=== PATIENT | female | born 1945 | race Caucasian/White ===

== ENCOUNTER → 2018-06-12 09:43 | Outpatient (BNVA) | payer MEDICARE, SELFPAY | PROVIDERS: PCP Internal Medicine; Referring Provider Internal Medicine; Visit Provider Orthopaedic Surgery | DX: M70.62 Trochanteric bursitis, left hip (principal); Z96.643 Presence of artificial hip joint, bilateral | CPT/HCPCS: 99214 ==

== ENCOUNTER 2018-06-12 16:46 | Outpatient (CLI) | payer MEDICARE, SELFPAY ==
--- NOTE | 2018-06-12 09:59 | DI.RAD_ITS ---
SYMPTOMS/DIAGNOSIS: PAIN LEFT HIP AND PELVIS: Two views. Comparison is 04/26/14. Note is made of bilateral total hip replacements. The distal aspects of both femoral prosthetic components are not included on the examination. No lucencies are seen about the orthopedic hardware to suggest loosening or infection. The bones appear intact.
== END 2018-06-12 17:06 ==
PROVIDERS: PCP Internal Medicine; Visit Provider Orthopaedic Surgery
DX: M25.552 Pain in left hip (principal); Z96.643 Presence of artificial hip joint, bilateral; M70.62 Trochanteric bursitis, left hip
CPT/HCPCS: 99214; 73502

== ENCOUNTER 2018-07-23 15:04 | Inpatient (IN) | payer MEDICARE, SELFPAY ==
[2018-07-23 15:18] VITALS: BP 122/64; PULSE 88; RESP 16; TEMP 36.3; O2SAT 97
--- NOTE | 2018-07-23 15:28 | DI.RAD_ITS ---
SYMPTOM/DIAGNOSIS: INFECTION LEFT HIP AND PELVIS: Two views were obtained. There are bilateral hip replacements in position. The components appear well seated. No evidence of acute fracture and no other significant bony abnormality is seen.
--- NOTE | 2018-07-23 15:33 | ED.GENADUL_ITS ---
Discharge Plan Discharge Details Chief Complaint: Orthopedic Reason For Visit: L HIP INFECTION Admit Date/Time: 07/23/18 20:16 Admit Provider: Bandar Corona Attending Provider: Bandar Corona Primary Care Provider: Chano Leon ED Provider: Adri Gandara Discharge Data Discharge Date/Time-TO BE ENTERED AT DEPARTURE: 07/23/18 20:16 Medical Decision Making Patient 73-year-old female presenting today with chief complaint of left hip pain. Was seen by her primary care who was concerned for possible infected left hip. Patient is a 3 years status post BOLA. 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 Her , who is her primary caregiver, reports that she was undergoing a scan at [facility] for evaluation of possible metastasis to lungs. Report at that time they noted incidental finding of excessive fluid buildup in the left hip joint. Patient was then later evaluated by Dr. Bowman who obtain plain films. At that point, he did not feel that the hip was acutely infected, was unable to see a difference in the current x-ray compared to original. reports that over the past few weeks he is noted increased swelling. Is noted erythema recently. Was evaluated by the primary care who found a fluctuant pocket and was able to collect a sample of pus extracted from the left hip. She denies any fevers or chills. She and her report that she has had weight loss, approximately 8 pounds over the past 6 months unintentionally. Reports diminished appetite. Is having pain over the left hip, particularly with mobility. Does not report she was recently begun on tamoxifen. On exam, the left hip is noted to be indurated, erythematous and there is a central fluctuant area with a Band-Aid over it presumably to be where the fluid was collected from. Patient appears fatigued. She is afebrile. Vital signs within normal limits. Will obtain laboratory evaluation including blood cultures. We will repeat x-ray of the left hip. Plan to consult with orthopedics Spoke with Dr. Corona and Dr. Bowman. Dr. Bowman will come to evaluate the patient Labs significant for WBC of >17, neutorphil 15.7. Platelet count 918, this is up from 273. Lactate is 1.9. CRP 19.14. ESR still pending. Consulted with Dr. Saavedra, patient's oncologist regarding the patient's thermal cytosis. He advised that this may be associated with infection may come down with treatment. Also advised the patient has had low iron historically which also may be driving the elevated platelets. Patient has required iron transfusions historically. He did advise running iron panel. Also advised that this is not begin to down trend hematology consult would be appropriate. Also discussed with him that given the patient's history, she is at high risk for clot and advised anticoagulation while in the hospital X-ray patient's left hip was reviewed by radiologist. They note the patient is status post bilateral total hip arthroplasty without evidence of loosening or fracture. Patient was evaluated by Dr. Corona and Dr. Bowman. At this point, as the patient is not having severe pain in the hip, is able to have the leg manipulated with only minimal discomfort, they feel that this is likely superficial. Patient does have a large area of fluctuance and erythema over the left lateral incision. They feel that hospitalization for IV antibiotics, incision and drainage is appropriate. Advised placing the patient on vancomycin and Zosyn. Plan to take patient to operating room tomorrow for washout. There was debate about removal of hardware. However, the patient's primary care advised that they would prefer debridement/drainage and chronic supportive antibiotics rather than removal of hardware secondary to patient's decline and metastatic endometrial cancer. I did relay this information to the orthopedic surgeons. Given the patient's multiple medical comorbidities, they have asked that I consult with hospitalist for admission with them as consulting group Consulted with Dr. Anderson who feels that hospitalist service should be consulting with orthpedic group admiting, will contact orthopedics again. Consulted again with Dr. Corona who agrees to admission, he will place admission orders and ask for hospitalist consult HPI General Mode of arrival: ambulatory . Date/Time Provider Initiated Documentation: 07/23/18 15:16 . Limitations to Documentation: no limitations . Information obtained by: patient and family . History of Present Illness 73 year old F presents to the emergency department with the chief complaint of left hip pain, described as moderate (reports no pain at rest, moderate pain with movement and palpation over the left lateral hip), Quality is described as aching, and is localized to the left and lower extremity. Patient reports no radiation. Patient started experiencing this week(s) (1) and it has been other (increasing). Immobilization improves symptom(s), Movement worsens symptoms . Patient notes rash (erythema over the left lateral hip) and shortness of breath (reports chronic SOB associated with metastesis); denies chest pain, cough, fever/chills, headaches and nausea/vomiting. Patient did receive the following treatments prior to arrival, none Related Data Home Medications Medication Instructions Recorded Confirmed aspirin [Aspir 81] 81 mg PO DAILY 07/22/13 07/23/18 furosemide 20 mg PO DAILY 07/22/13 07/23/18 melatonin-pyridoxine (vit B6) 3 mg PO HS 07/22/13 07/23/18 multivitamin 1 cap PO DAILY 07/22/13 07/23/18 nifedipine 90 mg PO HS 07/22/13 07/23/18 sitagliptin [Januvia] 100 mg PO DAILY 07/22/13 07/23/18 duloxetine [Cymbalta] 60 mg PO DAILY 04/19/14 07/23/18 levothyroxine 150 mcg PO DAILY 04/19/14 07/23/18 donepezil [Aricept] 5 mg PO DAILY tab-cap 05/12/15 07/23/18 acetaminophen [Tylenol Extra 1,000 mg PO BID 06/12/17 07/23/18 Strength] diphenhydramine HCl [Allergy] 25 mg PO DAILY 06/12/17 07/23/18 insulin detemir U-100 [Levemir 42 DAILY 06/12/17 Flextouch] magnesium oxide 400 mg PO DAILY 06/12/17 07/23/18 memantine [Namenda] 10 mg PO BID 06/12/17 07/23/18 sennosides-docusate sodium 1 ea PO BID 06/12/17 07/23/18 [Senna-Docusate Sodium Tablet] atorvastatin 40 mg tablet 40 mg PO DAILY 06/12/18 07/23/18 nifedipine 90 mg PO DAILY 07/23/18 07/23/18 sitagliptin [Januvia] 100 mg PO DAILY 07/23/18 07/23/18 tamoxifen 40 mg PO DAILY 07/23/18 07/23/18 Allergies Allergy/AdvReac Type Severity Reaction Status Date / Time metformin Allergy Unknown Verified 07/23/18 15:21 sulfamethoxazole Allergy Unknown Verified 07/23/18 15:21 [From Bactrim] trimethoprim [From Bactrim] Allergy Unknown Verified 07/23/18 15:21 General Stated Complaint: Orthopedic ALEKS: 3 Review of Systems Constitutional Reports as per HPI, Denies chills, Reports fatigue ( reports this has been chronic), Denies fever(s), Denies headache(s), Reports poor appetite, Reports weakness and Reports weight loss Eyes Denies change in vision ENT Denies headache(s) Cardiovascular Denies chest pain, Denies pedal edema, Denies leg edema and Reports dyspnea ( Chronic, associated with metastasis to the lung) Respiratory Reports as per HPI, Denies chest congestion, Denies cough and Reports dyspnea ( Chronic, associated with metastasis to the lung) Gastrointestinal Reports as per HPI, Denies abdominal pain, Denies change in stool character, Denies nausea and Denies vomiting Musculoskeletal Reports as per HPI, Denies abnormal gait, Reports joint swelling (Left hip), Denies limited range of motion, Denies muscle cramps, Denies numbness and Denies radiating pain into limb Integumentary/Breasts Reports as per HPI and Reports erythema (Erythema and fluctuance over the left hip) Neurologic Denies abnormal gait, Denies headache(s), Denies numbness and Reports weakness Endocrine Reports fatigue ( reports this has been chronic) PFSH Medical History Iron deficiency anemia (Chronic) Osteoarthritis of both hips (Chronic) 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, insulin dependent (Chronic) Hypertension (Chronic) Depression (Chronic) Hypercholesterolemia (Chronic) Asthma (Chronic) Osteopenia (Chronic) Mitral regurgitation (Chronic) Right groin pain (Acute) History of osteosarcoma (Chronic) History of myocardial infarction (Chronic) Elevated lipids (Chronic) GI bleed (Resolved) Social History Smoking/Tobacco Use Status: Never Surgical History History of Surgical Procedure (Chronic) Exam Const General: cooperative, comfortable, no acute distress, well developed, well groomed and ill appearing chronically Nutritional Appearance: average body habitus and well nourished Orientation: alert and awake Eyes Conjunctivae: conjunctival abnormality bilaterally pallor Resp Effort & Inspection: normal respiratory effort, able to speak in complete sentences and no respiratory distress Auscultation: clear to auscultation bilaterally Cardio Rate: regular rate Rhythm: regular rhythm Heart Sounds: murmur systolic GI Inspection: normal to inspection Palpation: soft, no hepatosplenomegaly, not firm, no guarding and nontender Auscultation: normal bowel sounds Skin General skin exam: erythema and induration (surrounding the central area of fluctuance, the skin is indurated) Neuro General: alert and awake Cognition: normal cognition Speech: speech normal Gait: normal gait Extrem General: abnormal to inspection (erythema and fluctuance as above), full ROM, no pedal edema and no calf tenderness Psych Appearance: grossly normal and well kempt Mental Status: mental status grossly normal Speech and Movement: speech and movement normal Course Vital Signs Temperature 36.3 C L 07/23/18 15:18 Pulse 88 07/23/18 15:18 Respiratory Rate 16 07/23/18 15:18 Blood Pressure 122/64 07/23/18 15:18 Pulse Oximetry 97 07/23/18 15:18 Temperature 36.3 C L 07/23/18 15:18 Temperature Source Skin 07/23/18 15:18 Pulse 88 07/23/18 15:18 Respiratory Rate 16 07/23/18 15:18 Blood Pressure 122/64 07/23/18 15:18 Pulse Oximetry 97 07/23/18 15:18 Oxygen Delivery Method Room Air 07/23/18 15:18 Oxygen Flow Rate 0 07/23/18 15:18 Lab/Test Results Lab/Test Results: 07/23/18 15:26 Blood Blood Culture - Pending 07/23/18 15:26 Blood Blood Culture - Pending
[2018-07-23 15:45] LABS: Abs Immature Grans 0.06 k/cumm (0.0-0.09); Absolute Basophil Count 0.02 k/cumm (0.0-0.2); Absolute Eosinophil Count 0.12 k/cumm (0.0-0.7); Basophils % 0.1; Eosinophils % 0.7; HCT 29.9 % (36.0-46.0); HGB 8.4 g/dL (12.0-15.5); Mean Corp. HGB Concentration 28.1 g/dL (32.0-36.0); Mean Corpuscular Hemoglobin 20.3 pg (27.0-33.0); Mean Corpuscular Volume 72.2 fL (80-95); Mean Platelet Volume 8.5 fL (8.0-11.0); RBC 4.14 m/cumm (4.00-5.20); RBC Distribution Width 22.2 % (11.7-14.6); White Blood Cell Count 17.16 k/cumm (4.4-10.8)
[2018-07-23 15:47] LABS: Lactate-non-spesis 1.9 mmol/L (0.6-1.4)
[2018-07-23 16:00] LABS: Platelet Count 918 x1000/uL (130-400)
[2018-07-23] MEDS: Normal Saline 1,000 ML 1000 ML IV (16:00)
[2018-07-23 16:04] LABS: ALT 16 U/L (12-78); AST 17 U/L (15-37); Albumin 1.7 g/dL (3.4-5.0); Alkaline Phosphatase 193 U/L (46-116); Anion Gap 8.6 mmol/L (3-11); BUN 26 mg/dL (7-18); Bilirubin, Total 0.3 mg/dL (0.2-1.0); CO2 26.4 mmol/L (21.0-32.0); CREATININE 1.05 mg/dL (0.55-1.02); Calcium 9.8 mg/dL (8.5-10.1); Chloride 100 mmol/L (98-107); Estimated GFR 51.09 (mL/min/1.73m2); Glucose 243 mg/dL (70-100); Magnesium 2.1 mg/dL (1.8-2.4); Potassium 5.1 mmol/L (3.5-5.1); Sodium 135 mmol/L (136-145); Total Protein 6.2 g/dL (6.4-8.2); Troponin I < 0.02 ng/mL (0.00-0.06)
[2018-07-23 16:15] LABS: Absolute Lymphocyte Count 0.69 k/cumm (1.2-3.4); Absolute Monocyte Count 0.51 k/cumm (0.11-0.7); Absolute Neutrophil Count 15.79 k/cumm (1.2-6.7)
[2018-07-23 16:16] LABS: Anisocytosis 1+; Diff Comment Manual Differential; Hypochromasia 2+; Microcytosis 1+
[2018-07-23 16:17] LABS: C-Reactive Protein 19.14 mg/dL (0.0-0.3); Ovalocytes 2+; Polychromasia Present; Spherocytes 1+
[2018-07-23 16:18] LABS: Poikilocytes 2+
[2018-07-23 16:28] LABS: Bilirubin Negative (Negative); Blood Negative (Negative); Clarity Clear; Glucose Negative (Negative); Ketones Trace mg/dL (Negative); Leukocyte Esterase Trace (Negative); Nitrite Negative (Negative); Urobilinogen 0.2 EU/dL (Up TO 0.2); pH 5.5 (5-8)
[2018-07-23 16:43] LABS: Bacteria Negative HPF (Negative); Crystals Moderate Amorphous HPF (Negative); Epithelial Cells Few HPF (Negative); WBC 20-50 HPF (0-5)
[2018-07-23 16:44] LABS: C & S Indicated? Yes; Casts 20-50 Hyaline LPF (Negative); Mucus Negative (Negative)
--- NOTE | 2018-07-23 17:24 | DI.VRAD_ITS ---
EXAM: XR Left Hip with Pelvis when Performed, 2 or 3 Views EXAM DATE/TIME: 07/23/2018 3:30 PM CLINICAL HISTORY: 73 years old, female; Pain; Hip pain; Left hip; Prior surgery TECHNIQUE: XR Left hip with pelvis when performed, 2 or 3 views COMPARISON: CR XR hip LT complete AP pelvis 06/12/2018 10:17 AM FINDINGS: Bones/joints: Diffuse osteopenia. Status post bilateral total arthroplasty. Degenerative changes of the spine and bilateral sacroiliac joints. No hardware loosening or fracture. Soft tissues: Normal. IMPRESSION: Status post bilateral total hip arthroplasty without evidence for loosening or fracture. Dictated and Authenticated by: Vincent Deras MD. Ordering:NIKITA LEON MD
[2018-07-23 17:29] LABS: ESR 55 MM/HR (0-30)
[2018-07-23 17:47] LABS: Iron 9 ug/dL (50-175); Total Iron Binding Capacity 102 ug/dL (250-450); Transferrin Sat 9 % (15-50)
[2018-07-23] MEDS: PIPERACILLIN/TAZO 3.375 GM in Normal Saline 50 ML IVPB (17:52)
[2018-07-23 18:08] LABS: Ferritin 541 ng/mL (8-388)
[2018-07-23] MEDS: VANCOMYCIN 1,000 MG in Normal Saline 250 ML 166.6666 MG IVPB (18:30)
--- NOTE | 2018-07-23 18:44 | W.ORTHOCONSU ---
Date of service: 07/23/18 Time of Service: 16:45 History of Present Illness Chief Complaint: Left Hip Pain Narrative: Dina is a 73-year-old who has multiple medical problems. She is currently dealing with metastatic endometrial cancer. She underwent a hip replacement about 3 or so years ago on the left side. This is been doing well until about a month and a half or so ago. She started developing some increasing discomfort. The pain was quite vague. She is still able to ambulate. She is ambulating without an assistive device. The initial surgery was done by Dr. Bowman. He saw her in May and at that time was going to follow it. Unfortunately, this pain has increased. She has also been having general decline to her health. She denies any specific fever or chills but she has been feeling unwell. She does note increasing fullness to the proximal left thigh. She saw Dr. Leon today who evaluated her with concern for an abscess/infection. He aspirated thickened pus from the proximal thigh which has been sent to the lab. She is able to ambulate but does so with some lateral thigh/hip pain. She denies any trauma. She denies any groin pain. She has no numbness or tingling. Assessment and Plan (1) Abscess of left hip: Current visit: Yes Status: Acute Dina is a 73-year-old with multiple medical issues including metastatic endometrial carcinoma, insulin dependent diabetes, hypertension. She also has some worsening dementia. Unfortunately, she appears to have a superficial infection of the left thigh/hip. This is large fluctuance in this area and Dr. Christianson already is able to withdraw purulent fluid in this area which is currently in the lab for processing. Her examination is quite benign and does not seem to indicate an infected hip. However, her labs are remarkable for significant inflammation. Due to the metal multiple medical issues, active cancer diagnosis, history of heart disease, and lab abnormalities, I have asked for hospitalist consult. I appreciate their input. As for the abscess, we will proceed to the operating room tomorrow. She will be n.p.o. after midnight. We will start antibiotics given we are to have initial cultures. 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 There is warm, erythema, and fluctuance to the left proximal hip. There is pain to palpation. The leg is not held in any particular flex or externally rotated position. I am able to passively flex the hip, internally and externally rotate the hip. This causes only minor discomfort laterally. No groin pain. She allows me to move it without significant injection. She endorses full sensation distally with some decrease sensation at the level of the feet. The foot is warm well perfused. No masses are palpated in the groin. Results Last Vital Signs Temp 36.3 C L 07/23/18 15:18 Pulse 88 07/23/18 15:18 Resp 16 07/23/18 15:18 BP 122/64 07/23/18 15:18 Pulse Ox 97 07/23/18 15:18 Labs : 07/23/18 15:35 07/23/18 15:35 Laboratory Results - last 24 hr 07/23/18 07/23/18 07/23/18 15:30 15:30 15:35 WBC RBC Hgb Hct MCV MCH MCHC RDW Plt Count MPV Immature Gran % Neutrophils % Lymphocytes % Monocytes % Eosinophils % Basophils % Absolute Neutrophils Band Neutrophils Absolute Lymphocytes Absolute Monocytes Absolute Eosinophils Absolute Basophils Myelocytes Differential Comment RBC Morphology Polychromasia Hypochromasia Poikilocytosis Anisocytosis Microcytosis Spherocytes Ovalocytes ESR Sodium Potassium Chloride Carbon Dioxide Anion Gap BUN Creatinine Estimated GFR/1.73 m2 Glucose Lactate 1.9 H Calcium Magnesium Iron 9 L TIBC 102 L Transferrin % Sat 9 L Ferritin 541 H Total Bilirubin AST ALT Alkaline Phosphatase Troponin I C-Reactive Protein Total Protein Albumin Urine Color Urine Clarity Urine pH Ur Specific [place] Urine Protein Urine Ketones Urine Blood Urine Nitrite Urine Bilirubin Urine Urobilinogen Ur Leukocyte Esterase Urine RBC Urine WBC Ur Epithelial Cells Urine Crystals Urine Bacteria Urine Casts Urine Mucus Ur Culture Indicated? Urine Glucose 07/23/18 07/23/18 07/23/18 15:35 15:35 15:35 WBC 17.16 H RBC 4.14 Hgb 8.4 L Hct 29.9 L MCV 72.2 L MCH 20.3 L MCHC 28.1 L RDW 22.2 H Plt Count 918 H* MPV 8.5 Immature Gran % See Differential Neutrophils % 90.0 Lymphocytes % 4.0 Monocytes % 3.0 Eosinophils % 0.7 Basophils % 0.1 Absolute Neutrophils 15.79 H Band Neutrophils 2.0 Absolute Lymphocytes 0.69 L Absolute Monocytes 0.51 Absolute Eosinophils 0.12 Absolute Basophils 0.02 Myelocytes 1.0 Differential Comment Manual differential RBC Morphology See below Polychromasia Present Hypochromasia 2+ Poikilocytosis 2+ Anisocytosis 1+ Microcytosis 1+ Spherocytes 1+ Ovalocytes 2+ ESR Sodium 135 L Potassium 5.1 Chloride 100 Carbon Dioxide 26.4 Anion Gap 8.6 BUN 26 H Creatinine 1.05 H Estimated GFR/1.73 m2 51.09 Glucose 243 H Lactate Calcium 9.8 Magnesium 2.1 Iron TIBC Transferrin % Sat Ferritin Total Bilirubin 0.3 AST 17 ALT 16 Alkaline Phosphatase 193 H Troponin I < 0.02 C-Reactive Protein 19.14 H Total Protein 6.2 L Albumin 1.7 L Urine Color Urine Clarity Urine pH Ur Specific [place] Urine Protein Urine Ketones Urine Blood Urine Nitrite Urine Bilirubin Urine Urobilinogen Ur Leukocyte Esterase Urine RBC Urine WBC Ur Epithelial Cells Urine Crystals Urine Bacteria Urine Casts Urine Mucus Ur Culture Indicated? Urine Glucose 07/23/18 07/23/18 15:35 16:20 WBC RBC Hgb Hct MCV MCH MCHC RDW Plt Count MPV Immature Gran % Neutrophils % Lymphocytes % Monocytes % Eosinophils % Basophils % Absolute Neutrophils Band Neutrophils Absolute Lymphocytes Absolute Monocytes Absolute Eosinophils Absolute Basophils Myelocytes Differential Comment RBC Morphology Polychromasia Hypochromasia Poikilocytosis Anisocytosis Microcytosis Spherocytes Ovalocytes ESR 55 H Sodium Potassium Chloride Carbon Dioxide Anion Gap BUN Creatinine Estimated GFR/1.73 m2 Glucose Lactate Calcium Magnesium Iron TIBC Transferrin % Sat Ferritin Total Bilirubin AST ALT Alkaline Phosphatase Troponin I C-Reactive Protein Total Protein Albumin Urine Color Yellow Urine Clarity Clear Urine pH 5.5 Ur Specific [place] 1.020 Urine Protein Negative Urine Ketones Trace H Urine Blood Negative Urine Nitrite Negative Urine Bilirubin Negative Urine Urobilinogen 0.2 Ur Leukocyte Esterase Trace H Urine RBC 5-10 H Urine WBC 20-50 Ur Epithelial Cells Few Urine Crystals Moderate amorphous Urine Bacteria Negative Urine Casts 20-50 hyaline Urine Mucus Negative Ur Culture Indicated? Yes Urine Glucose Negative
[2018-07-23 19:02] VITALS: BP 119/45; PULSE 87; RESP 16; TEMP 36.3; O2SAT 99
[2018-07-23] MEDS: Acetaminophen 325 MG TAB 650 MG PO (19:25)
[2018-07-23 20:29] VITALS: BP 115/69; PULSE 80; RESP 17; TEMP 37.3; O2SAT 96
[2018-07-23 20:37] VITALS: BP 119/45; PULSE 87; RESP 16; O2SAT 99
--- NOTE | 2018-07-23 21:14 | W.MEDCONSULT ---
Date of service: 07/23/18 Time of Service: 21:14 Assessment and Plan (1) Abscess of left hip: Current visit: Yes Status: Acute Continue broad-spectrum parenteral antibiotics including vancomycin and Zosyn pending the results of incision and drainage and culture results.If the patient has evidence of prosthetic joint infection she will need not only washout but will need 6 weeks of parenteral antibiotics and a lifetime of prophylactic antibiotics (2) Diabetes mellitus type 2, insulin dependent: Current visit: No Status: Chronic Monitor blood sugars before meals and at bedtime and cover with moderate dose NovoLog sliding scale. (3) Hypertension: Current visit: No Status: Chronic Continue current home medications including nifedipine (4) Iron deficiency anemia: Current visit: No Status: Chronic Monitor hemogram closely and transfuse if any significant drop in her hemoglobin. Continue PPI for GI protection. Because of her metastatic cancer and her immobility from her left hip/bursitis abscess she will require DVT prophylaxis, however, in light of her need to go to surgery in the a.m. I have not put her on enoxaparin but will give her SCD and RIC hose until she is post-op. (5) History of ischemic bowel disease: Current visit: No Status: Inactive Although the patient has an iron deficiency anemia she showed no evidence of acute GI bleeding nor does she have any acute abdominal complaints. Nevertheless I would cover with proton pump inhibitor for GI protection (6) Anemia of chronic disease: Current visit: Yes Status: Acute History of Present Illness Chief Complaint: left hip pain Narrative: 73-year-old female presenting to the emergency room with complaints of left hip pain and swelling. She has a history of endometrial carcinoma with lung metastasis as well being status post total hip arthroplasty. Patient has complaint of induration and pain over the left hip for the last few weeks. She has been followed by her oncologist Dr. Saavedra who had some surveillance CT scans performed regarding her metastatic endometrial carcinoma which showed incidental finding of a collection of fluid around the left hip joint. She subsequently was evaluated by Dr. Bowman who obtained plain films and did not find any acute changes within the left hip compared to her previous x-rays of her left total hip arthroplasty. Patient was seen earlier today by her primary care provider Dr. Christianson who aspirated some purulent material from the soft tissues overlying her left hip. Patient was then referred to the emergency room for evaluation of possible left hip infection versus infected bursitis. Workup in the emergency room included x-rays of the left hip and pelvis which showed diffuse osteopenia and status post bilateral total hip arthroplasty with no hardware loosening or fracture. Reportedly soft tissues were read as normal. Laboratory workup was remarkable for a leukocytosis of 17,000 and an anemia with hemoglobin 8.4 g and hematocrit 29% as well as a thrombocytosis of 918,000. Patient is now being admitted for parenteral antibiotics as well as plans for further incision and drainage of the soft tissues of the left hip. Patient was seen in the emergency room by Dr. Corona who plans to take the patient to surgery tomorrow morning. He indicated that he may need to do a washout of the left hip arthroplasty. Because of the patient's comorbidities and poor prognosis from her metastatic endometrial cancer she is not an appropriate candidate for removal and replacement of the left hip. Treatment in the emergency room has included IV Zosyn and IV vancomycin. Consults Consult date: 07/23/18 Requesting physician: Bandar Corona Review of Systems Constitutional Reports poor appetite, Reports weakness and Reports weight loss Cardiovascular Reports system reviewed and no additional complaints, except as docu and Reports dyspnea on exertion (Chronic due to lung metastasis from her endometrial cancer) Respiratory Reports dyspnea on exertion (Chronic due to lung metastasis from her endometrial cancer) Gastrointestinal Reports early satiety Musculoskeletal Reports as per HPI Neurologic Reports system reviewed and no additional complaints, except as docu and Reports weakness Hematologic/Lymphatic Reports system reviewed and no additional complaints, except as docu Allergic/Immunologic Reports system reviewed and no additional complaints, except as docu PFSH Medical History Iron deficiency anemia (Chronic) Osteoarthritis of both hips (Chronic) 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, insulin dependent (Chronic) Hypertension (Chronic) Depression (Chronic) Hypercholesterolemia (Chronic) Asthma (Chronic) Osteopenia (Chronic) Mitral regurgitation (Chronic) Right groin pain (Acute) History of osteosarcoma (Chronic) History of myocardial infarction (Chronic) Elevated lipids (Chronic) GI bleed (Resolved) Social History Smoking/Tobacco Use Status: Never Surgical History History of Surgical Procedure (Chronic) Exam Const General: cooperative and anxious Nutritional Appearance: average body habitus Orientation: alert, awake, oriented to person and not oriented to place Limitations: altered mental status Other: She had to be reminded a couple of times that she is in [facility] [place] [facility] Head: normal to inspection Neck Neck: normal visual inspection, full ROM, no lymphadenopathy, trachea midline, supple and no JVD Thyroid: thyroid normal Carotids: normal carotid upstroke Lymphatic: no lymphadenopathy noted Resp Effort & Inspection: normal respiratory effort and able to speak in complete sentences Auscultation: clear to auscultation bilaterally Cardio Jugular venous pressure: no JVD Palpation: normal PMI Rate: regular rate Rhythm: regular rhythm Heart Sounds: S1 normal, S2 normal and murmur systolic early, II/ and at the base Bruits: no abdominal aortic bruits and no carotid bruits Pulses: normal peripheral pulses GI Inspection: normal to inspection Palpation: soft Percussion: normal to percussion Auscultation: normal bowel sounds Neuro General: alert, awake, oriented Patient Orientation: Person, moves all extremities, no focal motor deficits and other (Normal sensation to light touch over both upper and lower extremities) Cognition: abnormal cognition Speech: speech normal Motor: muscle tone normal throughout and strength 5/5 throughout Sensory Exam: no sensory deficits noted Extrem General: normal capillary refill Left lower extremity: edema Details: non-pitting and hip/thigh Details: abnormal to inspection (Visual induration and erythema over left femoral bursa), tenderness, swelling Location: of the hip (Over left femoral bursa), abnormal ROM Details: pain with active ROM Details: with internal rotation and with external rotation and warmth Upper/lower leg/hip images: 1. Area of induration and increased warmth Psych Appearance: grossly normal Speech and Movement: speech and movement normal Mood: congruent mood Attitude: cooperative Thought Process: circumstantial Thought Content: ideas of reference Insight: poor Judgment: poor Results Last Vital Signs Temp 37.3 C 07/23/18 20:29 Pulse 87 07/23/18 20:37 Resp 16 07/23/18 20:37 BP 119/45 L 07/23/18 20:37 Pulse Ox 99 07/23/18 20:37 Labs : 07/24/18 15:54 07/23/18 15:35 Laboratory Results - last 24 hr 07/23/18 07/23/18 07/23/18 15:30 15:30 15:35 WBC RBC Hgb Hct MCV MCH MCHC RDW Plt Count MPV Immature Gran % Neutrophils % Lymphocytes % Monocytes % Eosinophils % Basophils % Absolute Neutrophils Band Neutrophils Absolute Lymphocytes Absolute Monocytes Absolute Eosinophils Absolute Basophils Myelocytes Differential Comment RBC Morphology Polychromasia Hypochromasia Poikilocytosis Anisocytosis Microcytosis Spherocytes Ovalocytes ESR Sodium Potassium Chloride Carbon Dioxide Anion Gap BUN Creatinine Estimated GFR/1.73 m2 Glucose Lactate 1.9 H Calcium Magnesium Iron 9 L TIBC 102 L Transferrin % Sat 9 L Ferritin 541 H Total Bilirubin AST ALT Alkaline Phosphatase Troponin I C-Reactive Protein Total Protein Albumin Urine Color Urine Clarity Urine pH Ur Specific [place] Urine Protein Urine Ketones Urine Blood Urine Nitrite Urine Bilirubin Urine Urobilinogen Ur Leukocyte Esterase Urine RBC Urine WBC Ur Epithelial Cells Urine Crystals Urine Bacteria Urine Casts Urine Mucus Ur Culture Indicated? Urine Glucose 07/23/18 07/23/18 07/23/18 15:35 15:35 15:35 WBC 17.16 H RBC 4.14 Hgb 8.4 L Hct 29.9 L MCV 72.2 L MCH 20.3 L MCHC 28.1 L RDW 22.2 H Plt Count 918 H* MPV 8.5 Immature Gran % See Differential Neutrophils % 90.0 Lymphocytes % 4.0 Monocytes % 3.0 Eosinophils % 0.7 Basophils % 0.1 Absolute Neutrophils 15.79 H Band Neutrophils 2.0 Absolute Lymphocytes 0.69 L Absolute Monocytes 0.51 Absolute Eosinophils 0.12 Absolute Basophils 0.02 Myelocytes 1.0 Differential Comment Manual differential RBC Morphology See below Polychromasia Present Hypochromasia 2+ Poikilocytosis 2+ Anisocytosis 1+ Microcytosis 1+ Spherocytes 1+ Ovalocytes 2+ ESR Sodium 135 L Potassium 5.1 Chloride 100 Carbon Dioxide 26.4 Anion Gap 8.6 BUN 26 H Creatinine 1.05 H Estimated GFR/1.73 m2 51.09 Glucose 243 H Lactate Calcium 9.8 Magnesium 2.1 Iron TIBC Transferrin % Sat Ferritin Total Bilirubin 0.3 AST 17 ALT 16 Alkaline Phosphatase 193 H Troponin I < 0.02 C-Reactive Protein 19.14 H Total Protein 6.2 L Albumin 1.7 L Urine Color Urine Clarity Urine pH Ur Specific [place] Urine Protein Urine Ketones Urine Blood Urine Nitrite Urine Bilirubin Urine Urobilinogen Ur Leukocyte Esterase Urine RBC Urine WBC Ur Epithelial Cells Urine Crystals Urine Bacteria Urine Casts Urine Mucus Ur Culture Indicated? Urine Glucose 07/23/18 07/23/18 15:35 16:20 WBC RBC Hgb Hct MCV MCH MCHC RDW Plt Count MPV Immature Gran % Neutrophils % Lymphocytes % Monocytes % Eosinophils % Basophils % Absolute Neutrophils Band Neutrophils Absolute Lymphocytes Absolute Monocytes Absolute Eosinophils Absolute Basophils Myelocytes Differential Comment RBC Morphology Polychromasia Hypochromasia Poikilocytosis Anisocytosis Microcytosis Spherocytes Ovalocytes ESR 55 H Sodium Potassium Chloride Carbon Dioxide Anion Gap BUN Creatinine Estimated GFR/1.73 m2 Glucose Lactate Calcium Magnesium Iron TIBC Transferrin % Sat Ferritin Total Bilirubin AST ALT Alkaline Phosphatase Troponin I C-Reactive Protein Total Protein Albumin Urine Color Yellow Urine Clarity Clear Urine pH 5.5 Ur Specific [place] 1.020 Urine Protein Negative Urine Ketones Trace H Urine Blood Negative Urine Nitrite Negative Urine Bilirubin Negative Urine Urobilinogen 0.2 Ur Leukocyte Esterase Trace H Urine RBC 5-10 H Urine WBC 20-50 Ur Epithelial Cells Few Urine Crystals Moderate amorphous Urine Bacteria Negative Urine Casts 20-50 hyaline Urine Mucus Negative Ur Culture Indicated? Yes Urine Glucose Negative Imaging Additional studies: FINDINGS: Bones/joints: Diffuse osteopenia. Status post bilateral total arthroplasty. Degenerative changes of the spine and bilateral sacroiliac joints. No hardware loosening or fracture. Soft tissues: Normal. IMPRESSION: Status post bilateral total hip arthroplasty without evidence for loosening or fracture. Dictated and Authenticated by: Vincent Deras MD.
[2018-07-23] MEDS: NIFEdipine-CR 30 MG TABCR 90 MG PO (21:34)
[2018-07-23] MEDS: Memantine 5 MG TAB 10 MG PO (21:34)
[2018-07-23] MEDS: Ferrous Sulfate 325 MG TAB PO (21:35)
[2018-07-23] MEDS: Normal Saline 1,000 ML 75 ML IV (21:35)
[2018-07-23] MEDS: Sennosides/Docusate Sodium TAB 1 TAB PO (21:35)
[2018-07-24] VITALS (25 sets, daily range): BP systolic 74–132; BP diastolic 44–67; PULSE 73–101; RESP 14–24; TEMP 36.2–37.2; O2SAT 6–100
[2018-07-24] MEDS: Pantoprazole 40 MG VIAL IVP ×2 (00:25→21:07)
[2018-07-24] MEDS: PIPERACILLIN/TAZO 3.375 GM in Normal Saline 50 ML IVPB ×5 (00:25→23:45)
[2018-07-24] MEDS: Levothyroxine 75 MCG TAB 150 MCG PO (06:23)
--- NOTE | 2018-07-24 07:39 | PGE_ITS ---
Assessment and Plan (1) Abscess of left hip: Current visit: Yes Status: Acute Dina is a 73-year-old who has what appear to be an abscess of the left hip. It appears to be superficial based on her clinical exam. However, I am concerned it does go deep. Nevertheless, she is not a very healthy lady and has had a steady health decline with her multiple medical issues. Given the wishes of her, her , and her primary care doctor, we will perform an irrigation debridement but also minimize it to just that. There will be no anticipation of removal of hardware at this time. I will plan to place a drain which will stay for 2 days. We will continue the broad-spectrum antibiotics and await culture results. I appreciate hospitalist consult she is a difficult medical patient with thrombocytosis, chronic anemia, hypertension, insulin- dependent diabetes, metastatic endometrial cancer, advancing dementia. DVT prophylaxis will start this evening with Lovenox. She is to stay n.p.o. for surgery this morning. Subjective Interval history since last seen: Dina had a difficult night last night. She had some owning with some confusion. She did not rest very well. She does report some generalized discomfort of the left lower extremity but no specific increase in pain. No groin pain. She points to the area of the lateral left hip as the point of primary discomfort. She denies any current chest pain or fever or chills. Exam Narrative Exam Narrative: The majority of the exam was deferred. The left thigh still shows significant fluctuance, erythema, warmth, and pain to palpation. This is central around the incision of the left hip. Gentle internal and external rotation of the hip does not seem to increase pain. Objective Objective Clinical Data: Abnormal lab results 07/23/18 07/23/18 07/23/18 Range/Units 15:30 15:30 15:35 WBC (4.4-10.8) k/cumm Hgb (12.0-15.5) g/dL Hct (36.0-46.0) % MCV (80-95) fL MCH (27.0-33.0) pg MCHC (32.0-36.0) g/dL RDW (11.7-14.6) % Plt Count (130-400) x1000/uL Absolute Neutrophils (1.2-6.7) k/cumm Absolute Lymphocytes (1.2-3.4) k/cumm ESR (0-30) MM/HR Sodium (136-145) mmol/L BUN (7-18) mg/dL Creatinine (0.55-1.02) mg/dL Glucose (70-100) mg/dL Lactate 1.9 H (0.6-1.4) mmol/L Iron 9 L (50-175) ug/dL TIBC 102 L (250-450) ug/dL Transferrin % Sat 9 L (15-50) % Ferritin 541 H (8-388) ng/mL Alkaline Phosphatase (46-116) U/L C-Reactive Protein (0.0-0.3) mg/dL Total Protein (6.4-8.2) g/dL Albumin (3.4-5.0) g/dL Urine Ketones (Negative) mg/dL Ur Leukocyte Esterase (Negative) Urine RBC (0-2) 07/23/18 07/23/18 07/23/18 Range/Units 15:35 15:35 15:35 WBC 17.16 H (4.4-10.8) k/cumm Hgb 8.4 L (12.0-15.5) g/dL Hct 29.9 L (36.0-46.0) % MCV 72.2 L (80-95) fL MCH 20.3 L (27.0-33.0) pg MCHC 28.1 L (32.0-36.0) g/dL RDW 22.2 H (11.7-14.6) % Plt Count 918 H* (130-400) x1000/uL Absolute Neutrophils 15.79 H (1.2-6.7) k/cumm Absolute Lymphocytes 0.69 L (1.2-3.4) k/cumm ESR (0-30) MM/HR Sodium 135 L (136-145) mmol/L BUN 26 H (7-18) mg/dL Creatinine 1.05 H (0.55-1.02) mg/dL Glucose 243 H (70-100) mg/dL Lactate (0.6-1.4) mmol/L Iron (50-175) ug/dL TIBC (250-450) ug/dL Transferrin % Sat (15-50) % Ferritin (8-388) ng/mL Alkaline Phosphatase 193 H (46-116) U/L C-Reactive Protein 19.14 H (0.0-0.3) mg/dL Total Protein 6.2 L (6.4-8.2) g/dL Albumin 1.7 L (3.4-5.0) g/dL Urine Ketones (Negative) mg/dL Ur Leukocyte Esterase (Negative) Urine RBC (0-2) 07/23/18 07/23/18 Range/Units 15:35 16:20 WBC (4.4-10.8) k/cumm Hgb (12.0-15.5) g/dL Hct (36.0-46.0) % MCV (80-95) fL MCH (27.0-33.0) pg MCHC (32.0-36.0) g/dL RDW (11.7-14.6) % Plt Count (130-400) x1000/uL Absolute Neutrophils (1.2-6.7) k/cumm Absolute Lymphocytes (1.2-3.4) k/cumm ESR 55 H (0-30) MM/HR Sodium (136-145) mmol/L BUN (7-18) mg/dL Creatinine (0.55-1.02) mg/dL Glucose (70-100) mg/dL Lactate (0.6-1.4) mmol/L Iron (50-175) ug/dL TIBC (250-450) ug/dL Transferrin % Sat (15-50) % Ferritin (8-388) ng/mL Alkaline Phosphatase (46-116) U/L C-Reactive Protein (0.0-0.3) mg/dL Total Protein (6.4-8.2) g/dL Albumin (3.4-5.0) g/dL Urine Ketones Trace H (Negative) mg/dL Ur Leukocyte Esterase Trace H (Negative) Urine RBC 5-10 H (0-2) Vital Signs Temperature 37.2 C 07/24/18 07:03 Temperature Source Tympanic 07/24/18 07:03 Pulse 85 07/24/18 07:03 Pulse Rhythm Regular 07/23/18 20:29 Respiratory Rate 17 07/24/18 07:03 Respiratory Effort Non-Labored 07/23/18 20:29 Respiratory Depth Normal 07/23/18 20:29 Respiratory Pattern Normal 07/23/18 20:29 Blood Pressure 109/60 07/24/18 07:03 Pulse Oximetry 96 07/24/18 07:03 Oxygen Delivery Method Room Air 07/24/18 07:03 Oxygen Flow Rate 0 07/24/18 07:03 Pain Level 0 07/24/18 07:03 Comment 07/23/18 20:29 Intake & Output 07/23/18 07/23/18 07/24/18 11:59 23:59 11:59 Intake Total 1050 / 1050 100 / 100 Balance 1050 / 1050 100 / 100 Weight 63.503 kg Intake: IV 1050 / 1050 100 / 100 Other: Stool Size Moderate Stool Characteristics Soft Formed Black Voiding Methods Diaper Incontinent Laboratory Results WBC 17.16 k/cumm (4.4-10.8) H 07/23/18 15:35 RBC 4.14 m/cumm (4.00-5.20) 07/23/18 15:35 Hgb 8.4 g/dL (12.0-15.5) L 07/23/18 15:35 Hct 29.9 % (36.0-46.0) L 07/23/18 15:35 MCV 72.2 fL (80-95) L 07/23/18 15:35 MCH 20.3 pg (27.0-33.0) L 07/23/18 15:35 MCHC 28.1 g/dL (32.0-36.0) L 07/23/18 15:35 RDW 22.2 % (11.7-14.6) H 07/23/18 15:35 Plt Count 918 x1000/uL (130-400) H* 07/23/18 15:35 MPV 8.5 fL (8.0-11.0) 07/23/18 15:35 Immature Gran % See Differential 07/23/18 15:35 Neutrophils % 90.0 07/23/18 15:35 Lymphocytes % 4.0 07/23/18 15:35 Monocytes % 3.0 07/23/18 15:35 Eosinophils % 0.7 07/23/18 15:35 Basophils % 0.1 07/23/18 15:35 Absolute Neutrophils 15.79 k/cumm (1.2-6.7) H 07/23/18 15:35 Band Neutrophils 2.0 % 07/23/18 15:35 Absolute Lymphocytes 0.69 k/cumm (1.2-3.4) L 07/23/18 15:35 Absolute Monocytes 0.51 k/cumm (0.11-0.7) 07/23/18 15:35 Absolute Eosinophils 0.12 k/cumm (0.0-0.7) 07/23/18 15:35 Absolute Basophils 0.02 k/cumm (0.0-0.2) 07/23/18 15:35 Myelocytes 1.0 % 07/23/18 15:35 Differential Comment Manual differential 07/23/18 15:35 RBC Morphology See below 07/23/18 15:35 Polychromasia Present 07/23/18 15:35 Hypochromasia 2+ 07/23/18 15:35 Poikilocytosis 2+ 07/23/18 15:35 Anisocytosis 1+ 07/23/18 15:35 Microcytosis 1+ 07/23/18 15:35 Spherocytes 1+ 07/23/18 15:35 Ovalocytes 2+ 07/23/18 15:35 ESR 55 MM/HR (0-30) H 07/23/18 15:35 Sodium 135 mmol/L (136-145) L 07/23/18 15:35 Potassium 5.1 mmol/L (3.5-5.1) 07/23/18 15:35 Chloride 100 mmol/L (98-107) 07/23/18 15:35 Carbon Dioxide 26.4 mmol/L (21.0-32.0) 07/23/18 15:35 Anion Gap 8.6 mmol/L (3-11) 07/23/18 15:35 BUN 26 mg/dL (7-18) H 07/23/18 15:35 Creatinine 1.05 mg/dL (0.55-1.02) H 07/23/18 15:35 Estimated GFR/1.73 m2 51.09 (mL/min/1.73m2) 07/23/18 15:35 Glucose 243 mg/dL (70-100) H 07/23/18 15:35 Lactate 1.9 mmol/L (0.6-1.4) H 07/23/18 15:35 Calcium 9.8 mg/dL (8.5-10.1) 07/23/18 15:35 Magnesium 2.1 mg/dL (1.8-2.4) 07/23/18 15:35 Iron 9 ug/dL (50-175) L 07/23/18 15:30 TIBC 102 ug/dL (250-450) L 07/23/18 15:30 Transferrin % Sat 9 % (15-50) L 07/23/18 15:30 Ferritin 541 ng/mL (8-388) H 07/23/18 15:30 Total Bilirubin 0.3 mg/dL (0.2-1.0) 07/23/18 15:35 AST 17 U/L (15-37) 07/23/18 15:35 ALT 16 U/L (12-78) 07/23/18 15:35 Alkaline Phosphatase 193 U/L (46-116) H 07/23/18 15:35 Troponin I < 0.02 ng/mL (0.00-0.06) 07/23/18 15:35 C-Reactive Protein 19.14 mg/dL (0.0-0.3) H 07/23/18 15:35 Total Protein 6.2 g/dL (6.4-8.2) L 07/23/18 15:35 Albumin 1.7 g/dL (3.4-5.0) L 07/23/18 15:35 Urine Color Yellow (Yellow) 07/23/18 16:20 Urine Clarity Clear 07/23/18 16:20 Urine pH 5.5 (5-8) 07/23/18 16:20 Ur Specific [place] 1.020 (1.005-1.025) 07/23/18 16:20 Urine Protein Negative mg/dL (Negative) 07/23/18 16:20 Urine Ketones Trace mg/dL (Negative) H 07/23/18 16:20 Urine Blood Negative (Negative) 07/23/18 16:20 Urine Nitrite Negative (Negative) 07/23/18 16:20 Urine Bilirubin Negative (Negative) 07/23/18 16:20 Urine Urobilinogen 0.2 EU/dL (Up TO 0.2) 07/23/18 16:20 Ur Leukocyte Esterase Trace (Negative) H 07/23/18 16:20 Urine RBC 5-10 (0-2) H 07/23/18 16:20 Urine WBC 20-50 HPF (0-5) 07/23/18 16:20 Ur Epithelial Cells Few HPF (Negative) 07/23/18 16:20 Urine Crystals Moderate amorphous HPF (Negative) 07/23/18 16:20 Urine Bacteria Negative HPF (Negative) 07/23/18 16:20 Urine Casts 20-50 hyaline LPF (Negative) 07/23/18 16:20 Urine Mucus Negative (Negative) 07/23/18 16:20 Ur Culture Indicated? Yes 07/23/18 16:20 Urine Glucose Negative mg/dL (Negative) 07/23/18 16:20
--- NOTE | 2018-07-24 08:57 | PDOC.CMIN ---
- If Service Date Differs Date of service: 07/24/18 Time of Service: 08:57 Care Management Initial Assess REASON FOR HOSPITALIZATION:: Left hip infection. PAST MEDICAL HISTORY/PAST SURGICAL HISTORY:: Asthma, below elbow amputation, depression, DM type II, hyperlipidemia, GI bleed, [place], osteocarcoma, hypercholesterolemia, HTN, iron deficiency anemia, endometrial CA with mets to lungs, mitral regurgitation with angina, osteoarthritis of both hips, osteopenia. Surgical hx: left total hip arthroplasty. PREVIOUS FUNCTIONAL STATUS/SOCIAL/FAMILY SUPPORTS:: Dina resides in [place] with her of 56 years, Cosme. 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 She and Cosme have one adult son who does not reside locally but is supportive, according to Cosme. Dina requires assistance with her ADLs and transportation. At present time, she is utilizing a w/c to get around the home and to appointments. CURRENT FUNCTIONAL STATUS:: Dina is lying in bed with Cosme at bedside when visits this morning. She is engaged in conversation, makes good eye contact, and is talkative. Cosme does a lot of the talking for her however, and there are questions as to Dina's mentation at baseline. At 's assessment, patient is alert and oriented to self and place. Dina is NPO prior to going to the OR for a 'wash out' with Dr. Corona at some point today. According to Cosme, Dina's health has been declining over the last few years and her endometrial cancer, per Cosme, has metastasized to her lungs. Cosme reports that Dina has recently had a VNA and PT 2/week through [facility]. He has let them know to put their services on hold while Dina is in the hospital. Anticipate services will be resumed and likely increased following Dina's discharge. Cosme reports that he assists Dina with all of her ADLs and transportation. He states that up until a week ago she was using a walker on occassion for ambulating but is now requiring a w/c to get around the house and out to appointments. Dina has had two short term stays in local SNFs and both Dina and Cosme are adamant that she will not be returning to one following discharge. Dina is receiving IV fluids at present time. Cosme requested information regarding Palliative Care when visiting with Chaplain Shameka, and has been provided with such. He is not sure if Dina will be open to a consult with Dr. Jorgensen however. ADVANCE DIRECTIVES:: On file at [facility]. Has patient been provided with information about the portal?: Yes Did the patient sign up for the portal?: No CODE STATUS:: Full Code INSURANCE COVERAGE / FINANCIAL ISSUES:: [employer], Medicare. CURRENT HOME/COMMUNITY SERVICES/EQUIPMENT:: VNA nursing and PT services 2x/week. According to Cosme, this service has just begun a week ago. He has informed the VNA that Dina is in the hospital; services will likely resume and increase following discharge. Dina has a career and guidance counselor who comes to the home 1x/week for bathing and every other week to clean. Until recently, Dina has used a walker on occassion for ambulating. As of present, she is using a w/c. PRIMARY CARE PHYSICIAN:: Chano Leon. POTENTIAL DISCHARGE NEEDS:: Follow up appointment with PCP. Resumption and increase of nursing/PT/OT services through [facility]. PATIENT/FAMILY EDUCATION NEEDS:: Discharge education, any limitations, and follow up plan of care. Ask Me Three discussion. ANTICIPATED BARRIERS TO DISCHARGE:: No anticipated barriers to discharge. TRANSPORTATION:: Dina will transport via private vehicle with her , Cosme. PLAN:: Dina will discharge home when medically ready per MD. Anticipate patient will discharge with resumption of and increased services through the [facility] and follow up with PCP. CM will continue to offer support to patient and care team regarding discharge planning and disposition.
--- NOTE | 2018-07-24 09:06 | INITIAL_ITS ---
- If Service Date Differs Date of service: 07/24/18 Time of Service: 08:57 Care Management Initial Assess REASON FOR HOSPITALIZATION:: Left hip infection. 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 Surgical hx: left total hip arthroplasty. PREVIOUS FUNCTIONAL STATUS/SOCIAL/FAMILY SUPPORTS:: Dina resides in [place] with her of 56 years, Cosme. 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 She and Cosme have one adult son who does not reside locally but is supportive, according to Cosme. Dina requires assistance with her ADLs and transportation. At present time, she is utilizing a w/c to get around the home and to appointments. CURRENT FUNCTIONAL STATUS:: Dina is lying in bed with Cosme at bedside when visits this morning. She is engaged in conversation, makes good eye contact, and is talkative. Cosme does a lot of the talking for her however , and there are questions as to Dina's mentation at baseline. At 's assessment, patient is alert and oriented to self and place. Dina is NPO prior to going to the OR for a 'wash out' with Dr. Corona at some point today. According to Cosme, Dina's health has been declining over the last few years and her endometrial cancer, per Cosme, has metastasized to her lungs. Cosme reports that Dina has recently had a VNA and PT 2/week through [facility]. He has let them know to put their services on hold while Dina is in the hospital. Anticipate services will be resumed and likely increased following Dina's discharge. Cosme reports that he assists Dina with all of her ADLs and transportation. He states that up until a week ago she was using a walker on occassion for ambulating but is now requiring a w/c to get around the house and out to appointments. Dina has had two short term stays in local SNFs and both Dina and Cosme are adamant that she will not be returning to one following discharge. iDna is receiving IV fluids at present time. Cosme requested information regarding Palliative Care when visiting with Chaplain Shameka, and has been provided with such. He is not sure if Dina will be open to a consult with Dr. Jorgensen however. ADVANCE DIRECTIVES:: On file at [facility]. Has patient been provided with information about the portal?: Yes Did the patient sign up for the portal?: No CODE STATUS:: Full Code INSURANCE COVERAGE / FINANCIAL ISSUES:: [facility] [employer], Medicare. CURRENT HOME/COMMUNITY SERVICES/EQUIPMENT:: VNA nursing and PT services 2x/ week. According to Cosme, this service has just begun a week ago. He has informed the VNA that Dina is in the hospital; services will likely resume and increase following discharge. Dina has a patient care specialist who comes to the home 1x/week for bathing and every other week to clean. Until recently, Dina has used a walker on occassion for ambulating. As of present, she is using a w/c. PRIMARY CARE PHYSICIAN:: Chano Leon. POTENTIAL DISCHARGE NEEDS:: Follow up appointment with PCP. Resumption and increase of nursing/PT/OT services through [facility]. PATIENT/FAMILY EDUCATION NEEDS:: Discharge education, any limitations, and follow up plan of care. Ask Me Three discussion. ANTICIPATED BARRIERS TO DISCHARGE:: No anticipated barriers to discharge. TRANSPORTATION:: Dina will transport via private vehicle with her , Cosme. PLAN:: Dina will discharge home when medically ready per MD. Anticipate patient will discharge with resumption of and increased services through the [facility] and follow up with PCP. CM will continue to offer support to patient and care team regarding discharge planning and disposition.
[2018-07-24] MEDS: Lactated Ringers 1,000 ML 30 ML IV ×2 (10:39→13:10)
[2018-07-24] MEDS: VANCOMYCIN 750 MG in Normal Saline 250 ML 166.667 MG IVPB ×2 (11:05→21:09)
--- NOTE | 2018-07-24 11:21 | PHARADMIT ---
Addendum entered by Cosme Rocha III 07/31/18 11:16: Pharmacy Note Subjective Patient improving, No pathology back yet. Watch weights H&H, Lasix still on hold Objective VS-OK BP-112/73 HR-85 Afebrile. H&H- 7.5/25.1 Plts-670 No wgt yet BM today Assessment Cefazolin, Lovenox continues Plan Daily weights entered. No growth on cultures Original Note: Addendum entered by Marva Rodgers 07/30/18 17:38: Pharmacy Note Subjective Objective Pain 8/10, BP good, HR 96-100, Afebrile, lytes good, Plt up 712 Assessment Procardia continues, has Metoprolol oral and IVP prn Pt's own Tamoxifen...had 3 day supply remaining in med cart this morning Noticed central PICC IV line placed today Remains on Cefazolin 2gram Q8h day#3 Plan Washout of hip wound today, new hip cultures taken in OR...follow results Original Note: Addendum entered by Cosme Rocha III 07/29/18 15:42: Pharmacy Note Subjective Had palliative care consult, to take her OR for another washout of wound. MD was to use Adenosine for A-fib but she auto-converted. Objective HR-103 (was 153) lytes, sSCr-OK WBC-16.58 H&H- 8.0/26.8, Plts- 621 Had BM Assessment Rifampin DC (too many drug interactions) Interfered with Procardia and other heart meds. Plan No new note yet Original Note: Addendum entered by Cosme Rocha III 07/28/18 16:38: Pharmacy Note Subjective Patient has dementia, History or sarcoma & Endometrial cancer Objective VS-OK pain:1/10 H&H-7.8/26.3 Plts-384 wbc-12.17 Having BMs Assessment Rifampin continues with Cefazolin Plan Participating in PT, Wants to go home. Original Note: Addendum entered by Cosme Rocha III 07/25/18 16:46: Pharmacy Note Subjective Left Hip area had 700c purulent fluid extracted and there was much tissue damage. Objective VS-OK SCr-0.84 Mag-1.7 WBC-12.40 H&H-8.9/29.8 (post RBCs) Plts-622 had BM Assessment Zosyn DC'D Vancomyvcin continues. TROUGH @9AAM on 07/26. Rifampin added Plan follow Vancomycin dosing watch for Rifampin interactions Dr.Prohaska su Original Note: Admission Pharmacy Clinical Review Left Hip Infection Code Status Full Code Current Weight Wgt- 63.5 kg Renally Cleared and Narrow Therapeutic Index Meds CrCl~ 38.2 mL/min Meds-OK QTc Value / Action Taken NA BP Control, Fever BP- 109/60 Tmax- 37.3C Electrolytes reviewed Na-135 K+5.1 Mag-2.1 DVT Prophylaxis No ?? surgery-wash OUT) Opiate Usage / Scheduled Bowel Regimen Ordered Yes Yes Plt/SCr for Heparin / Enoxaparin Plts- 918 SCr-1.05 INR for Warfarin na H/H stable, WBC/Bands H&H- 8.4/29.9 WBC- 17.16 Antibiotic appropriateness Zosyn, Vancomycin Cultures and Sensitivities Blood-pending, Urine-No growth/24hrs Surgical ABX d/c within 24 hr na DM control / Insulin Dosing BG-243, Aspart, Januvia Heart Failure (Check EF%) (NAOMI's, B-Block, Diuretics) Lasix, Nifedpine-CR, IV to PO Switch No Home Meds Reviewed Yes Home Meds Not Ordered Aspirin, Benadryl, Levemir, Comments
--- NOTE | 2018-07-24 11:28 | SOFT_PTH ---
PATIENT: Dina Queen LOC: U#:[id number] AGE/SX: 73/F ROOM: 214 RE07/23/[address]: Bandar Corona MD : 1945 BED: A DIS: 08/02/2018 SPEC #: [id number] RECD: 07/24/18 13:11 STATUS: MEAGAN REQ #: [id number] AMBER: 07/24/18 11:[address]: Bandar Corona DEPT: Surgical Specimen RECD BY: Lisa Gan ENTERED: 07/24/18 13:13 SP TYPE: SOFT OTHR DR: Chano Leon Tissues: 1 - SOFT TISSUE MISC (INC. LIPOMA) CHROMOSOME ANALYSIS PROFILE Procedures: GROSS AND MICRO LEVEL 4 IMMUNOPEROXIDASE STAIN SPECIAL STAIN 1 Comments: [id number] (CYTOGENETICS - [id number])
[2018-07-24] MEDS: Normal Saline 1,000 ML 75 ML IV ×2 (14:25→17:27)
--- NOTE | 2018-07-24 14:25 | NUR.NOTE ---
Nursing Note: Pt arrived from PACU. sleepy but A&Ox3. Pt VSS except low BP, 87/54. Davol drain in placed left hip. @ bedside. Sipping on G. Hillary, george N/V and pain.
--- NOTE | 2018-07-24 14:34 | CHAPLAIN ---
I visited with Dina's Cosme today while Dina was in surgery and recovery. During our conversation he asked about Palliative Care, and said that Dina's primary care doctor had mentioned Palliative Care to them, and Cosme said he understood it to be care that would be in place just prior to hospice care, with no continuation of curative care measures, and he was not sure Dina would be receptive to hearing about it. I offered Cosme one of our Palliative Care brochures and explained that patients in our Palliative Care program can and do receive curative treatments while on Palliative care. Because they live in [place], Dina has received care at [facility] and [facility]. She is here for her hip surgery because Dr. Bowman did the original surgery.
[2018-07-24] MEDS: Lactated Ringers 1,000 ML 1000 ML IV (14:48)
[2018-07-24 14:57] LABS: HCT 21.4 % (36.0-46.0)
[2018-07-24 15:08] LABS: HGB 5.9 g/dL (12.0-15.5)
--- NOTE | 2018-07-24 15:23 | PT.INNT ---
Date of service: 07/24/18 Time of Service: 15:23 PT Notes PHYSICAL THERAPY NOTE 07/24/18 PT Consult received, chart reviewed. RN requested hold consult at this time as patient is hypotensive. Will assess in am Vanessa Garcia PT
[2018-07-24 16:05] LABS: HGB 5.5 g/dL (12.0-15.5)
[2018-07-24 16:06] LABS: HCT 19.6 % (36.0-46.0)
[2018-07-24] MEDS: RIFAMPIN 300 MG CAP PO (16:09)
--- NOTE | 2018-07-24 18:19 | W.PM.PROGNOT ---
Assessment and Plan (1) Anemia associated with acute blood loss: Current visit: Yes Status: Acute symptomatic, likely contributing to hypotension. Transfusing 2 units of pRBC's tonight. Continue maintenance IVF. Monitor H/H. (2) Abscess of left hip: Current visit: Yes Status: Acute Soft tissues and possible prosthesis involved - s/p I&D/washout today. Discussed with Dr Corona - until more information is known about cultures, recommend vancomycin, zosyn, rifampin combination therapy. 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 Pathology pending. (4) Upw-pfpdlon-ebbcrqgor diabetes mellitus without complications: Current visit: Yes Status: Acute D/c januvia. Recommend coverage with corrective scale. (5) Alzheimer disease: Current visit: Yes Status: Chronic Doubt that the patient will be able to be much help in making her goals of care decision. is interested in meeting with palliative care. Subjective Interval history since last seen: Called emergently to bedside for patient's hypotension. She was asymptomatic in Trandelenberg position. Her manual BP was 90/50. She denied any dizziness, chest pain, shortness of breath, nausea, vomiting. Exam Narrative Exam Narrative: General: pale elderly female, laying in bed in Trandelenberg position, comfortable, conversing fluently, in no acute distress Neurological: alert and oriented x1, no focal deficits Psychiatric: appropriate speech pattern and content, appropriate affect Skin: on obvious bruising or rashes; wound vac in place (L hip) HEENT: normocephalic, extraocular movements are intact, moist mucous membranes, no goiter or JVD Cardiovascular: regularly regular rhythm, no murmurs, rubs, or gallops Pulmonary: nonlabored breathing, clear to auscultation bilaterally Gastrointestinal: Abdomen is soft, nontender, nondistended. Extremities: wearing SCD's; no edema; wound dressed Objective Objective Clinical Data: Abnormal lab results 07/24/18 07/24/18 07/24/18 Range/Units 14:50 15:54 15:54 Hgb 5.9 L* D 5.5 L* (12.0-15.5) g/dL Hct 21.4 L D 19.6 L* (36.0-46.0) % Crossmatch See Detail Vital Signs Temperature 36.6 C 07/24/18 17:22 Temperature Source Tympanic 07/24/18 17:22 Pulse 86 07/24/18 17:22 Pulse Rhythm Regular 07/24/18 08:09 Respiratory Rate 20 07/24/18 17:22 Respiratory Effort Non-Labored 07/24/18 08:09 Respiratory Depth Normal 07/24/18 08:09 Respiratory Pattern Normal 07/24/18 08:09 Blood Pressure 96/59 L 07/24/18 17:22 Pulse Oximetry 98 07/24/18 17:22 Respiratory End-tidal CO2 27 07/24/18 13:35 Oxygen Delivery Method Room Air 07/24/18 17:22 Oxygen Flow Rate 0 07/24/18 17:22 Pain Level 0 07/24/18 17:22 Comment 07/24/18 14:58 Intake & Output 07/23/18 07/24/18 07/24/18 23:59 11:59 23:59 Intake Total 1050 / 1050 1100 / 1100 2092.0 / 2092.0 Output Total 100 / 100 Balance 1050 / 1050 1100 / 1100 1992.0 / 1992.0 Weight 63.503 kg Intake: IV 1050 / 1050 1100 / 1100 1792.0 / 1792.0 Oral 300 / 300 Output: Drainage 100 / 100 Left Thigh 100 / 100 Other: Comment incontinent void in brief Stool Size Moderate Stool Characteristics Soft Formed Black Emesis Description None Voiding Methods Diaper Incontinent Laboratory Results WBC 17.16 k/cumm (4.4-10.8) H 07/23/18 15:35 RBC 4.14 m/cumm (4.00-5.20) 07/23/18 15:35 Hgb 5.5 g/dL (12.0-15.5) L* 07/24/18 15:54 Hct 19.6 % (36.0-46.0) L* 07/24/18 15:54 MCV 72.2 fL (80-95) L 07/23/18 15:35 MCH 20.3 pg (27.0-33.0) L 07/23/18 15:35 MCHC 28.1 g/dL (32.0-36.0) L 07/23/18 15:35 RDW 22.2 % (11.7-14.6) H 07/23/18 15:35 Plt Count 918 x1000/uL (130-400) H* 07/23/18 15:35 MPV 8.5 fL (8.0-11.0) 07/23/18 15:35 Immature Gran % See Differential 07/23/18 15:35 Neutrophils % 90.0 07/23/18 15:35 Lymphocytes % 4.0 07/23/18 15:35 Monocytes % 3.0 07/23/18 15:35 Eosinophils % 0.7 07/23/18 15:35 Basophils % 0.1 07/23/18 15:35 Absolute Neutrophils 15.79 k/cumm (1.2-6.7) H 07/23/18 15:35 Band Neutrophils 2.0 % 07/23/18 15:35 Absolute Lymphocytes 0.69 k/cumm (1.2-3.4) L 07/23/18 15:35 Absolute Monocytes 0.51 k/cumm (0.11-0.7) 07/23/18 15:35 Absolute Eosinophils 0.12 k/cumm (0.0-0.7) 07/23/18 15:35 Absolute Basophils 0.02 k/cumm (0.0-0.2) 07/23/18 15:35 Myelocytes 1.0 % 07/23/18 15:35 Differential Comment Manual differential 07/23/18 15:35 RBC Morphology See below 07/23/18 15:35 Polychromasia Present 07/23/18 15:35 Hypochromasia 2+ 07/23/18 15:35 Poikilocytosis 2+ 07/23/18 15:35 Anisocytosis 1+ 07/23/18 15:35 Microcytosis 1+ 07/23/18 15:35 Spherocytes 1+ 07/23/18 15:35 Ovalocytes 2+ 07/23/18 15:35 ESR 55 MM/HR (0-30) H 07/23/18 15:35 Sodium 135 mmol/L (136-145) L 07/23/18 15:35 Potassium 5.1 mmol/L (3.5-5.1) 07/23/18 15:35 Chloride 100 mmol/L (98-107) 07/23/18 15:35 Carbon Dioxide 26.4 mmol/L (21.0-32.0) 07/23/18 15:35 Anion Gap 8.6 mmol/L (3-11) 07/23/18 15:35 BUN 26 mg/dL (7-18) H 07/23/18 15:35 Creatinine 1.05 mg/dL (0.55-1.02) H 07/23/18 15:35 Estimated GFR/1.73 m2 51.09 (mL/min/1.73m2) 07/23/18 15:35 Glucose 243 mg/dL (70-100) H 07/23/18 15:35 Lactate 1.9 mmol/L (0.6-1.4) H 07/23/18 15:35 Calcium 9.8 mg/dL (8.5-10.1) 07/23/18 15:35 Magnesium 2.1 mg/dL (1.8-2.4) 07/23/18 15:35 Iron 9 ug/dL (50-175) L 07/23/18 15:30 TIBC 102 ug/dL (250-450) L 07/23/18 15:30 Transferrin % Sat 9 % (15-50) L 07/23/18 15:30 Ferritin 541 ng/mL (8-388) H 07/23/18 15:30 Total Bilirubin 0.3 mg/dL (0.2-1.0) 07/23/18 15:35 AST 17 U/L (15-37) 07/23/18 15:35 ALT 16 U/L (12-78) 07/23/18 15:35 Alkaline Phosphatase 193 U/L (46-116) H 07/23/18 15:35 Troponin I < 0.02 ng/mL (0.00-0.06) 07/23/18 15:35 C-Reactive Protein 19.14 mg/dL (0.0-0.3) H 07/23/18 15:35 Total Protein 6.2 g/dL (6.4-8.2) L 07/23/18 15:35 Albumin 1.7 g/dL (3.4-5.0) L 07/23/18 15:35 Urine Color Yellow (Yellow) 07/23/18 16:20 Urine Clarity Clear 07/23/18 16:20 Urine pH 5.5 (5-8) 07/23/18 16:20 Ur Specific [place] 1.020 (1.005-1.025) 07/23/18 16:20 Urine Protein Negative mg/dL (Negative) 07/23/18 16:20 Urine Ketones Trace mg/dL (Negative) H 07/23/18 16:20 Urine Blood Negative (Negative) 07/23/18 16:20 Urine Nitrite Negative (Negative) 07/23/18 16:20 Urine Bilirubin Negative (Negative) 07/23/18 16:20 Urine Urobilinogen 0.2 EU/dL (Up TO 0.2) 07/23/18 16:20 Ur Leukocyte Esterase Trace (Negative) H 07/23/18 16:20 Urine RBC 5-10 (0-2) H 07/23/18 16:20 Urine WBC 20-50 HPF (0-5) 07/23/18 16:20 Ur Epithelial Cells Few HPF (Negative) 07/23/18 16:20 Urine Crystals Moderate amorphous HPF (Negative) 07/23/18 16:20 Urine Bacteria Negative HPF (Negative) 07/23/18 16:20 Urine Casts 20-50 hyaline LPF (Negative) 07/23/18 16:20 Urine Mucus Negative (Negative) 07/23/18 16:20 Ur Culture Indicated? Yes 07/23/18 16:20 Urine Glucose Negative mg/dL (Negative) 07/23/18 16:20 Patient ABO/Rh A Positive 07/24/18 15:54 Antibody Screen Negative 07/24/18 15:54 Crossmatch See Detail 07/24/18 15:54
--- NOTE | 2018-07-24 18:32 | ROE_ITS ---
DATE OF SURGERY: July 24, 2018 PREOPERATIVE DIAGNOSIS: Left hip infection. POSTOPERATIVE DIAGNOSIS: Left hip soft tissue infection with a likely metastatic lesion. SURGERY: Irrigation and debridement and debulking of left thigh. SURGEON: Bandar Corona M.D. SOIL FIELD TECHNICIAN: Kylah Prieto PA-C ANESTHESIA: General. ESTIMATED BLOOD LOSS: 20 cc COMPLICATIONS: None. SPECIMENS: Pathology specimens were sent of the soft tissue mass lesion of the left thigh. Anaerobi c and aerobic cultures were also taken of the large amount of purulent material. DISPOSITION: The patient was awakened from anesthesia and taken back to the PACU in a stable conditi on. INDICATION FOR PROCEDURE: Dina is a 73-year-old who has known endometrial carcinoma with metastase s to the lungs. She has been having some increasing pain and enlargement of her left proximal thigh. She denies having any specific fevers or chills but felt unwell and has been unable to walk now for the past few days. Her primary care doctor, Dr. Leon, saw her in the office and aspirated gross purulence from her left thigh superficially. She was then sent down to the Emergency Department melissa olmos I evaluated her yesterday. Given the constellation of findings including elevated CRP and leukocyt osis, I offered irrigation and debridement. I reviewed the risks of the procedure to include bleedin g, infection, pain, stiffness, persistent infection, need for repeat procedures, damage to nerves and vessels, and blood clot. Despite these risks, she elected to proceed. PROCEDURE DESCRIPTION: Dina was greeted in the preoperative holding area. Her identity was confir med and the correct side was previously identified and marked. The consent was reviewed with the pat iebud and signed earlier in the morning. She was taken back to the Operating Room and placed in supin e position. A general anesthetic was administered. All bony prominences were well padded. She was then transitioned into the right lateral decubitus position using a beanbag. An axillary roll was pl aced. Her arms were placed over pillows. She had been receiving empiric antibiotics of Zosyn and va ncomycin. These were continued and no other prophylactic antibiotics were administered. The left le g was then prepped with ChloraPrep and the leg was draped appropriately. A time-out was performed fo r safe surgery. The previous incision from her hip replacement was marked out. This was then incised. Immediately u malia incision there was gross purulence that shot out of the wound and under high pressure. I evacuat ed 700 cc of purulent material. Samples of this material were also sent to the lab for aerobic and a naerobic cultures. The majority of the incision was then further opened up. Directly beneath the sk in was a dense, fibrous, fatty masslike lesion. It did not seem to be associated with the fat and wa s almost a separate layer between the fascia of the IT band and the superficial fat. The IT band was unrecognizable with multiple holes and changes to it. This material was then assumed to be a massli ke lesion, likely secondary metastases. A large portion of this was excised and sent off to the lab for pathology. The normal anatomy was very difficult to appreciate as this lesion seemed to be persi stent around the left hip. It was debulked using a rongeur. Three liters of normal saline were used to irrigate the wound for better evaluation. All of the purulence was evacuated and I was able to r each the depths of the wound both anteriorly and posteriorly as high as the pelvic brim. I manually debrided these areas with the irrigation. Once this appeared to be debulked, I then paid attention to these tissue planes. The abductor tendon s were still attached. The posterior capsule did not have a notable rent. The vastus lateralis was attached. The IT band again was unrecognizable and the gluteus riki and TFL muscle bodies were qu ite irritated with this masslike lesion associated with them. This was debulked with two kidney basi ns full. Deep within the wound, next to the posterior aspect of the femur, there was also a brown tr anslucent type material which was seen throughout the soft tissue in this area just posterior to the femur. This was also taken for samples to the lab. The wound was once again irrigated with another 3 liters of normal saline. There was no significant bleeding. There was no gross infection remaining. A JONATHAN drain was then placed in these deeper tissue s. Whatever remnant of IT band that was there I was able to reapproximate with a #1 antimicrobial PD S suture. The deep tissues were then closed with a #0 and a #2-0 PDS suture. The skin was closed wi th a Prolene. The wound was dressed with Xeroform, 4x4s, ABD, and Medipore tape. At the end of the case all counts were correct.
[2018-07-24] MEDS: diphenhydrAMINE 25 MG CAP PO (18:41)
[2018-07-24] MEDS: Ferrous Sulfate 325 MG TAB PO (19:30)
[2018-07-24] MEDS: Sennosides/Docusate Sodium TAB 1 TAB PO (19:31)
[2018-07-24] MEDS: Memantine 5 MG TAB 10 MG PO (19:32)
[2018-07-24] MEDS: Melatonin 3 MG TAB PO (21:09)
[2018-07-24] MEDS: Insulin Aspart 300 UNITS/3 ML PEN SC (21:18)
[2018-07-24] MEDS: Normal Saline Flush 10 ML SYR IVP (22:11)
[2018-07-25] VITALS (10 sets, daily range): BP systolic 107–135; BP diastolic 56–77; PULSE 65–84; RESP 16–20; TEMP 35.6–36.9; O2SAT 96–100
[2018-07-25] MEDS: Normal Saline Flush 10 ML SYR IVP (00:29)
[2018-07-25] MEDS: RIFAMPIN 300 MG CAP PO ×2 (03:27→16:11)
[2018-07-25] MEDS: Levothyroxine 75 MCG TAB 150 MCG PO (05:35)
[2018-07-25] MEDS: PIPERACILLIN/TAZO 3.375 GM in Normal Saline 50 ML IVPB ×2 (05:35→13:45)
[2018-07-25] MEDS: Normal Saline 1,000 ML 125 ML IV ×2 (06:36→19:49)
[2018-07-25 07:29] LABS: Abs Immature Grans 0.36 k/cumm (0.0-0.09); HCT 29.8 % (36.0-46.0); HGB 8.9 g/dL (12.0-15.5); Mean Corp. HGB Concentration 29.9 g/dL (32.0-36.0); Mean Corpuscular Hemoglobin 22.9 pg (27.0-33.0); Mean Corpuscular Volume 76.8 fL (80-95); Mean Platelet Volume 8.5 fL (8.0-11.0); Platelet Count 622 x1000/uL (130-400); RBC 3.88 m/cumm (4.00-5.20); RBC Distribution Width 20.7 % (11.7-14.6)
[2018-07-25 07:41] LABS: Anion Gap 12.3 mmol/L (3-11); BUN 19 mg/dL (7-18); C-Reactive Protein 9.91 mg/dL (0.0-0.3); CO2 21.7 mmol/L (21.0-32.0); CREATININE 0.84 mg/dL (0.55-1.02); Calcium 8.3 mg/dL (8.5-10.1); Chloride 108 mmol/L (98-107); Glucose 124 mg/dL (70-100); Magnesium 1.7 mg/dL (1.8-2.4); Sodium 142 mmol/L (136-145)
[2018-07-25 07:57] LABS: Absolute Neutrophil Count 9.92 k/cumm (1.2-6.7)
[2018-07-25 07:58] LABS: Absolute Eosinophil Count 0.62 k/cumm (0.0-0.7); Absolute Lymphocyte Count 1.12 k/cumm (1.2-3.4); Absolute Monocyte Count 0.62 k/cumm (0.11-0.7); Anisocytosis 2+; Diff Comment Manual Differential; Hypochromasia 2+
[2018-07-25 07:59] LABS: Poikilocytes 1+
[2018-07-25 08:04] LABS: ESR 25 MM/HR (0-30)
[2018-07-25] MEDS: Acetaminophen 500 MG TAB 1000 MG PO ×3 (08:43→19:50)
[2018-07-25] MEDS: Memantine 5 MG TAB 10 MG PO ×2 (08:44→19:46)
[2018-07-25] MEDS: DULoxetine 30 MG CAP 60 MG PO (08:44)
[2018-07-25] MEDS: Donepezil 5 MG TAB 10 MG PO (08:44)
[2018-07-25] MEDS: Multivitamin TAB 1 TAB PO (08:45)
[2018-07-25] MEDS: Atorvastatin 40 MG TAB PO (08:45)
[2018-07-25] MEDS: Ferrous Sulfate 325 MG TAB PO ×2 (08:45→19:45)
[2018-07-25] MEDS: Sennosides/Docusate Sodium TAB 1 TAB PO ×2 (08:45→19:45)
[2018-07-25] MEDS: Magnesium Oxide 400 MG TAB PO (08:45)
--- NOTE | 2018-07-25 09:13 | PDOC.CMPRO ---
- If Service Date Differs Date of service: 07/25/18 Time of Service: 09:14 Care Management Progress Note S/O: Dina is lying in bed with her Cosme at bedside, when CM visits this morning. She is engaged in conversation and is talkative. Dina reports that she is feeling well however seems a little more confused/wifty than prior to surgery yesterday. Cosme reports that he has no needs or anything to discuss with CM at this moment, however he may following seeing the MD today. CM reminded Cosme where Care Management office was if he wanted to chat or needed any assistance. A: 73 year old female admitted left hip infection. P: Dina will discharge home when medically ready per MD. Dina and Cosme are adamant that she will not go to a rehab facility. Patient will discharge with resumption of/increased services through the [facility] and follow up with surgical services and PCP. Dina will transport via private vehicle with her , Cosme. CM will continue to offer support to patient, family, and care team regarding discharge planning and disposition.
--- NOTE | 2018-07-25 09:25 | CMPROGNOTE_ITS ---
- If Service Date Differs Date of service: 07/25/18 Time of Service: 09:14 Care Management Progress Note S/O: Dina is lying in bed with her Cosme at bedside, when CM visits this morning. She is engaged in conversation and is talkative. Dina reports that she is feeling well however seems a little more confused/wifty than prior to surgery yesterday. Cosme reports that he has no needs or anything to discuss with CM at this moment, however he may following seeing the MD today. CM reminded Cosme where Care Management office was if he wanted to chat or needed any assistance. A: 73 year old female admitted left hip infection. P: Dina will discharge home when medically ready per MD. Dina and Cosme are adamant that she will not go to a rehab facility. Patient will discharge with resumption of/increased services through the [facility] and follow up with surgical services and PCP. Dina will transport via private vehicle with her , Cosme. CM will continue to offer support to patient, family, and care team regarding discharge planning and disposition.
--- NOTE | 2018-07-25 10:17 | PT.INIE ---
Date of service: 07/25/18 Time of Service: 09:45 PT Notes Inpatient Physical Therapy Evaluation Date: 07/25/18 Referring Doctor: Dr. Corona PT Orders: PT CONSULT: s/p I& D left hip. WBAT Precautions: WBAT L LE Patient Profile/Admitting Diagnosis: Pt is a 73yr old female s/p incision and drainage left hip by Dr. 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 Per she was using a wheelchair prior to admission due to hip pain, prior to that she mobilized with a FWW with right platform with assistance. brings her walker in today for her to use. She receives assist with ADLS Equipment Owned/DME: FWW with right platform, wheelchair, hemiwalker, shower chair, commode Subjective: Pt lying in bed, alert and agreeable to PT consult, conversant, able to follow directions, asking appropriate questions. in room observing and providing home information. Objective: General Observation: IV L UE, JONATHAN drain left hip Mental Status: A& O to name, location, required orientation to situation she wasn't sure if she had had surgery yet Pain: no c/o pain ROM: Right Upper Extremity: AROM R shoulder WNL, amputation of elbow, forearm and hand Left Upper Extremity: AAROM WNL Right Lower Extremity: AROM WNL Left Lower Extremity: AROM hip flexion to 90, knee and ankle WNL Bed Mobility/Transfers: Supine-sit: HOB 35 degrees, pt able to roll to right side and use L UE on bedrail, required assist to get trunk to sitting due to R UE amputation Sit-stand: MinAx1 with R platform FWW Bed-chair: MinAx1 with R platform FWW Stand-sit: CGA, cues to reach back with left hand to chair Gait: MinAx1 with R platform FWW 3ft bed to chair. Cues for step sequence, increasing base of support. Pt with no pain in standing, able to follow directions and assist with negotation of platform FWW. Pt left up in recliner chair with LE's elevated and fall alarm in place, pillow under R UE Therex: Initiated ankle pumps 20 reps, long arc quads 20 reps, right hip flexion 20 reps, left hip flexion 10 reps Balance: Static Sitting: normal Dynamic Sitting: normal Static Standing: fair Dynamic Standing: poor Special Tests: Mobility Limitations Standardized Measure [facility] AM-PAC 6 clicks Basic Mobility Inpatient Short Form: Raw Score: 12 Standardized Score: 35.33 CMS Score: 68.66% CMS Modifier: CL Informed Consent/Education: Patient instructed in purpose of PT consult and plan of care. Assessment: Pt is a 73yr old female s/p incision and drainage left hip by Dr. 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 Patient presents with the following impairment level findings: weakness left hip, decreased strength and ability to perform bed transfers due to weakness left hip and amputation R UE, decreased strength with standing transfers requiring one person assist, decreased gait mobility post operatively requiring one person assist and platform FWW due to R UE amputation, decreased static and dynamic standing balance putting her at risk for falls. Pt was able to initiate mobility today and perform transfers to chair, will progress gait household distances and instruct in stair training with goal to return to home setting with . Pt may benefit from home PT at discharge. Impairments are contributing to the following functional limitations: AMPAC score CMS Score: 68.66% Patient is assessed as a High [id number] complexity based on the following: History: see above Examination:see above Presentation: evloving Decision Making: AMPAC score CMS Score: 68.66% Goals: Goals X1 week 1. Supine-Sit: CGA 2. Sit-Supine :SBA 3. Sit-Stand :SBA with platform FWW 4. Stand-Sit: supervision 5. Bed-Chair : SBA with platform FWW 6. Chair-Bed : SBA with platform FWW 7. Gait: CGA with platform FWW 25ftx2 WBAT L LE 8. Stairs : up/down 4 steps with railing, WBAT L LE, CGA Plan of Care/Treatment Plan: 1-2x/day, 7 days/week x 1 week. Plan of care has been reviewed with the [employer] ST[employer]DER providing the service under Physical Therapy direction. Initiate Physical Therapy intervention for strengthening, bed mobility, transfers, gait, stairs, balance training, use of assistive device. DISCHARGE RECOMMENDATIONS: Home with , home PT TREATMENT CODE/TIME: 32min IE high 9:45 G Codes in the area mobility of walking and moving around: current status [id number] CL; projected status GP [id number]. Discharge status (if discharging) GP [id number] CL based on AMPA score CMS Score: 68.66% Vanessa Garcia PT
[2018-07-25] MEDS: VANCOMYCIN 750 MG in Normal Saline 250 ML 166.667 MG IVPB ×2 (10:31→21:18)
--- NOTE | 2018-07-25 10:40 | IN_ITS ---
Date of service: 07/25/18 Time of Service: 09:45 PT Notes Inpatient Physical Therapy Evaluation Date: 07/25/18 Referring Doctor: Dr. Corona PT Orders: PT CONSULT: s/p I& D left hip. WBAT Precautions: WBAT L LE Patient Profile/Admitting Diagnosis: Pt is a 73yr old female s/p incision and drainage left hip by Dr. 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 Per she was using a wheelchair prior to admission due to hip pain, prior to that she mobilized with a FWW with right platform with assistance. brings her walker in today for her to use. She receives assist with ADLS Equipment Owned/DME: FWW with right platform, wheelchair, hemiwalker, shower chair, commode Subjective: Pt lying in bed, alert and agreeable to PT consult, conversant, able to follow directions, asking appropriate questions. in room observing and providing home information. Objective: General Observation: IV L UE, JONATHAN drain left hip Mental Status: A& O to name, location, required orientation to situation she wasn't sure if she had had surgery yet Pain: no c/o pain ROM: Right Upper Extremity: AROM R shoulder WNL, amputation of elbow, forearm and hand Left Upper Extremity: AAROM WNL Right Lower Extremity: AROM WNL Left Lower Extremity: AROM hip flexion to 90, knee and ankle WNL Bed Mobility/Transfers: Supine-sit: HOB 35 degrees, pt able to roll to right side and use L UE on bedrail, required assist to get trunk to sitting due to R UE amputation Sit-stand: MinAx1 with R platform FWW Bed-chair: MinAx1 with R platform FWW Stand-sit: CGA, cues to reach back with left hand to chair Gait: MinAx1 with R platform FWW 3ft bed to chair. Cues for step sequence, increasing base of support. Pt with no pain in standing, able to follow directions and assist with negotation of platform FWW. Pt left up in recliner chair with LE's elevated and fall alarm in place, pillow under R UE Therex: Initiated ankle pumps 20 reps, long arc quads 20 reps, right hip flexion 20 reps, left hip flexion 10 reps Balance: Static Sitting: normal Dynamic Sitting: normal Static Standing: fair Dynamic Standing: poor Special Tests: Mobility Limitations Standardized Measure [facility] AM-PAC 6 clicks Basic Mobility Inpatient Short Form: Raw Score: 12 Standardized Score: 35.33 CMS Score: 68.66% CMS Modifier: CL Informed Consent/Education: Patient instructed in purpose of PT consult and plan of care. Assessment: Pt is a 73yr old female s/p incision and drainage left hip by Dr. 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 Patient presents with the following impairment level findings: weakness left hip, decreased strength and ability to perform bed transfers due to weakness left hip and amputation R UE, decreased strength with standing transfers requiring one person assist, decreased gait mobility post operatively requiring one person assist and platform FWW due to R UE amputation, decreased static and dynamic standing balance putting her at risk for falls. Pt was able to initiate mobility today and perform transfers to chair, will progress gait household distances and instruct in stair training with goal to return to home setting with . Pt may benefit from home PT at discharge. Impairments are contributing to the following functional limitations: AMPAC score CMS Score: 68.66% Patient is assessed as a High [id number] complexity based on the following: History: see above Examination:see above Presentation: evloving Decision Making: AMPAC score CMS Score: 68.66% Goals: Goals X1 week 1. Supine-Sit: CGA 2. Sit-Supine :SBA 3. Sit-Stand :SBA with platform FWW 4. Stand-Sit: supervision 5. Bed-Chair : SBA with platform FWW 6. Chair-Bed : SBA with platform FWW 7. Gait: CGA with platform FWW 25ftx2 WBAT L LE 8. Stairs : up/down 4 steps with railing, WBAT L LE, CGA Plan of Care/Treatment Plan: 1-2x/day, 7 days/week x 1 week. Plan of care has been reviewed with the CAMPAIGN FUNDRAISER providing the service under Physical Therapy direction. Initiate Physical Therapy intervention for strengthening, bed mobility, transfers, gait, stairs, balance training, use of assistive device. DISCHARGE RECOMMENDATIONS: Home with , home PT TREATMENT CODE/TIME: 32min IE high 9:45 G Codes in the area mobility of walking and moving around: current status [id number] CL; projected status GP [id number]. Discharge status (if discharging) GP [id number] CL based on AMPA score CMS Score: 68.66% Vanessa Garcia PT
[2018-07-25] MEDS: Insulin Aspart 300 UNITS/3 ML PEN SC ×3 (12:18→20:54)
--- NOTE | 2018-07-25 14:04 | PT.INTREAT ---
Date of service: 07/25/18 Time of Service: 14:04 PT Notes Inpatient Physical Therapy Treatment Note Date: 07/25/18 PRECAUTIONS: Fall precautions, WBAT L LE SUBJECTIVE: Pt sitting in recliner chair, states she feels ready to get back to bed. present in room. OBJECTIVE: General observation: IV L UE, JONATHAN drain left hip PAIN: no c/o pain Bed Mobility/Transfers: Sit-stand: MinAx1 with R platform FWW Chair-bed: MinAx1 with R platform FWW Stand-sit: CGA Sit-supine: HOB flat, Daniella for LE's Gait: MinAx1 with R platform FWW 3ft chair-bed. Instruction in step sequence. Therex: ankle pumps 20 reps, AA left hip abduction x 10reps, left SLR x 10 reps Balance: Static Sitting: normal Dynamic Sitting: normal Static Standing: fair Dynamic Standing: poor ASSESSMENT: Pt up in chair x 3 hours this morning, able to perform transfers chair<> bed with platform FWW. Will continue to progress mobility over weekend. PLAN: Progress transfers Progress gait Progress strengthening TREATMENT CODE/TIME: 23min TAx1 TPx1 1337 Vanessa Garcia PT
--- NOTE | 2018-07-25 19:41 | W.PM.PROGNOT ---
Assessment and Plan (1) Abscess of left hip: Current visit: Yes Status: Acute S/p I&D/washout on 07/24. Cx w/ staph aureus. Blood cx negative. Continue vancomycin/rifampin (Day 2); zosyn d/c'ed today. (2) Anemia associated with acute blood loss: Current visit: Yes Status: Acute s/p transfusion of 2 units of pRBC's - significantly improved. 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 Pathology pending. Palliative care consulted. (4) Kfc-[id number] diabetes mellitus without complications: Current visit: Yes Status: Acute Continue corrective insulin. Diet changed to carbohydrate consistent. (5) Alzheimer disease: Current visit: Yes Status: Chronic Doubt that the patient will be able to be much help in making her goals of care decision. is interested in meeting with palliative care. (6) DVT prophylaxis: Current visit: Yes Status: Acute On SCD's/TEDs at this point. Consider starting chemical ppx if ok with primary service. Subjective Interval history since last seen: The patient states she is not in pain. Denies dizziness, chest pain, shortness of breath, nausea, vomiting. She has significant output in her wound vac. Exam Narrative Exam Narrative: General: pale elderly female, comfortable in bed, not in acute distress Neurological: alert and oriented x1, no focal deficits Psychiatric: appropriate speech pattern and content, appropriate affect Skin: on obvious bruising or rashes; wound vac in place (L hip); wound dressed - c/d/i. HEENT: normocephalic, extraocular movements are intact, moist mucous membranes, no goiter or JVD Cardiovascular: regularly regular rhythm Pulmonary: nonlabored breathing, clear to auscultation bilaterally Gastrointestinal: Abdomen is soft, nontender, nondistended. Extremities: wearing SCD's; +1 edema in BLE's, no clubbing or cyanosis; wound dressed Objective Objective Clinical Data: Abnormal lab results 07/24/18 07/25/18 07/25/18 Range/Units 15:54 06:45 06:45 WBC 12.40 H (4.4-10.8) k/cumm RBC 3.88 L (4.00-5.20) m/cumm Hgb 8.9 L D (12.0-15.5) g/dL Hct 29.8 L D (36.0-46.0) % MCV 76.8 L (80-95) fL MCH 22.9 L (27.0-33.0) pg MCHC 29.9 L (32.0-36.0) g/dL RDW 20.7 H (11.7-14.6) % Plt Count 622 H D (130-400) x1000/uL Absolute Neutrophils 9.92 H (1.2-6.7) k/cumm Absolute Lymphocytes 1.12 L (1.2-3.4) k/cumm Chloride 108 H (98-107) mmol/L Anion Gap 12.3 H (3-11) mmol/L BUN 19 H D (7-18) mg/dL Glucose 124 H D (70-100) mg/dL Calcium 8.3 L (8.5-10.1) mg/dL Magnesium 1.7 L (1.8-2.4) mg/dL C-Reactive Protein 9.91 H (0.0-0.3) mg/dL Crossmatch See Detail Vital Signs Temperature 36.4 C L 07/25/18 16:16 Temperature Source Tympanic 07/25/18 16:16 Pulse 65 07/25/18 16:16 Pulse Rhythm Regular 07/25/18 08:35 Respiratory Rate 18 07/25/18 16:16 Respiratory Effort Non-Labored 07/25/18 08:35 Respiratory Depth Normal 07/25/18 08:35 Respiratory Pattern Normal 07/25/18 08:35 Blood Pressure 121/70 07/25/18 16:16 Pulse Oximetry 97 07/25/18 16:16 Respiratory End-tidal CO2 27 07/24/18 13:35 Oxygen Delivery Method Room Air 07/25/18 16:16 Oxygen Flow Rate 0 07/25/18 16:16 Pain Level 0 07/25/18 08:43 Comment 07/24/18 14:58 Intake & Output 07/24/18 07/25/18 07/25/18 23:59 11:59 23:59 Intake Total 2812.0 / 2812.0 2330.00 / 2330.00 1050 / 1050 Output Total 230 / 230 100 / 100 280 / 280 Balance 2582.0 / 2582.0 2230.00 / 2230.00 770 / 770 Intake: IV 2092.0 / 2092.0 1100.00 / 1100.00 Oral 420 / 420 810 / 810 1050 / 1050 Blood Product 300 / 300 300 / 300 Rbc Leuko Reduced Unit 300 / 300 [id number] Rbc Leuko Reduced Unit 300 / 300 [id number] Injectate 120 / 120 Left Thigh 120 / 120 Output: Drainage 230 / 230 100 / 100 280 / 280 Left Thigh 230 / 230 100 / 100 280 / 280 Other: Urine Color Yellow Urine Appearance Clear Urine Odor Normal Comment Inc x 1 incontinent urine x1 Stool Size Small Small Stool Characteristics Soft Soft Brown Green Emesis Description None Voiding Methods Diaper Incontinent Laboratory Results WBC 12.40 k/cumm (4.4-10.8) H 07/25/18 06:45 RBC 3.88 m/cumm (4.00-5.20) L 07/25/18 06:45 Hgb 8.9 g/dL (12.0-15.5) L D 07/25/18 06:45 Hct 29.8 % (36.0-46.0) L D 07/25/18 06:45 MCV 76.8 fL (80-95) L 07/25/18 06:45 MCH 22.9 pg (27.0-33.0) L 07/25/18 06:45 MCHC 29.9 g/dL (32.0-36.0) L 07/25/18 06:45 RDW 20.7 % (11.7-14.6) H 07/25/18 06:45 Plt Count 622 x1000/uL (130-400) H D 07/25/18 06:45 MPV 8.5 fL (8.0-11.0) 07/25/18 06:45 Immature Gran % See Differential 07/25/18 06:45 Neutrophils % 79.0 07/25/18 06:45 Lymphocytes % 9.0 07/25/18 06:45 Monocytes % 5.0 07/25/18 06:45 Eosinophils % 5.0 07/25/18 06:45 Basophils % 0.0 07/25/18 06:45 Absolute Neutrophils 9.92 k/cumm (1.2-6.7) H 07/25/18 06:45 Band Neutrophils 1.0 % 07/25/18 06:45 Absolute Lymphocytes 1.12 k/cumm (1.2-3.4) L 07/25/18 06:45 Absolute Monocytes 0.62 k/cumm (0.11-0.7) 07/25/18 06:45 Absolute Eosinophils 0.62 k/cumm (0.0-0.7) 07/25/18 06:45 Absolute Basophils 0.00 k/cumm (0.0-0.2) 07/25/18 06:45 Myelocytes 1.0 % 07/25/18 06:45 Differential Comment Manual differential 07/25/18 06:45 RBC Morphology See below 07/25/18 06:45 Polychromasia Present 07/23/18 15:35 Hypochromasia 2+ 07/25/18 06:45 Poikilocytosis 1+ 07/25/18 06:45 Anisocytosis 2+ 07/25/18 06:45 Microcytosis 1+ 07/23/18 15:35 Spherocytes 1+ 07/23/18 15:35 Ovalocytes 2+ 07/23/18 15:35 ESR 25 MM/HR (0-30) 07/25/18 06:45 Sodium 142 mmol/L (136-145) 07/25/18 06:45 Potassium 4.0 mmol/L (3.5-5.1) D 07/25/18 06:45 Chloride 108 mmol/L (98-107) H 07/25/18 06:45 Carbon Dioxide 21.7 mmol/L (21.0-32.0) 07/25/18 06:45 Anion Gap 12.3 mmol/L (3-11) H 07/25/18 06:45 BUN 19 mg/dL (7-18) H D 07/25/18 06:45 Creatinine 0.84 mg/dL (0.55-1.02) 07/25/18 06:45 Estimated GFR/1.73 m2 >= 60.00 (mL/min/1.73m2) 07/25/18 06:45 Glucose 124 mg/dL (70-100) H D 07/25/18 06:45 Lactate 1.9 mmol/L (0.6-1.4) H 07/23/18 15:35 Calcium 8.3 mg/dL (8.5-10.1) L 07/25/18 06:45 Magnesium 1.7 mg/dL (1.8-2.4) L 07/25/18 06:45 Iron 9 ug/dL (50-175) L 07/23/18 15:30 TIBC 102 ug/dL (250-450) L 07/23/18 15:30 Transferrin % Sat 9 % (15-50) L 07/23/18 15:30 Ferritin 541 ng/mL (8-388) H 07/23/18 15:30 Total Bilirubin 0.3 mg/dL (0.2-1.0) 07/23/18 15:35 AST 17 U/L (15-37) 07/23/18 15:35 ALT 16 U/L (12-78) 07/23/18 15:35 Alkaline Phosphatase 193 U/L (46-116) H 07/23/18 15:35 Troponin I < 0.02 ng/mL (0.00-0.06) 07/23/18 15:35 C-Reactive Protein 9.91 mg/dL (0.0-0.3) H 07/25/18 06:45 Total Protein 6.2 g/dL (6.4-8.2) L 07/23/18 15:35 Albumin 1.7 g/dL (3.4-5.0) L 07/23/18 15:35 Urine Color Yellow (Yellow) 07/23/18 16:20 Urine Clarity Clear 07/23/18 16:20 Urine pH 5.5 (5-8) 07/23/18 16:20 Ur Specific [place] 1.020 (1.005-1.025) 07/23/18 16:20 Urine Protein Negative mg/dL (Negative) 07/23/18 16:20 Urine Ketones Trace mg/dL (Negative) H 07/23/18 16:20 Urine Blood Negative (Negative) 07/23/18 16:20 Urine Nitrite Negative (Negative) 07/23/18 16:20 Urine Bilirubin Negative (Negative) 07/23/18 16:20 Urine Urobilinogen 0.2 EU/dL (Up TO 0.2) 07/23/18 16:20 Ur Leukocyte Esterase Trace (Negative) H 07/23/18 16:20 Urine RBC 5-10 (0-2) H 07/23/18 16:20 Urine WBC 20-50 HPF (0-5) 07/23/18 16:20 Ur Epithelial Cells Few HPF (Negative) 07/23/18 16:20 Urine Crystals Moderate amorphous HPF (Negative) 07/23/18 16:20 Urine Bacteria Negative HPF (Negative) 07/23/18 16:20 Urine Casts 20-50 hyaline LPF (Negative) 07/23/18 16:20 Urine Mucus Negative (Negative) 07/23/18 16:20 Ur Culture Indicated? Yes 07/23/18 16:20 Urine Glucose Negative mg/dL (Negative) 07/23/18 16:20 Patient ABO/Rh A Positive 07/24/18 15:54 Antibody Screen Negative 07/24/18 15:54 Crossmatch See Detail 07/24/18 15:54 Wound cx: Staph Aureus
[2018-07-25] MEDS: Melatonin 3 MG TAB PO (20:54)
[2018-07-25] MEDS: Pantoprazole 40 MG VIAL IVP (20:54)
[2018-07-26] VITALS (7 sets, daily range): BP systolic 114–147; BP diastolic 59–78; PULSE 68–103; RESP 16–20; TEMP 35.9–37.7; O2SAT 97–99
[2018-07-26] MEDS: RIFAMPIN 300 MG CAP PO ×2 (03:30→16:26)
[2018-07-26] MEDS: Normal Saline 1,000 ML 125 ML IV ×3 (05:08→23:30)
[2018-07-26] MEDS: Levothyroxine 75 MCG TAB 150 MCG PO (05:09)
--- NOTE | 2018-07-26 07:11 | PGE_ITS ---
Assessment and Plan (1) Anemia associated with acute blood loss: Current visit: Yes Status: Acute Hgb is stable today at 8.9. We will continue to follow. 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 Palliative care consult. (3) Abscess of left hip: Current visit: Yes Status: Acute Drain with some thickened output. At this point she feels much better. Labs are reassuring. Awaiting cultures - will d/c Zosyn and continue Rifampin and Vanco. Will start Lovenox. Subjective Interval history since last seen: Dina has done well. She was able to ambulate with PT and sit in the chair most of the day today. She denies any fever or chills. No significant pain, better than before surgery. Initial culture is showing Staph growth. Labs today have marked decrease in CRP and WBC. Exam Narrative Exam Narrative: Dina is sitting up. NAD. AAOx3. LLE dressing c/d/i. The drain has some thickened sanguinous output. Some tenderness to palpatin around the left thigh wound. SILT DP/SP/Tib. Foot WWP. Objective Objective Clinical Data: Abnormal lab results 07/25/18 07/25/18 Range/Units 06:45 06:45 WBC 12.40 H (4.4-10.8) k/cumm RBC 3.88 L (4.00-5.20) m/cumm Hgb 8.9 L D (12.0-15.5) g/dL Hct 29.8 L D (36.0-46.0) % MCV 76.8 L (80-95) fL MCH 22.9 L (27.0-33.0) pg MCHC 29.9 L (32.0-36.0) g/dL RDW 20.7 H (11.7-14.6) % Plt Count 622 H D (130-400) x1000/uL Absolute Neutrophils 9.92 H (1.2-6.7) k/cumm Absolute Lymphocytes 1.12 L (1.2-3.4) k/cumm Chloride 108 H (98-107) mmol/L Anion Gap 12.3 H (3-11) mmol/L BUN 19 H D (7-18) mg/dL Glucose 124 H D (70-100) mg/dL Calcium 8.3 L (8.5-10.1) mg/dL Magnesium 1.7 L (1.8-2.4) mg/dL C-Reactive Protein 9.91 H (0.0-0.3) mg/dL Vital Signs Temperature 36 C L 07/26/18 03:31 Temperature Source Tympanic 07/26/18 03:31 Pulse 68 07/26/18 03:31 Pulse Rhythm Regular 07/25/18 21:49 Respiratory Rate 07/26/18 03:31 Respiratory Effort Non-Labored 07/25/18 21:49 Respiratory Depth Normal 07/25/18 21:49 Respiratory Pattern Normal 07/25/18 21:49 Blood Pressure 140/62 07/26/18 03:31 Pulse Oximetry 98 07/26/18 03:31 Respiratory End-tidal CO2 07/24/18 13:35 Oxygen Delivery Method Room Air 07/26/18 03:31 Oxygen Flow Rate 0 07/26/18 03:31 Pain Level 0 07/25/18 08:43 Comment 07/24/18 14:58 Intake & Output 07/25/18 07/25/18 07/26/18 11:59 23:59 11:59 Intake Total 2330.00 / 2330.00 1840 / 1840 1080 / 1080 Output Total 100 / 100 330 / 330 150 / 150 Balance 2230.00 / 2230.00 1510 / 1510 930 / 930 Intake: IV 1100.00 / 1100.00 500 / 500 1000 / 1000 Oral 810 / 810 1340 / 1340 Blood Product 300 / 300 Rbc Leuko Reduced Unit 300 / 300 [id number] Injectate 120 / 120 80 / 80 Left Thigh 120 / 120 80 / 80 Output: Drainage 100 / 100 330 / 330 150 / 150 Left Thigh 100 / 100 330 / 330 150 / 150 Other: Urine Color Yellow Urine Appearance Clear Urine Odor Normal Comment incontinent urine x1 inconinent large amount of urine x1 incontinent large amount of urine Stool Size Small Stool Characteristics Soft Green Voiding Methods Diaper Diaper Incontinent Incontinent Incontinent Laboratory Results WBC 12.40 k/cumm (4.4-10.8) H 07/25/18 06:45 RBC 3.88 m/cumm (4.00-5.20) L 07/25/18 06:45 Hgb 8.9 g/dL (12.0-15.5) L D 07/25/18 06:45 Hct 29.8 % (36.0-46.0) L D 07/25/18 06:45 MCV 76.8 fL (80-95) L 07/25/18 06:45 MCH 22.9 pg (27.0-33.0) L 07/25/18 06:45 MCHC 29.9 g/dL (32.0-36.0) L 07/25/18 06:45 RDW 20.7 % (11.7-14.6) H 07/25/18 06:45 Plt Count 622 x1000/uL (130-400) H D 07/25/18 06:45 MPV 8.5 fL (8.0-11.0) 07/25/18 06:45 Immature Gran % See Differential 07/25/18 06:45 Neutrophils % 79.0 07/25/18 06:45 Lymphocytes % 9.0 07/25/18 06:45 Monocytes % 5.0 07/25/18 06:45 Eosinophils % 5.0 07/25/18 06:45 Basophils % 0.0 07/25/18 06:45 Absolute Neutrophils 9.92 k/cumm (1.2-6.7) H 07/25/18 06:45 Band Neutrophils 1.0 % 07/25/18 06:45 Absolute Lymphocytes 1.12 k/cumm (1.2-3.4) L 07/25/18 06:45 Absolute Monocytes 0.62 k/cumm (0.11-0.7) 07/25/18 06:45 Absolute Eosinophils 0.62 k/cumm (0.0-0.7) 07/25/18 06:45 Absolute Basophils 0.00 k/cumm (0.0-0.2) 07/25/18 06:45 Myelocytes 1.0 % 07/25/18 06:45 Differential Comment Manual differential 07/25/18 06:45 RBC Morphology See below 07/25/18 06:45 Polychromasia Present 07/23/18 15:35 Hypochromasia 2+ 07/25/18 06:45 Poikilocytosis 1+ 07/25/18 06:45 Anisocytosis 2+ 07/25/18 06:45 Microcytosis 1+ 07/23/18 15:35 Spherocytes 1+ 07/23/18 15:35 Ovalocytes 2+ 07/23/18 15:35 ESR 25 MM/HR (0-30) 07/25/18 06:45 Sodium 142 mmol/L (136-145) 07/25/18 06:45 Potassium 4.0 mmol/L (3.5-5.1) D 07/25/18 06:45 Chloride 108 mmol/L (98-107) H 07/25/18 06:45 Carbon Dioxide 21.7 mmol/L (21.0-32.0) 07/25/18 06:45 Anion Gap 12.3 mmol/L (3-11) H 07/25/18 06:45 BUN 19 mg/dL (7-18) H D 07/25/18 06:45 Creatinine 0.84 mg/dL (0.55-1.02) 07/25/18 06:45 Estimated GFR/1.73 m2 >= 60.00 (mL/min/1.73m2) 07/25/18 06:45 Glucose 124 mg/dL (70-100) H D 07/25/18 06:45 Lactate 1.9 mmol/L (0.6-1.4) H 07/23/18 15:35 Calcium 8.3 mg/dL (8.5-10.1) L 07/25/18 06:45 Magnesium 1.7 mg/dL (1.8-2.4) L 07/25/18 06:45 Iron 9 ug/dL (50-175) L 07/23/18 15:30 TIBC 102 ug/dL (250-450) L 07/23/18 15:30 Transferrin % Sat 9 % (15-50) L 07/23/18 15:30 Ferritin 541 ng/mL (8-388) H 07/23/18 15:30 Total Bilirubin 0.3 mg/dL (0.2-1.0) 07/23/18 15:35 AST 17 U/L (15-37) 07/23/18 15:35 ALT 16 U/L (12-78) 07/23/18 15:35 Alkaline Phosphatase 193 U/L (46-116) H 10/24/18 15:35 Troponin I < 0.02 ng/mL (0.00-0.06) 07/23/18 15:35 C-Reactive Protein 9.91 mg/dL (0.0-0.3) H 07/25/18 06:45 Total Protein 6.2 g/dL (6.4-8.2) L 07/23/18 15:35 Albumin 1.7 g/dL (3.4-5.0) L 07/23/18 15:35 Urine Color Yellow (Yellow) 07/23/18 16:20 Urine Clarity Clear 07/23/18 16:20 Urine pH 5.5 (5-8) 07/23/18 16:20 Ur Specific [place] 1.020 (1.005-1.025) 07/23/18 16:20 Urine Protein Negative mg/dL (Negative) 07/23/18 16:20 Urine Ketones Trace mg/dL (Negative) H 07/23/18 16:20 Urine Blood Negative (Negative) 07/23/18 16:20 Urine Nitrite Negative (Negative) 07/23/18 16:20 Urine Bilirubin Negative (Negative) 07/23/18 16:20 Urine Urobilinogen 0.2 EU/dL (Up TO 0.2) 07/23/18 16:20 Ur Leukocyte Esterase Trace (Negative) H 07/23/18 16:20 Urine RBC 5-10 (0-2) H 07/23/18 16:20 Urine WBC 20-50 HPF (0-5) 07/23/18 16:20 Ur Epithelial Cells Few HPF (Negative) 07/23/18 16:20 Urine Crystals Moderate amorphous HPF (Negative) 07/23/18 16:20 Urine Bacteria Negative HPF (Negative) 07/23/18 16:20 Urine Casts 20-50 hyaline LPF (Negative) 07/23/18 16:20 Urine Mucus Negative (Negative) 07/23/18 16:20 Ur Culture Indicated? Yes 07/23/18 16:20 Urine Glucose Negative mg/dL (Negative) 07/23/18 16:20 Patient ABO/Rh A Positive 07/24/18 15:54 Antibody Screen Negative 07/24/18 15:54 Crossmatch See Detail 07/24/18 15:54
--- NOTE | 2018-07-26 07:13 | PGE_ITS ---
Assessment and Plan (1) Anemia associated with acute blood loss: Current visit: Yes Status: Acute Awaiting Hgb. Vitals are stable. Restart Lovenox. 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 Palliative care consult. (3) Abscess of left hip: Current visit: Yes Status: Acute Drain removed. At this point she feels much better. Labs are reassuring. Awaiting cultures - continue Rifampin and Vanco. Continue PT. Subjective Patient reports: no new complaints, feels better, tolerating a regular diet and afebrile; denies nausea and fever Exam Narrative Exam Narrative: Dina is sitting up. NAD. AAOx3. LLE dressing c/d/i. The drain has some thickened sanguinous output. The drain is removed and a new dressing applied. Thigh is soft, no significant erythema or warmth. Some tenderness to palpation around the left thigh wound but no fluctuance or drainage. SILT DP/SP/Tib. Foot WWP. Objective Objective Clinical Data: Abnormal lab results 07/25/18 07/25/18 Range/Units 06:45 06:45 WBC 12.40 H (4.4-10.8) k/cumm RBC 3.88 L (4.00-5.20) m/cumm Hgb 8.9 L D (12.0-15.5) g/dL Hct 29.8 L D (36.0-46.0) % MCV 76.8 L (80-95) fL MCH 22.9 L (27.0-33.0) pg MCHC 29.9 L (32.0-36.0) g/dL RDW 20.7 H (11.7-14.6) % Plt Count 622 H D (130-400) x1000/uL Absolute Neutrophils 9.92 H (1.2-6.7) k/cumm Absolute Lymphocytes 1.12 L (1.2-3.4) k/cumm Chloride 108 H (98-107) mmol/L Anion Gap 12.3 H (3-11) mmol/L BUN 19 H D (7-18) mg/dL Glucose 124 H D (70-100) mg/dL Calcium 8.3 L (8.5-10.1) mg/dL Magnesium 1.7 L (1.8-2.4) mg/dL C-Reactive Protein 9.91 H (0.0-0.3) mg/dL Vital Signs Temperature 36 C L 07/26/18 03:31 Temperature Source Tympanic 07/26/18 03:31 Pulse 68 07/26/18 03:31 Pulse Rhythm Regular 07/25/18 21:49 Respiratory Rate 18 07/26/18 03:31 Respiratory Effort Non-Labored 07/25/18 21:49 Respiratory Depth Normal 07/25/18 21:49 Respiratory Pattern Normal 07/25/18 21:49 Blood Pressure 140/62 07/26/18 03:31 Pulse Oximetry 98 07/26/18 03:31 Respiratory End-tidal CO2 27 07/24/18 13:35 Oxygen Delivery Method Room Air 07/26/18 03:31 Oxygen Flow Rate 0 07/26/18 03:31 Pain Level 0 07/25/18 08:43 Comment 07/24/18 14:58 Intake & Output 07/25/18 07/25/18 07/26/18 11:59 23:59 11:59 Intake Total 2330.00 / 2330.00 1840 / 1840 1080 / 1080 Output Total 100 / 100 330 / 330 150 / 150 Balance 2230.00 / 2230.00 1510 / 1510 930 / 930 Intake: IV 1100.00 / 1100.00 500 / 500 1000 / 1000 Oral 810 / 810 1340 / 1340 Blood Product 300 / 300 Rbc Leuko Reduced Unit 300 / 300 [id number] Injectate 120 / 120 80 / 80 Left Thigh 120 / 120 80 / 80 Output: Drainage 100 / 100 330 / 330 150 / 150 Left Thigh 100 / 100 330 / 330 150 / 150 Other: Urine Color Yellow Urine Appearance Clear Urine Odor Normal Comment incontinent urine x1 inconinent large amount of urine x1 incontinent large amount of urine Stool Size Small Stool Characteristics Soft Green Voiding Methods Diaper Diaper Incontinent Incontinent Incontinent Laboratory Results WBC 12.40 k/cumm (4.4-10.8) H 07/25/18 06:45 RBC 3.88 m/cumm (4.00-5.20) L 07/25/18 06:45 Hgb 8.9 g/dL (12.0-15.5) L D 07/25/18 06:45 Hct 29.8 % (36.0-46.0) L D 07/25/18 06:45 MCV 76.8 fL (80-95) L 07/25/18 06:45 MCH 22.9 pg (27.0-33.0) L 07/25/18 06:45 MCHC 29.9 g/dL (32.0-36.0) L 07/25/18 06:45 RDW 20.7 % (11.7-14.6) H 07/25/18 06:45 Plt Count 622 x1000/uL (130-400) H D 07/25/18 06:45 MPV 8.5 fL (8.0-11.0) 07/25/18 06:45 Immature Gran % See Differential 07/25/18 06:45 Neutrophils % 79.0 07/25/18 06:45 Lymphocytes % 9.0 07/25/18 06:45 Monocytes % 5.0 07/25/18 06:45 Eosinophils % 5.0 07/25/18 06:45 Basophils % 0.0 07/25/18 06:45 Absolute Neutrophils 9.92 k/cumm (1.2-6.7) H 07/25/18 06:45 Band Neutrophils 1.0 % 07/25/18 06:45 Absolute Lymphocytes 1.12 k/cumm (1.2-3.4) L 07/25/18 06:45 Absolute Monocytes 0.62 k/cumm (0.11-0.7) 07/25/18 06:45 Absolute Eosinophils 0.62 k/cumm (0.0-0.7) 07/25/18 06:45 Absolute Basophils 0.00 k/cumm (0.0-0.2) 07/25/18 06:45 Myelocytes 1.0 % 07/25/18 06:45 Differential Comment Manual differential 07/25/18 06:45 RBC Morphology See below 07/25/18 06:45 Polychromasia Present 07/23/18 15:35 Hypochromasia 2+ 07/25/18 06:45 Poikilocytosis 1+ 07/25/18 06:45 Anisocytosis 2+ 07/25/18 06:45 Microcytosis 1+ 07/23/18 15:35 Spherocytes 1+ 07/23/18 15:35 Ovalocytes 2+ 07/23/18 15:35 ESR 25 MM/HR (0-30) 07/25/18 06:45 Sodium 142 mmol/L (136-145) 07/25/18 06:45 Potassium 4.0 mmol/L (3.5-5.1) D 07/25/18 06:45 Chloride 108 mmol/L (98-107) H 07/25/18 06:45 Carbon Dioxide 21.7 mmol/L (21.0-32.0) 07/25/18 06:45 Anion Gap 12.3 mmol/L (3-11) H 07/25/18 06:45 BUN 19 mg/dL (7-18) H D 07/25/18 06:45 Creatinine 0.84 mg/dL (0.55-1.02) 07/25/18 06:45 Estimated GFR/1.73 m2 >= 60.00 (mL/min/1.73m2) 07/25/18 06:45 Glucose 124 mg/dL (70-100) H D 07/25/18 06:45 Lactate 1.9 mmol/L (0.6-1.4) H 07/23/18 15:35 Calcium 8.3 mg/dL (8.5-10.1) L 07/25/18 06:45 Magnesium 1.7 mg/dL (1.8-2.4) L 07/25/18 06:45 Iron 9 ug/dL (50-175) L 07/23/18 15:30 TIBC 102 ug/dL (250-450) L 07/23/18 15:30 Transferrin % Sat 9 % (15-50) L 07/23/18 15:30 Ferritin 541 ng/mL (8-388) H 07/23/18 15:30 Total Bilirubin 0.3 mg/dL (0.2-1.0) 07/23/18 15:35 AST 17 U/L (15-37) 07/23/18 15:35 ALT 16 U/L (12-78) 07/23/18 15:35 Alkaline Phosphatase 193 U/L (46-116) H 07/23/18 15:35 Troponin I < 0.02 ng/mL (0.00-0.06) 07/23/18 15:35 C-Reactive Protein 9.91 mg/dL (0.0-0.3) H 07/25/18 06:45 Total Protein 6.2 g/dL (6.4-8.2) L 07/23/18 15:35 Albumin 1.7 g/dL (3.4-5.0) L 07/23/18 15:35 Urine Color Yellow (Yellow) 07/23/18 16:20 Urine Clarity Clear 07/23/18 16:20 Urine pH 5.5 (5-8) 07/23/18 16:20 Ur Specific [place] 1.020 (1.005-1.025) 07/23/18 16:20 Urine Protein Negative mg/dL (Negative) 07/23/18 16:20 Urine Ketones Trace mg/dL (Negative) H 07/23/18 16:20 Urine Blood Negative (Negative) 07/23/18 16:20 Urine Nitrite Negative (Negative) 07/23/18 16:20 Urine Bilirubin Negative (Negative) 07/23/18 16:20 Urine Urobilinogen 0.2 EU/dL (Up TO 0.2) 07/23/18 16:20 Ur Leukocyte Esterase Trace (Negative) H 07/23/18 16:20 Urine RBC 5-10 (0-2) H 07/23/18 16:20 Urine WBC 20-50 HPF (0-5) 07/23/18 16:20 Ur Epithelial Cells Few HPF (Negative) 07/23/18 16:20 Urine Crystals Moderate amorphous HPF (Negative) 07/23/18 16:20 Urine Bacteria Negative HPF (Negative) 07/23/18 16:20 Urine Casts 20-50 hyaline LPF (Negative) 07/23/18 16:20 Urine Mucus Negative (Negative) 07/23/18 16:20 Ur Culture Indicated? Yes 07/23/18 16:20 Urine Glucose Negative mg/dL (Negative) 07/23/18 16:20 Patient ABO/Rh A Positive 07/24/18 15:54 Antibody Screen Negative 07/24/18 15:54 Crossmatch See Detail 07/24/18 15:54
[2018-07-26 07:43] LABS: Abs Immature Grans 0.21 k/cumm (0.0-0.09); Absolute Basophil Count 0.02 k/cumm (0.0-0.2); Absolute Eosinophil Count 0.37 k/cumm (0.0-0.7); Absolute Lymphocyte Count 0.47 k/cumm (1.2-3.4); Absolute Monocyte Count 0.81 k/cumm (0.11-0.7); Basophils % 0.2; Eosinophils % 3.3; HCT 28.8 % (36.0-46.0); HGB 8.6 g/dL (12.0-15.5); Immature Grans % 1.8; Lymphocytes % 4.1; Mean Corp. HGB Concentration 29.9 g/dL (32.0-36.0); Mean Corpuscular Hemoglobin 23.1 pg (27.0-33.0); Mean Corpuscular Volume 77.2 fL (80-95); Mean Platelet Volume 8.3 fL (8.0-11.0); Monocytes % 7.1; Neutrophils % 83.5; Platelet Count 618 x1000/uL (130-400); RBC 3.73 m/cumm (4.00-5.20); RBC Distribution Width 21.7 % (11.7-14.6); White Blood Cell Count 11.36 k/cumm (4.4-10.8)
[2018-07-26 07:49] LABS: Absolute Neutrophil Count 9.49 k/cumm (1.2-6.7)
[2018-07-26 07:52] LABS: Anion Gap 12.4 mmol/L (3-11); BUN 14 mg/dL (7-18); C-Reactive Protein 8.46 mg/dL (0.0-0.3); CO2 19.6 mmol/L (21.0-32.0); CREATININE 0.73 mg/dL (0.55-1.02); Calcium 8.1 mg/dL (8.5-10.1); Chloride 108 mmol/L (98-107); Glucose 119 mg/dL (70-100); Magnesium 1.9 mg/dL (1.8-2.4); Potassium 3.5 mmol/L (3.5-5.1); Sodium 140 mmol/L (136-145)
[2018-07-26 08:15] LABS: Anisocytosis 3+; Hypochromasia 2+; Macrocytosis 1+; Microcytosis 2+
[2018-07-26 08:16] LABS: Poikilocytes 2+; Polychromasia Present
[2018-07-26] MEDS: Enoxaparin 40 MG/0.4 ML SYR SC (08:21)
[2018-07-26] MEDS: Magnesium Oxide 400 MG TAB PO ×2 (08:22→11:25)
[2018-07-26] MEDS: Atorvastatin 40 MG TAB PO (08:22)
[2018-07-26] MEDS: Ferrous Sulfate 325 MG TAB PO ×2 (08:22→20:37)
[2018-07-26] MEDS: Donepezil 5 MG TAB 10 MG PO (08:22)
[2018-07-26] MEDS: Memantine 5 MG TAB 10 MG PO ×2 (08:22→20:37)
[2018-07-26] MEDS: Sennosides/Docusate Sodium TAB 1 TAB PO (08:22)
[2018-07-26] MEDS: Multivitamin TAB 1 TAB PO (08:22)
[2018-07-26] MEDS: DULoxetine 30 MG CAP 60 MG PO (08:22)
[2018-07-26 10:11] LABS: Vancomycin, Trough 19.6 ug/mL (10.0-20.0)
[2018-07-26] MEDS: VANCOMYCIN 750 MG in Normal Saline 250 ML 166.67 MG IVPB (10:38)
[2018-07-26] MEDS: Potassium Chloride 20 MEQ TABCR 40 MEQ PO (11:25)
--- NOTE | 2018-07-26 12:46 | PT.INTREAT ---
Date of service: 07/26/18 Time of Service: 11:05 PT Notes Inpatient Physical Therapy Treatment Note Date: 07/26/18 PRECAUTIONS:s/p I&D left hip, WBAT SUBJECTIVE: Indicated she was having a bad day, frustrated due to yesterday being so good. Patient's reported he agreed today was a bad day. Indicated she did not want to get up right now. Had been up for about an hour earlier. Agreed to do bed exercises only. Will get up later with nursing if feeling better. OBJECTIVE: PAIN: Left hip is very painful. Needs to move very gently. BED MOBILITY/TRANSFERS Held on bed transfers and ambulation to chair per patient and 's request. THEREX: Performed ankle pumps x 20 reps, assisted SAQs and assisted hip abd/add for 10 reps each. Care taken to move left LE gently. ASSESSMENT: Not interested in doing much PT today, just not feeling up to it. Patient's appeared very saddened by Dina's weakened state today. PLAN: Continue to encourage mobility and function as patient is able to tolerate. TREATMENT CODE/TIME: TAx1 (15 minutes), 11:05
--- NOTE | 2018-07-26 12:57 | PTTR_ITS ---
Date of service: 07/26/18 Time of Service: 11:05 PT Notes Inpatient Physical Therapy Treatment Note Date: 07/26/18 PRECAUTIONS:s/p I&D left hip, WBAT SUBJECTIVE: Indicated she was having a bad day, frustrated due to yesterday being so good. Patient's reported he agreed today was a bad day. Indicated she did not want to get up right now. Had been up for about an hour earlier. Agreed to do bed exercises only. Will get up later with nursing if feeling better. OBJECTIVE: PAIN: Left hip is very painful. Needs to move very gently. BED MOBILITY/TRANSFERS Held on bed transfers and ambulation to chair per patient and 's request. THEREX: Performed ankle pumps x 20 reps, assisted SAQs and assisted hip abd/ add for 10 reps each. Care taken to move left LE gently. ASSESSMENT: Not interested in doing much PT today, just not feeling up to it. Patient's appeared very saddened by Dina's weakened state today. PLAN: Continue to encourage mobility and function as patient is able to tolerate. TREATMENT CODE/TIME: TAx1 (15 minutes), 11:05
--- NOTE | 2018-07-26 13:43 | PDOC.CMPRO ---
- If Service Date Differs Date of service: 07/26/18 Time of Service: 13:43 Care Management Progress Note S/O: Dina is lying in bed with her Cosme at bedside, when CM visits this morning. She is pleasant and open to discussion. Dina states that she slept so So last evening. Her Cosme states that she does not look as good today as she did yesterday. Throughout discussion Cosme stated that Dr. Corona had not been in as of yet this morning, and that he would be staying with Dina throughout the day until the physician arrived. Dina's drain was removed yesterday by Dr. Corona per Cosme's report. Dina continues on IVF and IV antibiotics at this time. A: 73 year old female admitted left hip infection. P: Dina will discharge home when medically ready per MD. Dina and Cosme are adamant that she will not go to a rehab facility. Patient will discharge with resumption of/increased services through the [facility] and follow up with surgical services and PCP. Dina will transport via private vehicle with her , Cosme. CM will continue to offer support to patient, family, and care team regarding discharge planning and disposition.
[2018-07-26] MEDS: Metoclopramide 10 MG/2 ML VIAL IVP (16:46)
[2018-07-26] MEDS: Insulin Aspart 300 UNITS/3 ML PEN SC ×2 (16:46→23:05)
[2018-07-26] MEDS: Normal Saline Flush 10 ML SYR IVP (16:50)
--- NOTE | 2018-07-26 18:31 | PGE_ITS ---
Assessment and Plan (1) Abscess of left hip: Current visit: Yes Status: Acute S/p I&D/washout on 07/24. Cx w/ staph aureus, sensitivities not yet available. Continue Current regimen of vancomycin/rifampin (Day #32), and continue to monitor. Of note, biopsy results currently pending - may be either on the basis of recurrence of Osteosarcoma, or potentially metastatic from current Endometrial Ca with known mets. (2) Anemia associated with acute blood loss: Current visit: Yes Status: Acute s/p transfusion of 2 units of pRBC's - significantly improved. 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 Metastatic Endometrial Ca. Pathology pending. Palliative care consulted. (4) Iwh-[id number] diabetes mellitus without complications: Current visit: Yes Status: Acute Continue ISS, ADA diet. (5) Alzheimer disease: Current visit: Yes Status: Chronic Currently on Aricept and Namenda. is caregiver and makes decisions for patient's care. (6) DVT prophylaxis: Current visit: Yes Status: Acute SC Lovenox. 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 Mrs. 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 Patient had complained of induration and pain over the left hip for some time prior to her admission. She had recently seen her oncologist Dr. Saavedra who had some surveillance CT scans performed regarding her metastatic endometrial carcinoma. These images showed incidental finding of a collection of fluid around the left hip joint. She subsequently was evaluated by Dr. Bowman who obtained plain films and did not find any acute changes within the left hip compared to her previous x-rays of her left total hip arthroplasty. Patient was seen earlier on the day of admission by her primary care provider Dr. Chano Leon who aspirated some purulent material from the soft tissues overlying her left hip. Patient was then referred to the emergency room for evaluation of possible left hip infection versus infected bursitis. Workup in the emergency room included x-rays of the left hip and pelvis which showed diffuse osteopenia and status post bilateral total hip arthroplasty with no hardware loosening or fracture. Laboratory workup was remarkable for a leukocytosis, anemia, as well as significant thrombocytosis. She was subsequently admitted for further evaluation and treatment. Subsequently the patient underwent surgical evaluation of her Left hip, with irrigation and debridement of the area, and with noted evidence of soft tissue infection with a likely metastatic lesion. She has been maintained on Rifampin and Vancomycin, with culture results thus far showing Staph Aureus, sensitivities not yet available. This morning the patient reports worsening nausea since yesterday, intolerant of oral intake. Pain is well controlled. No overnight events reported. Patient remains afebrile. Exam Narrative Exam Narrative: General: Appears comfortable sitting up in bed, no acute distress noted Neck: Supple Skin: Left hip wound with dressing and bandage in place. Drain removed. Dressing is clean, dry, and intact. CV: Regular, No rubs, murmurs, gallops Pulmonary: CTAB Without crackles, rhonchi, or wheezing. Abdomen: +BS, soft, NT, ND. Vascular, b/l +1 LE Edema. Objective Objective Clinical Data: Abnormal lab results 07/26/18 07/26/18 Range/Units 07:13 07:13 WBC 11.36 H (4.4-10.8) k/cumm RBC 3.73 L (4.00-5.20) m/cumm Hgb 8.6 L (12.0-15.5) g/dL Hct 28.8 L (36.0-46.0) % MCV 77.2 L (80-95) fL MCH 23.1 L (27.0-33.0) pg MCHC 29.9 L (32.0-36.0) g/dL RDW 21.7 H (11.7-14.6) % Plt Count 618 H (130-400) x1000/uL Absolute Neutrophils 9.49 H (1.2-6.7) k/cumm Absolute Lymphocytes 0.47 L (1.2-3.4) k/cumm Absolute Monocytes 0.81 H (0.11-0.7) k/cumm Chloride 108 H (98-107) mmol/L Carbon Dioxide 19.6 L (21.0-32.0) mmol/L Anion Gap 12.4 H (3-11) mmol/L Glucose 119 H (70-100) mg/dL Calcium 8.1 L (8.5-10.1) mg/dL C-Reactive Protein 8.46 H (0.0-0.3) mg/dL Vital Signs Temperature 37.6 C H 07/26/18 15:32 Temperature Source Tympanic 07/26/18 15:32 Pulse 102 H 07/26/18 15:32 Pulse Rhythm Regular 07/26/18 16:58 Respiratory Rate 20 07/26/18 15:32 Respiratory Effort Non-Labored 07/26/18 16:58 Respiratory Depth Normal 07/26/18 16:58 Respiratory Pattern Normal 07/26/18 16:58 Blood Pressure 139/76 07/26/18 15:32 Pulse Oximetry 97 07/26/18 15:32 Respiratory End-tidal CO2 27 07/24/18 13:35 Oxygen Delivery Method Room Air 07/26/18 15:32 Oxygen Flow Rate 0 07/26/18 15:32 Pain Level 0 07/25/18 08:43 Comment 07/24/18 14:58 Intake & Output 07/25/18 07/26/18 07/26/18 23:59 11:59 23:59 Intake Total 1840 / 1840 1080 / 1080 1300 / 1300 Output Total 330 / 330 150 / 150 100 / 100 Balance 1510 / 1510 930 / 930 1200 / 1200 Intake: IV 500 / 500 1000 / 1000 1000 / 1000 Oral 1340 / 1340 300 / 300 Injectate 80 / 80 Left Thigh 80 / 80 Output: Drainage 330 / 330 150 / 150 Left Thigh 330 / 330 150 / 150 Urine 100 / 100 Other: Urine Color [place] Urine Appearance Hematuria Urine Odor None Comment inconinent large amount of urine x1 pt incontinent of large amounts of urine. pt incontinent of large amounts of urine. Voiding Methods Diaper Incontinent Bedside Commode Incontinent Incontinent Laboratory Results WBC 11.36 k/cumm (4.4-10.8) H 07/26/18 07:13 RBC 3.73 m/cumm (4.00-5.20) L 07/26/18 07:13 Hgb 8.6 g/dL (12.0-15.5) L 07/26/18 07:13 Hct 28.8 % (36.0-46.0) L 07/26/18 07:13 MCV 77.2 fL (80-95) L 07/26/18 07:13 MCH 23.1 pg (27.0-33.0) L 07/26/18 07:13 MCHC 29.9 g/dL (32.0-36.0) L 07/26/18 07:13 RDW 21.7 % (11.7-14.6) H 07/26/18 07:13 Plt Count 618 x1000/uL (130-400) H 07/26/18 07:13 MPV 8.3 fL (8.0-11.0) 07/26/18 07:13 Immature Gran % 1.8 07/26/18 07:13 Neutrophils % 83.5 07/26/18 07:13 Lymphocytes % 4.1 07/26/18 07:13 Monocytes % 7.1 07/26/18 07:13 Eosinophils % 3.3 07/26/18 07:13 Basophils % 0.2 07/26/18 07:13 Absolute Neutrophils 9.49 k/cumm (1.2-6.7) H 07/26/18 07:13 Band Neutrophils 1.0 % 07/25/18 06:45 Absolute Lymphocytes 0.47 k/cumm (1.2-3.4) L 07/26/18 07:13 Absolute Monocytes 0.81 k/cumm (0.11-0.7) H 07/26/18 07:13 Absolute Eosinophils 0.37 k/cumm (0.0-0.7) 07/26/18 07:13 Absolute Basophils 0.02 k/cumm (0.0-0.2) 07/26/18 07:13 Myelocytes 1.0 % 07/25/18 06:45 Differential Comment Manual differential 07/25/18 06:45 RBC Morphology See below 07/26/18 07:13 Polychromasia Present 07/26/18 07:13 Hypochromasia 2+ 07/26/18 07:13 Poikilocytosis 2+ 07/26/18 07:13 Anisocytosis 3+ 07/26/18 07:13 Microcytosis 2+ 07/26/18 07:13 Macrocytosis 1+ 07/26/18 07:13 Spherocytes 1+ 07/23/18 15:35 Ovalocytes 2+ 07/23/18 15:35 ESR 25 MM/HR (0-30) 07/25/18 06:45 Sodium 140 mmol/L (136-145) 07/26/18 07:13 Potassium 3.5 mmol/L (3.5-5.1) 07/26/18 07:13 Chloride 108 mmol/L (98-107) H 07/26/18 07:13 Carbon Dioxide 19.6 mmol/L (21.0-32.0) L 07/26/18 07:13 Anion Gap 12.4 mmol/L (3-11) H 07/26/18 07:13 BUN 14 mg/dL (7-18) 07/26/18 07:13 Creatinine 0.73 mg/dL (0.55-1.02) 07/26/18 07:13 Estimated GFR/1.73 m2 >= 60.00 (mL/min/1.73m2) 07/26/18 07:13 Glucose 119 mg/dL (70-100) H 07/26/18 07:13 Lactate 1.9 mmol/L (0.6-1.4) H 07/23/18 15:35 Calcium 8.1 mg/dL (8.5-10.1) L 07/26/18 07:13 Magnesium 1.9 mg/dL (1.8-2.4) 07/26/18 07:13 Iron 9 ug/dL (50-175) L 07/23/18 15:30 TIBC 102 ug/dL (250-450) L 07/23/18 15:30 Transferrin % Sat 9 % (15-50) L 07/23/18 15:30 Ferritin 541 ng/mL (8-388) H 07/23/18 15:30 Total Bilirubin 0.3 mg/dL (0.2-1.0) 07/23/18 15:35 AST 17 U/L (15-37) 07/23/18 15:35 ALT 16 U/L (12-78) 07/23/18 15:35 Alkaline Phosphatase 193 U/L (46-116) H 07/23/18 15:35 Troponin I < 0.02 ng/mL (0.00-0.06) 07/23/18 15:35 C-Reactive Protein 8.46 mg/dL (0.0-0.3) H 07/26/18 07:13 Total Protein 6.2 g/dL (6.4-8.2) L 07/23/18 15:35 Albumin 1.7 g/dL (3.4-5.0) L 07/23/18 15:35 Urine Color Yellow (Yellow) 07/23/18 16:20 Urine Clarity Clear 07/23/18 16:20 Urine pH 5.5 (5-8) 07/23/18 16:20 Ur Specific [place] 1.020 (1.005-1.025) 07/23/18 16:20 Urine Protein Negative mg/dL (Negative) 07/23/18 16:20 Urine Ketones Trace mg/dL (Negative) H 07/23/18 16:20 Urine Blood Negative (Negative) 07/23/18 16:20 Urine Nitrite Negative (Negative) 07/23/18 16:20 Urine Bilirubin Negative (Negative) 07/23/18 16:20 Urine Urobilinogen 0.2 EU/dL (Up TO 0.2) 07/23/18 16:20 Ur Leukocyte Esterase Trace (Negative) H 07/23/18 16:20 Urine RBC 5-10 (0-2) H 07/23/18 16:20 Urine WBC 20-50 HPF (0-5) 07/23/18 16:20 Ur Epithelial Cells Few HPF (Negative) 07/23/18 16:20 Urine Crystals Moderate amorphous HPF (Negative) 07/23/18 16:20 Urine Bacteria Negative HPF (Negative) 07/23/18 16:20 Urine Casts 20-50 hyaline LPF (Negative) 07/23/18 16:20 Urine Mucus Negative (Negative) 07/23/18 16:20 Ur Culture Indicated? Yes 07/23/18 16:20 Urine Glucose Negative mg/dL (Negative) 07/23/18 16:20 Vancomycin Trough 19.6 ug/mL (10.0-20.0) 07/26/18 09:46 Patient ABO/Rh A Positive 07/24/18 15:54 Antibody Screen Negative 07/24/18 15:54 Crossmatch See Detail 07/24/18 15:54
[2018-07-26] MEDS: Pantoprazole 40 MG VIAL IVP (20:36)
[2018-07-26] MEDS: Melatonin 3 MG TAB PO (20:37)
[2018-07-26] MEDS: VANCOMYCIN 750 MG in Normal Saline 250 ML 166.667 MG IVPB (23:30)
[2018-07-27] MEDS: Acetaminophen 500 MG TAB 1000 MG PO ×3 (02:33→20:21)
[2018-07-27] MEDS: RIFAMPIN 300 MG CAP PO ×2 (04:05→16:47)
[2018-07-27 04:08] VITALS: BP 120/70; PULSE 86; RESP 17; TEMP 36.5; O2SAT 97
[2018-07-27] MEDS: Levothyroxine 75 MCG TAB 150 MCG PO (06:04)
[2018-07-27 07:50] VITALS: BP 128/75; PULSE 65; RESP 16; TEMP 36.3; O2SAT 96
[2018-07-27] MEDS: Enoxaparin 40 MG/0.4 ML SYR SC (08:06)
[2018-07-27] MEDS: Metoclopramide 10 MG/2 ML VIAL IVP ×3 (08:06→17:33)
[2018-07-27 08:07] LABS: Anion Gap 10.5 mmol/L (3-11); BUN 12 mg/dL (7-18); CO2 18.5 mmol/L (21.0-32.0); CREATININE 0.74 mg/dL (0.55-1.02); Calcium 7.9 mg/dL (8.5-10.1); Chloride 110 mmol/L (98-107); Glucose 101 mg/dL (70-100); Potassium 4.4 mmol/L (3.5-5.1); Sodium 139 mmol/L (136-145)
[2018-07-27 08:08] LABS: Abs Immature Grans 0.27 k/cumm (0.0-0.09); Absolute Eosinophil Count 0.17 k/cumm (0.0-0.7); Absolute Lymphocyte Count 0.83 k/cumm (1.2-3.4); Basophils % 0.1; Eosinophils % 1.2; HCT 26.8 % (36.0-46.0); HGB 8.2 g/dL (12.0-15.5); Immature Grans % 1.9; Lymphocytes % 5.9; Mean Corp. HGB Concentration 30.6 g/dL (32.0-36.0); Mean Corpuscular Hemoglobin 23.8 pg (27.0-33.0); Mean Corpuscular Volume 77.9 fL (80-95); Mean Platelet Volume 8.6 fL (8.0-11.0); Monocytes % 8.4; Neutrophils % 82.5; Platelet Count 589 x1000/uL (130-400); RBC 3.44 m/cumm (4.00-5.20)
[2018-07-27] MEDS: Multivitamin TAB 1 TAB PO (08:08)
[2018-07-27] MEDS: Donepezil 5 MG TAB 10 MG PO (08:08)
[2018-07-27] MEDS: Magnesium Oxide 400 MG TAB PO (08:08)
[2018-07-27] MEDS: Memantine 5 MG TAB 10 MG PO ×2 (08:08→20:21)
[2018-07-27] MEDS: Ferrous Sulfate 325 MG TAB PO ×2 (08:08→20:21)
[2018-07-27] MEDS: Sennosides/Docusate Sodium TAB 1 TAB PO ×2 (08:08→20:22)
[2018-07-27] MEDS: Atorvastatin 40 MG TAB PO (08:08)
[2018-07-27 08:10] LABS: Absolute Basophil Count 0.01 k/cumm (0.0-0.2); Absolute Monocyte Count 1.18 k/cumm (0.11-0.7); Absolute Neutrophil Count 11.63 k/cumm (1.2-6.7)
[2018-07-27 08:42] LABS: Anisocytosis 2+; Diff Comment RBC Morph Reviewed; Hypochromasia 2+; Macrocytosis 1+; Microcytosis 1+; Polychromasia Present
[2018-07-27 08:43] LABS: Poikilocytes 2+
--- NOTE | 2018-07-27 11:21 | W.PM.PROGNOT ---
Assessment and Plan (1) Anemia associated with acute blood loss: Current visit: Yes Status: Acute Hemoglobin is stable today at 8.2. We will continue to follow. Vitals are stable. Restart Lovenox. 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 Palliative care consult. (3) Abscess of left hip: Current visit: Yes Status: Acute At this point she feels much better. Labs are reassuring. Cultures are now growing MSSA. I will switch her to ceftriaxone at this time. I do think oxacillin or nafcillin could be used but I feel the once a day dosing may be better tolerated. Continue PT. Subjective Interval history since last seen: Dina reports to be feeling better today. She did have some nausea and vomiting yesterday morning which made her feel quite poor for the majority of the day. However, she feels much better today. She denies having any significant pain. She denies any fever or chills. Exam Narrative Exam Narrative: Dina is sitting up. NAD. AAOx3. LLE dressing c/d/i. Thigh is soft, no significant erythema or warmth. The tenderness is much improved on the left thigh. There is some fluctuance in the area but no expressible fluid. SILT DP/SP/Tib. Foot WWP. Objective Objective Clinical Data: Abnormal lab results 07/27/18 07/27/18 Range/Units 06:54 06:54 WBC 14.10 H (4.4-10.8) k/cumm RBC 3.44 L (4.00-5.20) m/cumm Hgb 8.2 L (12.0-15.5) g/dL Hct 26.8 L (36.0-46.0) % MCV 77.9 L (80-95) fL MCH 23.8 L (27.0-33.0) pg MCHC 30.6 L (32.0-36.0) g/dL RDW 23.0 H (11.7-14.6) % Plt Count 589 H (130-400) x1000/uL Absolute Neutrophils 11.63 H (1.2-6.7) k/cumm Absolute Lymphocytes 0.83 L (1.2-3.4) k/cumm Absolute Monocytes 1.18 H (0.11-0.7) k/cumm Chloride 110 H (98-107) mmol/L Carbon Dioxide 18.5 L (21.0-32.0) mmol/L Glucose 101 H (70-100) mg/dL Calcium 7.9 L (8.5-10.1) mg/dL Vital Signs Temperature 36.3 C L 07/27/18 07:50 Temperature Source Tympanic 07/27/18 07:50 Pulse 65 07/27/18 07:50 Pulse Rhythm Regular 07/27/18 10:26 Respiratory Rate 16 07/27/18 07:50 Respiratory Effort Non-Labored 07/27/18 10:26 Respiratory Depth Normal 07/27/18 10:26 Respiratory Pattern Normal 07/27/18 10:26 Blood Pressure 128/75 07/27/18 07:50 Pulse Oximetry 96 07/27/18 07:50 Respiratory End-tidal CO2 27 07/24/18 13:35 Oxygen Delivery Method Room Air 07/27/18 07:50 Oxygen Flow Rate 0 07/27/18 07:50 Pain Level 3 07/27/18 02:33 Comment 07/24/18 14:58 Intake & Output 07/26/18 07/26/18 07/27/18 11:59 23:59 11:59 Intake Total 1080 / 1080 3066.667 / 3066.667 250 / 250 Output Total 150 / 150 100 / 100 Balance 930 / 930 2966.667 / 2966.667 250 / 250 Intake: IV 1000 / 1000 2166.667 / 2166.667 250 / 250 Oral 900 / 900 Injectate 80 / 80 Left Thigh 80 / 80 Output: Drainage 150 / 150 Left Thigh 150 / 150 Urine 100 / 100 Other: Urine Color [place] Urine Appearance Hematuria Urine Odor None Comment pt incontinent of large amounts of urine. pt incontinent of large amounts of urine. incontinent moderate amount of urine x1 Stool Size Small Moderate Stool Characteristics Soft Soft Brown Voiding Methods Incontinent Diaper Diaper Incontinent Incontinent Laboratory Results WBC 14.10 k/cumm (4.4-10.8) H 07/27/18 06:54 RBC 3.44 m/cumm (4.00-5.20) L 07/27/18 06:54 Hgb 8.2 g/dL (12.0-15.5) L 07/27/18 06:54 Hct 26.8 % (36.0-46.0) L 07/27/18 06:54 MCV 77.9 fL (80-95) L 07/27/18 06:54 MCH 23.8 pg (27.0-33.0) L 07/27/18 06:54 MCHC 30.6 g/dL (32.0-36.0) L 07/27/18 06:54 RDW 23.0 % (11.7-14.6) H 07/27/18 06:54 Plt Count 589 x1000/uL (130-400) H 07/27/18 06:54 MPV 8.6 fL (8.0-11.0) 07/27/18 06:54 Immature Gran % 1.9 07/27/18 06:54 Neutrophils % 82.5 07/27/18 06:54 Lymphocytes % 5.9 07/27/18 06:54 Monocytes % 8.4 07/27/18 06:54 Eosinophils % 1.2 07/27/18 06:54 Basophils % 0.1 07/27/18 06:54 Absolute Neutrophils 11.63 k/cumm (1.2-6.7) H 07/27/18 06:54 Band Neutrophils 1.0 % 07/25/18 06:45 Absolute Lymphocytes 0.83 k/cumm (1.2-3.4) L 07/27/18 06:54 Absolute Monocytes 1.18 k/cumm (0.11-0.7) H 07/27/18 06:54 Absolute Eosinophils 0.17 k/cumm (0.0-0.7) 07/27/18 06:54 Absolute Basophils 0.01 k/cumm (0.0-0.2) 07/27/18 06:54 Myelocytes 1.0 % 07/25/18 06:45 Differential Comment Rbc morph reviewed 07/27/18 06:54 RBC Morphology See below 07/27/18 06:54 Polychromasia Present 07/27/18 06:54 Hypochromasia 2+ 07/27/18 06:54 Poikilocytosis 2+ 07/27/18 06:54 Anisocytosis 2+ 07/27/18 06:54 Microcytosis 1+ 07/27/18 06:54 Macrocytosis 1+ 07/27/18 06:54 Spherocytes 1+ 07/23/18 15:35 Ovalocytes 2+ 07/23/18 15:35 ESR 25 MM/HR (0-30) 07/25/18 06:45 Sodium 139 mmol/L (136-145) 07/27/18 06:54 Potassium 4.4 mmol/L (3.5-5.1) D 07/27/18 06:54 Chloride 110 mmol/L (98-107) H 07/27/18 06:54 Carbon Dioxide 18.5 mmol/L (21.0-32.0) L 07/27/18 06:54 Anion Gap 10.5 mmol/L (3-11) 07/27/18 06:54 BUN 12 mg/dL (7-18) 07/27/18 06:54 Creatinine 0.74 mg/dL (0.55-1.02) 07/27/18 06:54 Estimated GFR/1.73 m2 >= 60.00 (mL/min/1.73m2) 07/27/18 06:54 Glucose 101 mg/dL (70-100) H 07/27/18 06:54 Lactate 1.9 mmol/L (0.6-1.4) H 07/23/18 15:35 Calcium 7.9 mg/dL (8.5-10.1) L 07/27/18 06:54 Magnesium 1.9 mg/dL (1.8-2.4) 07/26/18 07:13 Iron 9 ug/dL (50-175) L 07/23/18 15:30 TIBC 102 ug/dL (250-450) L 07/23/18 15:30 Transferrin % Sat 9 % (15-50) L 07/23/18 15:30 Ferritin 541 ng/mL (8-388) H 07/23/18 15:30 Total Bilirubin 0.3 mg/dL (0.2-1.0) 07/23/18 15:35 AST 17 U/L (15-37) 07/23/18 15:35 ALT 16 U/L (12-78) 07/23/18 15:35 Alkaline Phosphatase 193 U/L (46-116) H 07/23/18 15:35 Troponin I < 0.02 ng/mL (0.00-0.06) 07/23/18 15:35 C-Reactive Protein 8.46 mg/dL (0.0-0.3) H 07/26/18 07:13 Total Protein 6.2 g/dL (6.4-8.2) L 07/23/18 15:35 Albumin 1.7 g/dL (3.4-5.0) L 07/23/18 15:35 Urine Color Yellow (Yellow) 07/23/18 16:20 Urine Clarity Clear 07/23/18 16:20 Urine pH 5.5 (5-8) 07/23/18 16:20 Ur Specific [place] 1.020 (1.005-1.025) 07/23/18 16:20 Urine Protein Negative mg/dL (Negative) 07/23/18 16:20 Urine Ketones Trace mg/dL (Negative) H 07/23/18 16:20 Urine Blood Negative (Negative) 07/23/18 16:20 Urine Nitrite Negative (Negative) 07/23/18 16:20 Urine Bilirubin Negative (Negative) 07/23/18 16:20 Urine Urobilinogen 0.2 EU/dL (Up TO 0.2) 07/23/18 16:20 Ur Leukocyte Esterase Trace (Negative) H 07/23/18 16:20 Urine RBC 5-10 (0-2) H 07/23/18 16:20 Urine WBC 20-50 HPF (0-5) 07/23/18 16:20 Ur Epithelial Cells Few HPF (Negative) 07/23/18 16:20 Urine Crystals Moderate amorphous HPF (Negative) 07/23/18 16:20 Urine Bacteria Negative HPF (Negative) 07/23/18 16:20 Urine Casts 20-50 hyaline LPF (Negative) 07/23/18 16:20 Urine Mucus Negative (Negative) 07/23/18 16:20 Ur Culture Indicated? Yes 07/23/18 16:20 Urine Glucose Negative mg/dL (Negative) 07/23/18 16:20 Vancomycin Trough 19.6 ug/mL (10.0-20.0) 07/26/18 09:46 Patient ABO/Rh A Positive 07/24/18 15:54 Antibody Screen Negative 07/24/18 15:54 Crossmatch See Detail 07/24/18 15:54
[2018-07-27 11:45] VITALS: BP 137/78; PULSE 84; RESP 16; TEMP 36.4; O2SAT 97
[2018-07-27] MEDS: Normal Saline Flush 10 ML SYR IVP ×3 (11:56→20:21)
[2018-07-27] MEDS: Insulin Aspart 300 UNITS/3 ML PEN SC ×3 (11:56→21:12)
--- NOTE | 2018-07-27 13:33 | PT.INTREAT ---
Date of service: 07/27/18 Time of Service: 11:00 PT Notes Inpatient Physical Therapy Treatment Note Date: 07/27/18 PRECAUTIONS: WBAT on left and fall SUBJECTIVE: Feeling much better today. Glad to sit up in chair for a while. OBJECTIVE: PAIN: Left hip discomfort with movement, but not too bad. BED MOBILITY/TRANSFERS Supine-sit: HOB at 50 degrees with minimum assist Sit-stand: Min assist Stand-sit: SBA GAIT Assistive Device: Platform FWW Weight bearing: WBAT on left Assist: CGA Distance: 5ft bed to chair THEREX: Performed ankle pumps x 20 reps, LAQs for 10 reps / 8 reps and seated hip abd / adduction for 10 reps x 2 sets ASSESSMENT: Tolerated today's activities much better today. PLAN: Continue to focus on transfers and strengthening as patient is able to tolerate. TREATMENT CODE/TIME: CAR TOTH (25 minutes), 11:00 to 11:25
--- NOTE | 2018-07-27 13:57 | CMPROGNOTE_ITS ---
- If Service Date Differs Date of service: 07/27/18 Time of Service: 13:55 Care Management Progress Note S/O: Dina is lying in bed with her Cosme at bedside, when CM visits this morning. She is in good spirits this morning stating that she is feeling better. CM spoke with Dr. Corona whom states that he is hopeful that Palliative can meet with Dina late morning tomorrow. CM to contact Palliative office on Saturday07/28/18 to arrange a time for consult. CM also spoke with Dr. Corona in regards to Dina and her refusing SNF referrals and wanting Dina to return home. Dr. Corona states that he believes this will be appropriate, CM discussed and increase in home health services which will be ordered at time of DC. A: 73 year old female admitted left hip infection. P: Dina will discharge home when medically ready per MD. Dina and Cosme are adamant that she will not go to a rehab facility. Patient will discharge with resumption of/increased services through the [facility] and follow up with surgical services and PCP. Dina will transport via private vehicle with her , Cosme. CM will continue to offer support to patient, family, and care team regarding discharge planning and disposition.
[2018-07-27 16:14] VITALS: BP 117/67; PULSE 62; RESP 19; TEMP 36.6; O2SAT 95
--- NOTE | 2018-07-27 16:18 | PGE_ITS ---
Assessment and Plan (1) Abscess of left hip: Current visit: Yes Status: Acute S/p I&D/washout on 07/24. Cx w/ MSSA. Change from Vancomycin to Cefazolin. Also on Rifampin per ortho given proximity of infection to hardware. Currently on Day #4 of antibiotics. Of note, biopsy results currently pending - may be either on the basis of recurrence of Osteosarcoma, or potentially metastatic from current Endometrial Ca with known mets. (2) Anemia associated with acute blood loss: Current visit: Yes Status: Acute s/p transfusion of 2 units of pRBC's - significantly improved but with slow drop. Monitor Hgb closely. 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 Metastatic Endometrial Ca. Pathology pending. Palliative care consulted. (4) [id number]-[id number] diabetes mellitus without complications: Current visit: Yes Status: Acute Continue ISS, ADA diet. (5) Alzheimer disease: Current visit: Yes Status: Chronic Currently on Aricept and Namenda. is caregiver and makes decisions for patient's care. (6) DVT prophylaxis: Current visit: Yes Status: Acute SC Lovenox. Subjective Interval history since last seen: 73-year-old woman admitted from [facility] Emergency Department on 07/22 with complaints of left hip pain and swelling, found to have infection and likely malignancy in the left hip. Mrs. 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 Patient had complained of induration and pain over the left hip for some time prior to her admission. She had recently seen her oncologist Dr. Saavedra who had some surveillance CT scans performed regarding her metastatic endometrial carcinoma. These images showed incidental finding of a collection of fluid around the left hip joint. She subsequently was evaluated by Dr. Bowman who obtained plain films and did not find any acute changes within the left hip compared to her previous x-rays of her left total hip arthroplasty. Patient was seen earlier on the day of admission by her primary care provider Dr. Chano Leon who aspirated some purulent material from the soft tissues overlying her left hip. Patient was then referred to the emergency room for evaluation of possible left hip infection versus infected bursitis. Workup in the emergency room included x-rays of the left hip and pelvis which showed diffuse osteopenia and status post bilateral total hip arthroplasty with no hardware loosening or fracture. Laboratory workup was remarkable for a leukocytosis, anemia, as well as significant thrombocytosis. She was subsequently admitted for further evaluation and treatment. Subsequently the patient underwent surgical evaluation of her Left hip, with irrigation and debridement of the area, and with noted evidence of soft tissue infection with a likely metastatic lesion. In discussion with Ortho there does not appear to be extension of the infection into the hardware. She has been maintained on Rifampin and Vancomycin, with culture results thus far showing Staph Aureus, sensitivities now showing MSSA. This morning the patient reports improved symptoms overall, tolerating her diet well. No overnight events reported. Patient remains afebrile. Exam Narrative Exam Narrative: General: Appears comfortable sitting up in bed, no acute distress noted Neck: Supple Skin: Left hip wound with dressing and bandage in place.Dressing is clean, dry, and intact. CV: Regular, No rubs, murmurs, gallops Pulmonary: CTAB Without crackles, rhonchi, or wheezing. Abdomen: +BS, soft, NT, ND. Vascular, b/l +1 LE Edema. Objective Objective Clinical Data: Abnormal lab results 07/27/18 07/27/18 Range/Units 06:54 06:54 WBC 14.10 H (4.4-10.8) k/cumm RBC 3.44 L (4.00-5.20) m/cumm Hgb 8.2 L (12.0-15.5) g/dL Hct 26.8 L (36.0-46.0) % MCV 77.9 L (80-95) fL MCH 23.8 L (27.0-33.0) pg MCHC 30.6 L (32.0-36.0) g/dL RDW 23.0 H (11.7-14.6) % Plt Count 589 H (130-400) x1000/uL Absolute Neutrophils 11.63 H (1.2-6.7) k/cumm Absolute Lymphocytes 0.83 L (1.2-3.4) k/cumm Absolute Monocytes 1.18 H (0.11-0.7) k/cumm Chloride 110 H (98-107) mmol/L Carbon Dioxide 18.5 L (21.0-32.0) mmol/L Glucose 101 H (70-100) mg/dL Calcium 7.9 L (8.5-10.1) mg/dL Vital Signs Temperature 36.4 C L 07/27/18 11:45 Temperature Source Tympanic 07/27/18 11:45 Pulse 84 07/27/18 11:45 Pulse Rhythm Regular 07/27/18 10:26 Respiratory Rate 16 07/27/18 11:45 Respiratory Effort Non-Labored 07/27/18 10:26 Respiratory Depth Normal 07/27/18 10:26 Respiratory Pattern Normal 07/27/18 10:26 Blood Pressure 137/78 07/27/18 11:45 Pulse Oximetry 97 07/27/18 11:45 Respiratory End-tidal CO2 27 07/24/18 13:35 Oxygen Delivery Method Room Air 07/27/18 11:45 Oxygen Flow Rate 0 07/27/18 11:45 Pain Level 3 07/27/18 02:33 Comment 07/24/18 14:58 Intake & Output 07/26/18 07/27/18 07/27/18 23:59 11:59 23:59 Intake Total 3066.667 / 3066.667 250 / 250 250 / 250 Output Total 100 / 100 Balance 2966.667 / 2966.667 250 / 250 250 / 250 Intake: IV 2166.667 / 2166.667 250 / 250 Oral 900 / 900 250 / 250 Output: Urine 100 / 100 Other: Urine Color [place] Urine Appearance Hematuria Urine Odor None Comment pt incontinent of large amounts of urine. incontinent moderate amount of urine x1 pt incontinent of small amounts. Stool Size Small Moderate Moderate Stool Characteristics Soft Soft Soft Brown Liquid Brown Voiding Methods Diaper Diaper Diaper Incontinent Incontinent Incontinent Laboratory Results WBC 14.10 k/cumm (4.4-10.8) H 07/27/18 06:54 RBC 3.44 m/cumm (4.00-5.20) L 07/27/18 06:54 Hgb 8.2 g/dL (12.0-15.5) L 07/27/18 06:54 Hct 26.8 % (36.0-46.0) L 07/27/18 06:54 MCV 77.9 fL (80-95) L 07/27/18 06:54 MCH 23.8 pg (27.0-33.0) L 07/27/18 06:54 MCHC 30.6 g/dL (32.0-36.0) L 07/27/18 06:54 RDW 23.0 % (11.7-14.6) H 07/27/18 06:54 Plt Count 589 x1000/uL (130-400) H 07/27/18 06:54 MPV 8.6 fL (8.0-11.0) 07/27/18 06:54 Immature Gran % 1.9 07/27/18 06:54 Neutrophils % 82.5 07/27/18 06:54 Lymphocytes % 5.9 07/27/18 06:54 Monocytes % 8.4 07/27/18 06:54 Eosinophils % 1.2 07/27/18 06:54 Basophils % 0.1 07/27/18 06:54 Absolute Neutrophils 11.63 k/cumm (1.2-6.7) H 07/27/18 06:54 Band Neutrophils 1.0 % 07/25/18 06:45 Absolute Lymphocytes 0.83 k/cumm (1.2-3.4) L 07/27/18 06:54 Absolute Monocytes 1.18 k/cumm (0.11-0.7) H 07/27/18 06:54 Absolute Eosinophils 0.17 k/cumm (0.0-0.7) 07/27/18 06:54 Absolute Basophils 0.01 k/cumm (0.0-0.2) 07/27/18 06:54 Myelocytes 1.0 % 07/25/18 06:45 Differential Comment Rbc morph reviewed 07/27/18 06:54 RBC Morphology See below 07/27/18 06:54 Polychromasia Present 07/27/18 06:54 Hypochromasia 2+ 07/27/18 06:54 Poikilocytosis 2+ 07/27/18 06:54 Anisocytosis 2+ 07/27/18 06:54 Microcytosis 1+ 07/27/18 06:54 Macrocytosis 1+ 07/27/18 06:54 Spherocytes 1+ 07/23/18 15:35 Ovalocytes 2+ 07/23/18 15:35 ESR 25 MM/HR (0-30) 07/25/18 06:45 Sodium 139 mmol/L (136-145) 07/27/18 06:54 Potassium 4.4 mmol/L (3.5-5.1) D 07/27/18 06:54 Chloride 110 mmol/L (98-107) H 07/27/18 06:54 Carbon Dioxide 18.5 mmol/L (21.0-32.0) L 07/27/18 06:54 Anion Gap 10.5 mmol/L (3-11) 07/27/18 06:54 BUN 12 mg/dL (7-18) 07/27/18 06:54 Creatinine 0.74 mg/dL (0.55-1.02) 07/27/18 06:54 Estimated GFR/1.73 m2 >= 60.00 (mL/min/1.73m2) 07/27/18 06:54 Glucose 101 mg/dL (70-100) H 07/27/18 06:54 Lactate 1.9 mmol/L (0.6-1.4) H 07/23/18 15:35 Calcium 7.9 mg/dL (8.5-10.1) L 07/27/18 06:54 Magnesium 1.9 mg/dL (1.8-2.4) 07/26/18 07:13 Iron 9 ug/dL (50-175) L 07/23/18 15:30 TIBC 102 ug/dL (250-450) L 07/23/18 15:30 Transferrin % Sat 9 % (15-50) L 07/23/18 15:30 Ferritin 541 ng/mL (8-388) H 07/23/18 15:30 Total Bilirubin 0.3 mg/dL (0.2-1.0) 07/23/18 15:35 AST 17 U/L (15-37) 07/23/18 15:35 ALT 16 U/L (12-78) 07/23/18 15:35 Alkaline Phosphatase 193 U/L (46-116) H 07/23/18 15:35 Troponin I < 0.02 ng/mL (0.00-0.06) 07/23/18 15:35 C-Reactive Protein 8.46 mg/dL (0.0-0.3) H 07/26/18 07:13 Total Protein 6.2 g/dL (6.4-8.2) L 07/23/18 15:35 Albumin 1.7 g/dL (3.4-5.0) L 07/23/18 15:35 Urine Color Yellow (Yellow) 07/23/18 16:20 Urine Clarity Clear 07/23/18 16:20 Urine pH 5.5 (5-8) 07/23/18 16:20 Ur Specific [place] 1.020 (1.005-1.025) 07/23/18 16:20 Urine Protein Negative mg/dL (Negative) 07/23/18 16:20 Urine Ketones Trace mg/dL (Negative) H 07/23/18 16:20 Urine Blood Negative (Negative) 07/23/18 16:20 Urine Nitrite Negative (Negative) 07/23/18 16:20 Urine Bilirubin Negative (Negative) 07/23/18 16:20 Urine Urobilinogen 0.2 EU/dL (Up TO 0.2) 07/23/18 16:20 Ur Leukocyte Esterase Trace (Negative) H 07/23/18 16:20 Urine RBC 5-10 (0-2) H 07/23/18 16:20 Urine WBC 20-50 HPF (0-5) 07/23/18 16:20 Ur Epithelial Cells Few HPF (Negative) 07/23/18 16:20 Urine Crystals Moderate amorphous HPF (Negative) 07/23/18 16:20 Urine Bacteria Negative HPF (Negative) 07/23/18 16:20 Urine Casts 20-50 hyaline LPF (Negative) 07/23/18 16:20 Urine Mucus Negative (Negative) 07/23/18 16:20 Ur Culture Indicated? Yes 07/23/18 16:20 Urine Glucose Negative mg/dL (Negative) 07/23/18 16:20 Vancomycin Trough 19.6 ug/mL (10.0-20.0) 07/26/18 09:46 Patient ABO/Rh A Positive 07/24/18 15:54 Antibody Screen Negative 07/24/18 15:54 Crossmatch See Detail 07/24/18 15:54
[2018-07-27 20:19] VITALS: BP 141/72; PULSE 80; RESP 18; TEMP 37.1; O2SAT 99
[2018-07-27] MEDS: Pantoprazole 40 MG VIAL IVP (20:20)
[2018-07-27] MEDS: Melatonin 3 MG TAB PO (20:21)
[2018-07-27 23:32] VITALS: BP 141/64; PULSE 91; RESP 18; TEMP 37; O2SAT 96
[2018-07-28] MEDS: Normal Saline Flush 10 ML SYR IVP ×5 (01:07→20:27)
[2018-07-28 03:55] VITALS: BP 134/72; PULSE 91; RESP 17; TEMP 37.4; O2SAT 99
[2018-07-28] MEDS: RIFAMPIN 300 MG CAP PO ×2 (04:23→17:10)
[2018-07-28] MEDS: Acetaminophen 500 MG TAB 1000 MG PO (04:34)
[2018-07-28] MEDS: Levothyroxine 75 MCG TAB 150 MCG PO (05:02)
[2018-07-28 07:29] LABS: Abs Immature Grans 0.13 k/cumm (0.0-0.09); Absolute Basophil Count 0.01 k/cumm (0.0-0.2); Absolute Eosinophil Count 0.23 k/cumm (0.0-0.7); Absolute Lymphocyte Count 0.61 k/cumm (1.2-3.4); Absolute Monocyte Count 0.94 k/cumm (0.11-0.7); Absolute Neutrophil Count 10.25 k/cumm (1.2-6.7); Basophils % 0.1; Eosinophils % 1.9; HCT 26.3 % (36.0-46.0); HGB 7.8 g/dL (12.0-15.5); Immature Grans % 1.1; Mean Corp. HGB Concentration 29.7 g/dL (32.0-36.0); Mean Corpuscular Hemoglobin 23.6 pg (27.0-33.0); Mean Corpuscular Volume 79.7 fL (80-95); Mean Platelet Volume 8.6 fL (8.0-11.0); Monocytes % 7.7; Neutrophils % 84.2; Platelet Count 384 x1000/uL (130-400); RBC Distribution Width 23.7 % (11.7-14.6); White Blood Cell Count 12.17 k/cumm (4.4-10.8)
[2018-07-28 07:36] VITALS: BP 122/62; PULSE 89; RESP 18; TEMP 36.8; O2SAT 96
[2018-07-28 07:39] LABS: Anion Gap 7.2 mmol/L (3-11); BUN 12 mg/dL (7-18); C-Reactive Protein 9.32 mg/dL (0.0-0.3); CO2 20.8 mmol/L (21.0-32.0); Calcium 8.1 mg/dL (8.5-10.1); Chloride 110 mmol/L (98-107); Glucose 150 mg/dL (70-100); Potassium 4.9 mmol/L (3.5-5.1); Sodium 138 mmol/L (136-145)
--- NOTE | 2018-07-28 08:19 | PGE_ITS ---
Assessment and Plan (1) Anemia associated with acute blood loss: Current visit: Yes Status: Acute Hemoglobin continues to trend downward today at 7.8. She is without symptoms and therefore I do not think we need any new transfusion. However, it is still concerning with the trend. 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 (3) Anemia of chronic disease: Current visit: Yes Status: Acute Currently monitoring hemoglobin. (4) Abscess of left hip: Current visit: Yes Status: Acute This is likely an infected tumor of the left thigh. Unfortunately, it has reticulated fluid which is not surprising given the amount of space. The drain output had decreased and so therefore I discontinued it. I was able to express a large amount of fluid today at the bedside, 4 ABD pads and 3 packs of 4 x 4's. The fluid is definitely cloudy and concerning for recurrent infection but is not grossly purulent as it was before. Her pain is still significantly better. Unfortunately, the CRP has plateaued at 9. It is unclear if this is her baseline given her chronic inflammatory state from cancer or from the infection. At this point, is also does not want to go back to the operating room she really wants to go home. I discussed that repeat debridement would not be unreasonable with further drain placement and a course of IV antibiotics. She is not certain this is what she wants to pursue. She is quite adamant she was to go home and does not want to go to any nursing facility. We are still awaiting the pathology of the soft tissue mass in the left thigh. I do think we could transition to oral antibiotics to see if that works. However, I would like her to speak with Dr. Jorgensen with palliative care to discuss all these plans and what her goals are. Subjective Interval history since last seen: Dina reports that yesterday was a good day. She does have some pain of the left thigh but it is manageable. It is better than it was before. She denies any fevers or chills. She states that she is quite anxious to go home. She denies any new symptoms. She is incontinent of stool and urine and has had both reported. She denies any lightheadedness, dizziness, fatigue. Exam Narrative Exam Narrative: Evaluation of the left leg shows a well approximated and healed incision. There are no signs of erythema. There is fluctuance to the left hip but it is not consolidated. It is quite soft. There is some minor tenderness to palpation around the left thigh in the surgical zone. Due to the recurrence the fluctuance I did place a needle through the middle of the wound after sterilized the wound with ChloraPrep. This created a exit point and I was able to express copious amounts of thick and serous fluid. It was not grossly purulent like preoperatively. It was a white tinged serous fluid. I was able to express a significant amount of fluid from the left thigh. A pressure dressing was then applied. No pain with gentle external and internal rotation of the hip. Objective Objective Clinical Data: Abnormal lab results 07/27/18 07/28/18 07/28/18 Range/Units 06:54 06:40 06:40 WBC 14.10 H 12.17 H (4.4-10.8) k/cumm RBC 3.44 L 3.30 L (4.00-5.20) m/cumm Hgb 8.2 L 7.8 L (12.0-15.5) g/dL Hct 26.8 L 26.3 L (36.0-46.0) % MCV 77.9 L 79.7 L (80-95) fL MCH 23.8 L 23.6 L (27.0-33.0) pg MCHC 30.6 L 29.7 L (32.0-36.0) g/dL RDW 23.0 H 23.7 H (11.7-14.6) % Plt Count 589 H (130-400) x1000/uL Absolute Neutrophils 11.63 H 10.25 H (1.2-6.7) k/cumm Absolute Lymphocytes 0.83 L 0.61 L (1.2-3.4) k/cumm Absolute Monocytes 1.18 H 0.94 H (0.11-0.7) k/cumm Chloride 110 H (98-107) mmol/L Carbon Dioxide 20.8 L (21.0-32.0) mmol/L Glucose 150 H (70-100) mg/dL Calcium 8.1 L (8.5-10.1) mg/dL C-Reactive Protein 9.32 H (0.0-0.3) mg/dL Vital Signs Temperature 36.8 C 07/28/18 07:36 Temperature Source Tympanic 07/28/18 07:36 Pulse 89 07/28/18 07:36 Pulse Rhythm Regular 07/27/18 10:26 Respiratory Rate 18 07/28/18 07:36 Respiratory Effort Non-Labored 07/27/18 20:55 Respiratory Depth Normal 07/27/18 10:26 Respiratory Pattern Normal 07/27/18 10:26 Blood Pressure 122/62 07/28/18 07:36 Pulse Oximetry 96 07/28/18 07:36 Respiratory End-tidal CO2 27 07/24/18 13:35 Oxygen Delivery Method Room Air 07/28/18 07:36 Oxygen Flow Rate 0 07/28/18 07:36 Pain Level 1 07/28/18 07:36 Comment 07/24/18 14:58 Intake & Output 07/27/18 07/27/18 07/28/18 11:59 23:59 11:59 Intake Total 250 / 250 590 / 590 Balance 250 / 250 590 / 590 Intake: IV 250 / 250 100 / 100 Oral 490 / 490 Other: Urine Color [place] Urine Appearance Clear Urine Odor Strong Comment incontinent moderate amount of urine x1 patient on rifampin; incontinent of moderate amount of urine Stool Size Moderate Moderate Stool Characteristics Soft Soft Liquid Brown Voiding Methods Diaper Diaper Diaper Incontinent Incontinent Laboratory Results WBC 12.17 k/cumm (4.4-10.8) H 07/28/18 06:40 RBC 3.30 m/cumm (4.00-5.20) L 07/28/18 06:40 Hgb 7.8 g/dL (12.0-15.5) L 07/28/18 06:40 Hct 26.3 % (36.0-46.0) L 07/28/18 06:40 MCV 79.7 fL (80-95) L 07/28/18 06:40 MCH 23.6 pg (27.0-33.0) L 07/28/18 06:40 MCHC 29.7 g/dL (32.0-36.0) L 07/28/18 06:40 RDW 23.7 % (11.7-14.6) H 07/28/18 06:40 Plt Count 384 x1000/uL (130-400) D 07/28/18 06:40 MPV 8.6 fL (8.0-11.0) 07/28/18 06:40 Immature Gran % 1.1 07/28/18 06:40 Neutrophils % 84.2 07/28/18 06:40 Lymphocytes % 5.0 07/28/18 06:40 Monocytes % 7.7 07/28/18 06:40 Eosinophils % 1.9 07/28/18 06:40 Basophils % 0.1 07/28/18 06:40 Absolute Neutrophils 10.25 k/cumm (1.2-6.7) H 07/28/18 06:40 Band Neutrophils 1.0 % 07/25/18 06:45 Absolute Lymphocytes 0.61 k/cumm (1.2-3.4) L 07/28/18 06:40 Absolute Monocytes 0.94 k/cumm (0.11-0.7) H 07/28/18 06:40 Absolute Eosinophils 0.23 k/cumm (0.0-0.7) 07/28/18 06:40 Absolute Basophils 0.01 k/cumm (0.0-0.2) 07/28/18 06:40 Myelocytes 1.0 % 07/25/18 06:45 Differential Comment Rbc morph reviewed 07/27/18 06:54 RBC Morphology See below 07/27/18 06:54 Polychromasia Present 07/27/18 06:54 Hypochromasia 2+ 07/27/18 06:54 Poikilocytosis 2+ 07/27/18 06:54 Anisocytosis 2+ 07/27/18 06:54 Microcytosis 1+ 07/27/18 06:54 Macrocytosis 1+ 07/27/18 06:54 Spherocytes 1+ 07/23/18 15:35 Ovalocytes 2+ 07/23/18 15:35 ESR 25 MM/HR (0-30) 07/25/18 06:45 Sodium 138 mmol/L (136-145) 07/28/18 06:40 Potassium 4.9 mmol/L (3.5-5.1) 07/28/18 06:40 Chloride 110 mmol/L (98-107) H 07/28/18 06:40 Carbon Dioxide 20.8 mmol/L (21.0-32.0) L 07/28/18 06:40 Anion Gap 7.2 mmol/L (3-11) 07/28/18 06:40 BUN 12 mg/dL (7-18) 07/28/18 06:40 Creatinine 0.80 mg/dL (0.55-1.02) 07/28/18 06:40 Estimated GFR/1.73 m2 >= 60.00 (mL/min/1.73m2) 07/28/18 06:40 Glucose 150 mg/dL (70-100) H 07/28/18 06:40 Lactate 1.9 mmol/L (0.6-1.4) H 07/23/18 15:35 Calcium 8.1 mg/dL (8.5-10.1) L 07/28/18 06:40 Magnesium 1.9 mg/dL (1.8-2.4) 07/26/18 07:13 Iron 9 ug/dL (50-175) L 07/23/18 15:30 TIBC 102 ug/dL (250-450) L 07/23/18 15:30 Transferrin % Sat 9 % (15-50) L 07/23/18 15:30 Ferritin 541 ng/mL (8-388) H 07/23/18 15:30 Total Bilirubin 0.3 mg/dL (0.2-1.0) 07/23/18 15:35 AST 17 U/L (15-37) 07/23/18 15:35 ALT 16 U/L (12-78) 07/23/18 15:35 Alkaline Phosphatase 193 U/L (46-116) H 07/23/18 15:35 Troponin I < 0.02 ng/mL (0.00-0.06) 07/23/18 15:35 C-Reactive Protein 9.32 mg/dL (0.0-0.3) H 07/28/18 06:40 Total Protein 6.2 g/dL (6.4-8.2) L 07/23/18 15:35 Albumin 1.7 g/dL (3.4-5.0) L 07/23/18 15:35 Urine Color Yellow (Yellow) 07/23/18 16:20 Urine Clarity Clear 07/23/18 16:20 Urine pH 5.5 (5-8) 07/23/18 16:20 Ur Specific [place] 1.020 (1.005-1.025) 07/23/18 16:20 Urine Protein Negative mg/dL (Negative) 07/23/18 16:20 Urine Ketones Trace mg/dL (Negative) H 07/23/18 16:20 Urine Blood Negative (Negative) 07/23/18 16:20 Urine Nitrite Negative (Negative) 07/23/18 16:20 Urine Bilirubin Negative (Negative) 07/23/18 16:20 Urine Urobilinogen 0.2 EU/dL (Up TO 0.2) 07/23/18 16:20 Ur Leukocyte Esterase Trace (Negative) H 07/23/18 16:20 Urine RBC 5-10 (0-2) H 07/23/18 16:20 Urine WBC 20-50 HPF (0-5) 07/23/18 16:20 Ur Epithelial Cells Few HPF (Negative) 07/23/18 16:20 Urine Crystals Moderate amorphous HPF (Negative) 07/23/18 16:20 Urine Bacteria Negative HPF (Negative) 07/23/18 16:20 Urine Casts 20-50 hyaline LPF (Negative) 07/23/18 16:20 Urine Mucus Negative (Negative) 07/23/18 16:20 Ur Culture Indicated? Yes 07/23/18 16:20 Urine Glucose Negative mg/dL (Negative) 07/23/18 16:20 Vancomycin Trough 19.6 ug/mL (10.0-20.0) 07/26/18 09:46 Patient ABO/Rh A Positive 07/24/18 15:54 Antibody Screen Negative 07/24/18 15:54 Crossmatch See Detail 07/24/18 15:54
--- NOTE | 2018-07-28 08:30 | PT.INTREAT ---
Date of service: 07/28/18 Time of Service: 08:30 PT Notes Inpatient Physical Therapy Treatment Note Date: 07/28/18 PRECAUTIONS:WBAT on L SUBJECTIVE: Dina states that she does not want to stay at the hospital any longer. She reports that her hip is feeling good today. OBJECTIVE: PAIN: No c/o pain BED MOBILITY/TRANSFERS Supine-sit: Min A with HOB at 30 degrees Sit-stand: CGA with FWW Stand-sit: SBA Bed-Chair: CGA GAIT Assistive Device: Platform FWW Weight bearing: WBAT on L Assist: CGA Distance: 5' THEREX: Patient completed a LE strengthening program, as per flow sheet. She was able to tolerate a progression in her program today. ASSESSMENT: Patient tolerated session well, without complaints of pain. She was able to tolerate a progression in her ther ex program. Patient would benefit from continued gait and transfer training as well as strengthening for improved mobility. PLAN: Continue with PT's POC TREATMENT CODE/TIME: 25 minutes; TA/TP
[2018-07-28] MEDS: Donepezil 5 MG TAB 10 MG PO (08:36)
[2018-07-28] MEDS: Atorvastatin 40 MG TAB PO (08:36)
[2018-07-28] MEDS: Enoxaparin 40 MG/0.4 ML SYR SC (08:36)
[2018-07-28] MEDS: Ferrous Sulfate 325 MG TAB PO ×2 (08:37→20:30)
[2018-07-28] MEDS: Magnesium Oxide 400 MG TAB PO (08:37)
[2018-07-28] MEDS: Multivitamin TAB 1 TAB PO (08:37)
[2018-07-28] MEDS: Metoclopramide 10 MG/2 ML VIAL IVP ×3 (08:37→17:06)
[2018-07-28] MEDS: Sennosides/Docusate Sodium TAB 1 TAB PO ×2 (08:37→20:28)
[2018-07-28] MEDS: Memantine 5 MG TAB 10 MG PO ×2 (08:46→20:28)
[2018-07-28] MEDS: Ondansetron 4 MG/2 ML VIAL IVP ×2 (09:47→20:25)
--- NOTE | 2018-07-28 10:02 | PDOC.CMPRO ---
- If Service Date Differs Date of service: 07/28/18 Time of Service: 10:02 Care Management Progress Note S/O: Dina is sitting in her chair with her Cosme at bedside, when CM visits this morning. She reports that she is sweaty and nauseous. CM informed RUDOLPH Wolff of patient's complaints. Dr. Corona performed a needle aspiration on Dina's leg this morning and is not planning on bringing Dina back to the OR. Anticipate patient will discharge home tomorrow. CM phoned Dr. Jorgensen's office regarding a Palliative consult and the family's request for a late morning meeting. JUDE, Dina and Cosme discussed palliative care at some length and Dina appears to be ok with meeting today. A: 73 year old female admitted left hip infection. P: Dina will discharge home when medically ready per MD. Patient will discharge with resumption of/increased services through the [facility] and follow up with surgical services and PCP. Dina will transport via private vehicle with her , Cosme. CM will continue to offer support to patient, family, and care team regarding discharge planning and disposition.
--- NOTE | 2018-07-28 10:08 | CMPROGNOTE_ITS ---
- If Service Date Differs Date of service: 07/28/18 Time of Service: 10:02 Care Management Progress Note S/O: Dina is sitting in her chair with her Cosme at bedside, when CM visits this morning. She reports that she is sweaty and nauseous. CM informed RUDOLPH Wolff of patient's complaints. Dr. Corona performed a needle aspiration on Dina's leg this morning and is not planning on bringing Dina back to the OR. Anticipate patient will discharge home tomorrow. CM phoned Dr. Jorgensen's office regarding a Palliative consult and the family's request for a late morning meeting. JUDE, Dina and Cosme discussed palliative care at some length and Dina appears to be ok with meeting today. A: 73 year old female admitted left hip infection. P: Dina will discharge home when medically ready per MD. Patient will discharge with resumption of/increased services through the [facility] and follow up with surgical services and PCP. Dina will transport via private vehicle with her , Cosme. CM will continue to offer support to patient, family, and care team regarding discharge planning and disposition.
[2018-07-28 11:35] VITALS: BP 109/56; PULSE 98; RESP 18; TEMP 36.8; O2SAT 97
[2018-07-28] MEDS: Insulin Aspart 300 UNITS/3 ML PEN SC ×2 (12:13→17:08)
--- NOTE | 2018-07-28 13:44 | PT.INTREAT ---
Date of service: 07/28/18 Time of Service: 13:45 PT Notes Inpatient Physical Therapy Treatment Note Date: 07/28/18 PRECAUTIONS:WBAT on L SUBJECTIVE: Dina states that she is feeling discouraged, that she just wants to go home. OBJECTIVE: PAIN: No c/o pain BED MOBILITY/TRANSFERS Rolling L/R: I with bed rail Supine-sit: Min A of L LE with HOB flat Sit-supine: Mod A with HOB flat Sit-stand: CGA Stand-sit: CGA GAIT Assistive Device: FWW Weight bearing: WBAT on L Assist: CGA Distance: 15' x2 Deviation: Nauseous THEREX: Patient completed a LE strengthening and stabilization program, as per flow sheet. ASSESSMENT: Patient tolerated a progression in gait distance, with c/o nausea and increased fatigue. She continues to require assist for bed transfers, and would benefit from continued training as well as strengthening for improved ability to perform these functional tasks at a more independent level. PLAN: Continue with PT's POC TREATMENT CODE/TIME: 25 minutes; TA/TP
--- NOTE | 2018-07-28 14:49 | CHAPLAIN ---
Dina was in bed when I stopped in. She said she was feeling nauseated and thought taking a nap would help. Cosme was sitting in a chair near to her. He said they were waiting to meet with the doctor and were scheduled to meet her this morning and they were still waiting.
--- NOTE | 2018-07-28 16:50 | W.PM.PROGNOT ---
Assessment and Plan (1) Abscess of left hip: Current visit: Yes Status: Acute S/p I&D/washout on 07/24. Cx w/ MSSA. Change from Vancomycin to Cefazolin. Also on Rifampin per ortho given proximity of infection to hardware. Currently on Day #5 of antibiotics. Of note, biopsy results currently pending - may be either on the basis of recurrence of Osteosarcoma, or potentially metastatic from current Endometrial Ca with known mets. (2) Anemia associated with acute blood loss: Current visit: Yes Status: Acute s/p transfusion of 2 units of pRBC's - significantly improved but with continued slow drop, now at 7.8. Monitor Hgb closely. 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 Metastatic Endometrial Ca. Pathology pending. Palliative care consulted. (4) [id number] diabetes mellitus without complications: Current visit: Yes Status: Acute Continue ISS, ADA diet. (5) Alzheimer disease: Current visit: Yes Status: Chronic Currently on Aricept and Namenda. is caregiver and makes decisions for patient's care. (6) DVT prophylaxis: Current visit: Yes Status: Acute SC Lovenox. (7) Discharge planning issues: Current visit: Yes Status: Acute Following discussion with Palliative care, patient's code status will be changed to DNR/DNI. Subjective Interval history since last seen: 73-year-old woman admitted from [facility] Emergency Department on 07/22 with complaints of left hip pain and swelling, found to have infection and likely malignancy in the left hip. Mrs. 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 Patient had complained of induration and pain over the left hip for some time prior to her admission. She had recently seen her oncologist Dr. Saavedra who had some surveillance CT scans performed regarding her metastatic endometrial carcinoma. These images showed incidental finding of a collection of fluid around the left hip joint. She subsequently was evaluated by Dr. Bowman who obtained plain films and did not find any acute changes within the left hip compared to her previous x-rays of her left total hip arthroplasty. Patient was seen earlier on the day of admission by her primary care provider Dr. Chano Leon who aspirated some purulent material from the soft tissues overlying her left hip. Patient was then referred to the emergency room for evaluation of possible left hip infection versus infected bursitis. Workup in the emergency room included x-rays of the left hip and pelvis which showed diffuse osteopenia and status post bilateral total hip arthroplasty with no hardware loosening or fracture. Laboratory workup was remarkable for a leukocytosis, anemia, as well as significant thrombocytosis. She was subsequently admitted for further evaluation and treatment. Subsequently the patient underwent surgical evaluation of her Left hip, with irrigation and debridement of the area, and with noted evidence of soft tissue infection with likely metastatic lesions. In discussion with Ortho there does not appear to be extension of the infection into the hardware. She has been maintained on Rifampin and Vancomycin, with culture results thus far showing Staph Aureus, sensitivities now showing MSSA. The patient was started on Cefazolin on 07/27. This morning the patient reports continued improved symptoms overall, tolerating her diet well. No overnight events reported. Patient remains afebrile. Exam Narrative Exam Narrative: General: Appears comfortable sitting up in bed, no acute distress noted Psych: Mood and Affect Normal. Objective Objective Clinical Data: Abnormal lab results 07/28/18 07/28/18 Range/Units 06:40 06:40 WBC 12.17 H (4.4-10.8) k/cumm RBC 3.30 L (4.00-5.20) m/cumm Hgb 7.8 L (12.0-15.5) g/dL Hct 26.3 L (36.0-46.0) % MCV 79.7 L (80-95) fL MCH 23.6 L (27.0-33.0) pg MCHC 29.7 L (32.0-36.0) g/dL RDW 23.7 H (11.7-14.6) % Absolute Neutrophils 10.25 H (1.2-6.7) k/cumm Absolute Lymphocytes 0.61 L (1.2-3.4) k/cumm Absolute Monocytes 0.94 H (0.11-0.7) k/cumm Chloride 110 H (98-107) mmol/L Carbon Dioxide 20.8 L (21.0-32.0) mmol/L Glucose 150 H (70-100) mg/dL Calcium 8.1 L (8.5-10.1) mg/dL C-Reactive Protein 9.32 H (0.0-0.3) mg/dL Vital Signs Temperature 36.8 C 07/28/18 11:35 Temperature Source Tympanic 07/28/18 11:35 Pulse 98 H 07/28/18 11:35 Pulse Rhythm Regular 07/28/18 09:25 Respiratory Rate 18 07/28/18 11:35 Respiratory Effort Non-Labored 07/28/18 09:25 Respiratory Depth Normal 07/28/18 09:25 Respiratory Pattern Normal 07/28/18 09:25 Blood Pressure 109/56 L 07/28/18 11:35 Pulse Oximetry 97 07/28/18 11:35 Respiratory End-tidal CO2 27 07/24/18 13:35 Oxygen Delivery Method Room Air 07/28/18 11:35 Oxygen Flow Rate 0 07/28/18 11:35 Pain Level 1 07/28/18 11:35 Comment 07/24/18 14:58 Intake & Output 07/27/18 07/28/18 07/28/18 23:59 11:59 23:59 Intake Total 590 / 590 290 / 290 120 / 120 Output Total 200 / 200 Balance 590 / 590 290 / 290 -80 / -80 Intake: IV 100 / 100 50 / 50 Oral 490 / 490 240 / 240 120 / 120 Output: Urine 200 / 200 Other: Urine Color Red Willow Red Willow Red Willow Urine Appearance Clear Urine Odor Strong Comment patient on rifampin; incontinent of moderate amount of urine Stool Size Moderate Moderate Stool Characteristics Soft Soft Liquid Brown Brown Voiding Methods Diaper Diaper Bedside Commode Incontinent Laboratory Results WBC 12.17 k/cumm (4.4-10.8) H 07/28/18 06:40 RBC 3.30 m/cumm (4.00-5.20) L 07/28/18 06:40 Hgb 7.8 g/dL (12.0-15.5) L 07/28/18 06:40 Hct 26.3 % (36.0-46.0) L 07/28/18 06:40 MCV 79.7 fL (80-95) L 07/28/18 06:40 MCH 23.6 pg (27.0-33.0) L 07/28/18 06:40 MCHC 29.7 g/dL (32.0-36.0) L 07/28/18 06:40 RDW 23.7 % (11.7-14.6) H 07/28/18 06:40 Plt Count 384 x1000/uL (130-400) D 07/28/18 06:40 MPV 8.6 fL (8.0-11.0) 07/28/18 06:40 Immature Gran % 1.1 07/28/18 06:40 Neutrophils % 84.2 07/28/18 06:40 Lymphocytes % 5.0 07/28/18 06:40 Monocytes % 7.7 07/28/18 06:40 Eosinophils % 1.9 07/28/18 06:40 Basophils % 0.1 07/28/18 06:40 Absolute Neutrophils 10.25 k/cumm (1.2-6.7) H 07/28/18 06:40 Band Neutrophils 1.0 % 07/25/18 06:45 Absolute Lymphocytes 0.61 k/cumm (1.2-3.4) L 07/28/18 06:40 Absolute Monocytes 0.94 k/cumm (0.11-0.7) H 07/28/18 06:40 Absolute Eosinophils 0.23 k/cumm (0.0-0.7) 07/28/18 06:40 Absolute Basophils 0.01 k/cumm (0.0-0.2) 07/28/18 06:40 Myelocytes 1.0 % 07/25/18 06:45 Differential Comment Rbc morph reviewed 07/27/18 06:54 RBC Morphology See below 07/27/18 06:54 Polychromasia Present 07/27/18 06:54 Hypochromasia 2+ 07/27/18 06:54 Poikilocytosis 2+ 07/27/18 06:54 Anisocytosis 2+ 07/27/18 06:54 Microcytosis 1+ 07/27/18 06:54 Macrocytosis 1+ 07/27/18 06:54 Spherocytes 1+ 07/23/18 15:35 Ovalocytes 2+ 07/23/18 15:35 ESR 25 MM/HR (0-30) 07/25/18 06:45 Sodium 138 mmol/L (136-145) 07/28/18 06:40 Potassium 4.9 mmol/L (3.5-5.1) 07/28/18 06:40 Chloride 110 mmol/L (98-107) H 07/28/18 06:40 Carbon Dioxide 20.8 mmol/L (21.0-32.0) L 07/28/18 06:40 Anion Gap 7.2 mmol/L (3-11) 07/28/18 06:40 BUN 12 mg/dL (7-18) 07/28/18 06:40 Creatinine 0.80 mg/dL (0.55-1.02) 07/28/18 06:40 Estimated GFR/1.73 m2 >= 60.00 (mL/min/1.73m2) 07/28/18 06:40 Glucose 150 mg/dL (70-100) H 07/28/18 06:40 Lactate 1.9 mmol/L (0.6-1.4) H 07/23/18 15:35 Calcium 8.1 mg/dL (8.5-10.1) L 07/28/18 06:40 Magnesium 1.9 mg/dL (1.8-2.4) 07/26/18 07:13 Iron 9 ug/dL (50-175) L 07/23/18 15:30 TIBC 102 ug/dL (250-450) L 07/23/18 15:30 Transferrin % Sat 9 % (15-50) L 07/23/18 15:30 Ferritin 541 ng/mL (8-388) H 07/23/18 15:30 Total Bilirubin 0.3 mg/dL (0.2-1.0) 07/23/18 15:35 AST 17 U/L (15-37) 07/23/18 15:35 ALT 16 U/L (12-78) 07/23/18 15:35 Alkaline Phosphatase 193 U/L (46-116) H 07/23/18 15:35 Troponin I < 0.02 ng/mL (0.00-0.06) 07/23/18 15:35 C-Reactive Protein 9.32 mg/dL (0.0-0.3) H 07/28/18 06:40 Total Protein 6.2 g/dL (6.4-8.2) L 07/23/18 15:35 Albumin 1.7 g/dL (3.4-5.0) L 07/23/18 15:35 Urine Color Yellow (Yellow) 07/23/18 16:20 Urine Clarity Clear 07/23/18 16:20 Urine pH 5.5 (5-8) 07/23/18 16:20 Ur Specific Brule 1.020 (1.005-1.025) 07/23/18 16:20 Urine Protein Negative mg/dL (Negative) 07/23/18 16:20 Urine Ketones Trace mg/dL (Negative) H 07/23/18 16:20 Urine Blood Negative (Negative) 07/23/18 16:20 Urine Nitrite Negative (Negative) 07/23/18 16:20 Urine Bilirubin Negative (Negative) 07/23/18 16:20 Urine Urobilinogen 0.2 EU/dL (Up TO 0.2) 07/23/18 16:20 Ur Leukocyte Esterase Trace (Negative) H 07/23/18 16:20 Urine RBC 5-10 (0-2) H 07/23/18 16:20 Urine WBC 20-50 HPF (0-5) 07/23/18 16:20 Ur Epithelial Cells Few HPF (Negative) 07/23/18 16:20 Urine Crystals Moderate amorphous HPF (Negative) 07/23/18 16:20 Urine Bacteria Negative HPF (Negative) 07/23/18 16:20 Urine Casts 20-50 hyaline LPF (Negative) 07/23/18 16:20 Urine Mucus Negative (Negative) 07/23/18 16:20 Ur Culture Indicated? Yes 07/23/18 16:20 Urine Glucose Negative mg/dL (Negative) 07/23/18 16:20 Vancomycin Trough 19.6 ug/mL (10.0-20.0) 07/26/18 09:46 Patient ABO/Rh A Positive 07/24/18 15:54 Antibody Screen Negative 07/24/18 15:54 Crossmatch See Detail 07/24/18 15:54
[2018-07-28] MEDS: Normal Saline 1,000 ML 80 ML IV (17:32)
[2018-07-29] VITALS (11 sets, daily range): BP systolic 100–161; BP diastolic 58–82; PULSE 68–153; RESP 17–24; TEMP 36.4–37; O2SAT 94–99
[2018-07-29] MEDS: Pantoprazole 40 MG VIAL IVP ×2 (00:08→21:06)
[2018-07-29] MEDS: Melatonin 3 MG TAB PO ×2 (00:09→21:06)
[2018-07-29] MEDS: Insulin Aspart 300 UNITS/3 ML PEN SC ×3 (00:24→17:18)
[2018-07-29] MEDS: traMADol 50 MG TAB PO (01:25)
[2018-07-29] MEDS: RIFAMPIN 300 MG CAP PO (04:05)
[2018-07-29] MEDS: Ondansetron 4 MG/2 ML VIAL IVP (04:05)
[2018-07-29] MEDS: Levothyroxine 75 MCG TAB 150 MCG PO (04:05)
[2018-07-29] MEDS: Normal Saline 1,000 ML 80 ML IV ×2 (05:40→20:20)
[2018-07-29 07:21] LABS: Abs Immature Grans 0.17 k/cumm (0.0-0.09); Absolute Basophil Count 0.02 k/cumm (0.0-0.2); Absolute Lymphocyte Count 0.46 k/cumm (1.2-3.4); Absolute Monocyte Count 1.08 k/cumm (0.11-0.7); Basophils % 0.1; Eosinophils % 0.8; HCT 26.8 % (36.0-46.0); Lymphocytes % 2.8; Mean Corp. HGB Concentration 29.9 g/dL (32.0-36.0); Mean Corpuscular Hemoglobin 23.6 pg (27.0-33.0); Mean Corpuscular Volume 79.1 fL (80-95); Mean Platelet Volume 8.5 fL (8.0-11.0); Monocytes % 6.5; Neutrophils % 88.8; Platelet Count 621 x1000/uL (130-400); RBC 3.39 m/cumm (4.00-5.20); RBC Distribution Width 24.2 % (11.7-14.6); White Blood Cell Count 16.58 k/cumm (4.4-10.8)
[2018-07-29 07:26] LABS: Anion Gap 12.1 mmol/L (3-11); BUN 10 mg/dL (7-18); C-Reactive Protein 7.44 mg/dL (0.0-0.3); CO2 17.9 mmol/L (21.0-32.0); CREATININE 0.75 mg/dL (0.55-1.02); Calcium 8.1 mg/dL (8.5-10.1); Chloride 107 mmol/L (98-107); Glucose 169 mg/dL (70-100); Potassium 4.2 mmol/L (3.5-5.1); Sodium 137 mmol/L (136-145)
[2018-07-29 07:32] LABS: Absolute Eosinophil Count 0.13 k/cumm (0.0-0.7); Absolute Neutrophil Count 14.72 k/cumm (1.2-6.7)
--- NOTE | 2018-07-29 07:42 | W.PM.PROGNOT ---
Assessment and Plan (1) Anemia associated with acute blood loss: Current visit: Yes Status: Acute Hemoglobin is still pending this morning. Vital signs have been stable. (2) Abscess of left hip: Current visit: Yes Status: Acute There has been a reaccumulation of the fluid after drain removal. In general Dina has still had significant weakness, fatigue, and malaise. Her inflammatory markers, CRP, has decreased but has slightly plateaued. I was able to drain a significant amount of cloudy sanguinous fluid yesterday. Given this constellation of symptoms I do think we should go back in for secondary washout. Initial pathology is actually showing only signs of chronic inflammation. While this is good news, I am still concerned that there is something abnormal about this tissue. Therefore, would be able to obtain secondary pathology specimens today as well. I reviewed this in detail with Dina. I also reviewed with her and her yesterday. While her goal is to return home as soon as possible I do think if this is simply infection and not infected sarcoma, it is imperative that we treated aggressively to get rid of the infection. I do not believe her hip is infected but I will try to aspirate have while on their to prove or disprove joint infection. She has been very clear, along with her primary care doctor, that she does not want any extensive hip joint debridement or removal of prosthesis. Subjective Interval history since last seen: Mrs. Queen reports that she feels weaker than she did yesterday. She denies any significant increase in pain but just generalized fatigue and malaise. No fever no chills. No chest pain or shortness of breath. She did meet with Dr. Larson yesterday and now is a formal DNR/DNI, except for the perioperative period. Exam Narrative Exam Narrative: Evaluation of the left thigh shows continued fluctuance. There is warmth to the area. No erythema. No active drainage. The wound is well approximated. Gentle internal and external rotation causes no pain. Gentle flexion causes no pain. There is mild discomfort with direct palpation of the lateral left thigh. Objective Objective Clinical Data: Abnormal lab results 07/28/18 07/29/18 Range/Units 06:40 07:00 Chloride 110 H (98-107) mmol/L Carbon Dioxide 20.8 L 17.9 L (21.0-32.0) mmol/L Anion Gap 12.1 H (3-11) mmol/L Glucose 150 H 169 H (70-100) mg/dL Calcium 8.1 L 8.1 L (8.5-10.1) mg/dL C-Reactive Protein 9.32 H 7.44 H (0.0-0.3) mg/dL Vital Signs Temperature 36.7 C 07/29/18 04:00 Temperature Source Skin 07/29/18 04:00 Pulse 106 H 07/29/18 04:00 Pulse Rhythm Regular 07/29/18 04:57 Respiratory Rate 24 07/29/18 04:00 Respiratory Effort 07/29/18 04:57 Respiratory Depth Normal 07/29/18 04:57 Respiratory Pattern Normal 07/29/18 04:57 Blood Pressure 152/66 H 07/29/18 04:00 Pulse Oximetry 99 07/29/18 04:00 Respiratory End-tidal CO2 27 07/24/18 13:35 Oxygen Delivery Method Room Air 07/29/18 04:00 Oxygen Flow Rate 0 07/29/18 04:00 Pain Level 1 07/29/18 04:00 Comment 07/29/18 04:00 Intake & Output 07/28/18 07/28/18 07/29/18 11:59 23:59 11:59 Intake Total 340 / 340 410 / 410 882 / 882 Output Total 200 / 200 Balance 340 / 340 210 / 210 882 / 882 Intake: IV 100 / 100 50 / 50 882 / 882 Oral 240 / 240 360 / 360 Output: Urine 200 / 200 Other: Urine Color Hallett Hallett Urine Appearance Clear Clear Urine Odor Strong Stool Size Moderate Small Stool Characteristics Soft Soft Brown Formed Brown Voiding Methods Diaper Bedside Commode Toilet Incontinent Laboratory Results WBC 12.17 k/cumm (4.4-10.8) H 07/28/18 06:40 RBC 3.30 m/cumm (4.00-5.20) L 07/28/18 06:40 Hgb 7.8 g/dL (12.0-15.5) L 07/28/18 06:40 Hct 26.3 % (36.0-46.0) L 07/28/18 06:40 MCV 79.7 fL (80-95) L 07/28/18 06:40 MCH 23.6 pg (27.0-33.0) L 07/28/18 06:40 MCHC 29.7 g/dL (32.0-36.0) L 07/28/18 06:40 RDW 23.7 % (11.7-14.6) H 07/28/18 06:40 Plt Count 384 x1000/uL (130-400) D 07/28/18 06:40 MPV 8.6 fL (8.0-11.0) 07/28/18 06:40 Immature Gran % 1.1 07/28/18 06:40 Neutrophils % 84.2 07/28/18 06:40 Lymphocytes % 5.0 07/28/18 06:40 Monocytes % 7.7 07/28/18 06:40 Eosinophils % 1.9 07/28/18 06:40 Basophils % 0.1 07/28/18 06:40 Absolute Neutrophils 10.25 k/cumm (1.2-6.7) H 07/28/18 06:40 Band Neutrophils 1.0 % 07/25/18 06:45 Absolute Lymphocytes 0.61 k/cumm (1.2-3.4) L 07/28/18 06:40 Absolute Monocytes 0.94 k/cumm (0.11-0.7) H 07/28/18 06:40 Absolute Eosinophils 0.23 k/cumm (0.0-0.7) 07/28/18 06:40 Absolute Basophils 0.01 k/cumm (0.0-0.2) 07/28/18 06:40 Myelocytes 1.0 % 07/25/18 06:45 Differential Comment Rbc morph reviewed 07/27/18 06:54 RBC Morphology See below 07/27/18 06:54 Polychromasia Present 07/27/18 06:54 Hypochromasia 2+ 07/27/18 06:54 Poikilocytosis 2+ 07/27/18 06:54 Anisocytosis 2+ 07/27/18 06:54 Microcytosis 1+ 07/27/18 06:54 Macrocytosis 1+ 07/27/18 06:54 Spherocytes 1+ 07/23/18 15:35 Ovalocytes 2+ 07/23/18 15:35 ESR 25 MM/HR (0-30) 07/25/18 06:45 Sodium 137 mmol/L (136-145) 07/29/18 07:00 Potassium 4.2 mmol/L (3.5-5.1) 07/29/18 07:00 Chloride 107 mmol/L (98-107) 07/29/18 07:00 Carbon Dioxide 17.9 mmol/L (21.0-32.0) L 07/29/18 07:00 Anion Gap 12.1 mmol/L (3-11) H 07/29/18 07:00 BUN 10 mg/dL (7-18) 07/29/18 07:00 Creatinine 0.75 mg/dL (0.55-1.02) 07/29/18 07:00 Estimated GFR/1.73 m2 >= 60.00 (mL/min/1.73m2) 07/29/18 07:00 Glucose 169 mg/dL (70-100) H 07/29/18 07:00 Lactate 1.9 mmol/L (0.6-1.4) H 07/23/18 15:35 Calcium 8.1 mg/dL (8.5-10.1) L 07/29/18 07:00 Magnesium 1.9 mg/dL (1.8-2.4) 07/26/18 07:13 Iron 9 ug/dL (50-175) L 07/23/18 15:30 TIBC 102 ug/dL (250-450) L 07/23/18 15:30 Transferrin % Sat 9 % (15-50) L 07/23/18 15:30 Ferritin 541 ng/mL (8-388) H 07/23/18 15:30 Total Bilirubin 0.3 mg/dL (0.2-1.0) 07/23/18 15:35 AST 17 U/L (15-37) 07/23/18 15:35 ALT 16 U/L (12-78) 07/23/18 15:35 Alkaline Phosphatase 193 U/L (46-116) H 07/23/18 15:35 Troponin I < 0.02 ng/mL (0.00-0.06) 07/23/18 15:35 C-Reactive Protein 7.44 mg/dL (0.0-0.3) H 07/29/18 07:00 Total Protein 6.2 g/dL (6.4-8.2) L 07/23/18 15:35 Albumin 1.7 g/dL (3.4-5.0) L 07/23/18 15:35 Urine Color Yellow (Yellow) 07/23/18 16:20 Urine Clarity Clear 07/23/18 16:20 Urine pH 5.5 (5-8) 07/23/18 16:20 Ur Specific [place] 1.020 (1.005-1.025) 07/23/18 16:20 Urine Protein Negative mg/dL (Negative) 07/23/18 16:20 Urine Ketones Trace mg/dL (Negative) H 07/23/18 16:20 Urine Blood Negative (Negative) 07/23/18 16:20 Urine Nitrite Negative (Negative) 07/23/18 16:20 Urine Bilirubin Negative (Negative) 07/23/18 16:20 Urine Urobilinogen 0.2 EU/dL (Up TO 0.2) 07/23/18 16:20 Ur Leukocyte Esterase Trace (Negative) H 07/23/18 16:20 Urine RBC 5-10 (0-2) H 07/23/18 16:20 Urine WBC 20-50 HPF (0-5) 07/23/18 16:20 Ur Epithelial Cells Few HPF (Negative) 07/23/18 16:20 Urine Crystals Moderate amorphous HPF (Negative) 07/23/18 16:20 Urine Bacteria Negative HPF (Negative) 07/23/18 16:20 Urine Casts 20-50 hyaline LPF (Negative) 07/23/18 16:20 Urine Mucus Negative (Negative) 07/23/18 16:20 Ur Culture Indicated? Yes 07/23/18 16:20 Urine Glucose Negative mg/dL (Negative) 07/23/18 16:20 Vancomycin Trough 19.6 ug/mL (10.0-20.0) 07/26/18 09:46 Patient ABO/Rh A Positive 07/24/18 15:54 Antibody Screen Negative 07/24/18 15:54 Crossmatch See Detail 07/24/18 15:54
[2018-07-29] MEDS: Memantine 5 MG TAB 10 MG PO ×2 (07:59→19:24)
[2018-07-29] MEDS: Atorvastatin 40 MG TAB PO (07:59)
[2018-07-29] MEDS: Donepezil 5 MG TAB 10 MG PO (07:59)
[2018-07-29] MEDS: Metoclopramide 10 MG/2 ML VIAL IVP ×3 (07:59→17:18)
[2018-07-29] MEDS: Ferrous Sulfate 325 MG TAB PO ×2 (08:00→19:24)
[2018-07-29] MEDS: Magnesium Oxide 400 MG TAB PO (08:00)
[2018-07-29 08:23] LABS: Diff Comment RBC Morph Reviewed
[2018-07-29 08:26] LABS: Anisocytosis 3+; Hypochromasia 2+; Macrocytosis 1+; Microcytosis 1+; Polychromasia Present
[2018-07-29 08:28] LABS: Poikilocytes 1+
--- NOTE | 2018-07-29 09:12 | PT.INTREAT ---
Date of service: 07/29/18 Time of Service: 09:12 PT Notes Inpatient Physical Therapy Treatment Note Date: 07/29/18 PRECAUTIONS: WBAT on L SUBJECTIVE: Dina states that she is not feeling well this morning, she reports that her stomach is still bothering her. OBJECTIVE: Nsg aware of pt feeling nauseous, suggested to hold OOB this morning. PAIN: Patient c/o minor discomfort in L hip with ther ex. BED MOBILITY/TRANSFERS/GAIT: Held OOB due to nausea. THEREX: Patient completed a LE strengthening and stabilization program, as per flow sheet. Patient tolerated a slight progression in her program this morning, although, did require some assist with SLR and hip abduction exercises. ASSESSMENT: Dina was unable to participate in bed mobility, transfers, and gait training this morning due to feeling nauseous. She would benefit from continued strengthening and transfer and gait training to improve mobility and ability to perform functional daily tasks. PLAN: Continue with PT's POC TREATMENT CODE/TIME: 15 minutes; CAR
--- NOTE | 2018-07-29 09:17 | PTTR_ITS ---
Date of service: 07/29/18 Time of Service: 09:12 PT Notes Inpatient Physical Therapy Treatment Note Date: 07/29/18 PRECAUTIONS: WBAT on L SUBJECTIVE: Dina states that she is not feeling well this morning, she reports that her stomach is still bothering her. OBJECTIVE: Nsg aware of pt feeling nauseous, suggested to hold OOB this morning. PAIN: Patient c/o minor discomfort in L hip with ther ex. BED MOBILITY/TRANSFERS/GAIT: Held OOB due to nausea. THEREX: Patient completed a LE strengthening and stabilization program, as per flow sheet. Patient tolerated a slight progression in her program this morning , although, did require some assist with SLR and hip abduction exercises. ASSESSMENT: Dina was unable to participate in bed mobility, transfers, and gait training this morning due to feeling nauseous. She would benefit from continued strengthening and transfer and gait training to improve mobility and ability to perform functional daily tasks. PLAN: Continue with PT's POC TREATMENT CODE/TIME: 15 minutes; CAR
--- NOTE | 2018-07-29 09:49 | W.PALLCONSUL ---
Date of service: 07/28/18 Time of Service: 09:49 History of Present Illness Chief Complaint: goals of care discussion; metastatic endometrial cancer; infection Narrative: Dr Corona asked me to talk to Dina and her Cosme about her code status and her goals of care. She has both an Advanced Directive and a COLST which are somewhat contradictory. She very clearly doesn't want to go to a SNF. She has been in one in past and failed there. took her home earlier than recommended with services including PT, RN, PEDIATRIC PHYSICAL THERAPIST and she did much better. She doesn't want anything heroic done. She doesn't want to be [place] [facility] [place] [facility]. She doesn't want to be in the ICU, even at [facility]. She doesn't want to be on a breathing machine. She doesn't want another amputation, in case her leg doesn't heal on its own. Her said he thinks he could handle wound care, including drains, at home if he needs to. He has more trouble helping Dina with her personal care. Before she came in to the hospital, she hurt too much too stand. She was in a WC all the time. She wore depends and was completely reliant on him for toileting. He would like her to go home independent with a walker and doing her own toileting. Consults Consult date: 07/28/18 Requesting physician: Bandar Corona Assessment and Plan (1) Alzheimer disease: Current visit: Yes Status: Chronic (2) Goals of care, counseling/discussion: Current visit: Yes Status: Acute At the time of my visit, pathology was just back showing no sarcoma in her hip. Dr. Corona unsure if this is completely accurate. He reports the tissue appeared very abnormal. Being treated for infection. She was able to participate in the conversation for the most part. She is on the verge of losing her capacity for decision making. She does indicate that she wants her to make decisions for her if she cannot. She verifies that he is her DPOA. In discussion about her goals of care, she wants to go home. She does not want to be treated for another cancer, IF this is or if any other occur. She does NOT want an amputation (she already has one). She is DNR/DNI to fit with her goals. She states she has lived a good life and doesn't need to live longer for no good reason. If Dr. Corona needs me later in this admission, especially IF disposition becomes an issue (I don't think is certain he can care for her at home; he may need her to go to SNF for rehab), I would be glad to return. Otherwise, no f/u at this time. COLST done and signed by both Dina and Cosme. Review of Systems Constitutional Reports body ache(s), Reports fatigue, Reports weakness and Reports weight loss Eyes Reports requires corrective lenses ENT Reports dizziness and Reports dry mouth Cardiovascular Reports dyspnea on exertion Respiratory Reports dyspnea on exertion Gastrointestinal Reports early satiety, Reports nausea and Reports vomiting Genitourinary Reports urinary incontinence Musculoskeletal Reports abnormal gait, Reports myalgias, Reports joint swelling and Reports muscle weakness Neurologic Reports abnormal gait, Reports dizziness and Reports weakness Endocrine Reports fatigue [facility] Medical History Alzheimer disease (Chronic) [id number]-auxkqucvf diabetes mellitus without complications (Acute) Anemia of chronic disease (Chronic) Iron deficiency anemia (Chronic) Osteoarthritis of both hips (Chronic) 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, insulin dependent (Chronic) Hypertension (Chronic) Depression (Chronic) Hypercholesterolemia (Chronic) Asthma (Chronic) Osteopenia (Chronic) Mitral regurgitation (Chronic) Right groin pain (Acute) History of osteosarcoma (Chronic) History of myocardial infarction (Chronic) Elevated lipids (Chronic) GI bleed (Resolved) Social History Smoking/Tobacco Use Status: Never Surgical History History of Surgical Procedure (Chronic) Exam Const General: disheveled and ill appearing Nutritional Appearance: overweight Orientation: alert, awake, oriented to person and oriented to place [facility] Head: normocephalic and atraumatic Ears: hearing grossly normal bilaterally General nose exam: no nasal discharge Eyes Conjunctivae: conjunctivae normal Sclera: sclerae normal Neck Neck: no lymphadenopathy and no JVD Chest Chest: normal inspection of the chest Resp Effort & Inspection: normal respiratory effort and able to speak in complete sentences Auscultation: clear to auscultation bilaterally Cardio Jugular venous pressure: no JVD Rate: regular rate Rhythm: regular rhythm Heart Sounds: S1 normal and S2 normal GI Inspection: normal to inspection and obesity Auscultation: normal bowel sounds Neuro General: alert and awake Cognition: abnormal cognition (clearly has some memory issues, moderate dementia) Speech: expressive aphasia Psych Appearance: disheveled Speech and Movement: delayed speech Mood: anxious mood and irritable mood Affect: anxious affect Attitude: other (cooperative with me, argumentative with her spouse) Thought Process: illogical and impoverished Insight: limited Judgment: limited Results Last Vital Signs Temp 97.5 F L 07/29/18 07:45 Pulse 68 07/29/18 07:45 Resp 17 07/29/18 07:45 BP 111/70 07/29/18 07:45 Pulse Ox 99 07/29/18 07:45 Labs : 08/01/18 06:30 08/01/18 09:50 Laboratory Results - last 24 hr 07/29/18 07/29/18 07:00 07:00 WBC 16.58 H D RBC 3.39 L Hgb 8.0 L Hct 26.8 L MCV 79.1 L MCH 23.6 L MCHC 29.9 L RDW 24.2 H Plt Count 621 H D MPV 8.5 Immature Gran % 1.0 Neutrophils % 88.8 Lymphocytes % 2.8 Monocytes % 6.5 Eosinophils % 0.8 Basophils % 0.1 Absolute Neutrophils 14.72 H Absolute Lymphocytes 0.46 L Absolute Monocytes 1.08 H Absolute Eosinophils 0.13 Absolute Basophils 0.02 Differential Comment Rbc morph reviewed RBC Morphology See below Polychromasia Present Hypochromasia 2+ Poikilocytosis 1+ Anisocytosis 3+ Microcytosis 1+ Macrocytosis 1+ Sodium 137 Potassium 4.2 Chloride 107 Carbon Dioxide 17.9 L Anion Gap 12.1 H BUN 10 Creatinine 0.75 Estimated GFR/1.73 m2 >= 60.00 Glucose 169 H Calcium 8.1 L C-Reactive Protein 7.44 H
--- NOTE | 2018-07-29 10:03 | PCNE_ITS ---
Date of service: 07/28/18 Time of Service: 09:49 History of Present Illness Chief Complaint: goals of care discussion; metastatic endometrial cancer; infection Narrative: Dr Corona asked me to talk to Dina and her Cosme about her code status and her goals of care. She has both an Advanced Directive and a COLST which are somewhat contradictory. She very clearly doesn't want to go to a SNF. She has been in one in past and failed there. took her home earlier than recommended with services including PT, RN, [employer]ER and she did much better. She doesn't want anything heroic done. She [place] [facility] [facility]. She doesn't want to be in the ICU, even at [facility]. She doesn't want to be on a breathing machine. She doesn't want another amputation, in case her leg doesn't heal on its own. Her said he thinks he could handle wound care, including drains, at home if he needs to. He has more trouble helping Dina with her personal care. Before she came in to the hospital, she hurt too much too stand. She was in a WC all the time. She wore depends and was completely reliant on him for toileting. He would like her to go home independent with a walker and doing her own toileting. Consults Consult date: 07/28/18 Requesting physician: Bandar Corona Assessment and Plan (1) Alzheimer disease: Current visit: Yes Status: Chronic (2) Goals of care, counseling/discussion: Current visit: Yes Status: Acute At the time of my visit, pathology was just back showing no sarcoma in her hip. Dr. Corona unsure if this is completely accurate. He reports the tissue appeared very abnormal. Being treated for infection. She was able to participate in the conversation for the most part. She is on the verge of losing her capacity for decision making. She does indicate that she wants her to make decisions for her if she cannot. She verifies that he is her DPOA. In discussion about her goals of care, she wants to go home. She does not want to be treated for another cancer, IF this is or if any other occur. She does NOT want an amputation (she already has one). She is DNR/DNI to fit with her goals. She states she has lived a good life and doesn't need to live longer for no good reason. If Dr. Corona needs me later in this admission, especially IF disposition becomes an issue (I don't think is certain he can care for her at home; he may need her to go to SNF for rehab), I would be glad to return. Otherwise, no f/u at this time. COLST done and signed by both Dina and Cosme. Review of Systems Constitutional Reports body ache(s), Reports fatigue, Reports weakness and Reports weight loss Eyes Reports requires corrective lenses ENT Reports dizziness and Reports dry mouth Cardiovascular Reports dyspnea on exertion Respiratory Reports dyspnea on exertion Gastrointestinal Reports early satiety, Reports nausea and Reports vomiting Genitourinary Reports urinary incontinence Musculoskeletal Reports abnormal gait, Reports myalgias, Reports joint swelling and Reports muscle weakness Neurologic Reports abnormal gait, Reports dizziness and Reports weakness Endocrine Reports fatigue [facility] Medical History Alzheimer disease (Chronic) Esf-[id number]-pdeuxcntp diabetes mellitus without complications (Acute) Anemia of chronic disease (Chronic) Iron deficiency anemia (Chronic) Osteoarthritis of both hips (Chronic) 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, insulin dependent (Chronic) Hypertension (Chronic) Depression (Chronic) Hypercholesterolemia (Chronic) Asthma (Chronic) Osteopenia (Chronic) Mitral regurgitation (Chronic) Right groin pain (Acute) History of osteosarcoma (Chronic) History of myocardial infarction (Chronic) Elevated lipids (Chronic) GI bleed (Resolved) Social History Smoking/Tobacco Use Status: Never Surgical History History of Surgical Procedure (Chronic) Exam Const General: disheveled and ill appearing Nutritional Appearance: overweight Orientation: alert, awake, oriented to person and oriented to place [facility] Head: normocephalic and atraumatic Ears: hearing grossly normal bilaterally General nose exam: no nasal discharge Eyes Conjunctivae: conjunctivae normal Sclera: sclerae normal Neck Neck: no lymphadenopathy and no JVD Chest Chest: normal inspection of the chest Resp Effort & Inspection: normal respiratory effort and able to speak in complete sentences Auscultation: clear to auscultation bilaterally Cardio Jugular venous pressure: no JVD Rate: regular rate Rhythm: regular rhythm Heart Sounds: S1 normal and S2 normal GI Inspection: normal to inspection and obesity Auscultation: normal bowel sounds Neuro General: alert and awake Cognition: abnormal cognition (clearly has some memory issues, moderate dementia) Speech: expressive aphasia Psych Appearance: disheveled Speech and Movement: delayed speech Mood: anxious mood and irritable mood Affect: anxious affect Attitude: other (cooperative with me, argumentative with her spouse) Thought Process: illogical and impoverished Insight: limited Judgment: limited Results Last Vital Signs Temp 97.5 F L 07/29/18 07:45 Pulse 68 07/29/18 07:45 Resp 17 07/29/18 07:45 BP 111/70 07/29/18 07:45 Pulse Ox 99 07/29/18 07:45 Labs : 08/01/18 06:30 08/01/18 09:50 Laboratory Results - last 24 hr 07/29/18 07/29/18 07:00 07:00 WBC 16.58 H D RBC 3.39 L Hgb 8.0 L Hct 26.8 L MCV 79.1 L MCH 23.6 L MCHC 29.9 L RDW 24.2 H Plt Count 621 H D MPV 8.5 Immature Gran % 1.0 Neutrophils % 88.8 Lymphocytes % 2.8 Monocytes % 6.5 Eosinophils % 0.8 Basophils % 0.1 Absolute Neutrophils 14.72 H Absolute Lymphocytes 0.46 L Absolute Monocytes 1.08 H Absolute Eosinophils 0.13 Absolute Basophils 0.02 Differential Comment Rbc morph reviewed RBC Morphology See below Polychromasia Present Hypochromasia 2+ Poikilocytosis 1+ Anisocytosis 3+ Microcytosis 1+ Macrocytosis 1+ Sodium 137 Potassium 4.2 Chloride 107 Carbon Dioxide 17.9 L Anion Gap 12.1 H BUN 10 Creatinine 0.75 Estimated GFR/1.73 m2 >= 60.00 Glucose 169 H Calcium 8.1 L C-Reactive Protein 7.44 H
--- NOTE | 2018-07-29 11:18 | NUR.NOTE ---
Pt has heart rate of 160 regular. Doctor notified and will order EKG. Nursing Note:
[2018-07-29] MEDS: NIFEdipine-CR 30 MG TABCR 90 MG PO ×2 (11:57→21:06)
--- NOTE | 2018-07-29 14:00 | DM INPTCON_ITS ---
DESCRIPTION/ASSESSMENT: Appreciate diabetes consult for Ms. Queen who is hospitalized with an infection complicated by cancer. She has type 2 diabetes taking 42u Levemir and Januvia at home. No A1c available. BMI 24 Blood sugars here range 133-225, mostly less than 180mg/dl taking insulin correction at the moderate level. Her food intake is not accessible. She is receiving 4-10units correction insulin daily. INTERVENTION: Blood sugars are mostly at inpatient goal range of 140-180 with minimal insulin intervention. It may be less invasive, and improve blood sugars overall for healing if she received a small dose of her usual Levemir insulin starting at 6 units and increasing based on fasting blood sugar. PLAN: Suggest adding Levemir at a low dose of 6-10 units to promote healing if desired. Will follow blood sugars
--- NOTE | 2018-07-29 16:36 | PDOC.CMPRO ---
- If Service Date Differs Date of service: 07/29/18 Time of Service: 16:37 Care Management Progress Note S/O: JUDE met with Dina at the bedside and her spouse. No change in the plan today she is experiencing increased heart rate. She had an EKG and telemetry was added. Plan was for her to go to the OR for a washout for her left hip pending cardiac status. Cosme wants to take her home on oral antibiotics. [facility] CM did contact service and faxed updated notes r/t admission and consults. CM will call with potential date of discharge to coordinate services. A: 73 year old female admitted left hip infection. P: Dina will discharge home when medically ready per MD. Patient will discharge with resumption of/increased services through the [facility] and palliative services. She follow up with surgical services and PCP. Dina will transport via private vehicle with her , Cosme. JUDE provided update to [facility] today and spoke with Stefani in intake. CM faxed palliative care notes, colst and referred patient to palliative services. JUDE will continue to offer support to patient, family, and care team regarding discharge planning and disposition.
--- NOTE | 2018-07-29 16:51 | CMPROGNOTE_ITS ---
- If Service Date Differs Date of service: 07/29/18 Time of Service: 16:37 Care Management Progress Note S/O: JUDE met with Dina at the bedside and her spouse. No change in the plan today she is experiencing increased heart rate. She had an EKG and telemetry was added. Plan was for her to go to the OR for a washout for her left hip pending cardiac status. Cosme wants to take her home on oral antibiotics. [facility] CM did contact service and faxed updated notes r/t admission and consults. CM will call with potential date of discharge to coordinate services. A: 73 year old female admitted left hip infection. P: Dina will discharge home when medically ready per MD. Patient will discharge with resumption of/increased services through the [facility] and palliative services. She follow up with surgical services and PCP. Dina will transport via private vehicle with her , Cosme. JUDE [facility] and spoke with Stefani in intake. CM faxed palliative care notes, colst and referred patient to palliative services. JUDE will continue to offer support to patient, family, and care team regarding discharge planning and disposition.
[2018-07-29] MEDS: Acetaminophen 500 MG TAB 1000 MG PO (19:23)
[2018-07-29] MEDS: Sennosides/Docusate Sodium TAB 1 TAB PO (19:26)
--- NOTE | 2018-07-29 19:45 | PGE_ITS ---
Assessment and Plan (1) SVT (supraventricular tachycardia): Current visit: Yes Status: Chronic Sustained regular narrow complex tachycardia that eventually slowed on its own prior to administration of adenosine. Further review of chart and discussion with appears that the patient has a history of Paroxysmal Afib that was not noted in prior history or by review of previous notes in the EMR. Repeat ECG shows sinus rhythm but with some aberrant beats. Her Nifedipine has also been on hold due to contraindication with Rifampin. Discussed with Ortho - will discontinue Rifampin at this time. Restart Nifedipine, maintain patient on telemetry, and initiate prn IV Lopressor for sustained rates. Suspect HR will be controlled soon on oral medications. (2) Abscess of left hip: Current visit: Yes Status: Acute S/p I&D/washout on 07/24. Cx w/ MSSA. Change from Vancomycin to Cefazolin. Also on Rifampin per ortho given proximity of infection to hardware - discontinued as above. Currently on Day #6 of antibiotics. For repeat wash out in OR. Of note, biopsy results currently pending - may be either on the basis of recurrence of Osteosarcoma, or potentially metastatic from current Endometrial Ca with known mets. (3) Anemia associated with acute blood loss: Current visit: Yes Status: Acute s/p transfusion of 2 units of pRBC's - significantly improved and appears stable. Monitor Hgb closely. 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 Metastatic Endometrial Ca. Pathology pending. Palliative care consulted. (5) Mas-qvjyeut-icxmhpnle diabetes mellitus without complications: Current visit: Yes Status: Acute Continue ISS, ADA diet. (6) Alzheimer disease: Current visit: Yes Status: Chronic Currently on Aricept and Namenda. is caregiver and makes decisions for patient's care. (7) DVT prophylaxis: Current visit: Yes Status: Acute SC Lovenox. (8) Discharge planning issues: Current visit: Yes Status: Acute Following discussion with Palliative care, patient's code status will be changed to DNR/DNI. Subjective Interval history since last seen: 73-year-old woman admitted from [facility] Emergency Department on 07/22 with complaints of left hip pain and swelling, found to have infection and likely malignancy in the left hip. Mrs. 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 Patient had complained of induration and pain over the left hip for some time prior to her admission. She had recently seen her oncologist Dr. Saavedra who had some surveillance CT scans performed regarding her metastatic endometrial carcinoma. These images showed incidental finding of a collection of fluid around the left hip joint. She subsequently was evaluated by Dr. Bowman who obtained plain films and did not find any acute changes within the left hip compared to her previous x-rays of her left total hip arthroplasty. Patient was seen earlier on the day of admission by her primary care provider Dr. Chano Leon who aspirated some purulent material from the soft tissues overlying her left hip. Patient was then referred to the emergency room for evaluation of possible left hip infection versus infected bursitis. Workup in the emergency room included x-rays of the left hip and pelvis which showed diffuse osteopenia and status post bilateral total hip arthroplasty with no hardware loosening or fracture. Laboratory workup was remarkable for a leukocytosis, anemia, as well as significant thrombocytosis. She was subsequently admitted for further evaluation and treatment. Subsequently the patient underwent surgical evaluation of her Left hip, with irrigation and debridement of the area, and with noted evidence of soft tissue infection with likely metastatic lesions. In discussion with Ortho there does not appear to be extension of the infection into the hardware. She has been maintained on Rifampin and Vancomycin, with culture results thus far showing Staph Aureus, sensitivities now showing MSSA. The patient was started on Cefazolin on 07/27. She did however show evidence of worsening drainage from her hip, and was tentatively scheduled for a return to the OR today, but was noted to be tachycardic by nursing, with ECG showing a sustained narrow complex tachycardia. No overnight events reported. Patient remains afebrile. Exam Narrative Exam Narrative: General: Appears comfortable sitting up in bed, no acute distress noted Neck: Supple Neck: Supple Skin: Left hip wound with dressing and bandage in place. CV: Regular with frequent ectopy, tachycardic at time of exam, No rubs, murmurs , gallops Pulmonary: CTAB Without crackles, rhonchi, or wheezing. Abdomen: +BS, soft, NT, ND. Vascular, b/l +1 LE Edema. Musculoskeletal: RUE Amputation noted. Psych: Mood and Affect Normal. Objective Objective Clinical Data: Abnormal lab results 07/29/18 07/29/18 Range/Units 07:00 07:00 WBC 16.58 H D (4.4-10.8) k/cumm RBC 3.39 L (4.00-5.20) m/cumm Hgb 8.0 L (12.0-15.5) g/dL Hct 26.8 L (36.0-46.0) % MCV 79.1 L (80-95) fL MCH 23.6 L (27.0-33.0) pg MCHC 29.9 L (32.0-36.0) g/dL RDW 24.2 H (11.7-14.6) % Plt Count 621 H D (130-400) x1000/uL Absolute Neutrophils 14.72 H (1.2-6.7) k/cumm Absolute Lymphocytes 0.46 L (1.2-3.4) k/cumm Absolute Monocytes 1.08 H (0.11-0.7) k/cumm Carbon Dioxide 17.9 L (21.0-32.0) mmol/L Anion Gap 12.1 H (3-11) mmol/L Glucose 169 H (70-100) mg/dL Calcium 8.1 L (8.5-10.1) mg/dL C-Reactive Protein 7.44 H (0.0-0.3) mg/dL Vital Signs Temperature 36.9 C 07/29/18 19:18 Temperature Source Tympanic 07/29/18 19:18 Pulse 110 H 07/29/18 19:18 Pulse Rhythm Regular 07/29/18 10:06 Respiratory Rate 18 07/29/18 19:18 Respiratory Effort 07/29/18 10:06 Respiratory Depth Normal 07/29/18 10:06 Respiratory Pattern Normal 07/29/18 10:06 Blood Pressure 145/80 H 07/29/18 19:18 Pulse Oximetry 97 07/29/18 19:18 Respiratory End-tidal CO2 27 07/24/18 13:35 Oxygen Delivery Method Room Air 07/29/18 19:18 Oxygen Flow Rate 0 07/29/18 19:18 Pain Level 0 07/29/18 11:23 Comment 07/29/18 04:00 Intake & Output 07/28/18 07/29/18 07/29/18 23:59 11:59 23:59 Intake Total 410 / 410 932 / 932 1430 / 1430 Output Total 200 / 200 200 / 200 Balance 210 / 210 732 / 732 1430 / 1430 Intake: IV 50 / 50 932 / 932 950 / 950 Oral 360 / 360 480 / 480 Output: Urine 200 / 200 200 / 200 Other: Urine Color [place] Yellow Urine Appearance Clear Stool Size Moderate Moderate Stool Characteristics Soft Soft Brown Brown Voiding Methods Bedside Commode Bedside Commode Diaper Incontinent Laboratory Results WBC 16.58 k/cumm (4.4-10.8) H D 07/29/18 07:00 RBC 3.39 m/cumm (4.00-5.20) L 07/29/18 07:00 Hgb 8.0 g/dL (12.0-15.5) L 07/29/18 07:00 Hct 26.8 % (36.0-46.0) L 07/29/18 07:00 MCV 79.1 fL (80-95) L 07/29/18 07:00 MCH 23.6 pg (27.0-33.0) L 07/29/18 07:00 MCHC 29.9 g/dL (32.0-36.0) L 07/29/18 07:00 RDW 24.2 % (11.7-14.6) H 07/29/18 07:00 Plt Count 621 x1000/uL (130-400) H D 07/29/18 07:00 MPV 8.5 fL (8.0-11.0) 07/29/18 07:00 Immature Gran % 1.0 07/29/18 07:00 Neutrophils % 88.8 07/29/18 07:00 Lymphocytes % 2.8 07/29/18 07:00 Monocytes % 6.5 07/29/18 07:00 Eosinophils % 0.8 07/29/18 07:00 Basophils % 0.1 07/29/18 07:00 Absolute Neutrophils 14.72 k/cumm (1.2-6.7) H 07/29/18 07:00 Band Neutrophils 1.0 % 07/25/18 06:45 Absolute Lymphocytes 0.46 k/cumm (1.2-3.4) L 07/29/18 07:00 Absolute Monocytes 1.08 k/cumm (0.11-0.7) H 07/29/18 07:00 Absolute Eosinophils 0.13 k/cumm (0.0-0.7) 07/29/18 07:00 Absolute Basophils 0.02 k/cumm (0.0-0.2) 07/29/18 07:00 Myelocytes 1.0 % 07/25/18 06:45 Differential Comment Rbc morph reviewed 07/29/18 07:00 RBC Morphology See below 07/29/18 07:00 Polychromasia Present 07/29/18 07:00 Hypochromasia 2+ 07/29/18 07:00 Poikilocytosis 1+ 07/29/18 07:00 Anisocytosis 3+ 07/29/18 07:00 Microcytosis 1+ 07/29/18 07:00 Macrocytosis 1+ 07/29/18 07:00 Spherocytes 1+ 07/23/18 15:35 Ovalocytes 2+ 07/23/18 15:35 ESR 25 MM/HR (0-30) 07/25/18 06:45 Sodium 137 mmol/L (136-145) 07/29/18 07:00 Potassium 4.2 mmol/L (3.5-5.1) 07/29/18 07:00 Chloride 107 mmol/L (98-107) 07/29/18 07:00 Carbon Dioxide 17.9 mmol/L (21.0-32.0) L 07/29/18 07:00 Anion Gap 12.1 mmol/L (3-11) H 07/29/18 07:00 BUN 10 mg/dL (7-18) 07/29/18 07:00 Creatinine 0.75 mg/dL (0.55-1.02) 07/29/18 07:00 Estimated GFR/1.73 m2 >= 60.00 (mL/min/1.73m2) 07/29/18 07:00 Glucose 169 mg/dL (70-100) H 07/29/18 07:00 Lactate 1.9 mmol/L (0.6-1.4) H 07/23/18 15:35 Calcium 8.1 mg/dL (8.5-10.1) L 07/29/18 07:00 Magnesium 1.9 mg/dL (1.8-2.4) 07/26/18 07:13 Iron 9 ug/dL (50-175) L 07/23/18 15:30 TIBC 102 ug/dL (250-450) L 07/23/18 15:30 Transferrin % Sat 9 % (15-50) L 07/23/18 15:30 Ferritin 541 ng/mL (8-388) H 07/23/18 15:30 Total Bilirubin 0.3 mg/dL (0.2-1.0) 07/23/18 15:35 AST 17 U/L (15-37) 07/23/18 15:35 ALT 16 U/L (12-78) 07/23/18 15:35 Alkaline Phosphatase 193 U/L (46-116) H 07/23/18 15:35 Troponin I < 0.02 ng/mL (0.00-0.06) 07/23/18 15:35 C-Reactive Protein 7.44 mg/dL (0.0-0.3) H 07/29/18 07:00 Total Protein 6.2 g/dL (6.4-8.2) L 07/23/18 15:35 Albumin 1.7 g/dL (3.4-5.0) L 07/23/18 15:35 Urine Color Yellow (Yellow) 07/23/18 16:20 Urine Clarity Clear 07/23/18 16:20 Urine pH 5.5 (5-8) 07/23/18 16:20 Ur Specific [place] 1.020 (1.005-1.025) 07/23/18 16:20 Urine Protein Negative mg/dL (Negative) 07/23/18 16:20 Urine Ketones Trace mg/dL (Negative) H 07/23/18 16:20 Urine Blood Negative (Negative) 07/23/18 16:20 Urine Nitrite Negative (Negative) 07/23/18 16:20 Urine Bilirubin Negative (Negative) 07/23/18 16:20 Urine Urobilinogen 0.2 EU/dL (Up TO 0.2) 07/23/18 16:20 Ur Leukocyte Esterase Trace (Negative) H 07/23/18 16:20 Urine RBC 5-10 (0-2) H 07/23/18 16:20 Urine WBC 20-50 HPF (0-5) 07/23/18 16:20 Ur Epithelial Cells Few HPF (Negative) 07/23/18 16:20 Urine Crystals Moderate amorphous HPF (Negative) 07/23/18 16:20 Urine Bacteria Negative HPF (Negative) 07/23/18 16:20 Urine Casts 20-50 hyaline LPF (Negative) 07/23/18 16:20 Urine Mucus Negative (Negative) 07/23/18 16:20 Ur Culture Indicated? Yes 07/23/18 16:20 Urine Glucose Negative mg/dL (Negative) 07/23/18 16:20 Vancomycin Trough 19.6 ug/mL (10.0-20.0) 07/26/18 09:46 Patient ABO/Rh A Positive 07/24/18 15:54 Antibody Screen Negative 07/24/18 15:54 Crossmatch See Detail 07/24/18 15:54
[2018-07-29] MEDS: Normal Saline Flush 10 ML SYR IVP (21:09)
[2018-07-30] VITALS (16 sets, daily range): BP systolic 103–150; BP diastolic 44–84; PULSE 75–100; RESP 16–26; TEMP 35.8–36.8; O2SAT 94–100
[2018-07-30] MEDS: Levothyroxine 75 MCG TAB 150 MCG PO (05:51)
[2018-07-30] MEDS: Metoclopramide 10 MG/2 ML VIAL IVP ×2 (08:05→17:00)
[2018-07-30] MEDS: Normal Saline Flush 10 ML SYR IVP ×3 (08:05→22:10)
[2018-07-30] MEDS: Memantine 5 MG TAB 10 MG PO ×2 (08:05→19:33)
[2018-07-30] MEDS: Magnesium Oxide 400 MG TAB PO (08:05)
[2018-07-30] MEDS: Ferrous Sulfate 325 MG TAB PO ×2 (08:06→19:33)
[2018-07-30] MEDS: Atorvastatin 40 MG TAB PO (08:06)
[2018-07-30] MEDS: Donepezil 5 MG TAB 10 MG PO (08:06)
[2018-07-30] MEDS: Normal Saline 1,000 ML 80 ML IV (08:47)
--- NOTE | 2018-07-30 09:17 | NT_ITS ---
Date of service: 07/30/18 Time of Service: 09:15 PT Notes PHYSICAL THERAPY NOTE 07/30/18 HOLD PT session this am due to patient having increased heart rate this morning , washout changed to this afternoon. Vanessa Garcia PT
--- NOTE | 2018-07-30 11:13 | DI.RAD_ITS ---
SYMPTOM/DIAGNOSIS: LINE PLACEMENT PORTABLE AP SEMI ERECT CHEST: A central venous line was positioned, its tip ending in the mid portion of the superior vena cava. There are at least three right pulmonary nodules, the largest of which measures approximately 2 cm. in diameter on this AP image. There is volume loss and/or infiltrate involving the left lower lobe and there is a likely small left pleural effusion. There is no evidence of a pneumothorax in this patient. The heart is top limits of normal in size.
--- NOTE | 2018-07-30 11:23 | PDOC.CMPRO ---
- If Service Date Differs Date of service: 07/30/18 Time of Service: 11:23 Care Management Progress Note S/O: Dina was being prepped for insertion of a PICC line when CM visits this morning. She is engaged in conversation and talkative. She had an EKG d/t cardiac concerns and is being monitored on telemetry. CM reviewed Dina's medication list with Dina's , Cosme. Anticipate patient will go to the OR for a washout for her left hip pending cardiac status. A: 73 year old female admitted left hip infection. P: Dina will discharge home when medically ready per MD. Patient will discharge with resumption of/increased services through the [facility] and palliative services. She will follow up with surgical services and PCP. Dina will transport via private vehicle with her , Cosme. CM will continue to offer support to patient, family, and care team regarding discharge planning and disposition.
--- NOTE | 2018-07-30 11:28 | CMPROGNOTE_ITS ---
- If Service Date Differs Date of service: 07/30/18 Time of Service: 11:23 Care Management Progress Note S/O: Dina was being prepped for insertion of a PICC line when CM visits this morning. She is engaged in conversation and talkative. She had an EKG d/t cardiac concerns and is being monitored on telemetry. CM reviewed Dina's medication list with Dina's , Cosme. Anticipate patient will go to the OR for a washout for her left hip pending cardiac status. A: 73 year old female admitted left hip infection. P: Dina will discharge home when medically ready per MD. Patient will discharge with resumption of/increased services through the [facility] and palliative services. She will follow up with surgical services and PCP. Dina will transport via private vehicle with her , Cosme. CM will continue to offer support to patient, family, and care team regarding discharge planning and disposition.
[2018-07-30 11:47] LABS: Abs Immature Grans 0.12 k/cumm (0.0-0.09); Absolute Eosinophil Count 0.17 k/cumm (0.0-0.7); Absolute Lymphocyte Count 0.61 k/cumm (1.2-3.4); Absolute Monocyte Count 0.89 k/cumm (0.11-0.7); Basophils % 0.2; Eosinophils % 1.3; HCT 27.7 % (36.0-46.0); HGB 8.2 g/dL (12.0-15.5); Immature Grans % 0.9; Lymphocytes % 4.6; Mean Corp. HGB Concentration 29.6 g/dL (32.0-36.0); Mean Corpuscular Hemoglobin 23.5 pg (27.0-33.0); Mean Corpuscular Volume 79.4 fL (80-95); Mean Platelet Volume 8.6 fL (8.0-11.0); Monocytes % 6.7; Neutrophils % 86.3; RBC 3.49 m/cumm (4.00-5.20); RBC Distribution Width 24.4 % (11.7-14.6); White Blood Cell Count 13.33 k/cumm (4.4-10.8)
[2018-07-30 11:52] LABS: Absolute Basophil Count 0.03 k/cumm (0.0-0.2)
[2018-07-30 11:58] LABS: Anisocytosis 3+; Burr Cells (echinocyte) 2+; Diff Comment RBC Morph Reviewed; Hypochromasia 2+; Microcytosis 2+; Platelet Count 712 x1000/uL (130-400)
[2018-07-30 11:59] LABS: Ovalocytes 2+; Polychromasia Present
[2018-07-30 12:02] LABS: BUN 9 mg/dL (7-18); C-Reactive Protein 6.87 mg/dL (0.0-0.3); CREATININE 0.66 mg/dL (0.55-1.02); Chloride 108 mmol/L (98-107); Glucose 141 mg/dL (70-100); Sodium 138 mmol/L (136-145)
--- NOTE | 2018-07-30 12:45 | W.PM.PROGNOT ---
Assessment and Plan (1) Abscess of left hip: Current visit: Yes Status: Acute Given her persistent symptoms and lab work, I would recommend repeat irrigation and debridement. I would also take more samples of whatever abnormal tissue was discovered at this time. The initial pathology result showed only signs of chronic inflammation although the tissue in this area seem to be quite abnormal. Due to my scheduling constraints with Dr. Bowman will be able to help with the debridement. She will stay n.p.o. This will be done today. Subjective Interval history since last seen: Dina reports to be doing okay. She feels better now than she did yesterday. She did have an episode of narrow complex tachycardia. This returned to normal on its own although she has been mildly tachycardic. She is back on the nifedipine. She continues to feel somewhat ill. She has occasional nausea. She has fatigue. She has not been on the bed since yesterday. No pain within the groin. No pain in the buttock. She has pain with direct pressure of the left thigh. No reported fever or chills. Exam Narrative Exam Narrative: No acute distress. Alert and oriented x3. Sitting upright in the bed. Evaluation of the left thigh shows a well approximated incision. There is fluctuance. There is no active drainage. There is no surrounding erythema but there is warmth. Objective Objective Clinical Data: Abnormal lab results 07/30/18 07/30/18 Range/Units 11:15 11:15 WBC 13.33 H (4.4-10.8) k/cumm RBC 3.49 L (4.00-5.20) m/cumm Hgb 8.2 L (12.0-15.5) g/dL Hct 27.7 L (36.0-46.0) % MCV 79.4 L (80-95) fL MCH 23.5 L (27.0-33.0) pg MCHC 29.6 L (32.0-36.0) g/dL RDW 24.4 H (11.7-14.6) % Plt Count 712 H (130-400) x1000/uL Absolute Neutrophils 11.50 H (1.2-6.7) k/cumm Absolute Lymphocytes 0.61 L (1.2-3.4) k/cumm Absolute Monocytes 0.89 H (0.11-0.7) k/cumm Chloride 108 H (98-107) mmol/L Carbon Dioxide 16.0 L (21.0-32.0) mmol/L Anion Gap 14.0 H (3-11) mmol/L Glucose 141 H (70-100) mg/dL Calcium 8.0 L (8.5-10.1) mg/dL C-Reactive Protein 6.87 H (0.0-0.3) mg/dL Vital Signs Temperature 36.8 C 07/30/18 11:45 Temperature Source Tympanic 07/30/18 11:45 Pulse 96 H 07/30/18 11:45 Pulse Rhythm Irregular 07/30/18 08:05 Respiratory Rate 20 07/30/18 11:45 Respiratory Effort Non-Labored 07/30/18 08:05 Respiratory Depth Normal 07/30/18 08:05 Respiratory Pattern Normal 07/30/18 08:05 Blood Pressure 142/77 H 07/30/18 11:45 Pulse Oximetry 98 07/30/18 11:45 Respiratory End-tidal CO2 27 07/24/18 13:35 Oxygen Delivery Method Room Air 07/30/18 11:45 Oxygen Flow Rate 0 07/30/18 11:45 Pain Level 0 07/29/18 11:23 Comment 07/29/18 04:00 Intake & Output 07/29/18 07/30/18 07/30/18 23:59 11:59 23:59 Intake Total 1762 / 1762 964 / 964 Output Total 100 / 100 Balance 1762 / 1762 864 / 864 Intake: IV 1042 / 1042 914 / 914 Oral 720 / 720 50 / 50 Output: Urine 100 / 100 Other: Urine Color Pale Urine Appearance Hematuria Urine Odor None Comment incontinent large amount of urine Voiding Methods Diaper Bedside Commode Incontinent Diaper Incontinent Laboratory Results WBC 13.33 k/cumm (4.4-10.8) H 07/30/18 11:15 RBC 3.49 m/cumm (4.00-5.20) L 07/30/18 11:15 Hgb 8.2 g/dL (12.0-15.5) L 07/30/18 11:15 Hct 27.7 % (36.0-46.0) L 07/30/18 11:15 MCV 79.4 fL (80-95) L 07/30/18 11:15 MCH 23.5 pg (27.0-33.0) L 07/30/18 11:15 MCHC 29.6 g/dL (32.0-36.0) L 07/30/18 11:15 RDW 24.4 % (11.7-14.6) H 07/30/18 11:15 Plt Count 712 x1000/uL (130-400) H 07/30/18 11:15 MPV 8.6 fL (8.0-11.0) 07/30/18 11:15 Immature Gran % 0.9 07/30/18 11:15 Neutrophils % 86.3 07/30/18 11:15 Lymphocytes % 4.6 07/30/18 11:15 Monocytes % 6.7 07/30/18 11:15 Eosinophils % 1.3 07/30/18 11:15 Basophils % 0.2 07/30/18 11:15 Absolute Neutrophils 11.50 k/cumm (1.2-6.7) H 07/30/18 11:15 Band Neutrophils 1.0 % 07/25/18 06:45 Absolute Lymphocytes 0.61 k/cumm (1.2-3.4) L 07/30/18 11:15 Absolute Monocytes 0.89 k/cumm (0.11-0.7) H 07/30/18 11:15 Absolute Eosinophils 0.17 k/cumm (0.0-0.7) 07/30/18 11:15 Absolute Basophils 0.03 k/cumm (0.0-0.2) 07/30/18 11:15 Myelocytes 1.0 % 07/25/18 06:45 Differential Comment Rbc morph reviewed 07/30/18 11:15 RBC Morphology See below 07/30/18 11:15 Polychromasia Present 07/30/18 11:15 Hypochromasia 2+ 07/30/18 11:15 Poikilocytosis 1+ 07/29/18 07:00 Anisocytosis 3+ 07/30/18 11:15 Microcytosis 2+ 07/30/18 11:15 Macrocytosis 1+ 07/29/18 07:00 Spherocytes 1+ 07/23/18 15:35 Ovalocytes 2+ 07/30/18 11:15 Alberto Cells 2+ 07/30/18 11:15 ESR 25 MM/HR (0-30) 07/25/18 06:45 Sodium 138 mmol/L (136-145) 07/30/18 11:15 Potassium 4.0 mmol/L (3.5-5.1) 07/30/18 11:15 Chloride 108 mmol/L (98-107) H 07/30/18 11:15 Carbon Dioxide 16.0 mmol/L (21.0-32.0) L 07/30/18 11:15 Anion Gap 14.0 mmol/L (3-11) H 07/30/18 11:15 BUN 9 mg/dL (7-18) 07/30/18 11:15 Creatinine 0.66 mg/dL (0.55-1.02) 07/30/18 11:15 Estimated GFR/1.73 m2 >= 60.00 (mL/min/1.73m2) 07/30/18 11:15 Glucose 141 mg/dL (70-100) H 07/30/18 11:15 Lactate 1.9 mmol/L (0.6-1.4) H 07/23/18 15:35 Calcium 8.0 mg/dL (8.5-10.1) L 07/30/18 11:15 Magnesium 1.9 mg/dL (1.8-2.4) 07/26/18 07:13 Iron 9 ug/dL (50-175) L 07/23/18 15:30 TIBC 102 ug/dL (250-450) L 07/23/18 15:30 Transferrin % Sat 9 % (15-50) L 07/23/18 15:30 Ferritin 541 ng/mL (8-388) H 07/23/18 15:30 Total Bilirubin 0.3 mg/dL (0.2-1.0) 07/23/18 15:35 AST 17 U/L (15-37) 07/23/18 15:35 ALT 16 U/L (12-78) 07/23/18 15:35 Alkaline Phosphatase 193 U/L (46-116) H 07/23/18 15:35 Troponin I < 0.02 ng/mL (0.00-0.06) 07/23/18 15:35 C-Reactive Protein 6.87 mg/dL (0.0-0.3) H 07/30/18 11:15 Total Protein 6.2 g/dL (6.4-8.2) L 07/23/18 15:35 Albumin 1.7 g/dL (3.4-5.0) L 07/23/18 15:35 Urine Color Yellow (Yellow) 07/23/18 16:20 Urine Clarity Clear 07/23/18 16:20 Urine pH 5.5 (5-8) 07/23/18 16:20 Ur Specific [place] 1.020 (1.005-1.025) 07/23/18 16:20 Urine Protein Negative mg/dL (Negative) 07/23/18 16:20 Urine Ketones Trace mg/dL (Negative) H 07/23/18 16:20 Urine Blood Negative (Negative) 07/23/18 16:20 Urine Nitrite Negative (Negative) 07/23/18 16:20 Urine Bilirubin Negative (Negative) 07/23/18 16:20 Urine Urobilinogen 0.2 EU/dL (Up TO 0.2) 07/23/18 16:20 Ur Leukocyte Esterase Trace (Negative) H 07/23/18 16:20 Urine RBC 5-10 (0-2) H 07/23/18 16:20 Urine WBC 20-50 HPF (0-5) 07/23/18 16:20 Ur Epithelial Cells Few HPF (Negative) 07/23/18 16:20 Urine Crystals Moderate amorphous HPF (Negative) 07/23/18 16:20 Urine Bacteria Negative HPF (Negative) 07/23/18 16:20 Urine Casts 20-50 hyaline LPF (Negative) 07/23/18 16:20 Urine Mucus Negative (Negative) 07/23/18 16:20 Ur Culture Indicated? Yes 07/23/18 16:20 Urine Glucose Negative mg/dL (Negative) 07/23/18 16:20 Vancomycin Trough 19.6 ug/mL (10.0-20.0) 07/26/18 09:46 Patient ABO/Rh A Positive 07/24/18 15:54 Antibody Screen Negative 07/24/18 15:54 Crossmatch See Detail 07/24/18 15:54
[2018-07-30] MEDS: Lactated Ringers 1,000 ML 30 ML IV (12:56)
--- NOTE | 2018-07-30 13:42 | NT_ITS ---
Date of service: 07/30/18 Time of Service: 13:41 PT Notes 07/30/18 Patient unavailable for PT this afternoon. Patient having washout procedure in OR this afternoon. Eden Tatum, NURSES SUPERINTENDENT
--- NOTE | 2018-07-30 13:47 | ABS_PTH ---
PATIENT: Dina Queen LOC: [id number] AGE/SX: 73/F ROOM: 214 RE07/23/[address]: Bandar Corona MD : [id number] BED: A DIS: 08/02/2018 SPEC #: [id number] RECD: 07/31/18 12:57 STATUS: ME[place]AN REQ #: [id number] AMBER: 07/30/18 13:[address]: Germain Bowman DEPT: Surgical Specimen RECD BY: Lisa Gan ENTERED: 07/31/18 13:00 SP TYPE: Abscess OTHR DR: Chano Leon Tissues: 1 - SOFT TISSUE-CYST(NOT LIPOMA) Procedures: GROSS AND MICRO LEVEL 4 Comments: [id number]
[2018-07-30] MEDS: fentaNYL 100 MCG/2 ML VIAL IVP ×3 (15:18→15:54)
[2018-07-30] MEDS: Ketorolac 15 MG/ML VIAL IVP ×2 (15:36→22:10)
[2018-07-30] MEDS: Insulin Aspart 300 UNITS/3 ML PEN SC ×2 (16:55→22:10)
[2018-07-30] MEDS: Metoprolol 25 MG TAB PO (17:45)
[2018-07-30] MEDS: Acetaminophen 500 MG TAB 1000 MG PO (17:45)
--- NOTE | 2018-07-30 19:29 | ROE_ITS ---
DATE OF PROCEDURE: July 30, 2018 PREOPERATIVE DIAGNOSIS: Abscess left hip. POSTOPERATIVE DIAGNOSIS: Abscess left hip. PROCEDURE: Incision and drainage of abscess left hip and debridement of abscess cavity. Insertion o f drains: One deep drain deep to the fascia and one in the subcutaneous tissue superficial to the fa scia. SURGEON: Germain Bowman M.D. PHARMACY RESIDENT: Zarina Olivares PA-C ANESTHESIA: General. INDICATIONS: This is a 73-year-old white female who had an incision, drainage, and debridement of an abscess on her left hip four days ago. Cultures grew out staph sensitive to oxacillin. She had bee n treated with IV antibiotics and although she initially improved, it looked like her progress had pl ateaued. It appeared that she had reaccumulated fluid in her wound following removal of the drain. Initial pathology failed to reveal any evidence of neoplastic tissue. Repeat incision and drainage a nd debridement of the abscess was recommended at this time. The risks and complications of the proce dure were explained to the patient and her in detail preoperatively. PROCEDURE: The patient was taken to the Operating Room on 07/30/18. She was placed supine on the op erating table and a general anesthetic was administered. She was then turned to the left lateral pos ition on the operating table. The position was maintained by a pneumatic beanbag. The left hip was then prepped and draped free in the usual sterile fashion. I removed her skin sutures. As I removed one of the subcutaneous sutures, a large amount of purulent material came out under pressure arcing almost to her foot. I suctioned out the remainder in the cavity. I removed all of the other sutures from the wound. There was a lot of fibrinous material deposited. There was some necrotic fat and n ecrosis at the margins of the fascia but there was no evidence of what appeared to be tumor. I perfo rmed a thorough debridement using a rongeur until there was healthy-appearing tissue throughout the w ound. The posterior capsule of the hip was intact and not violated and I did not make any attempt to go into the hip joint itself. I then irrigated the wound with 3000 cc of sterile saline and Betadine solution. I placed a 1/4-inch suction drain into the depths of the wound and then I was able to approximate the fascia without ten ese using interrupted [id number] sutures of #2 FiberWire and interrupted [id number] suture of #1 Vicryl suture material. The suction drain was brought out through a separate stab wound in th e anterolateral thigh. I then placed a 1/8-inch suction drain in the subcu and brought it out throug h a separate stab wound. The subcu was approximated with a few interrupted #2-0 Vicryl sutures and t he skin edges were then approximated with tension-relieving sutures of the near-far far-near type usi ng #3-0 nylon interrupted sutures. The large drain was sewn in with the skin suture. The incision w as dressed with Xeroform gauze, sterile gauze 4x4s, ABD pad, and taped with foam elastic tape. Drain s were taped in and connected to suction canisters. The patient was then turned to the supine positi on. Her anesthesia was reversed without complications. She was discharged to the Recovery Room in g ood condition. She tolerated the procedure well and experienced no intraoperative complications. Estimated blood lo ss was maybe 100 cc maximum. Intraoperative cultures, aerobic and anaerobic, were obtained and, in a ddition, tissue that was debrided was sent for pathological examination as well.
[2018-07-30] MEDS: Sennosides/Docusate Sodium TAB 1 TAB PO (19:33)
[2018-07-30] MEDS: NIFEdipine-CR 30 MG TABCR 90 MG PO (22:09)
[2018-07-30] MEDS: Pantoprazole 40 MG VIAL IVP (22:09)
[2018-07-31] VITALS (9 sets, daily range): BP systolic 97–137; BP diastolic 57–73; PULSE 62–85; RESP 16–18; TEMP 36.3–36.8; O2SAT 95–98
[2018-07-31] MEDS: Normal Saline 1,000 ML 100 ML IV (01:19)
[2018-07-31] MEDS: Ketorolac 15 MG/ML VIAL IVP ×4 (03:49→21:09)
[2018-07-31] MEDS: Ondansetron 4 MG/2 ML VIAL IVP ×2 (03:49→14:50)
[2018-07-31] MEDS: Metoprolol 25 MG TAB PO ×2 (06:08→17:53)
[2018-07-31] MEDS: Levothyroxine 75 MCG TAB 150 MCG PO (06:08)
[2018-07-31 07:09] LABS: Abs Immature Grans 0.14 k/cumm (0.0-0.09); Absolute Basophil Count 0.03 k/cumm (0.0-0.2); Absolute Monocyte Count 1.01 k/cumm (0.11-0.7); Basophils % 0.2; HCT 25.1 % (36.0-46.0); HGB 7.5 g/dL (12.0-15.5); Lymphocytes % 5.2; Mean Corp. HGB Concentration 29.9 g/dL (32.0-36.0); Mean Corpuscular Hemoglobin 23.9 pg (27.0-33.0); Mean Corpuscular Volume 79.9 fL (80-95); Mean Platelet Volume 8.5 fL (8.0-11.0); Monocytes % 7.5; Neutrophils % 83.1; Platelet Count 670 x1000/uL (130-400); RBC 3.14 m/cumm (4.00-5.20); RBC Distribution Width 24.6 % (11.7-14.6); White Blood Cell Count 13.45 k/cumm (4.4-10.8)
--- NOTE | 2018-07-31 07:22 | W.PM.PROGNOT ---
Assessment and Plan (1) SVT (supraventricular tachycardia): Current visit: Yes Status: Chronic Sustained regular narrow complex tachycardia that eventually slowed on its own prior to administration of adenosine. Further review of chart and discussion with appears that the patient has a history of Paroxysmal Afib that was not noted in prior history or by review of previous notes in the EMR. Repeat ECG shows sinus rhythm but with some aberrant beats. Patient will be started on low dose BB therapy, with close monitoring of her blood pressure as well as her heart rate. Continue to maintain patient on telemetry, and maintain prn IV Lopressor for sustained rates. Suspect HR will be controlled soon on oral medications. (2) Abscess of left hip: Current visit: Yes Status: Acute S/p I&D/washout on 07/24. Cx w/ MSSA. Change from Vancomycin to Cefazolin. Vancomycin and Rifampin discontinued. Currently on Day #7 of antibiotics. Due to reaccumulation of fluid the patient returned to the OR today of For repeat wash out - underwent another Incision and Drainage, with debridement of the abscess cavity, with insertion of 2 drains, 1 deep and one subcutaneous. Of note, biopsy results of suspected malignant lesions from original washout are currently pending - may be either on the basis of recurrence of Osteosarcoma, or potentially metastatic from current Endometrial Ca with known mets. (3) Anemia associated with acute blood loss: Current visit: Yes Status: Acute s/p transfusion of 2 units of pRBC's - significantly improved and appears stable. Monitor Hgb closely. 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 Metastatic Endometrial Ca. Pathology pending. Palliative care consulted. (5) Sgc-[id number]-[id number] diabetes mellitus without complications: Current visit: Yes Status: Acute Continue ISS, ADA diet. (6) Alzheimer disease: Current visit: Yes Status: Chronic Currently on Aricept and Namenda. is caregiver and makes decisions for patient's care. (7) DVT prophylaxis: Current visit: Yes Status: Acute SC Lovenox. (8) Discharge planning issues: Current visit: Yes Status: Acute Following discussion with Palliative care, patient's code status will be changed to DNR/DNI. Subjective Interval history since last seen: 73-year-old woman admitted from [facility] Emergency Department on 07/22 with complaints of left hip pain and swelling, found to have infection and likely malignancy in the left hip. Mrs. 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 Patient had complained of induration and pain over the left hip for some time prior to her admission. She had recently seen her oncologist Dr. Saavedra who had some surveillance CT scans performed regarding her metastatic endometrial carcinoma. These images showed incidental finding of a collection of fluid around the left hip joint. She was subsequently evaluated by Dr. Bowman who obtained plain films and did not find any acute changes within the left hip compared to her previous x-rays of her left total hip arthroplasty. Patient was seen earlier on the day of admission by her primary care provider Dr. Chano Leon who aspirated some purulent material from the soft tissues overlying her left hip. Patient was then referred to the emergency room for evaluation of possible left hip infection versus infected bursitis. Workup in the emergency room included x-rays of the left hip and pelvis which showed diffuse osteopenia and bilateral total hip arthroplasty with no hardware loosening or fracture. Laboratory workup was remarkable for a leukocytosis, anemia, as well as significant thrombocytosis. She was subsequently admitted for further evaluation and treatment. Subsequently the patient underwent surgical evaluation of her Left hip, with irrigation and debridement of the area, and with noted evidence of soft tissue infection with likely metastatic lesions. In discussion with Ortho there does not appear to be extension of the infection into the hardware. She has been maintained on Rifampin and Vancomycin, with culture results showing MSSA. She was started on Cefazolin on 07/27. She did however show evidence of worsening drainage from her hip, and was tentatively scheduled for a return to the OR on 07/29, but was noted to be tachycardic by nursing, with ECG showing a sustained narrow complex tachycardia. Her history of PAFib was noted, but she has not been in Afib since going on telemetry. No overnight events reported. Patient remains afebrile. Exam Narrative Exam Narrative: General: Appears comfortable sitting up in bed, no acute distress noted Neck: Supple CV: Regular and borderline tachycardic at time of exam, No rubs, murmurs, gallops Pulmonary: CTAB Without crackles, rhonchi, or wheezing on limited anterior and lateral exam. Abdomen: +BS, soft, NT, ND. Vascular, b/l +1 LE Edema. Musculoskeletal: RUE Amputation noted. Psych: Mood and Affect Normal. Objective Objective Clinical Data: Abnormal lab results 07/30/18 07/30/18 Range/Units 11:15 11:15 WBC 13.33 H (4.4-10.8) k/cumm RBC 3.49 L (4.00-5.20) m/cumm Hgb 8.2 L (12.0-15.5) g/dL Hct 27.7 L (36.0-46.0) % MCV 79.4 L (80-95) fL MCH 23.5 L (27.0-33.0) pg MCHC 29.6 L (32.0-36.0) g/dL RDW 24.4 H (11.7-14.6) % Plt Count 712 H (130-400) x1000/uL Absolute Neutrophils 11.50 H (1.2-6.7) k/cumm Absolute Lymphocytes 0.61 L (1.2-3.4) k/cumm Absolute Monocytes 0.89 H (0.11-0.7) k/cumm Chloride 108 H (98-107) mmol/L Carbon Dioxide 16.0 L (21.0-32.0) mmol/L Anion Gap 14.0 H (3-11) mmol/L Glucose 141 H (70-100) mg/dL Calcium 8.0 L (8.5-10.1) mg/dL C-Reactive Protein 6.87 H (0.0-0.3) mg/dL Vital Signs Temperature 36.4 C L 07/31/18 04:17 Temperature Source Tympanic 07/31/18 04:17 Pulse 69 07/31/18 04:17 Pulse Rhythm Irregular 07/31/18 00:09 Respiratory Rate 18 07/31/18 04:17 Respiratory Effort 07/31/18 00:09 Respiratory Depth Normal 07/31/18 00:09 Respiratory Pattern Normal 07/31/18 00:09 Blood Pressure 123/70 07/31/18 04:17 Pulse Oximetry 98 07/31/18 04:17 Respiratory End-tidal CO2 18 07/30/18 15:59 Oxygen Delivery Method Room Air 07/31/18 04:17 Oxygen Flow Rate 0 07/31/18 04:17 Pain Level 2 07/30/18 17:45 Comment 10/31/18 17:45 Intake & Output 07/30/18 07/30/18 07/31/18 11:59 23:59 11:59 Intake Total 964 / 964 600 / 600 1046 / 1046 Output Total 100 / 100 360 / 360 195 / 195 Balance 864 / 864 240 / 240 851 / 851 Intake: IV 914 / 914 500 / 500 926 / 926 Oral 50 / 50 100 / 100 120 / 120 Output: Drainage 60 / 60 195 / 195 Left Hip 65 / 65 Left Mid Hip 50 / 50 130 / 130 Urine 100 / 100 200 / 200 Estimated Blood Loss 100 / 100 Other: Urine Color Pale Light Lashay Urine Appearance Hematuria Cloudy Urine Odor None Normal Comment incontinent large amount of urine has not voided, bladder scan for 171ml has not voided since19:30, bladder scan for 70ml Stool Size Moderate Stool Characteristics Soft Green Emesis Description None Voiding Methods Bedside Commode Bedpan Diaper Incontinent Laboratory Results WBC 13.33 k/cumm (4.4-10.8) H 07/30/18 11:15 RBC 3.49 m/cumm (4.00-5.20) L 07/30/18 11:15 Hgb 8.2 g/dL (12.0-15.5) L 07/30/18 11:15 Hct 27.7 % (36.0-46.0) L 07/30/18 11:15 MCV 79.4 fL (80-95) L 07/30/18 11:15 MCH 23.5 pg (27.0-33.0) L 07/30/18 11:15 MCHC 29.6 g/dL (32.0-36.0) L 07/30/18 11:15 RDW 24.4 % (11.7-14.6) H 07/30/18 11:15 Plt Count 712 x1000/uL (130-400) H 07/30/18 11:15 MPV 8.6 fL (8.0-11.0) 07/30/18 11:15 Immature Gran % 0.9 07/30/18 11:15 Neutrophils % 86.3 07/30/18 11:15 Lymphocytes % 4.6 07/30/18 11:15 Monocytes % 6.7 07/30/18 11:15 Eosinophils % 1.3 07/30/18 11:15 Basophils % 0.2 07/30/18 11:15 Absolute Neutrophils 11.50 k/cumm (1.2-6.7) H 07/30/18 11:15 Band Neutrophils 1.0 % 07/25/18 06:45 Absolute Lymphocytes 0.61 k/cumm (1.2-3.4) L 07/30/18 11:15 Absolute Monocytes 0.89 k/cumm (0.11-0.7) H 07/30/18 11:15 Absolute Eosinophils 0.17 k/cumm (0.0-0.7) 07/30/18 11:15 Absolute Basophils 0.03 k/cumm (0.0-0.2) 07/30/18 11:15 Myelocytes 1.0 % 07/25/18 06:45 Differential Comment Rbc morph reviewed 07/30/18 11:15 RBC Morphology See below 07/30/18 11:15 Polychromasia Present 07/30/18 11:15 Hypochromasia 2+ 07/30/18 11:15 Poikilocytosis 1+ 07/29/18 07:00 Anisocytosis 3+ 07/30/18 11:15 Microcytosis 2+ 07/30/18 11:15 Macrocytosis 1+ 07/29/18 07:00 Spherocytes 1+ 07/23/18 15:35 Ovalocytes 2+ 07/30/18 11:15 Alberto Cells 2+ 07/30/18 11:15 ESR 25 MM/HR (0-30) 07/25/18 06:45 Sodium 138 mmol/L (136-145) 07/30/18 11:15 Potassium 4.0 mmol/L (3.5-5.1) 07/30/18 11:15 Chloride 108 mmol/L (98-107) H 07/30/18 11:15 Carbon Dioxide 16.0 mmol/L (21.0-32.0) L 07/30/18 11:15 Anion Gap 14.0 mmol/L (3-11) H 07/30/18 11:15 BUN 9 mg/dL (7-18) 07/30/18 11:15 Creatinine 0.66 mg/dL (0.55-1.02) 07/30/18 11:15 Estimated GFR/1.73 m2 >= 60.00 (mL/min/1.73m2) 07/30/18 11:15 Glucose 141 mg/dL (70-100) H 07/30/18 11:15 Lactate 1.9 mmol/L (0.6-1.4) H 07/23/18 15:35 Calcium 8.0 mg/dL (8.5-10.1) L 07/30/18 11:15 Magnesium 1.9 mg/dL (1.8-2.4) 07/26/18 07:13 Iron 9 ug/dL (50-175) L 07/23/18 15:30 TIBC 102 ug/dL (250-450) L 07/23/18 15:30 Transferrin % Sat 9 % (15-50) L 07/23/18 15:30 Ferritin 541 ng/mL (8-388) H 07/23/18 15:30 Total Bilirubin 0.3 mg/dL (0.2-1.0) 07/23/18 15:35 AST 17 U/L (15-37) 07/23/18 15:35 ALT 16 U/L (12-78) 07/23/18 15:35 Alkaline Phosphatase 193 U/L (46-116) H 07/23/18 15:35 Troponin I < 0.02 ng/mL (0.00-0.06) 07/23/18 15:35 C-Reactive Protein 6.87 mg/dL (0.0-0.3) H 07/30/18 11:15 Total Protein 6.2 g/dL (6.4-8.2) L 07/23/18 15:35 Albumin 1.7 g/dL (3.4-5.0) L 07/23/18 15:35 Urine Color Yellow (Yellow) 07/23/18 16:20 Urine Clarity Clear 07/23/18 16:20 Urine pH 5.5 (5-8) 07/23/18 16:20 Ur Specific [place] 1.020 (1.005-1.025) 07/23/18 16:20 Urine Protein Negative mg/dL (Negative) 07/23/18 16:20 Urine Ketones Trace mg/dL (Negative) H 07/23/18 16:20 Urine Blood Negative (Negative) 07/23/18 16:20 Urine Nitrite Negative (Negative) 07/23/18 16:20 Urine Bilirubin Negative (Negative) 07/23/18 16:20 Urine Urobilinogen 0.2 EU/dL (Up TO 0.2) 07/23/18 16:20 Ur Leukocyte Esterase Trace (Negative) H 07/23/18 16:20 Urine RBC 5-10 (0-2) H 07/23/18 16:20 Urine WBC 20-50 HPF (0-5) 07/23/18 16:20 Ur Epithelial Cells Few HPF (Negative) 07/23/18 16:20 Urine Crystals Moderate amorphous HPF (Negative) 07/23/18 16:20 Urine Bacteria Negative HPF (Negative) 07/23/18 16:20 Urine Casts 20-50 hyaline LPF (Negative) 07/23/18 16:20 Urine Mucus Negative (Negative) 07/23/18 16:20 Ur Culture Indicated? Yes 07/23/18 16:20 Urine Glucose Negative mg/dL (Negative) 07/23/18 16:20 Vancomycin Trough 19.6 ug/mL (10.0-20.0) 07/26/18 09:46 Patient ABO/Rh A Positive 07/24/18 15:54 Antibody Screen Negative 07/24/18 15:54 Crossmatch See Detail 07/24/18 15:54
[2018-07-31 07:28] LABS: BUN 10 mg/dL (7-18); CREATININE 0.84 mg/dL (0.55-1.02); Calcium 7.7 mg/dL (8.5-10.1); Chloride 110 mmol/L (98-107); Glucose 128 mg/dL (70-100); Potassium 3.9 mmol/L (3.5-5.1); Sodium 139 mmol/L (136-145)
[2018-07-31 07:34] LABS: Absolute Neutrophil Count 11.18 k/cumm (1.2-6.7)
[2018-07-31 07:36] LABS: Anisocytosis 3+; Burr Cells (echinocyte) 2+; Diff Comment Agrees w/ Instrument; Hypochromasia 2+; Ovalocytes 2+
[2018-07-31] MEDS: Atorvastatin 40 MG TAB PO (09:50)
[2018-07-31] MEDS: Enoxaparin 40 MG/0.4 ML SYR SC (09:52)
[2018-07-31] MEDS: Ferrous Sulfate 325 MG TAB PO ×2 (09:53→19:52)
[2018-07-31] MEDS: DULoxetine 30 MG CAP 60 MG PO (09:53)
[2018-07-31] MEDS: Donepezil 5 MG TAB 10 MG PO (09:53)
[2018-07-31] MEDS: Potassium Chloride 20 MEQ TABCR PO (09:53)
[2018-07-31] MEDS: Multivitamin TAB 1 TAB PO (09:54)
[2018-07-31] MEDS: Memantine 5 MG TAB 10 MG PO ×2 (09:54→19:51)
[2018-07-31] MEDS: Magnesium Oxide 400 MG TAB PO ×2 (09:54)
[2018-07-31] MEDS: Sennosides/Docusate Sodium TAB 1 TAB PO ×2 (09:54→19:52)
--- NOTE | 2018-07-31 10:06 | PT.INTREAT ---
Date of service: 07/31/18 Time of Service: 10:06 PT Notes Inpatient Physical Therapy Treatment Note Date: 07/31/18 PRECAUTIONS:WBAT on L SUBJECTIVE: Dina reports that she is feeling OK this morning, although does report some increased discomfort in her L hip. OBJECTIVE: PAIN: Patient c/o discomfort in her L hip with transfers BED MOBILITY/TRANSFERS Supine-sit: Min A with HOB at 50 degrees Sit-stand: CGA Stand-sit: [facility] Bed-Chair: [facility] GAIT Assistive Device: Platform FWW Weight bearing: WBAT on L Assist: [facility] Distance: 10' THEREX: Patient completed several LE strengthening and stabilization exercises, as per flow sheet, in both seated and supine positions. ASSESSMENT: Patient tolerated session with some c/o discomfort in L hip with transfers. She demonstrates anxiety with standing and gait training. She would benefit from continued gait and transfer training as well as strengthening for improved mobility. PLAN: Continue with PT's POC TREATMENT CODE/TIME: 30 minutes; TA/TP
--- NOTE | 2018-07-31 10:11 | PTTR_ITS ---
Date of service: 07/31/18 Time of Service: 10:06 PT Notes Inpatient Physical Therapy Treatment Note Date: 07/31/18 PRECAUTIONS:WBAT on L SUBJECTIVE: Dina reports that she is feeling OK this morning, although does report some increased discomfort in her L hip. OBJECTIVE: PAIN: Patient c/o discomfort in her L hip with transfers BED MOBILITY/TRANSFERS Supine-sit: Min A with HOB at 50 degrees Sit-stand: CGA Stand-sit: [facility] Bed-Chair: [facility] GAIT Assistive Device: Platform FWW Weight bearing: WBAT on L Assist: [facility] Distance: 10' THEREX: Patient completed several LE strengthening and stabilization exercises, as per flow sheet, in both seated and supine positions. ASSESSMENT: Patient tolerated session with some c/o discomfort in L hip with transfers. She demonstrates anxiety with standing and gait training. She would benefit from continued gait and transfer training as well as strengthening for improved mobility. PLAN: Continue with PT's POC TREATMENT CODE/TIME: 30 minutes; TA/TP
--- NOTE | 2018-07-31 10:28 | PDOC.CMPRO ---
- If Service Date Differs Date of service: 07/31/18 Time of Service: 10:28 Care Management Progress Note S/O: Dina is working with PT when CM visits this morning. She gets up with a two person assist and a walker from the bed to her recliner. Dina reports that she is having pain in her hip and is short of breath following ambulation. Dina is engaged in conversation, makes good eye contact, and is talkative. She went to the OR yesterday for repeat incision, drainage, and debridement and now has two drains in place. She continues to receive IV fluids and antibiotics and has had her diet advanced to regular. A: 73 year old female admitted left hip infection. P: Dina will discharge home when medically ready per MD. Patient will discharge with resumption of/increased services through the [facility] and palliative services. She will follow up with surgical services and PCP. Dina will transport via private vehicle with her , Cosme. CM will continue to offer support to patient, family, and care team regarding discharge planning and disposition.
--- NOTE | 2018-07-31 10:34 | CMPROGNOTE_ITS ---
- If Service Date Differs Date of service: 07/31/18 Time of Service: 10:28 Care Management Progress Note S/O: Dina is working with PT when CM visits this morning. She gets up with a two person assist and a walker from the bed to her recliner. Dina reports that she is having pain in her hip and is short of breath following ambulation. Dina is engaged in conversation, makes good eye contact, and is talkative. She went to the OR yesterday for repeat incision, drainage, and debridement and now has two drains in place. She continues to receive IV fluids and antibiotics and has had her diet advanced to regular. A: 73 year old female admitted left hip infection. P: Dina will discharge home when medically ready per MD. Patient will discharge with resumption of/increased services through the [facility] [facility] and palliative services. She will follow up with surgical services and PCP. Dina will transport via private vehicle with her , Cosme. CM will continue to offer support to patient, family, and care team regarding discharge planning and disposition.
[2018-07-31] MEDS: Insulin Aspart 300 UNITS/3 ML PEN SC ×3 (12:17→21:11)
--- NOTE | 2018-07-31 14:59 | W.PM.PROGNOT ---
Assessment and Plan (1) Abscess of left hip: Current visit: Yes Status: Acute José Manuel is a 73-year-old posterior #1 for repeat irrigation debridement the left hip. Fortunately, all pathology specimens are not showing any signs of tumor or malignant lesion. She does have severe infection around the left hip and in the left thigh which looks improved on repeat washout. Everything is growing methicillin susceptible staph aureus and therefore treatment options are wide open. It is not involving hip joint so no IV antibiotics nor rifampin is necessary. She is making gains with physical therapy. We will keep drains in until the output is less than 50 cc per 24 hours. She is anxious to return home. I do think we can switch her to oral antibiotics in the next day and likely home with home health services in the next 1-2 days. Subjective Interval history since last seen: Though reports be doing okay today. She feels better than she did yesterday although she has a little bit more pain in the left hip. She underwent repeat irrigation and debridement with Dr. Bowman yesterday. She denies any chest pain or shortness of breath. She has no fever and no chills. During the surgery yesterday, the wound appeared much railroad car cleaner with less excessive or excess tissue. 2 drains were placed. Exam Narrative Exam Narrative: No acute distress. Alert and oriented x3. Evaluation of the left leg shows a well approximated incision. No signs of abundant drainage. Dressings are clean. Drains are intact draining sanguinous fluid. Some mild tenderness to palpation along the hip. Internal and external rotation causes no pain. Objective Objective Clinical Data: Abnormal lab results 07/31/18 07/31/18 Range/Units 06:50 06:50 WBC 13.45 H (4.4-10.8) k/cumm RBC 3.14 L (4.00-5.20) m/cumm Hgb 7.5 L (12.0-15.5) g/dL Hct 25.1 L (36.0-46.0) % MCV 79.9 L (80-95) fL MCH 23.9 L (27.0-33.0) pg MCHC 29.9 L (32.0-36.0) g/dL RDW 24.6 H (11.7-14.6) % Plt Count 670 H (130-400) x1000/uL Absolute Neutrophils 11.18 H (1.2-6.7) k/cumm Absolute Lymphocytes 0.70 L (1.2-3.4) k/cumm Absolute Monocytes 1.01 H (0.11-0.7) k/cumm Chloride 110 H (98-107) mmol/L Carbon Dioxide 16.0 L (21.0-32.0) mmol/L Anion Gap 13.0 H (3-11) mmol/L Glucose 128 H (70-100) mg/dL Calcium 7.7 L (8.5-10.1) mg/dL Vital Signs Temperature 36.6 C 07/31/18 11:35 Temperature Source Tympanic 07/31/18 11:35 Pulse 79 07/31/18 11:35 Pulse Rhythm Irregular 07/31/18 00:09 Respiratory Rate 18 07/31/18 11:35 Respiratory Effort 07/31/18 00:09 Respiratory Depth Normal 07/31/18 00:09 Respiratory Pattern Normal 07/31/18 00:09 Blood Pressure 137/69 07/31/18 11:35 Pulse Oximetry 98 07/31/18 11:35 Respiratory End-tidal CO2 18 07/30/18 15:59 Oxygen Delivery Method Room Air 07/31/18 11:35 Oxygen Flow Rate 0 07/31/18 11:35 Pain Level 0 07/31/18 11:35 Comment 07/31/18 08:35 Intake & Output 07/30/18 07/31/18 07/31/18 23:59 11:59 23:59 Intake Total 600 / 600 1516 / 1516 Output Total 360 / 360 195 / 195 Balance 240 / 240 1321 / 1321 Intake: IV 500 / 500 976 / 976 Oral 100 / 100 540 / 540 Output: Drainage 60 / 60 195 / 195 Left Hip 10 65 / 65 Left Mid Hip 50 / 50 130 / 130 Urine 200 / 200 Estimated Blood Loss 100 / 100 Other: Urine Color Light Lashay Urine Appearance Cloudy Urine Odor Normal Comment has not voided, bladder scan for 171ml has not voided since19:30, bladder scan for 70ml Stool Size Moderate Stool Characteristics Soft Green Emesis Description None Voiding Methods Bedpan Laboratory Results WBC 13.45 k/cumm (4.4-10.8) H 07/31/18 06:50 RBC 3.14 m/cumm (4.00-5.20) L 07/31/18 06:50 Hgb 7.5 g/dL (12.0-15.5) L 07/31/18 06:50 Hct 25.1 % (36.0-46.0) L 07/31/18 06:50 MCV 79.9 fL (80-95) L 07/31/18 06:50 MCH 23.9 pg (27.0-33.0) L 07/31/18 06:50 MCHC 29.9 g/dL (32.0-36.0) L 07/31/18 06:50 RDW 24.6 % (11.7-14.6) H 07/31/18 06:50 Plt Count 670 x1000/uL (130-400) H 07/31/18 06:50 MPV 8.5 fL (8.0-11.0) 07/31/18 06:50 Immature Gran % 1.0 07/31/18 06:50 Neutrophils % 83.1 07/31/18 06:50 Lymphocytes % 5.2 07/31/18 06:50 Monocytes % 7.5 07/31/18 06:50 Eosinophils % 3.0 07/31/18 06:50 Basophils % 0.2 07/31/18 06:50 Absolute Neutrophils 11.18 k/cumm (1.2-6.7) H 07/31/18 06:50 Band Neutrophils 1.0 % 07/25/18 06:45 Absolute Lymphocytes 0.70 k/cumm (1.2-3.4) L 07/31/18 06:50 Absolute Monocytes 1.01 k/cumm (0.11-0.7) H 07/31/18 06:50 Absolute Eosinophils 0.40 k/cumm (0.0-0.7) 07/31/18 06:50 Absolute Basophils 0.03 k/cumm (0.0-0.2) 07/31/18 06:50 Myelocytes 1.0 % 07/25/18 06:45 Differential Comment Agrees w/ instrument 07/31/18 06:50 RBC Morphology See below 07/31/18 06:50 Polychromasia Present 07/30/18 11:15 Hypochromasia 2+ 07/31/18 06:50 Poikilocytosis 1+ 07/29/18 07:00 Anisocytosis 3+ 07/31/18 06:50 Microcytosis 2+ 07/30/18 11:15 Macrocytosis 1+ 07/29/18 07:00 Spherocytes 1+ 07/23/18 15:35 Ovalocytes 2+ 07/31/18 06:50 [place] Cells 2+ 07/31/18 06:50 ESR 25 MM/HR (0-30) 07/25/18 06:45 Sodium 139 mmol/L (136-145) 07/31/18 06:50 Potassium 3.9 mmol/L (3.5-5.1) 07/31/18 06:50 Chloride 110 mmol/L (98-107) H 07/31/18 06:50 Carbon Dioxide 16.0 mmol/L (21.0-32.0) L 07/31/18 06:50 Anion Gap 13.0 mmol/L (3-11) H 07/31/18 06:50 BUN 10 mg/dL (7-18) 07/31/18 06:50 Creatinine 0.84 mg/dL (0.55-1.02) 07/31/18 06:50 Estimated GFR/1.73 m2 >= 60.00 (mL/min/1.73m2) 07/31/18 06:50 Glucose 128 mg/dL (70-100) H 07/31/18 06:50 Lactate 1.9 mmol/L (0.6-1.4) H 07/23/18 15:35 Calcium 7.7 mg/dL (8.5-10.1) L 07/31/18 06:50 Magnesium 1.9 mg/dL (1.8-2.4) 07/26/18 07:13 Iron 9 ug/dL (50-175) L 07/23/18 15:30 TIBC 102 ug/dL (250-450) L 07/23/18 15:30 Transferrin % Sat 9 % (15-50) L 07/23/18 15:30 Ferritin 541 ng/mL (8-388) H 07/23/18 15:30 Total Bilirubin 0.3 mg/dL (0.2-1.0) 07/23/18 15:35 AST 17 U/L (15-37) 07/23/18 15:35 ALT 16 U/L (12-78) 07/23/18 15:35 Alkaline Phosphatase 193 U/L (46-116) H 07/23/18 15:35 Troponin I < 0.02 ng/mL (0.00-0.06) 07/23/18 15:35 C-Reactive Protein 6.87 mg/dL (0.0-0.3) H 07/30/18 11:15 Total Protein 6.2 g/dL (6.4-8.2) L 07/23/18 15:35 Albumin 1.7 g/dL (3.4-5.0) L 07/23/18 15:35 Urine Color Yellow (Yellow) 07/23/18 16:20 Urine Clarity Clear 07/23/18 16:20 Urine pH 5.5 (5-8) 07/23/18 16:20 Ur Specific [place] 1.020 (1.005-1.025) 07/23/18 16:20 Urine Protein Negative mg/dL (Negative) 07/23/18 16:20 Urine Ketones Trace mg/dL (Negative) H 07/23/18 16:20 Urine Blood Negative (Negative) 07/23/18 16:20 Urine Nitrite Negative (Negative) 07/23/18 16:20 Urine Bilirubin Negative (Negative) 07/23/18 16:20 Urine Urobilinogen 0.2 EU/dL (Up TO 0.2) 07/23/18 16:20 Ur Leukocyte Esterase Trace (Negative) H 07/23/18 16:20 Urine RBC 5-10 (0-2) H 07/23/18 16:20 Urine WBC 20-50 HPF (0-5) 07/23/18 16:20 Ur Epithelial Cells Few HPF (Negative) 07/23/18 16:20 Urine Crystals Moderate amorphous HPF (Negative) 07/23/18 16:20 Urine Bacteria Negative HPF (Negative) 07/23/18 16:20 Urine Casts 20-50 hyaline LPF (Negative) 07/23/18 16:20 Urine Mucus Negative (Negative) 07/23/18 16:20 Ur Culture Indicated? Yes 07/23/18 16:20 Urine Glucose Negative mg/dL (Negative) 07/23/18 16:20 Vancomycin Trough 19.6 ug/mL (10.0-20.0) 07/26/18 09:46 Patient ABO/Rh A Positive 07/24/18 15:54 Antibody Screen Negative 07/24/18 15:54 Crossmatch See Detail 07/24/18 15:54
--- NOTE | 2018-07-31 15:09 | W.PM.PROGNOT ---
Assessment and Plan (1) SVT (supraventricular tachycardia): Current visit: Yes Status: Chronic Sustained regular narrow complex tachycardia that eventually slowed on its own prior to administration of adenosine. Further review of chart and discussion with appears that the patient has a history of Paroxysmal Afib that was not noted in prior history or by review of previous notes in the EMR. Repeat ECG showed sinus rhythm but with aberrant beats, potential wandering . Patient was started on low dose BB therapy and maintained on telemetry. Good rate control now with HR in the 70-80's. Also on prn IV Lopressor for sustained rates. (2) Abscess of left hip: Current visit: Yes Status: Acute S/p I&D/washout on 07/24. Cx w/ MSSA. Change from Vancomycin to Cefazolin. Vancomycin and Rifampin discontinued. Currently on Day #8 of antibiotics. Due to reaccumulation of fluid the patient returned to the OR on 07/30 of For repeat wash out - underwent another Incision and Drainage, with debridement of the abscess cavity, with insertion of 2 drains, 1 deep and one subcutaneous. (3) Anemia associated with acute blood loss: Current visit: Yes Status: Acute s/p transfusion of 2 units of pRBC's - Appears stable with Hgb in the 7-8 range. Monitor Hgb closely. 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 Metastatic Endometrial Ca originally, but with Pathology apparently showing no evidence of malignancy. Official path results pending. (5) [id number] diabetes mellitus without complications: Current visit: Yes Status: Acute Continue ISS, ADA diet. (6) Alzheimer disease: Current visit: Yes Status: Chronic Currently on Aricept and Namenda. is caregiver and makes decisions for patient's care. (7) DVT prophylaxis: Current visit: Yes Status: Acute SC Lovenox. (8) Discharge planning issues: Current visit: Yes Status: Acute Following discussion with Palliative care, patient's code status was changed to DNR/DNI. Subjective Interval history since last seen: 73-year-old woman admitted from [facility] Emergency Department on 07/22 with complaints of left hip pain and swelling, found to have infection and likely malignancy in the left hip. Mrs. 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 Patient had complained of induration and pain over the left hip for some time prior to her admission. She had recently seen her oncologist Dr. Saavedra who had some surveillance CT scans performed regarding her metastatic endometrial carcinoma. These images showed incidental finding of a collection of fluid around the left hip joint. She was subsequently evaluated by Dr. Bowman who obtained plain films and did not find any acute changes within the left hip compared to her previous x-rays of her left total hip arthroplasty. Patient was seen earlier on the day of admission by her primary care provider Dr. Chano Leon who aspirated some purulent material from the soft tissues overlying her left hip. Patient was then referred to the emergency room for evaluation of possible left hip infection versus infected bursitis. Workup in the emergency room included x-rays of the left hip and pelvis which showed diffuse osteopenia and bilateral total hip arthroplasty with no hardware loosening or fracture. Laboratory workup was remarkable for a leukocytosis, anemia, as well as significant thrombocytosis. She was subsequently admitted for further evaluation and treatment. Subsequently the patient underwent surgical evaluation of her Left hip, with irrigation and debridement of the area, and with noted evidence of soft tissue infection with lesions initially suspicious for malignancy. Pathology on the biopsy of this is pending, but ortho reports that pathology does not appear to be malignant, and may be chronic/infectious in nature. In discussion with Ortho there also did not appear to be extension of the infection into the hardware by the original washout. She had been maintained on Rifampin and Vancomycin, with culture results showing MSSA. She was switched to Cefazolin on 07/27. She did however show evidence of worsening drainage from her hip, and was tentatively scheduled for a return to the OR on 07/29, but was noted to be tachycardic by nursing, with ECG showing a sustained narrow complex tachycardia. Her history of Paroxysmal Afib was noted, but she has not been in Afib since going on telemetry. She remains in a sinus rhythm with a potential Wandering Atrial Pacemaker. Her heart rate is now controlled with addition of low dose BB. She has now undergone repeat irrigation and debridement on 07/30. The patient has no complaints this morning, and appears to be doing well. No overnight events reported. Patient remains afebrile. Exam Narrative Exam Narrative: General: Appears comfortable sitting up in bed, no acute distress noted Neck: Supple CV: Regular at time of exam, No rubs, murmurs, gallops Pulmonary: CTAB Without crackles, rhonchi, or wheezing on limited anterior and lateral exam. Abdomen: +BS, soft, NT, ND. Vascular, b/l +1 LE Edema. Musculoskeletal: RUE Amputation noted. Psych: Mood and Affect Normal. Objective Objective Clinical Data: Abnormal lab results 07/31/18 07/31/18 Range/Units 06:50 06:50 WBC 13.45 H (4.4-10.8) k/cumm RBC 3.14 L (4.00-5.20) m/cumm Hgb 7.5 L (12.0-15.5) g/dL Hct 25.1 L (36.0-46.0) % MCV 79.9 L (80-95) fL MCH 23.9 L (27.0-33.0) pg MCHC 29.9 L (32.0-36.0) g/dL RDW 24.6 H (11.7-14.6) % Plt Count 670 H (130-400) x1000/uL Absolute Neutrophils 11.18 H (1.2-6.7) k/cumm Absolute Lymphocytes 0.70 L (1.2-3.4) k/cumm Absolute Monocytes 1.01 H (0.11-0.7) k/cumm Chloride 110 H (98-107) mmol/L Carbon Dioxide 16.0 L (21.0-32.0) mmol/L Anion Gap 13.0 H (3-11) mmol/L Glucose 128 H (70-100) mg/dL Calcium 7.7 L (8.5-10.1) mg/dL Vital Signs Temperature 36.6 C 07/31/18 11:35 Temperature Source Tympanic 07/31/18 11:35 Pulse 79 07/31/18 11:35 Pulse Rhythm Irregular 07/31/18 00:09 Respiratory Rate 18 07/31/18 11:35 Respiratory Effort 07/31/18 00:09 Respiratory Depth Normal 07/31/18 00:09 Respiratory Pattern Normal 07/31/18 00:09 Blood Pressure 137/69 07/31/18 11:35 Pulse Oximetry 98 07/31/18 11:35 Respiratory End-tidal CO2 18 07/30/18 15:59 Oxygen Delivery Method Room Air 07/31/18 11:35 Oxygen Flow Rate 0 07/31/18 11:35 Pain Level 0 07/31/18 11:35 Comment 07/31/18 08:35 Intake & Output 07/30/18 07/31/18 07/31/18 23:59 11:59 23:59 Intake Total 600 / 600 1516 / 1516 Output Total 360 / 360 195 / 195 Balance 240 / 240 1321 / 1321 Intake: IV 500 / 500 976 / 976 Oral 100 / 100 540 / 540 Output: Drainage 60 / 60 195 / 195 Left Hip 65 / 65 Left Mid Hip 50 / 50 130 / 130 Urine 200 / 200 Estimated Blood Loss 100 / 100 Other: Urine Color Light [place]ashay Urine Appearance Cloudy Urine Odor Normal Comment has not voided, bladder scan for 171ml has not voided since19:30, bladder scan for 70ml Stool Size Moderate Stool Characteristics Soft Green Emesis Description None Voiding Methods Bedpan Laboratory Results WBC 13.45 k/cumm (4.4-10.8) H 07/31/18 06:50 RBC 3.14 m/cumm (4.00-5.20) L 07/31/18 06:50 Hgb 7.5 g/dL (12.0-15.5) L 07/31/18 06:50 Hct 25.1 % (36.0-46.0) L 07/31/18 06:50 MCV 79.9 fL (80-95) L 07/31/18 06:50 MCH 23.9 pg (27.0-33.0) L 07/31/18 06:50 MCHC 29.9 g/dL (32.0-36.0) L 07/31/18 06:50 RDW 24.6 % (11.7-14.6) H 07/31/18 06:50 Plt Count 670 x1000/uL (130-400) H 07/31/18 06:50 MPV 8.5 fL (8.0-11.0) 07/31/18 06:50 Immature Gran % 1.0 07/31/18 06:50 Neutrophils % 83.1 07/31/18 06:50 Lymphocytes % 5.2 07/31/18 06:50 Monocytes % 7.5 07/31/18 06:50 Eosinophils % 3.0 07/31/18 06:50 Basophils % 0.2 07/31/18 06:50 Absolute Neutrophils 11.18 k/cumm (1.2-6.7) H 07/31/18 06:50 Band Neutrophils 1.0 % 07/25/18 06:45 Absolute Lymphocytes 0.70 k/cumm (1.2-3.4) L 07/31/18 06:50 Absolute Monocytes 1.01 k/cumm (0.11-0.7) H 07/31/18 06:50 Absolute Eosinophils 0.40 k/cumm (0.0-0.7) 07/31/18 06:50 Absolute Basophils 0.03 k/cumm (0.0-0.2) 07/31/18 06:50 Myelocytes 1.0 % 07/25/18 06:45 Differential Comment Agrees w/ instrument 07/31/18 06:50 RBC Morphology See below 07/31/18 06:50 Polychromasia Present 07/30/18 11:15 Hypochromasia 2+ 07/31/18 06:50 Poikilocytosis 1+ 07/29/18 07:00 Anisocytosis 3+ 07/31/18 06:50 Microcytosis 2+ 07/30/18 11:15 Macrocytosis 1+ 07/29/18 07:00 Spherocytes 1+ 07/23/18 15:35 Ovalocytes 2+ 07/31/18 06:50 [place] Cells 2+ 07/31/18 06:50 ESR 25 MM/HR (0-30) 07/25/18 06:45 Sodium 139 mmol/L (136-145) 07/31/18 06:50 Potassium 3.9 mmol/L (3.5-5.1) 07/31/18 06:50 Chloride 110 mmol/L (98-107) H 07/31/18 06:50 Carbon Dioxide 16.0 mmol/L (21.0-32.0) L 07/31/18 06:50 Anion Gap 13.0 mmol/L (3-11) H 07/31/18 06:50 BUN 10 mg/dL (7-18) 07/31/18 06:50 Creatinine 0.84 mg/dL (0.55-1.02) 07/31/18 06:50 Estimated GFR/1.73 m2 >= 60.00 (mL/min/1.73m2) 07/31/18 06:50 Glucose 128 mg/dL (70-100) H 07/31/18 06:50 Lactate 1.9 mmol/L (0.6-1.4) H 07/23/18 15:35 Calcium 7.7 mg/dL (8.5-10.1) L 07/31/18 06:50 Magnesium 1.9 mg/dL (1.8-2.4) 07/26/18 07:13 Iron 9 ug/dL (50-175) L 07/23/18 15:30 TIBC 102 ug/dL (250-450) L 07/23/18 15:30 Transferrin % Sat 9 % (15-50) L 07/23/18 15:30 Ferritin 541 ng/mL (8-388) H 07/23/18 15:30 Total Bilirubin 0.3 mg/dL (0.2-1.0) 07/23/18 15:35 AST 17 U/L (15-37) 07/23/18 15:35 ALT 16 U/L (12-78) 07/23/18 15:35 Alkaline Phosphatase 193 U/L (46-116) H 07/23/18 15:35 Troponin I < 0.02 ng/mL (0.00-0.06) 07/23/18 15:35 C-Reactive Protein 6.87 mg/dL (0.0-0.3) H 07/30/18 11:15 Total Protein 6.2 g/dL (6.4-8.2) L 07/23/18 15:35 Albumin 1.7 g/dL (3.4-5.0) L 07/23/18 15:35 Urine Color Yellow (Yellow) 07/23/18 16:20 Urine Clarity Clear 07/23/18 16:20 Urine pH 5.5 (5-8) 07/23/18 16:20 Ur Specific [place] 1.020 (1.005-1.025) 07/23/18 16:20 Urine Protein Negative mg/dL (Negative) 07/23/18 16:20 Urine Ketones Trace mg/dL (Negative) H 07/23/18 16:20 Urine Blood Negative (Negative) 07/23/18 16:20 Urine Nitrite Negative (Negative) 07/23/18 16:20 Urine Bilirubin Negative (Negative) 07/23/18 16:20 Urine Urobilinogen 0.2 EU/dL (Up TO 0.2) 07/23/18 16:20 Ur Leukocyte Esterase Trace (Negative) H 07/23/18 16:20 Urine RBC 5-10 (0-2) H 07/23/18 16:20 Urine WBC 20-50 HPF (0-5) 07/23/18 16:20 Ur Epithelial Cells Few HPF (Negative) 07/23/18 16:20 Urine Crystals Moderate amorphous HPF (Negative) 07/23/18 16:20 Urine Bacteria Negative HPF (Negative) 07/23/18 16:20 Urine Casts 20-50 hyaline LPF (Negative) 07/23/18 16:20 Urine Mucus Negative (Negative) 07/23/18 16:20 Ur Culture Indicated? Yes 07/23/18 16:20 Urine Glucose Negative mg/dL (Negative) 07/23/18 16:20 Vancomycin Trough 19.6 ug/mL (10.0-20.0) 07/26/18 09:46 Patient ABO/Rh A Positive 07/24/18 15:54 Antibody Screen Negative 07/24/18 15:54 Crossmatch See Detail 07/24/18 15:54
--- NOTE | 2018-07-31 15:13 | PT.INTREAT ---
Date of service: 07/31/18 Time of Service: 15:13 PT Notes Inpatient Physical Therapy Treatment Note Date: 07/31/18 PRECAUTIONS: WBAT L LE SUBJECTIVE: Pt's reports that about a half hr ago she wanted to get OOB and sit in the chair. He states that this afternoon her mood is not the best so if she doesn't want to get up and walk then we will just have her stay seated in the chiar. OBJECTIVE: Pt refused ambulation this afternoon. She states that she just wants to sit in the chair for now. THEREX: Pt completed seated LE strengthening as per flow sheet. Pt did require assist with her hip abd exercises today and also with the hip flexion exercises. ASSESSMENT: Pt tolerated today's session fairly well. She was somewhat tired and had just gotten to the chair approx a half hr before I arrived so she did not want to get up right at this time during our session and states that she would later. PLAN: Cont as per PT POC as per sneha. TREATMENT CODE/TIME: 3-3:10 (10) CAR
[2018-07-31] MEDS: Normal Saline Flush 10 ML SYR IVP ×2 (16:46→21:08)
[2018-07-31] MEDS: Acetaminophen 500 MG TAB 1000 MG PO (19:51)
[2018-07-31] MEDS: Pantoprazole 40 MG VIAL IVP (21:08)
[2018-07-31] MEDS: NIFEdipine-CR 30 MG TABCR 90 MG PO (21:09)
[2018-07-31] MEDS: Melatonin 3 MG TAB PO (21:09)
[2018-08-01] VITALS (14 sets, daily range): BP systolic 103–139; BP diastolic 55–76; PULSE 55–79; RESP 16–20; TEMP 35.6–37.4; O2SAT 97–100
[2018-08-01] MEDS: Normal Saline Flush 10 ML SYR IVP ×4 (01:18→22:19)
[2018-08-01] MEDS: Levothyroxine 75 MCG TAB 150 MCG PO (05:28)
[2018-08-01] MEDS: Metoprolol 25 MG TAB PO ×2 (05:28→17:53)
[2018-08-01] MEDS: Enoxaparin 40 MG/0.4 ML SYR SC (08:10)
[2018-08-01] MEDS: DULoxetine 30 MG CAP 60 MG PO (08:11)
[2018-08-01] MEDS: Atorvastatin 40 MG TAB PO (08:11)
[2018-08-01] MEDS: Magnesium Oxide 400 MG TAB PO (08:11)
[2018-08-01] MEDS: Memantine 5 MG TAB 10 MG PO ×2 (08:11→20:15)
[2018-08-01] MEDS: Sennosides/Docusate Sodium TAB 1 TAB PO ×2 (08:12→20:16)
[2018-08-01] MEDS: Multivitamin TAB 1 TAB PO (08:12)
[2018-08-01] MEDS: Ferrous Sulfate 325 MG TAB PO ×2 (08:12→20:15)
[2018-08-01] MEDS: Donepezil 5 MG TAB 10 MG PO (08:12)
[2018-08-01] MEDS: traMADol 50 MG TAB PO (09:15)
[2018-08-01 09:24] LABS: Abs Immature Grans 0.14 k/cumm (0.0-0.09); Absolute Basophil Count 0.03 k/cumm (0.0-0.2); Absolute Eosinophil Count 0.51 k/cumm (0.0-0.7); Absolute Lymphocyte Count 0.68 k/cumm (1.2-3.4); Absolute Neutrophil Count 9.24 k/cumm (1.2-6.7); Basophils % 0.3; Eosinophils % 4.4; HGB 7.1 g/dL (12.0-15.5); Immature Grans % 1.2; Lymphocytes % 5.9; Mean Corp. HGB Concentration 29.6 g/dL (32.0-36.0); Mean Corpuscular Hemoglobin 23.9 pg (27.0-33.0); Mean Corpuscular Volume 80.8 fL (80-95); Mean Platelet Volume 8.8 fL (8.0-11.0); Monocytes % 8.6; Neutrophils % 79.6; Platelet Count 641 x1000/uL (130-400); RBC 2.97 m/cumm (4.00-5.20); RBC Distribution Width 25.3 % (11.7-14.6); White Blood Cell Count 11.61 k/cumm (4.4-10.8)
[2018-08-01 10:14] LABS: Anion Gap 10.3 mmol/L (3-11); BUN 12 mg/dL (7-18); CO2 17.7 mmol/L (21.0-32.0); CREATININE 0.95 mg/dL (0.55-1.02); Calcium 8.1 mg/dL (8.5-10.1); Chloride 111 mmol/L (98-107); Estimated GFR 57.35 (mL/min/1.73m2); Glucose 155 mg/dL (70-100); Magnesium 1.8 mg/dL (1.8-2.4); Sodium 139 mmol/L (136-145)
--- NOTE | 2018-08-01 10:25 | PDOC.CMPRO ---
- If Service Date Differs Date of service: 08/01/18 Time of Service: 10:25 Care Management Progress Note S/O: Dina is lying in bed having her blood drawn when CM visits this morning. Her Cosme is at the bedside and reports that he is irritated not knowing what the plan is and when Dina will be ready to go home. JUDE, Cosme, and Dina spoke about discharge at length once again. At present time, MD is waiting for Dina's lab work from this morning to come back. Her H&H has been dropping; Hgb is down to 7.1 from 7.5, Hct is down from 25.1 to 24.0. She continues to receive IV fluids and antibiotics and has had her diet advanced to regular. Dina received one unit of blood; anticipate she will discharge tomorrow morning. CM will continue to follow. A: 73 year old female admitted left hip infection. P: Dina will discharge home when medically ready per MD. Patient will discharge with resumption of/increased services through the [facility] and palliative services. She will follow up with surgical services and PCP. Dina will transport via private vehicle with her , Cosme. CM will continue to offer support to patient, family, and care team regarding discharge planning and disposition.
--- NOTE | 2018-08-01 10:26 | PT.INPN ---
Date of service: 08/01/18 Time of Service: 10:27 PT Notes Inpatient Physical Therapy Progress Note Date: 08/01/18 Dates of Service: 07/25/18-08/01/18 PRECAUTIONS: Fall precautions, WBAT L LE SUBJECTIVE: Pt lying in bed, agreeable to therapy session, in room observing. OBJECTIVE: General observation: JONATHAN drain left hip, telemetry PAIN: c/o 8/10 pain left hip with movement, 3/10 at rest, RN in room to provide pain medication Bed Mobility/Transfers: Supine-sit: HOB 50 degrees, minAx1 to assist hip to edge of bed with bedpad, and assist trunk to sitting position Sit-stand: CGA with R platform FWW Bed-chair: CGA with R platform FWW Stand-sit: SBA, cues to reach back with left hand to chair Gait: CGAwith R platform FWW 5ft bed to chair. Cues for step sequence, gait belt for assistance. Pt left up in chair with LE's elevated and fall alarm activated. Therex: Performed ankle pumps, quad sets, glute sets 20 reps, AA left hip flexion and abduction 10x Balance: Static Sitting: normal Dynamic Sitting: normal Static Standing: fair Dynamic Standing: poor Assessment: Pt is a 73yr old female s/p incision and drainage left hip by Dr. 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 Patient has been seen for 9 PT visits. Pr's progress has been limited due to medical procedures (2 washouts left hip) and decreased HGB 7.5 that have limited her ability to participate and progress with therapy intervention. She is at Daniella-CGA level for transfers in bed, transfers to chair and gait with platform FWW. feels he can assist her at this level, as she was wheelchair bound prior to admission and he plans to take her home at discharge, home PT and OT recommended in home setting for continued strengthening and ADL training. Continue PT intervention in hospital setting until discharge. Goals: Goals X1 week 1. Supine-Sit: CGA 2. Sit-Supine :SBA 3. Sit-Stand :SBA with platform FWW 4. Stand-Sit: supervision 5. Bed-Chair : SBA with platform FWW 6. Chair-Bed : SBA with platform FWW 7. Gait: CGA with platform FWW 25ftx2 WBAT L LE 8. Stairs : up/down 4 steps with railing, WBAT L LE, CGA Pt has not met therapy goals, continue PT toward outlined goals above. Plan of Care/Treatment Plan: Continue 1-2x/day, 7 days/week x 1 week. Continue plan of care has been reviewed with the [employer] providing the service under Physical Therapy direction. Continue Physical Therapy intervention for strengthening, bed mobility, transfers, gait, stairs, balance training, use of assistive device. DISCHARGE RECOMMENDATIONS: Home with , home PT TREATMENT CODE/TIME: 24min TAX1 [id number] G Codes in the area mobility of walking and moving around: current status [id number] CL; projected status GP [id number]. Discharge status (if discharging) GP [id number] Vanessa Garcia PT
--- NOTE | 2018-08-01 10:36 | INPN_ITS ---
Date of service: 08/01/18 Time of Service: 10:27 PT Notes Inpatient Physical Therapy Progress Note Date: 08/01/18 Dates of Service: 07/25/18-08/01/18 PRECAUTIONS: Fall precautions, WBAT L LE SUBJECTIVE: Pt lying in bed, agreeable to therapy session, in room observing. OBJECTIVE: General observation: JONATHAN drain left hip, telemetry PAIN: c/o 8/10 pain left hip with movement, 3/10 at rest, RN in room to provide pain medication Bed Mobility/Transfers: Supine-sit: HOB 50 degrees, minAx1 to assist hip to edge of bed with bedpad, and assist trunk to sitting position Sit-stand: CGA with R platform FWW Bed-chair: CGA with R platform FWW Stand-sit: SBA, cues to reach back with left hand to chair Gait: CGAwith R platform FWW 5ft bed to chair. Cues for step sequence, gait belt for assistance. Pt left up in chair with LE's elevated and fall alarm activated. Therex: Performed ankle pumps, quad sets, glute sets 20 reps, AA left hip flexion and abduction 10x Balance: Static Sitting: normal Dynamic Sitting: normal Static Standing: fair Dynamic Standing: poor Assessment: Pt is a 73yr old female s/p incision and drainage left hip by Dr. 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 Patient has been seen for 9 PT visits. Pr's progress has been limited due to medical procedures (2 washouts left hip) and decreased HGB 7.5 that have limited her ability to participate and progress with therapy intervention. She is at Daniella-CGA level for transfers in bed, transfers to chair and gait with platform FWW. feels he can assist her at this level, as she was wheelchair bound prior to admission and he plans to take her home at discharge, home PT and OT recommended in home setting for continued strengthening and ADL training. Continue PT intervention in hospital setting until discharge. Goals: Goals X1 week 1. Supine-Sit: CGA 2. Sit-Supine :SBA 3. Sit-Stand :SBA with platform FWW 4. Stand-Sit: supervision 5. Bed-Chair : SBA with platform FWW 6. Chair-Bed : SBA with platform FWW 7. Gait: CGA with platform FWW 25ftx2 WBAT L LE 8. Stairs : up/down 4 steps with railing, WBAT L LE, CGA Pt has not met therapy goals, continue PT toward outlined goals above. Plan of Care/Treatment Plan: Continue 1-2x/day, 7 days/week x 1 week. Continue plan of care has been reviewed with the HUMAN SERVICES WORKER providing the service under Physical Therapy direction. Continue Physical Therapy intervention for strengthening, bed mobility, transfers, gait, stairs, balance training, use of assistive device. DISCHARGE RECOMMENDATIONS: Home with , home PT TREATMENT CODE/TIME: 24min TAX1 [id number] G Codes in the area mobility of walking and moving around: current status [id number] CL; projected status GP [id number]. Discharge status (if discharging) GP [id number] Vanessa Garcia PT
--- NOTE | 2018-08-01 11:10 | PDOC.CMDIS ---
- If Service Date Differs Date of service: 08/01/18 Time of Service: 11:10 LACE Index Scoring Tool - Questions: Length of Stay (in days): 7 - 13 Acuity (Admit via E.D.?): Yes Comorbidities: Diabetes w/o Complication, Any Tumor E.D. Visits: 1 - Answers: Total Score: 12 Risk of Readmission: High Risk Care Management Discharge Reason for Hospitalization: Left hip infection. Discharge Plan: Dina will discharge home with home health services; nursing, PT/OT through the [facility] and follow up with her PCP and surgical services. Dina will transport via private vehicle with her , Cosme. Patient/Family Education Needs: Discharge education, any limitiations, and follow up plan of care. Ask Me Three discussion. Services Needed at Discharge: Home Health Care Services
--- NOTE | 2018-08-01 11:15 | CMDISCH_ITS ---
- If Service Date Differs Date of service: 08/01/18 Time of Service: 11:10 LACE Index Scoring Tool - Questions: Length of Stay (in days): 7 - 13 Acuity (Admit via E.D.?): Yes Comorbidities: Diabetes w/o Complication, Any Tumor E.D. Visits: 1 - Answers: Total Score: 12 Risk of Readmission: High Risk Care Management Discharge Reason for Hospitalization: Left hip infection. Discharge Plan: Dina will discharge home with home health services; nursing , PT/OT through the [facility] and follow up with her PCP and surgical services. Dina will transport via private vehicle with her , Cosme. Patient/Family Education Needs: Discharge education, any limitiations, and follow up plan of care. Ask Me Three discussion. Services Needed at Discharge: Home Health Care Services
--- NOTE | 2018-08-01 11:29 | W.PM.PROGNOT ---
Date of Service Date of service: 08/01/18 Time of Service: 11:29 Assessment and Plan (1) Abscess of left hip: Current visit: Yes Status: Acute Aliyah is making good gains with her left hip. The output appears to be sanguinous. It does seem to be decreasing although it is more than I would like before pulling the drains. She is growing methicillin susceptible staph aureus. I would discuss with the hospitalist about outpatient regimen but I do think she can transition to oral agents and go home. We will have her and home health nursing to assist with management of the drains. I would like to drain stay in place until the output is less than 50 cc in a 24-hour period. (2) Anemia associated with acute blood loss: Current visit: Yes Status: Acute Hgb continues to drift and she has fatigue and malaise, so I would recommend transfuse a unit of blood. Subjective Interval history since last seen: Pati reports to be having some pain in the left thigh. In general, it is still better than it was. She was able to mobilize with physical therapy. She feels drained. She notes fatigue. She is not as a lightheaded but does feel a little weak. She denies any new symptoms. She still is having significant output from both drains. Exam Narrative Exam Narrative: Evaluation of the left leg shows no significant drainage from the wound itself. The dressing is intact. 2 drains have sanguine his output. There is some mild pain to palpation. She tolerates internal and external rotation of the leg without difficulty/pain. Objective Objective Clinical Data: Abnormal lab results 08/01/18 08/01/18 Range/Units 06:30 09:50 WBC 11.61 H (4.4-10.8) k/cumm RBC 2.97 L (4.00-5.20) m/cumm Hgb 7.1 L (12.0-15.5) g/dL Hct 24.0 L (36.0-46.0) % MCH 23.9 L (27.0-33.0) pg MCHC 29.6 L (32.0-36.0) g/dL RDW 25.3 H (11.7-14.6) % Plt Count 641 H (130-400) x1000/uL Absolute Neutrophils 9.24 H (1.2-6.7) k/cumm Absolute Lymphocytes 0.68 L (1.2-3.4) k/cumm Absolute Monocytes 1.00 H (0.11-0.7) k/cumm Chloride 111 H (98-107) mmol/L Carbon Dioxide 17.7 L (21.0-32.0) mmol/L Glucose 155 H (70-100) mg/dL Calcium 8.1 L (8.5-10.1) mg/dL Vital Signs Temperature 36.3 C L 08/01/18 07:50 Temperature Source Tympanic 08/01/18 07:50 Pulse 55 L 08/01/18 07:50 Pulse Rhythm Regular 07/31/18 20:45 Respiratory Rate 17 08/01/18 07:50 Respiratory Effort Non-Labored 07/31/18 20:45 Respiratory Depth Normal 07/31/18 20:45 Respiratory Pattern Normal 07/31/18 20:45 Blood Pressure 122/71 08/01/18 07:50 Pulse Oximetry 98 08/01/18 07:50 Respiratory End-tidal CO2 18 07/30/18 15:59 Oxygen Delivery Method Room Air 08/01/18 07:50 Oxygen Flow Rate 0 08/01/18 07:50 Pain Level 7 08/01/18 09:15 Comment 07/31/18 08:35 Intake & Output 07/31/18 07/31/18 08/01/18 11:59 23:59 11:59 Intake Total 1516 / 1516 290 / 290 530 / 530 Output Total 195 / 195 275 / 275 210 / 210 Balance 1321 / 1321 15 15 320 / 320 Weight 78.4 kg Intake: IV 976 / 976 50 / 50 50 / 50 Oral 540 / 540 240 / 240 480 / 480 Output: Drainage 195 / 195 275 / 275 90 / 90 Left Hip 65 / 65 45 / 45 10 / 10 Left Mid Hip 130 / 130 230 / 230 80 / 80 Urine 120 / 120 Other: Urine Color [place] Urine Appearance Clear Clear Comment has not voided since19:30, bladder scan for 70ml incontinent large amount of urine x1 Stool Size Moderate Moderate Small Stool Characteristics Soft Soft Formed Green Green Voiding Methods Diaper Incontinent Laboratory Results WBC 11.61 k/cumm (4.4-10.8) H 08/01/18 06:30 RBC 2.97 m/cumm (4.00-5.20) L 08/01/18 06:30 Hgb 7.1 g/dL (12.0-15.5) L 08/01/18 06:30 Hct 24.0 % (36.0-46.0) L 08/01/18 06:30 MCV 80.8 fL (80-95) 08/01/18 06:30 MCH 23.9 pg (27.0-33.0) L 08/01/18 06:30 MCHC 29.6 g/dL (32.0-36.0) L 08/01/18 06:30 RDW 25.3 % (11.7-14.6) H 08/01/18 06:30 Plt Count 641 x1000/uL (130-400) H 08/01/18 06:30 MPV 8.8 fL (8.0-11.0) 08/01/18 06:30 Immature Gran % 1.2 08/01/18 06:30 Neutrophils % 79.6 08/01/18 06:30 Lymphocytes % 5.9 08/01/18 06:30 Monocytes % 8.6 08/01/18 06:30 Eosinophils % 4.4 08/01/18 06:30 Basophils % 0.3 08/01/18 06:30 Absolute Neutrophils 9.24 k/cumm (1.2-6.7) H 08/01/18 06:30 Band Neutrophils 1.0 % 07/25/18 06:45 Absolute Lymphocytes 0.68 k/cumm (1.2-3.4) L 08/01/18 06:30 Absolute Monocytes 1.00 k/cumm (0.11-0.7) H 08/01/18 06:30 Absolute Eosinophils 0.51 k/cumm (0.0-0.7) 08/01/18 06:30 Absolute Basophils 0.03 k/cumm (0.0-0.2) 08/01/18 06:30 Myelocytes 1.0 % 07/25/18 06:45 Differential Comment Agrees w/ instrument 07/31/18 06:50 RBC Morphology See below 07/31/18 06:50 Polychromasia Present 07/30/18 11:15 Hypochromasia 2+ 07/31/18 06:50 Poikilocytosis 1+ 07/29/18 07:00 Anisocytosis 3+ 07/31/18 06:50 Microcytosis 2+ 07/30/18 11:15 Macrocytosis 1+ 07/29/18 07:00 Spherocytes 1+ 07/23/18 15:35 Ovalocytes 2+ 07/31/18 06:50 [place] Cells 2+ 07/31/18 06:50 ESR 25 MM/HR (0-30) 07/25/18 06:45 Sodium 139 mmol/L (136-145) 08/01/18 09:50 Potassium 4.0 mmol/L (3.5-5.1) 08/01/18 09:50 Chloride 111 mmol/L (98-107) H 08/01/18 09:50 Carbon Dioxide 17.7 mmol/L (21.0-32.0) L 08/01/18 09:50 Anion Gap 10.3 mmol/L (3-11) 08/01/18 09:50 BUN 12 mg/dL (7-18) 08/01/18 09:50 Creatinine 0.95 mg/dL (0.55-1.02) 08/01/18 09:50 Estimated GFR/1.73 m2 57.35 (mL/min/1.73m2) 08/01/18 09:50 Glucose 155 mg/dL (70-100) H 08/01/18 09:50 Lactate 1.9 mmol/L (0.6-1.4) H 07/23/18 15:35 Calcium 8.1 mg/dL (8.5-10.1) L 08/01/18 09:50 Magnesium 1.8 mg/dL (1.8-2.4) 08/01/18 09:50 Iron 9 ug/dL (50-175) L 07/23/18 15:30 TIBC 102 ug/dL (250-450) L 07/23/18 15:30 Transferrin % Sat 9 % (15-50) L 07/23/18 15:30 Ferritin 541 ng/mL (8-388) H 07/23/18 15:30 Total Bilirubin 0.3 mg/dL (0.2-1.0) 07/23/18 15:35 AST 17 U/L (15-37) 07/23/18 15:35 ALT 16 U/L (12-78) 07/23/18 15:35 Alkaline Phosphatase 193 U/L (46-116) H 07/23/18 15:35 Troponin I < 0.02 ng/mL (0.00-0.06) 07/23/18 15:35 C-Reactive Protein 6.87 mg/dL (0.0-0.3) H 07/30/18 11:15 Total Protein 6.2 g/dL (6.4-8.2) L 07/23/18 15:35 Albumin 1.7 g/dL (3.4-5.0) L 07/23/18 15:35 Urine Color Yellow (Yellow) 07/23/18 16:20 Urine Clarity Clear 07/23/18 16:20 Urine pH 5.5 (5-8) 07/23/18 16:20 Ur Specific [place] 1.020 (1.005-1.025) 07/23/18 16:20 Urine Protein Negative mg/dL (Negative) 07/23/18 16:20 Urine Ketones Trace mg/dL (Negative) H 07/23/18 16:20 Urine Blood Negative (Negative) 07/23/18 16:20 Urine Nitrite Negative (Negative) 07/23/18 16:20 Urine Bilirubin Negative (Negative) 07/23/18 16:20 Urine Urobilinogen 0.2 EU/dL (Up TO 0.2) 07/23/18 16:20 Ur Leukocyte Esterase Trace (Negative) H 07/23/18 16:20 Urine RBC 5-10 (0-2) H 07/23/18 16:20 Urine WBC 20-50 HPF (0-5) 07/23/18 16:20 Ur Epithelial Cells Few HPF (Negative) 07/23/18 16:20 Urine Crystals Moderate amorphous HPF (Negative) 07/23/18 16:20 Urine Bacteria Negative HPF (Negative) 07/23/18 16:20 Urine Casts 20-50 hyaline LPF (Negative) 07/23/18 16:20 Urine Mucus Negative (Negative) 07/23/18 16:20 Ur Culture Indicated? Yes 07/23/18 16:20 Urine Glucose Negative mg/dL (Negative) 07/23/18 16:20 Vancomycin Trough 19.6 ug/mL (10.0-20.0) 07/26/18 09:46 Patient ABO/Rh A Positive 07/24/18 15:54 Antibody Screen Negative 07/24/18 15:54 Crossmatch See Detail 07/24/18 15:54
[2018-08-01] MEDS: Cephalexin 500 MG CAP PO ×3 (12:06→20:16)
[2018-08-01] MEDS: Insulin Aspart 300 UNITS/3 ML PEN SC ×3 (12:08→22:48)
--- NOTE | 2018-08-01 12:33 | PGE_ITS ---
Date of Service Date of service: 08/01/18 Time of Service: 12:22 Assessment and Plan (1) SVT (supraventricular tachycardia): Current visit: Yes Status: Chronic Sustained regular narrow complex tachycardia that eventually slowed on its own prior to administration of adenosine. Further review of chart and discussion with appears that the patient has a history of Paroxysmal Afib that was not noted in prior history or by review of previous notes in the EMR. Repeat ECG showed sinus rhythm but with aberrant beats, potential wandering atrial pacemaker. Patient was started on low dose BB therapy and maintained on telemetry. Good rate control now with HR in the 70-80's. Also on prn IV Lopressor for sustained rates. (2) Abscess of left hip: Current visit: Yes Status: Acute S/p I&D/washout on 07/24. Cx w/ MSSA. Change from Vancomycin to Cefazolin. Vancomycin and Rifampin discontinued. Currently on Day #9 of antibiotics. Due to reaccumulation of fluid the patient returned to the OR on 07/30 of For repeat wash out - underwent another Incision and Drainage, with debridement of the abscess cavity, with insertion of 2 drains, 1 deep and one subcutaneous. Plan on switching to oral antibiotics - Cephalexin initiated QID dosing. (3) Anemia associated with acute blood loss: Current visit: Yes Status: Acute s/p transfusion of 2 units of pRBC's - values had been stable with Hgb in the 7-8 range, but now with mild drop post procedure, now at 7.1. Will transfuse 1 unit in anticipation of patient discharge and further drop in Hgb. 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 Metastatic Endometrial Ca originally, but with Pathology apparently showing no evidence of malignancy. Official path results pending. (5) Sle-slkigyd-ytcmpmrni diabetes mellitus without complications: Current visit: Yes Status: Acute Continue ISS, ADA diet. (6) Alzheimer disease: Current visit: Yes Status: Chronic Currently on Aricept and Namenda. is caregiver and makes decisions for patient's care. (7) DVT prophylaxis: Current visit: Yes Status: Acute SC Lovenox. (8) Discharge planning issues: Current visit: Yes Status: Acute Following discussion with Palliative care, patient's code status was changed to DNR/DNI. Subjective Interval history since last seen: 73-year-old woman admitted from [facility] Emergency Department on 07/22 with complaints of left hip pain and swelling, found to have infection in the left hip. Mrs. 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 Patient had complained of induration and pain over the left hip for some time prior to her admission. She had recently seen her oncologist Dr. Saavedra who had some surveillance CT scans performed regarding her metastatic endometrial carcinoma. These images showed incidental finding of a collection of fluid around the left hip joint. She was subsequently evaluated by Dr. Bowman who obtained plain films and did not find any acute changes within the left hip compared to her previous x-rays of her left total hip arthroplasty. Patient was seen earlier on the day of admission by her primary care provider Dr. Chano Leon who aspirated some purulent material from the soft tissues overlying her left hip. Patient was then referred to the emergency room for evaluation of possible left hip infection versus infected bursitis. Workup in the emergency room included x-rays of the left hip and pelvis which showed diffuse osteopenia and bilateral total hip arthroplasty with no hardware loosening or fracture. Laboratory workup was remarkable for a leukocytosis, anemia, as well as significant thrombocytosis. She was subsequently admitted for further evaluation and treatment. Subsequently the patient underwent surgical evaluation of her Left hip, with irrigation and debridement of the area, and with noted evidence of soft tissue infection with lesions initially suspicious for malignancy. Pathology on the biopsy of this is pending, but ortho reports that pathology does not appear to be malignant per discussion with pathology, and may be chronic/infectious in nature. In discussion with Ortho there also did not appear to be extension of the infection into the hardware by the original washout. She had been maintained on Rifampin and Vancomycin, with culture results showing MSSA. She was switched to Cefazolin on 07/27. She did however show evidence of worsening drainage from her hip, and was tentatively scheduled for a return to the OR on 07/29, but was noted to be tachycardic by nursing, with ECG showing a sustained narrow complex tachycardia. Her history of Paroxysmal Afib was noted, but she has not been in Afib since going on telemetry. She remains in a sinus rhythm with a potential Wandering Atrial Pacemaker. Her heart rate is now controlled with addition of low dose BB. She has now undergone repeat irrigation and debridement on 07/30. The patient has no complaints again this morning, and appears to be doing well. Her hemoglobin has dropped minimally following her debridement. No overnight events reported. Patient remains afebrile. Exam Narrative Exam Narrative: General: Appears comfortable sitting up in bed, no acute distress noted Neck: Supple CV: Regular at time of exam, No rubs, murmurs, gallops Pulmonary: CTAB Without crackles, rhonchi, or wheezing on limited anterior and lateral exam. Abdomen: +BS, soft, NT, ND. Vascular, b/l +1 LE Edema. Musculoskeletal: RUE Amputation noted. Psych: Mood and Affect Normal. Objective Objective Clinical Data: Abnormal lab results 08/01/18 08/01/18 08/01/18 Range/Units 06:30 09:50 11:31 WBC 11.61 H (4.4-10.8) k/cumm RBC 2.97 L (4.00-5.20) m/cumm Hgb 7.1 L (12.0-15.5) g/dL Hct 24.0 L (36.0-46.0) % MCH 23.9 L (27.0-33.0) pg MCHC 29.6 L (32.0-36.0) g/dL RDW 25.3 H (11.7-14.6) % Plt Count 641 H (130-400) x1000/uL Absolute Neutrophils 9.24 H (1.2-6.7) k/cumm Absolute Lymphocytes 0.68 L (1.2-3.4) k/cumm Absolute Monocytes 1.00 H (0.11-0.7) k/cumm Chloride 111 H (98-107) mmol/L Carbon Dioxide 17.7 L (21.0-32.0) mmol/L Glucose 155 H (70-100) mg/dL Calcium 8.1 L (8.5-10.1) mg/dL Crossmatch See Detail Vital Signs Temperature 36.3 C L 08/01/18 07:50 Temperature Source Tympanic 08/01/18 07:50 Pulse 55 L 08/01/18 07:50 Pulse Rhythm Regular 08/01/18 11:40 Respiratory Rate 17 08/01/18 07:50 Respiratory Effort Non-Labored 08/01/18 11:40 Respiratory Depth Normal 08/01/18 11:40 Respiratory Pattern Normal 08/01/18 11:40 Blood Pressure 122/71 08/01/18 07:50 Pulse Oximetry 98 08/01/18 07:50 Respiratory End-tidal CO2 18 07/30/18 15:59 Oxygen Delivery Method Room Air 08/01/18 07:50 Oxygen Flow Rate 0 08/01/18 07:50 Pain Level 7 08/01/18 09:15 Comment 07/31/18 08:35 Intake & Output 07/31/18 08/01/18 08/01/18 23:59 11:59 23:59 Intake Total 290 / 290 530 / 530 Output Total 275 / 275 210 / 210 Balance 320 / 320 Weight 78.4 kg Intake: IV 50 / 50 50 / 50 Oral 240 / 240 480 / 480 Output: Drainage 275 / 275 90 / 90 Left Hip 45 / 45 10 / 10 Left Mid Hip 230 / 230 80 / 80 Urine 120 / 120 Other: Urine Color [place] Urine Appearance Clear Clear Comment incontinent large amount of urine x1 Stool Size Moderate Smear Stool Characteristics Soft Black Green Voiding Methods Diaper Incontinent Laboratory Results WBC 11.61 k/cumm (4.4-10.8) H 08/01/18 06:30 RBC 2.97 m/cumm (4.00-5.20) L 08/01/18 06:30 Hgb 7.1 g/dL (12.0-15.5) L 08/01/18 06:30 Hct 24.0 % (36.0-46.0) L 08/01/18 06:30 MCV 80.8 fL (80-95) 08/01/18 06:30 MCH 23.9 pg (27.0-33.0) L 08/01/18 06:30 MCHC 29.6 g/dL (32.0-36.0) L 08/01/18 06:30 RDW 25.3 % (11.7-14.6) H 08/01/18 06:30 Plt Count 641 x1000/uL (130-400) H 08/01/18 06:30 MPV 8.8 fL (8.0-11.0) 08/01/18 06:30 Immature Gran % 1.2 08/01/18 06:30 Neutrophils % 79.6 08/01/18 06:30 Lymphocytes % 5.9 08/01/18 06:30 Monocytes % 8.6 08/01/18 06:30 Eosinophils % 4.4 08/01/18 06:30 Basophils % 0.3 08/01/18 06:30 Absolute Neutrophils 9.24 k/cumm (1.2-6.7) H 08/01/18 06:30 Band Neutrophils 1.0 % 07/25/18 06:45 Absolute Lymphocytes 0.68 k/cumm (1.2-3.4) L 08/01/18 06:30 Absolute Monocytes 1.00 k/cumm (0.11-0.7) H 08/01/18 06:30 Absolute Eosinophils 0.51 k/cumm (0.0-0.7) 08/01/18 06:30 Absolute Basophils 0.03 k/cumm (0.0-0.2) 08/01/18 06:30 Myelocytes 1.0 % 07/25/18 06:45 Differential Comment Agrees w/ instrument 07/31/18 06:50 RBC Morphology See below 07/31/18 06:50 Polychromasia Present 07/30/18 11:15 Hypochromasia 2+ 07/31/18 06:50 Poikilocytosis 1+ 07/29/18 07:00 Anisocytosis 3+ 07/31/18 06:50 Microcytosis 2+ 07/30/18 11:15 Macrocytosis 1+ 07/29/18 07:00 Spherocytes 1+ 07/23/18 15:35 Ovalocytes 2+ 07/31/18 06:50 [place] Cells 2+ 07/31/18 06:50 ESR 25 MM/HR (0-30) 07/25/18 06:45 Sodium 139 mmol/L (136-145) 08/01/18 09:50 Potassium 4.0 mmol/L (3.5-5.1) 08/01/18 09:50 Chloride 111 mmol/L (98-107) H 08/01/18 09:50 Carbon Dioxide 17.7 mmol/L (21.0-32.0) L 08/01/18 09:50 Anion Gap 10.3 mmol/L (3-11) 08/01/18 09:50 BUN 12 mg/dL (7-18) 08/01/18 09:50 Creatinine 0.95 mg/dL (0.55-1.02) 08/01/18 09:50 Estimated GFR/1.73 m2 57.35 (mL/min/1.73m2) 08/01/18 09:50 Glucose 155 mg/dL (70-100) H 08/01/18 09:50 Lactate 1.9 mmol/L (0.6-1.4) H 07/23/18 15:35 Calcium 8.1 mg/dL (8.5-10.1) L 08/01/18 09:50 Magnesium 1.8 mg/dL (1.8-2.4) 08/01/18 09:50 Iron 9 ug/dL (50-175) L 07/23/18 15:30 TIBC 102 ug/dL (250-450) L 07/23/18 15:30 Transferrin % Sat 9 % (15-50) L 07/23/18 15:30 Ferritin 541 ng/mL (8-388) H 07/23/18 15:30 Total Bilirubin 0.3 mg/dL (0.2-1.0) 07/23/18 15:35 AST 17 U/L (15-37) 07/23/18 15:35 ALT 16 U/L (12-78) 07/23/18 15:35 Alkaline Phosphatase 193 U/L (46-116) H 07/23/18 15:35 Troponin I < 0.02 ng/mL (0.00-0.06) 07/23/18 15:35 C-Reactive Protein 6.87 mg/dL (0.0-0.3) H 07/30/18 11:15 Total Protein 6.2 g/dL (6.4-8.2) L 07/23/18 15:35 Albumin 1.7 g/dL (3.4-5.0) L 07/23/18 15:35 Urine Color Yellow (Yellow) 07/23/18 16:20 Urine Clarity Clear 07/23/18 16:20 Urine pH 5.5 (5-8) 07/23/18 16:20 Ur Specific [place] 1.020 (1.005-1.025) 07/23/18 16:20 Urine Protein Negative mg/dL (Negative) 07/23/18 16:20 Urine Ketones Trace mg/dL (Negative) H 07/23/18 16:20 Urine Blood Negative (Negative) 07/23/18 16:20 Urine Nitrite Negative (Negative) 07/23/18 16:20 Urine Bilirubin Negative (Negative) 07/23/18 16:20 Urine Urobilinogen 0.2 EU/dL (Up TO 0.2) 07/23/18 16:20 Ur Leukocyte Esterase Trace (Negative) H 07/23/18 16:20 Urine RBC 5-10 (0-2) H 07/23/18 16:20 Urine WBC 20-50 HPF (0-5) 07/23/18 16:20 Ur Epithelial Cells Few HPF (Negative) 07/23/18 16:20 Urine Crystals Moderate amorphous HPF (Negative) 07/23/18 16:20 Urine Bacteria Negative HPF (Negative) 07/23/18 16:20 Urine Casts 20-50 hyaline LPF (Negative) 07/23/18 16:20 Urine Mucus Negative (Negative) 07/23/18 16:20 Ur Culture Indicated? Yes 07/23/18 16:20 Urine Glucose Negative mg/dL (Negative) 07/23/18 16:20 Vancomycin Trough 19.6 ug/mL (10.0-20.0) 07/26/18 09:46 Patient ABO/Rh A Positive 07/24/18 15:54 Antibody Screen Negative 07/24/18 15:54 Crossmatch See Detail 08/01/18 11:31
--- NOTE | 2018-08-01 13:16 | W.PM.DS.N ---
Date of service: 08/01/18 Time of Service: 13:16 DS: Diagnosis Discharge Diagnosis (1) SVT (supraventricular tachycardia): Status: Acute (2) Abscess of left hip: Status: Acute (3) Anemia associated with acute blood loss: Status: Acute Discharge Plan Disposition Patient Disposition: HOME W/HOME HEALTH SERVICE Condition: Improving Discharge Details Chief Complaint: Orthopedic Reason For Visit: L HIP INFECTION Admit Date/Time: 07/23/18 20:16 Admit Provider: Bandar Corona Attending Provider: Bandar Corona Primary Care Provider: Chano Leon ED Provider: [place] [facility] Course Hospital Course: Elva was admitted to the hospital for a left hip abscess. Hospital day #2 she underwent irrigation and debridement of the left hip. At the time of the debridement there is a large amount of abnormal appearing tissue superficially down towards the femur. There is masslike components as well as hypertrophic fibrofatty tissue. This was sent to pathology for concern of metastatic disease or sarcoma. She had significant amounts of purulence within the left hip soft tissues which grew out methicillin septal staph aureus. He did not involve the hip joint itself. She had immediate improvement with pain. She is able to ambulate in the first few postoperative days. Her hemoglobin dropped significantly on postop day #1 and therefore required a transfusion of 2 units. She tolerated this transfusion well and again did well without any significant complications. Pathology returned as chronic inflammatory changes without signs of malignant transformation. She was kept on species of specific antibiotics with good results. Her labs continue to decrease. They did plateau slightly she did have a re-Coblation of the fluid after the drain was removed. She was thus planned for return to the operating room for irrigation and debridement. However, on this plan day she went into supraventricular tachycardia. He returned to his normal state without any significant intervention. The rifampin that she was taking was stopped. Metoprolol was instituted. Her heart rate continued to improve and she was kept on metoprolol as a single agent instead of the nifedipine. Her blood glucose remained well controlled during hospitalization. She was able to mobilize after the secondary procedure although with some increase in pain. Prior to discharge her hemoglobin had dropped to 7.1 and therefore another unit was administered with recheck Hgb on day of discharge of 8.6. Home Meds and New Rx's Prescriptions: New cephalexin 500 mg Capsule 500 mg PO QID Qty: 56 RF: 0 metoprolol tartrate 25 mg Tablet 25 mg PO Q12H Qty: 60 RF: 0 tramadol 50 mg Tablet 50 mg PO Q6H PRN PRN (Reason: Pain) Qty: 8 RF: 0 Continue atorvastatin 40 mg tablet 40 mg PO DAILY RF: 0 donepezil [Aricept] 5 MG tablet 5 mg PO DAILY RF: 0 sennosides-docusate sodium [Senna with Docusate Sodium] 1 EACH tablet 1 ea PO BID RF: 0 acetaminophen [Tylenol Extra Strength] 500 MG tablet 1,000 mg PO BID RF: 0 magnesium oxide 400 MG tablet 400 mg PO DAILY RF: 0 diphenhydramine HCl [Allergy (diphenhydramine)] 25 MG capsule 25 mg PO DAILY RF: 0 memantine [Namenda] 10 MG tablet 10 mg PO BID RF: 0 insulin detemir U-100 [Levemir FlexTouch U-100 Insuln] 100 UNIT/1 ML insulin pen 42 DAILY RF: 0 furosemide 20 MG tablet 20 mg PO DAILY RF: 0 melatonin-pyridoxine (vit B6) 1 TAB tablet 3 mg PO HS RF: 0 multivitamin 1 EACH capsule 1 cap PO DAILY RF: 0 sitagliptin [Januvia] 100 MG tablet 100 mg PO DAILY RF: 0 levothyroxine 137 MCG tablet 150 mcg PO DAILY RF: 0 duloxetine [Cymbalta] 60 MG capsule,delayed release(DR/EC) 60 mg PO DAILY RF: 0 tamoxifen 20 mg Tablet 40 mg PO DAILY RF: 0 Changed aspirin [Aspir-81] 81 MG tablet,delayed release (DR/EC) 81 mg PO BID Qty: 80 RF: 0 Discontinued nifedipine 60 MG tablet extended release 24hr 90 mg PO HS RF: 0 nifedipine 90 mg Tablet Extended Release 24hr 90 mg PO DAILY RF: 0 sitagliptin [Januvia] 100 mg Tablet 100 mg PO DAILY RF: 0 Discharge Instructions Additional Instructions: ACTIVITY: You may bear weight as tolerated on the left leg. Use the walker at all times. You will have home health physical therapy to work on strengthening and improving your ambulation. You have no positioning restrictions. DRESSINGS/DRAINS: - You may leave the dressing on for 2-3 days at a time as long as it is not visibly soiled. It may be changed daily with dry, sterile gauze and tape. - The wound should be dressed until follow-up. - The drain should be emptied as needed, but at least once per 24 hour period. It is important to have an idea of the output. The drain may be removed when the output is less than 50cc per 24 hour period. MEDICATIONS: - You should take Tylenol for baseline pain control. You have been prescribed Tramadol for breakthrough pain if needed. This may cause constipation. - Your blood pressure and heart rate medication has been changed from Nifedipine to Metoprolol. ONLY TAKE THE METROPOLOL. This will need to be discussed with Dr. Leon. - You will need to take the Cephalexin antibiotic 4 times per day until further instruction. This is treating your infection. Follow-up: - You should follow-up with Dr. Leon in the next week. - Follow-up with Dr. Corona within the next 10-14 days. 1. Encounter Date and Reason I certify that ELVA QUEEN was seen by Bandar Corona on 08/01/18 and that I had a [id number] encounter with this patient that meets the physician face to face encounter requirements. 2. Clinical Findings Supporting Skilled Need and Homebound Status I certify that home health services are medically necessary, include either intermittent intermediate and/or physical/speech therapy, and that this patient is homebound in that absences from the home require considerable and taxing effort and are infrequent or of short duration, or are attributable to the need to receive medical care. [X] (a) Attached documentation from encounter provides clinical findings supporting skilled need and homebound status (including what assistance patient requires to leave the home). The encounter with the patient was in whole, or in part, for the following medical condition, which is the primary reason for home health care: L HIP INFECTION Intermediate: Elva would benefit from home health nursing due to multiple medical issues, multiple medications, and management of a complex wound with drains. The dressing and drain instructions are provided in the discharge instructions. The wound to be monitored for any signs of recurring infection. Drain may be changed once daily or as needed, it can be removed with less than 50 cc per 24-hour period. She also has multiple medications which have been changed and nursing is requested to assist with medication management in the home setting. Physical Therapy: Physical and occupational therapy would be beneficial for Mrs. Queen. She has significant weakness, gait disturbance, difficulties with activities of daily living. She had benefit from the skilled services to help her perform her ADLs as well as make improvements with ambulation to become more independent. She has no restrictions with her left hip. She should use a walker at all times. Speech Therapy: Homebound: Mrs. Queen is homebound due to her significant weakness and gait abnormalities. She is unable to leave the house unassisted. Palliative: Mrs. Queen was seen by palliative care in this hospital admission. She would benefit from palliative consultation to be connected to the palliative care network. 3. Certification and Authentication I certify that I composed the above information based on my clinical judgement relating to this patient's medical condition and, if applicable, clinical findings communicated to me by the NPP or inpatient physician who performed the Home Health Referral. All further orders will be obtained through Dr. Corona or Dr. Leon Activity:: Activity as Tolerated Equipment/Supplies:: Walker Diet:: As Tolerated Discharge Orders Discharge Orders: Discharge Order (Routine); Ordered 08/02/18 Ordered By: Bandar Corona DS: Data Vitals/I&O Vitals and I&O: Vital Signs Temperature 37.4 C 08/01/18 11:45 Temperature Source Tympanic 08/01/18 11:45 Pulse 65 08/01/18 11:45 Pulse Rhythm Regular 08/01/18 11:40 Respiratory Rate 18 08/01/18 11:45 Respiratory Effort Non-Labored 08/01/18 11:40 Respiratory Depth Normal 08/01/18 11:40 Respiratory Pattern Normal 08/01/18 11:40 Blood Pressure 120/59 L 08/01/18 11:45 Pulse Oximetry 97 08/01/18 11:45 Respiratory End-tidal CO2 18 07/30/18 15:59 Oxygen Delivery Method Room Air 08/01/18 11:45 Oxygen Flow Rate 0 08/01/18 11:45 Pain Level 7 08/01/18 09:15 Comment 08/01/18 11:45 Intake & Output 07/31/18 08/01/18 08/01/18 23:59 11:59 23:59 Intake Total 290 / 290 530 / 530 240 / 240 Output Total 275 / 275 210 / 210 Balance 320 / 320 240 / 240 Weight 78.4 kg Intake: IV 50 / 50 50 / 50 Oral 240 / 240 480 / 480 240 / 240 Output: Drainage 275 / 275 90 / 90 Left Hip 45 / 45 10 / 10 Left Mid Hip 230 / 230 80 / 80 Urine 120 / 120 Other: Urine Color Sheridan Urine Appearance Clear Clear Comment incontinent large amount of urine x1 Stool Size Moderate Smear Stool Characteristics Soft Black Green Voiding Methods Diaper Incontinent Labs on day of discharge: Labs from last 24 hours 08/01/18 08/01/18 08/01/18 12:56 09:50 09:50 WBC RBC Hgb Hct MCV MCH MCHC RDW Plt Count MPV Immature Gran % Neutrophils % Lymphocytes % Monocytes % Eosinophils % Basophils % Absolute Neutrophils Absolute Lymphocytes Absolute Monocytes Absolute Eosinophils Absolute Basophils Sodium 139 Potassium 4.0 Chloride 111 H Carbon Dioxide 17.7 L Anion Gap 10.3 BUN 12 Creatinine 0.95 Estimated GFR/1.73 m2 57.35 Glucose 155 H Calcium 8.1 L Magnesium 1.8 Patient ABO/Rh Pending Crossmatch See Detail 08/01/18 06:30 WBC 11.61 H RBC 2.97 L Hgb 7.1 L Hct 24.0 L MCV 80.8 MCH 23.9 L MCHC 29.6 L RDW 25.3 H Plt Count 641 H MPV 8.8 Immature Gran % 1.2 Neutrophils % 79.6 Lymphocytes % 5.9 Monocytes % 8.6 Eosinophils % 4.4 Basophils % 0.3 Absolute Neutrophils 9.24 H Absolute Lymphocytes 0.68 L Absolute Monocytes 1.00 H Absolute Eosinophils 0.51 Absolute Basophils 0.03 Sodium Potassium Chloride Carbon Dioxide Anion Gap BUN Creatinine Estimated GFR/1.73 m2 Glucose Calcium Magnesium Patient ABO/Rh Crossmatch 07/30/18 13:30 Hip - Left Anaerobic Culture - Pending Preliminary micro results at discharge 07/30/18 13:30 Surgical Culture - Preliminary Hip - Left Staphylococcus Species 07/30/18 13:30 Anaerobic Culture - Pending Hip - Left
[2018-08-01] MEDS: Acetaminophen 325 MG TAB 650 MG PO (14:42)
[2018-08-01] MEDS: diphenhydrAMINE 25 MG CAP PO (14:42)
--- NOTE | 2018-08-01 15:38 | PT.INDS ---
Date of service: 08/01/18 Time of Service: 15:38 PT Notes Date: 08/01/18 Dates of Service: 07/25/18-08/01/18 PRECAUTIONS: Fall precautions, WBAT L LE SUBJECTIVE: NT OBJECTIVE: 07/25/18-08/01/18 Bed Mobility/Transfers: Supine-sit: minAx1 Sit-stand: CGA with R platform FWW Bed-chair: CGA with R platform FWW Stand-sit: SBA Gait: R platform FWW 5ft bed to chair. Cues for step sequence, gait belt for assistance. Balance: Static Sitting: normal Dynamic Sitting: normal Static Standing: fair Dynamic Standing: poor Assessment: Pt is a 73yr old female s/p incision and drainage left hip by Dr. 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 Patient has been seen for 9 PT visits. Pr's progress has been limited due to medical procedures (2 washouts left hip) and decreased HGB 7.5 that have limited her ability to participate and progress with therapy intervention. She is at Daniella-CGA level for transfers in bed, transfers to chair and gait with platform FWW. feels he can assist her at this level, as she was wheelchair bound prior to admission and he plans to take her home at discharge, home PT and OT recommended in home setting for continued strengthening and ADL training. Goals: Goals X1 week 1. Supine-Sit: CGA 2. Sit-Supine :SBA 3. Sit-Stand :SBA with platform FWW 4. Stand-Sit: supervision 5. Bed-Chair : SBA with platform FWW 6. Chair-Bed : SBA with platform FWW 7. Gait: CGA with platform FWW 25ftx2 WBAT L LE 8. Stairs : up/down 4 steps with railing, WBAT L LE, CGA Pt has not met therapy goals, recommend home PT DISCHARGE RECOMMENDATIONS: Home with , home PT G Codes in the area mobility of walking and moving around: projected status GP [id number]. Discharge status (if discharging) GP [id number] Vanessa Garcia PT
[2018-08-01] MEDS: Pantoprazole 40 MG VIAL IVP (22:18)
[2018-08-01] MEDS: Melatonin 3 MG TAB PO (22:19)
[2018-08-01] MEDS: NIFEdipine-CR 30 MG TABCR 90 MG PO (22:19)
[2018-08-02 02:08] VITALS: PULSE 70
[2018-08-02] MEDS: Metoprolol 25 MG TAB PO (05:53)
[2018-08-02] MEDS: Levothyroxine 75 MCG TAB 150 MCG PO (05:53)
[2018-08-02 07:25] LABS: Abs Immature Grans 0.12 k/cumm (0.0-0.09); Absolute Basophil Count 0.02 k/cumm (0.0-0.2); Absolute Eosinophil Count 0.28 k/cumm (0.0-0.7); Absolute Lymphocyte Count 0.61 k/cumm (1.2-3.4); Absolute Monocyte Count 0.92 k/cumm (0.11-0.7); Absolute Neutrophil Count 8.38 k/cumm (1.2-6.7); Basophils % 0.2; Eosinophils % 2.7; HCT 28.7 % (36.0-46.0); HGB 8.6 g/dL (12.0-15.5); Immature Grans % 1.2; Lymphocytes % 5.9; Mean Corpuscular Hemoglobin 24.3 pg (27.0-33.0); Mean Corpuscular Volume 81.1 fL (80-95); Monocytes % 8.9; Neutrophils % 81.1; Platelet Count 673 x1000/uL (130-400); RBC 3.54 m/cumm (4.00-5.20); RBC Distribution Width 24.1 % (11.7-14.6); White Blood Cell Count 10.33 k/cumm (4.4-10.8)
[2018-08-02 07:34] LABS: Magnesium 1.8 mg/dL (1.8-2.4)
[2018-08-02 07:50] VITALS: BP 132/41; PULSE 56; RESP 17; TEMP 36.4; O2SAT 100
[2018-08-02 07:54] LABS: Anion Gap 11.4 mmol/L (3-11); BUN 11 mg/dL (7-18); CO2 17.6 mmol/L (21.0-32.0); CREATININE 0.84 mg/dL (0.55-1.02); Chloride 110 mmol/L (98-107); Glucose 135 mg/dL (70-100); Potassium 4.1 mmol/L (3.5-5.1); Sodium 139 mmol/L (136-145)
[2018-08-02] MEDS: Memantine 5 MG TAB 10 MG PO (09:01)
[2018-08-02] MEDS: Furosemide 20 MG TAB PO (09:01)
[2018-08-02] MEDS: Enoxaparin 40 MG/0.4 ML SYR SC (09:01)
[2018-08-02] MEDS: Atorvastatin 40 MG TAB PO (09:02)
[2018-08-02] MEDS: Multivitamin TAB 1 TAB PO (09:02)
[2018-08-02] MEDS: Donepezil 5 MG TAB 10 MG PO (09:02)
[2018-08-02] MEDS: DULoxetine 30 MG CAP 60 MG PO (09:02)
[2018-08-02] MEDS: Magnesium Oxide 400 MG TAB PO (09:02)
[2018-08-02] MEDS: Cephalexin 500 MG CAP PO (09:02)
[2018-08-02] MEDS: Sennosides/Docusate Sodium TAB 1 TAB PO (09:02)
[2018-08-02] MEDS: Ferrous Sulfate 325 MG TAB PO (09:02)
[2018-08-02 10:28] VITALS: PULSE 61
--- NOTE | 2018-08-02 13:20 | PDOC.CMDIS ---
- If Service Date Differs Date of service: 08/02/18 Time of Service: 13:20 Care Management Discharge Reason for Hospitalization: Left hip infection. Discharge Plan: Dina will discharge home when medically ready per MD. Anticipate patient will discharge with home health services (nursing, PT/OT) and follow up with surgical services and PCP. Dina will transport via private vehicle with her , Cosme. will continue to offer support to patient, family, and care team regarding discharge planning and disposition. Patient/Family Education Needs: Discharge education, any limitations, and follow up plan of care. Ask Me Three discussion. Services Needed at Discharge: Home Health Care Services ([facility])
== END 2018-08-02 11:20 | disposition home health service (06) | DRG 571 ==
LOC: ER 19:00 → MS 07-24 06:47
PROVIDERS: Internal Medicine; Orthopaedic Surgery; Admitting Provider Student in an Organized Health Care Education/Training Program; Emergency Provider Physician Assistant; PCP Internal Medicine; Visit Provider Student in an Organized Health Care Education/Training Program
PROC: 0JBM0ZZ Excision of Left Upper Leg Subcutaneous Tissue and Fascia, Open Approach (ICD-10-PCS; CPT 27045; principal; 2018-07-24 09:00)
DX: L02.416 Cutaneous abscess of left lower limb (principal); F05 Delirium due to known physiological condition; C78.00 Secondary malignant neoplasm of unspecified lung; D62 Acute posthemorrhagic anemia; I47.1 Supraventricular tachycardia; B95.61 Methicillin susceptible Staphylococcus aureus infection as the cause of diseases classified elsewhere; C54.1 Malignant neoplasm of endometrium; G30.9 Alzheimer's disease, unspecified; F02.80 Dementia in other diseases classified elsewhere, unspecified severity, without behavioral disturbance, psychotic disturbance, mood disturbance, and anxiety; I48.0 Paroxysmal atrial fibrillation; I95.9 Hypotension, unspecified; Z85.830 Personal history of malignant neoplasm of bone; Z96.642 Presence of left artificial hip joint; E03.9 Hypothyroidism, unspecified; E11.9 Type 2 diabetes mellitus without complications; Z79.4 Long term (current) use of insulin; D50.9 Iron deficiency anemia, unspecified; I10 Essential (primary) hypertension; F32.9 Major depressive disorder, single episode, unspecified; E78.5 Hyperlipidemia, unspecified
CPT/HCPCS: 11042; 27045; 27301; 36415; 36416; 36430; 36569; 71045; 80048; 80053; 85652; 86850; 86900; 86901; 86920; 87040; 87077; 88305; 96361; 96365; 96366; 96367; 97110; 97163; 97530; 99223; 99232; 99233; 99253; 99254; 99255; 99285; J1650; NC; 73502; 80202; 81003; 81015; 82728; 83540; 83550; 83605; 83735; 84484; 85014; 85018; 85025; 86140; 87070; 87075; 87086; 87186; 87205; 88233; 88262; 88304; 88312; 88361; 93005; 93010; 99222; J0131; J0690; J1885; J2370; J2405; J2543; J2765; J3010; J3475; J3490; P9016

== ENCOUNTER 2018-07-23 15:32 | Outpatient (REF) | payer MEDICARE, SELFPAY | END 2018-07-23 15:52 | LOC: NCHCN 15:32 | PROVIDERS: PCP Internal Medicine; Visit Provider Internal Medicine | DX: M00.852 Arthritis due to other bacteria, left hip (principal) | CPT/HCPCS: 87077; 87070; 87186; 87205 ==

== ENCOUNTER → 2018-07-24 12:45 | Outpatient (BNVA) | payer MEDICARE, SELFPAY | PROVIDERS: PCP Internal Medicine; Referring Provider Internal Medicine; Visit Provider Student in an Organized Health Care Education/Training Program | DX: R69 Illness, unspecified (principal) ==

== ENCOUNTER → 2018-07-30 13:16 | Outpatient (BNVA) | payer MEDICARE, SELFPAY | PROVIDERS: PCP Internal Medicine; Referring Provider Internal Medicine; Visit Provider Orthopaedic Surgery | DX: R69 Illness, unspecified (principal) ==

== ENCOUNTER 2018-08-07 12:24 | Inpatient (IN) | payer MEDICARE, SELFPAY ==
[2018-08-07] VITALS (8 sets, daily range): BP systolic 103–166; BP diastolic 63–73; PULSE 48–71; RESP 12–20; TEMP 36.6–37.1; O2SAT 96–99
--- NOTE | 2018-08-07 12:59 | ED.GENADUL_ITS ---
Discharge Plan Discharge Details Chief Complaint: Orthopedic Reason For Visit: FAILURE TO THRIVE, PERIPHERAL EDEMA, CHRONIC WOUND Admit Date/Time: 08/07/18 15:11 Admit Provider: Bandar Corona Attending Provider: Bandar Corona Primary Care Provider: Chano Leon ED Provider: Rudy Wheeler Discharge Data Discharge Date/Time-TO BE ENTERED AT DEPARTURE: 08/07/18 18:11 Medical Decision Making The wound looks clean and non infected. No redness with sutures intact without tension. The top part of the incision is open with smooth edges. No blood or drainage noted. Their is a small 5mm opening from where the drain was inserted. Will consult with Dr. Corona. Dr. Corona did consult in the ED. I do believe the plan was to possibly admit to [facility] or rehab center. Pt comfortable awaiting decision for placement. No change in POC. Patient pending admission to [facility]. Dr. Corona admitting MD. He will write orders to admit. HPI General Mode of arrival: wheelchair . Date/Time Provider Initiated Documentation: 08/07/18 12:24 . Limitations to Documentation: no limitations . Information obtained by: patient and family () . History of Present Illness 73 year old F presents to the emergency department with the chief complaint of noninfected draining wound, HPI Narrative: 73 y/o female brought in by for evaluation of left hip abscess. She has been evaluated and treated by Dr. Bowman and Cj for left hip cyst/abscess with I&D with washout and drains. She was D/C from here six days ago with HH services in place. He tells me he has collected increasing amounts of fluid from the drain until two days ago when the drain was accidentally pulled out. Now the fluid drains out into diaper and floor. He is frustrated with the amount of drainage coming from the wound. He called Dr. Christianson earlier today and was told to come to ED for evaluation. Dr. Corona had [place] to evaluate on Saturday but the was concerned about the amount of drainage coming from wound. Denies any fever, chills, or redness. He has record of drainage up until the . Amounts recorded was 275cc on the 3rd, 310 on the and 535 on the . Related Data Home Medications Medication Instructions Recorded Confirmed furosemide 20 mg PO DAILY 07/22/13 08/07/18 melatonin-pyridoxine (vit B6) 3 mg PO HS 07/22/13 08/07/18 multivitamin 1 cap PO DAILY 07/22/13 08/07/18 sitagliptin [Januvia] 100 mg PO DAILY 07/22/13 08/07/18 duloxetine [Cymbalta] 60 mg PO DAILY 04/19/14 08/07/18 levothyroxine 150 mcg PO DAILY 04/19/14 08/07/18 donepezil [Aricept] 5 mg PO DAILY tab-cap 05/12/15 08/07/18 acetaminophen [Tylenol Extra 1,000 mg PO BID 06/12/17 08/07/18 Strength] diphenhydramine HCl [Allergy 25 mg PO DAILY 06/12/17 08/07/18 (diphenhydramine)] insulin detemir U-100 [Levemir 42 DAILY 06/12/17 FlexTouch U-100 Insuln] magnesium oxide 400 mg PO DAILY 06/12/17 08/07/18 memantine [Namenda] 10 mg PO BID 06/12/17 08/07/18 sennosides-docusate sodium [Senna 1 ea PO BID 06/12/17 08/07/18 with Docusate Sodium] atorvastatin 40 mg tablet 40 mg PO DAILY 06/12/18 08/07/18 tamoxifen 40 mg PO DAILY 07/23/18 08/07/18 aspirin [Aspir-81] 81 mg PO BID #80 tab 08/01/18 08/07/18 cephalexin 500 mg PO QID #56 cap 08/01/18 08/07/18 metoprolol tartrate 25 mg PO Q12H #60 tab 08/01/18 08/07/18 tramadol 50 mg PO Q6H PRN PRN #8 tab 08/01/18 08/07/18 megestrol 160 mg PO DAILY 08/07/18 08/07/18 Previous Rx's Medication Instructions Recorded aspirin [Aspir-81] 81 mg PO BID #80 tab 08/01/18 cephalexin 500 mg PO QID #56 cap 08/01/18 metoprolol tartrate 25 mg PO Q12H #60 tab 08/01/18 tramadol 50 mg PO Q6H PRN PRN #8 tab 08/01/18 Allergies Allergy/AdvReac Type Severity Reaction Status Date / Time metformin Allergy Unknown Verified 08/07/18 12:39 sulfamethoxazole Allergy Unknown Verified 08/07/18 12:39 [From Bactrim] trimethoprim [From Bactrim] Allergy Unknown Verified 08/07/18 12:39 General Stated Complaint: Orthopedic ALEKS: 3 Review of Systems Constitutional Reports as per HPI Cardiovascular Reports system reviewed and no additional complaints, except as docu Respiratory Reports system reviewed and no additional complaints, except as docu Gastrointestinal Reports system reviewed and no additional complaints, except as docu Genitourinary Reports system reviewed and no additional complaints, except as docu Musculoskeletal Comments: Left hip surgical wound drainage. 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, insulin dependent (Chronic) Hypertension (Chronic) Depression (Chronic) Hypercholesterolemia (Chronic) Asthma (Chronic) Osteopenia (Chronic) Mitral regurgitation (Chronic) Right groin pain (Acute) History of osteosarcoma (Chronic) History of myocardial infarction (Chronic) Elevated lipids (Chronic) Endometrial cancer (Acute) SVT (supraventricular tachycardia) (Chronic) GI bleed (Resolved) Social History caregiver/support person: Yes household members: spouse housing: house lives independently: No senior living: No current occupational status: retired pets and animals: Yes Smoking/Tobacco Use Status: Never Surgical History History of Surgical Procedure (Chronic) Exam Const General: cooperative, comfortable and no acute distress Nutritional Appearance: obese Orientation: alert, awake and oriented x3 Eyes General: appearance normal, both eyes and all related structures GI Inspection: normal to inspection Palpation: soft and nontender Auscultation: normal bowel sounds External Female Exam: external appearance normal (with no inguinal adenopathy) Skin General skin exam: no rashes or lesions noted Wounds: wounds noted (surgical incision located to left hip is clean with no active drainage or redness. Sutures are intact without tension. ) Other: Good CSMT to the lower extremities. She does have some edema to the left leg but no pain to the calf. Extrem Left lower extremity: abnormal ROM (limited to weakness but able to lift leg and bend leg. ) Upper/lower leg/hip images: 2 1. incision open to top edge of wound with sutures intact without tension. Edges are smooth, without redness or drainage. Course Vital Signs Temperature 36.6 C 08/07/18 12:37 Pulse 53 L 08/07/18 12:37 Respiratory Rate 12 08/07/18 12:37 Blood Pressure 145/67 H 08/07/18 12:37 Pulse Oximetry 99 08/07/18 12:37 Temperature 36.6 C 08/07/18 12:37 Temperature Source Temporal Artery Scan 08/07/18 12:37 Pulse 53 L 08/07/18 12:37 Respiratory Rate 12 08/07/18 12:37 Blood Pressure 145/67 H 08/07/18 12:37 Blood Pressure Position Supine 08/07/18 12:37 Pulse Oximetry 99 08/07/18 12:37 Pain Level 0 08/07/18 12:37
--- NOTE | 2018-08-07 15:16 | W.PM.HP.N ---
Date of service: 08/07/18 Time of Service: 15:17 Assessment and Plan (1) Abscess of left hip: Current visit: No Status: Acute Unfortunately, Dina had the drain removed at home. She now is draining significantly from the wound. I would like to bring her to the hospital to evaluate this wound. We will work on dressing changes and also with physical therapy to help mobilize and manage the drainage. I may consider placement of a drain or a partial closure of the draining portions of the wound. However, these do come with risk of repeat infection and at this point she seems to be clearing the infection which was present in the left thigh. We will continue with the Keflex. I will repeat labs to check on her nutritional status as well as electrolytes and inflammatory markers. (2) Edema: Current visit: Yes Status: Acute Mrs. Queen continues to struggle at home. She is no longer thriving at home and therefore would benefit from this inpatient admission. She has significant edema of her legs which is also contributing to the persistent drainage from the left wound. She does have many medical issues including diabetes, heart disease, arrhythmia. Due to these issues and her recent increase in swelling, I will consult with the hospitalist service. I discussed the case with Dr. Robert. History of Present Illness Chief Complaint: Left Thigh Drainage, Swelling Consults Consult date: 08/07/18 Requesting physician: Rudy Wheeler Narrative: Mrs. Queen is a 73-year-old who I know quite well. She was admitted a little over 2 weeks ago for a left hip infection. It was irrigated and debrided once by me and then another time by Dr. Bowman. Drains were left in place. One was pulled prior to discharge about a week ago. The other was in place draining a significant amount of serous fluid. This fell out late on August 05. Since that time there is been a significant amount of drainage from the wound which has been difficult for Cosme, her , to manage. They do have home health nursing but they feel overwhelmed. Aliyah is not able to help out that much on her own. She denies any fevers or chills. She denies any pain. She and her notes significant increase in swelling of both legs. In the last day or 2 she has had progressing amounts of difficulties mobilizing with increasing fatigue. She denies any chest pain or fevers or chills. She denies any shortness of breath. Review of Systems Review of Systems All systems reviewed & are unremarkable except as noted in HPI and below Meds Home Medications Medication Instructions Recorded Confirmed Type furosemide 20 mg PO DAILY 07/22/13 08/07/18 History melatonin-pyridoxine (vit B6) 3 mg PO HS 07/22/13 08/07/18 History multivitamin 1 cap PO DAILY 07/22/13 08/07/18 History sitagliptin [Januvia] 100 mg PO DAILY 07/22/13 08/07/18 History duloxetine [Cymbalta] 60 mg PO DAILY 04/19/14 08/07/18 History levothyroxine 150 mcg PO DAILY 04/19/14 08/07/18 History donepezil [Aricept] 5 mg PO DAILY tab-cap 05/12/15 08/07/18 History acetaminophen [Tylenol Extra 1,000 mg PO BID 06/12/17 08/07/18 History Strength] diphenhydramine HCl [Allergy 25 mg PO DAILY 06/12/17 08/07/18 History (diphenhydramine)] insulin detemir U-100 [Levemir 42 DAILY 06/12/17 History FlexTouch U-100 Insuln] magnesium oxide 400 mg PO DAILY 06/12/17 08/07/18 History memantine [Namenda] 10 mg PO BID 06/12/17 08/07/18 History sennosides-docusate sodium [Senna 1 ea PO BID 06/12/17 08/07/18 History with Docusate Sodium] atorvastatin 40 mg tablet 40 mg PO DAILY 06/12/18 08/07/18 History tamoxifen 40 mg PO DAILY 07/23/18 08/07/18 History aspirin [Aspir-81] 81 mg PO BID #80 tab 08/01/18 08/07/18 Rx cephalexin 500 mg PO QID #56 cap 08/01/18 08/07/18 Rx metoprolol tartrate 25 mg PO Q12H #60 tab 08/01/18 08/07/18 Rx tramadol 50 mg PO Q6H PRN PRN #8 tab 08/01/18 08/07/18 Rx megestrol 160 mg PO DAILY 08/07/18 08/07/18 History Allergies Allergy/AdvReac Type Severity Reaction Status Date / Time metformin Allergy Unknown Verified 08/07/18 12:39 sulfamethoxazole Allergy Unknown Verified 08/07/18 12:39 [From Bactrim] trimethoprim [From Bactrim] Allergy Unknown Verified 08/07/18 12:39 Exam Narrative Exam Narrative: Is always in no acute distress. She is alert and oriented x3. She does seem a little bit disconnected with the communication during the interview, frustrated by being in the emergency department and needing to come back into the hospital. She is breathing without difficulty and no work of breathing. She is not diaphoretic and appears well. Not ill-appearing. Evaluation of the left leg shows a well approximated incision. There are no signs of infection. There is no erythema. There is no warmth. The fullness and fluctuance which was in the left thigh is no longer present. There are 2 areas of the incision that have not healed and there is some expressible serosanguineous fluid from this area. There are also 2 sites were drains were placed which were also oozing a small amount of serosanguineous fluid. I do not feel any area of true fluctuance but with pressure on the soft tissue of the left thigh I am able to express a small amount of barely blood-tinged serous fluid. From the thigh down through the ankle she has significant edema. The level of the pretibial space she has at least 3+ pitting edema. She has no pain to hip flexion, internal rotation, and external rotation. She does hold the leg slightly internally rotated. Sensation intact light touch over the deep and superficial peroneal nerve and tibial nerves. The foot is warm well perfused. Results Last Vital Signs Temp 36.6 C 08/07/18 15:04 Pulse 56 L 08/07/18 15:04 Resp 18 08/07/18 15:04 BP 166/70 H 08/07/18 15:04 Pulse Ox 99 08/07/18 15:04
[2018-08-07 15:40] LABS: HCT 34.6 % (36.0-46.0); HGB 10.6 g/dL (12.0-15.5); Mean Corp. HGB Concentration 30.6 g/dL (32.0-36.0); Mean Corpuscular Hemoglobin 25.7 pg (27.0-33.0); Mean Platelet Volume 8.6 fL (8.0-11.0); Platelet Count 580 x1000/uL (130-400); RBC 4.12 m/cumm (4.00-5.20); RBC Distribution Width 26.7 % (11.7-14.6); White Blood Cell Count 6.81 k/cumm (4.4-10.8)
[2018-08-07 15:55] LABS: ALT 8 U/L (12-78); AST 17 U/L (15-37); Albumin 1.4 g/dL (3.4-5.0); Alkaline Phosphatase 137 U/L (46-116); Anion Gap 8.5 mmol/L (3-11); BUN 10 mg/dL (7-18); Bilirubin, Total 0.2 mg/dL (0.2-1.0); C-Reactive Protein 0.69 mg/dL (0.0-0.3); CO2 24.5 mmol/L (21.0-32.0); CREATININE 0.68 mg/dL (0.55-1.02); Calcium 8.5 mg/dL (8.5-10.1); Chloride 107 mmol/L (98-107); Glucose 124 mg/dL (70-100); Potassium 3.8 mmol/L (3.5-5.1); Sodium 140 mmol/L (136-145); Total Protein 4.8 g/dL (6.4-8.2)
[2018-08-07] MEDS: Furosemide 20 MG TAB PO ×2 (16:45)
[2018-08-07] MEDS: Cephalexin 500 MG CAP PO ×2 (16:48→20:13)
--- NOTE | 2018-08-07 18:13 | W.MEDCONSULT ---
Date of service: 08/07/18 Time of Service: 16:45 Assessment and Plan (1) Edema: Current visit: Yes Status: Acute of BLE's. Most likely etiology - hypoalbuminemic state; however, given history of endometrial cancer and relative immobility, we need to r/o DVT's - obtain venous doppler. Additionally, obain echo cardiogram and watch on telemetry. Gentle diuresis with lasix 20 mg IV BID, daily weights and strict I/O monitoring. (2) Arrhythmia: Current visit: Yes Status: Acute Obtaining EKG. Monitor on tele. (3) Left hip prosthetic joint infection: Current visit: Yes Status: Acute Continue keflex, per ortho. Wound cx initially with MSSA, then with coag-negative staph. Will discuss further plans with orthopedic team. (4) Diabetes mellitus type 2, insulin dependent: Current visit: No Status: Chronic Will verify long acting insulin dose with in am. At this time, placing on SSI. (5) Alzheimer disease: Current visit: No Status: Chronic Stable. Monitor behaviors. (6) DVT prophylaxis: Current visit: No Status: Acute Defer to primary team. (7) Discharge planning issues: Current visit: No Status: Acute Full code. Will need SNF. History of Present Illness Chief Complaint: Wound drainage Narrative: 73 year old Female with PMHx of L prosthetic hip infection, recently discharged home from an admission at [facility] (07/24/18 - 08/02/18) who was brought in to [facility] ED because the L hip wound has been draining quite a bit. The drain has gotten dislodged from the wound. Additionally, the patient's feels that the patient needs more help than he is able to provide at home. In the ER, the patient would noted to have 2+ pitting edema in BLE's. The patient was admitted to Dr Corona's service. Hospitalists were asked to help in managing edema. Review of Systems Review of Systems 12 systems reviewed. Pertinent positives and negatives are as per HPI. Additionally, the patient reports very mild L hip pain. 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, insulin dependent (Chronic) Hypertension (Chronic) Depression (Chronic) Hypercholesterolemia (Chronic) Asthma (Chronic) Osteopenia (Chronic) Mitral regurgitation (Chronic) Right groin pain (Acute) History of osteosarcoma (Chronic) History of myocardial infarction (Chronic) Elevated lipids (Chronic) Endometrial cancer (Acute) SVT (supraventricular tachycardia) (Chronic) GI bleed (Resolved) Social History caregiver/support person: Yes household members: spouse housing: house lives independently: No skilled nursing: No current occupational status: retired pets and animals: Yes Smoking/Tobacco Use Status: Never Surgical History History of Surgical Procedure (Chronic) Exam Narrative Exam Narrative: General: Very pleasant, forgetful elderly female, comfortable in a stretcher in the ER Neurological: A&Ox2, No focal deficits Psychiatric: bright affect, appropriate speech pattern/content Skin: L hip incision dressed, dressing c/d/i. HEENT: EOMI, dry MM, no goiter or JVD; clear oropharynx Cardiovascular: Irregularly irregular rhythm Lungs: CTAB, diminished Gastrointestinal: abdomen soft, nontender, nondistended Extremities: 2+ BLE edema, symmetric, no clubbing/cyanosis Results Last Vital Signs Temp 36.6 C 08/07/18 18:09 Pulse 71 08/07/18 18:09 Resp 18 08/07/18 18:09 BP 124/69 08/07/18 18:09 Pulse Ox 96 08/07/18 18:09 Labs : 08/07/18 15:32 08/07/18 15:32 Laboratory Results - last 24 hr 08/07/18 08/07/18 15:32 15:32 WBC 6.81 RBC 4.12 Hgb 10.6 L Hct 34.6 L MCV 84.0 MCH 25.7 L MCHC 30.6 L RDW 26.7 H Plt Count 580 H MPV 8.6 Sodium 140 Potassium 3.8 Chloride 107 Carbon Dioxide 24.5 Anion Gap 8.5 BUN 10 Creatinine 0.68 Estimated GFR/1.73 m2 >= 60.00 Glucose 124 H Calcium 8.5 Total Bilirubin 0.2 AST 17 ALT 8 L Alkaline Phosphatase 137 H C-Reactive Protein 0.69 H Total Protein 4.8 L Albumin 1.4 L EKG ordered, pending
--- NOTE | 2018-08-07 18:22 | MCONE_ITS ---
Date of service: 08/07/18 Time of Service: 16:45 Assessment and Plan (1) Edema: Current visit: Yes Status: Acute of BLE's. Most likely etiology - hypoalbuminemic state; however, given history of endometrial cancer and relative immobility, we need to r/o DVT's - obtain venous doppler. Additionally, obain echo cardiogram and watch on telemetry. Gentle diuresis with lasix 20 mg IV BID, daily weights and strict I/O monitoring. (2) Arrhythmia: Current visit: Yes Status: Acute Obtaining EKG. Monitor on tele. (3) Left hip prosthetic joint infection: Current visit: Yes Status: Acute Continue keflex, per ortho. Wound cx initially with MSSA, then with coag- negative staph. Will discuss further plans with orthopedic team. (4) Diabetes mellitus type 2, insulin dependent: Current visit: No Status: Chronic Will verify long acting insulin dose with in am. At this time, placing on SSI. (5) Alzheimer disease: Current visit: No Status: Chronic Stable. Monitor behaviors. (6) DVT prophylaxis: Current visit: No Status: Acute Defer to primary team. (7) Discharge planning issues: Current visit: No Status: Acute Full code. Will need SNF. History of Present Illness Chief Complaint: Wound drainage Narrative: 73 year old Female with PMHx of L prosthetic hip infection, recently discharged home from an admission at [facility] (07/24/18 - 08/02/18) who was brought in to [facility] ED because the L hip wound has been draining quite a bit. The drain has gotten dislodged from the wound. Additionally, the patient's feels that the patient needs more help than he is able to provide at home. In the ER, the patient would noted to have 2+ pitting edema in BLE's. The patient was admitted to Dr Corona's service. Hospitalists were asked to help in managing edema. Review of Systems Review of Systems 12 systems reviewed. Pertinent positives and negatives are as per HPI. Additionally, the patient reports very mild L hip pain. 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, insulin dependent (Chronic) Hypertension (Chronic) Depression (Chronic) Hypercholesterolemia (Chronic) Asthma (Chronic) Osteopenia (Chronic) Mitral regurgitation (Chronic) Right groin pain (Acute) History of osteosarcoma (Chronic) History of myocardial infarction (Chronic) Elevated lipids (Chronic) Endometrial cancer (Acute) SVT (supraventricular tachycardia) (Chronic) GI bleed (Resolved) Social History caregiver/support person: Yes household members: spouse housing: house lives independently: No mcc: No current occupational status: retired pets and animals: Yes Smoking/Tobacco Use Status: Never Surgical History History of Surgical Procedure (Chronic) Exam Narrative Exam Narrative: General: Very pleasant, forgetful elderly female, comfortable in a stretcher in the ER Neurological: A&Ox2, No focal deficits Psychiatric: bright affect, appropriate speech pattern/content Skin: L hip incision dressed, dressing c/d/i. HEENT: EOMI, dry MM, no goiter or JVD; clear oropharynx Cardiovascular: Irregularly irregular rhythm Lungs: CTAB, diminished Gastrointestinal: abdomen soft, nontender, nondistended Extremities: 2+ BLE edema, symmetric, no clubbing/cyanosis Results Last Vital Signs Temp 36.6 C 08/07/18 18:09 Pulse 71 08/07/18 18:09 Resp 18 08/07/18 18:09 BP 124/69 08/07/18 18:09 Pulse Ox 96 08/07/18 18:09 Labs : 08/07/18 15:32 08/07/18 15:32 Laboratory Results - last 24 hr 08/07/18 08/07/18 15:32 15:32 WBC 6.81 RBC 4.12 Hgb 10.6 L Hct 34.6 L MCV 84.0 MCH 25.7 L MCHC 30.6 L RDW 26.7 H Plt Count 580 H MPV 8.6 Sodium 140 Potassium 3.8 Chloride 107 Carbon Dioxide 24.5 Anion Gap 8.5 BUN 10 Creatinine 0.68 Estimated GFR/1.73 m2 >= 60.00 Glucose 124 H Calcium 8.5 Total Bilirubin 0.2 AST 17 ALT 8 L Alkaline Phosphatase 137 H C-Reactive Protein 0.69 H Total Protein 4.8 L Albumin 1.4 L EKG ordered, pending
[2018-08-07] MEDS: Memantine 5 MG TAB 10 MG PO (20:12)
[2018-08-07] MEDS: Metoprolol 25 MG TAB PO (20:12)
[2018-08-07] MEDS: Aspirin E.C. 81 MG TABEC PO (20:13)
[2018-08-07] MEDS: Sennosides/Docusate Sodium TAB 1 TAB PO (20:13)
[2018-08-07] MEDS: Furosemide 20 MG/2 ML VIAL IVP (20:13)
[2018-08-07] MEDS: Acetaminophen 500 MG TAB 1000 MG PO (20:13)
[2018-08-07 20:48] LABS: NT-proBNP 960 pg/mL
[2018-08-07] MEDS: Melatonin 3 MG TAB PO (21:03)
[2018-08-08] VITALS (10 sets, daily range): BP systolic 103–139; BP diastolic 62–69; PULSE 48–70; RESP 16–18; TEMP 36.3–37.2; O2SAT 96–98
[2018-08-08] MEDS: Levothyroxine 75 MCG TAB (06:22)
--- NOTE | 2018-08-08 07:00 | DI.US_ITS ---
SYMPTOMS/DIAGNOSIS: FAILURE TO THRIVE, PERIPHERAL EDEMA, ? DVT BILATERAL LOWER EXTREMITY ULTRASOUND: The deep veins of the lower extremities show normal compression, augmentation and color flow. No evidence of a deep venous thrombus is identified. The visualized portions of the greater saphenous veins are patent bilaterally. IMPRESSION: No evidence of a deep venous thrombus in either lower extremity.
--- NOTE | 2018-08-08 07:37 | MERGE_ITS ---
*[facility]* *[facility]* [address] [place] [address] Date of study: 08/08/2018 Transthoracic Echocardiography M-mode, complete 2D, complete spectral Doppler, and color Doppler *STUDY CONCLUSIONS* Summary: 1. Left ventricle: The cavity size was normal. Wall thickness was increased in a pattern of mild LVH. Systolic function was normal. The estimated ejection fraction was 55-60%. Wall motion was normal; there were no regional wall motion abnormalities. 2. Right ventricle: The cavity size was normal. Systolic function was normal. 3. Left atrium: The atrium was moderately dilated. 4. Mitral valve: Mildly calcified annulus. There was mild to moderate regurgitation. 5. Inferior vena cava: The vessel was normal in size. The respirophasic diameter changes were in the normal range (greater than or equal to 50%), consistent with normal central venous pressure. *PATIENT PRESENTATION* Height: 160cm ((63in) ) S/D Pressure: 123 / 69 Weight: 76.2kg ((167.6lb) ) BSA: 1.87m^2 PERFORMING Unknown PERFORMING [facility] [employer] Adrienne Hughes Yelena A REFERRING Kogan, Yelena A *PROCEDURE DATA* Procedure information: This study was interpreted by [facility]. Pertinent images and digital data are archived for permanent storage and are available for subsequent review. No prior study was available for comparison. Study status: Routine. Transthoracic echocardiography. M-mode, complete 2D, complete spectral Doppler, and color Doppler. A Transthoracic Echocardiogram was performed. Scanning was performed from the parasternal, apical, subcostal, and suprasternal notch acoustic windows. Images were obtained using an [employer] 2000 cardiac ultrasound machine. Study completion: The patient tolerated the procedure well. There were no complications. History: PMH: CHF, Arrhythmia *CARDIAC ANATOMY* Left ventricle: The cavity size was normal. Wall thickness was increased in a pattern of mild LVH. Systolic function was normal. The estimated ejection fraction was 55-60%. Wall motion was normal; there were no regional wall motion abnormalities. Findings consistent with diastolic dysfunction. There was no evidence of elevated ventricular filling pressure by Doppler parameters. Aortic valve: Trileaflet; mildly thickened, mildly calcified leaflets. Mobility was not restricted. Doppler: Transvalvular velocity was within the normal range. There was no stenosis. There was mild regurgitation. VTI ratio of LVOT to aortic valve: 0.9. Valve area (VTI): 2.6cm^2. Indexed valve area (VTI): 1.4cm^2/m^2. Peak velocity ratio of LVOT to aortic valve: 0.77. Valve area (Vmax): 2.2cm^2. Indexed valve area (Vmax): 1.2cm^2/m^2. Mean velocity ratio of LVOT to aortic valve: 0.76. Valve area (Vmean): 2.2cm^2. Indexed valve area (Vmean): 1.2cm^2/m^2. Mean gradient (S): 8mm Hg. Peak gradient (S): 13.6mm Hg. Aorta: Aortic root: The aortic root was normal in size. Ascending aorta: The ascending aorta was mildly dilated (39 mm). Mitral valve: Mildly calcified annulus. Mobility was not restricted. Doppler: Transvalvular velocity was within the normal range. There was no evidence for stenosis. There was mild to moderate regurgitation. Valve area by pressure half-time: 3.7cm^2. Indexed valve area by pressure half-time: 2cm^2/m^2. Peak gradient (D): 2.7mm Hg. Left atrium: The atrium was moderately dilated. Right ventricle: The cavity size was normal. Systolic function was normal. Pulmonic valve: Poorly visualized. Doppler: Transvalvular velocity was within the normal range. There was no evidence for stenosis. There was no significant regurgitation. Tricuspid valve: Structurally normal valve. Doppler: Transvalvular velocity was within the normal range. There was no evidence for stenosis. There was trivial regurgitation. Pulmonary artery: Poorly visualized. Pulmonary systolic pressure was within the normal range, in the range of 20mm Hg to 25mm Hg. Right atrium: The atrium was normal in size. Pericardium: There was no pericardial effusion. Systemic veins: Inferior vena cava: The vessel was normal in size. The respirophasic diameter changes were in the normal range (greater than or equal to 50%), consistent with normal central venous pressure. Measurements Left ventricle Value Reference LV ID, ED, PLAX 4.2 cm 3.5 - 6.0 LV ID, ES, PLAX 2.9 cm 2.1 - 4.0 LV PW thickness, ED, PLAX 1.1 cm LV end-diastolic volume, 1-p A2C 102 ml LV end-diastolic volume, 1-p A4C 71 ml LV ejection fraction, 1-p A4C 59 % LV e', lateral 0.085 m/sec LV E/e', lateral 10 LV e', medial 0.05 m/sec LV E/e', medial 16 LV e', average 0.067 m/sec LV E/e', average 12 Ventricular septum Value Reference IVS thickness, ED, PLAX 1.1 cm LVOT Value Reference LVOT ID, A-P 1.9 cm LVOT area 2.8 cm^2 LVOT peak velocity, S 1.42 m/sec LVOT mean velocity, S 1.01 m/sec LVOT VTI, S 33.5 cm LVOT peak gradient, S 8.1 mm Hg LVOT mean gradient, S 4.7 mm Hg Stroke volume (SV), LVOT DP 95 ml Stroke index (SV/bsa), LVOT DP 51 ml/m^2 Aortic valve Value Reference Aortic valve peak velocity, S 1.8 m/sec Aortic valve mean velocity, S 1.32 m/sec Aortic valve VTI, S 37.0 cm Aortic mean gradient, S 8 mm Hg Aortic peak gradient, S 13.6 mm Hg VTI ratio, LVOT/AV 0.9 Aortic valve area, VTI 2.6 cm^2 Velocity ratio, peak, LVOT/AV 0.77 Aortic valve area, peak velocity 2.2 cm^2 Velocity ratio, mean, LVOT/AV 0.76 Aortic valve area, mean velocity 2.2 cm^2 Aortic valve area/bsa, mean velocity 1.2 cm^2/m^2 Aortic regurg deceleration 150 cm/s^2 Aortic regurg pressure half-time 816 ms Aorta Value Reference Aortic root ID, ED 3.1 cm Ascending aorta ID, A-P, S 3.9 cm Left atrium Value Reference LA ID, A-P, ES 3.1 cm LA ID/bsa, A-P 1.7 cm/m^2 <=2.2 LA area, ES, A4C (H) 32.9 cm^2 8.8 - 23.4 LA area, ES, A2C 17 cm^2 LA volume/bsa, S 49 ml/m^2 LA volume, ES, 2-p 79 ml LA volume/bsa, ES, 2-p 42 ml/m^2 LA/aortic root ratio 1 Mitral valve Value Reference Mitral E-wave peak velocity 0.82 m/sec Mitral A-wave peak velocity 0.79 m/sec Mitral deceleration time 203 ms 150 - 230 Mitral pressure half-time 59 ms Mitral peak gradient, D 2.7 mm Hg Mitral E/A ratio, peak 1.04 Mitral valve area, PHT, DP 3.7 cm^2 Tricuspid valve Value Reference Tricuspid regurg peak velocity 2.2 m/sec Tricuspid peak RV-RA gradient 19.7 mm Hg Right atrium Value Reference RA area, ES, A4C 18 cm^2 8.3 - 19.5 Legend: (L) and (H) lennie values outside specified reference range. I have personally reviewed the images and have reviewed and edited the reported findings. Electronically signed by Jordy Dang 08/08/2018 09:26
[2018-08-08] MEDS: Furosemide 20 MG/2 ML VIAL IVP ×2 (09:20→15:40)
[2018-08-08] MEDS: Donepezil 5 MG TAB PO (09:21)
[2018-08-08] MEDS: Normal Saline Flush 10 ML SYR IVP ×2 (09:21→15:41)
[2018-08-08] MEDS: Acetaminophen 500 MG TAB 1000 MG PO ×2 (09:21→19:38)
[2018-08-08] MEDS: Memantine 5 MG TAB 10 MG PO ×2 (09:21→19:39)
[2018-08-08] MEDS: Metoprolol 25 MG TAB PO ×2 (09:21→19:38)
[2018-08-08] MEDS: Atorvastatin 40 MG TAB PO (09:22)
[2018-08-08] MEDS: Cephalexin 500 MG CAP PO ×4 (09:22→19:39)
[2018-08-08] MEDS: Aspirin E.C. 81 MG TABEC PO ×2 (09:23→19:39)
[2018-08-08] MEDS: DULoxetine 30 MG CAP 60 MG PO (09:24)
[2018-08-08] MEDS: Sennosides/Docusate Sodium TAB 1 TAB PO ×2 (09:24→19:39)
[2018-08-08] MEDS: Magnesium Oxide 400 MG TAB PO (09:24)
[2018-08-08] MEDS: Multivitamin TAB 1 TAB PO (09:25)
[2018-08-08] MEDS: Nystatin POWDER 60 GM JAR TP ×3 (09:37→21:04)
--- NOTE | 2018-08-08 10:23 | IN_ITS ---
Date of service: 08/08/18 Time of Service: 09:01 PT Notes Date: 08/08/18 Referring Doctor: Dr. Corona PT Orders: PT CONSULT: left hip infection WBAT Precautions: WBAT L LE Patient Profile/Admitting Diagnosis: Pt is a 73yr old female s/p incision and drainage left hip by Dr. 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 Per she was using a wheelchair prior to admission due to hip pain, prior to that she mobilized with a FWW with right platform with assistance. brings her walker in today for her to use. She receives assist with ADLS Equipment Owned/DME: FWW with right platform, wheelchair, hemiwalker, shower chair, commode Subjective: Pt returning to room in transport chair, does not have her platform FWW from home in room yet, needs to bring it in. Objective: General Observation: dressings left hip Mental Status: A& O to name, location Pain: no c/o pain Bed Mobility/Transfers: Sit-stand: CGA with gait belt Transport chair to recliner chair: CGA with gait belt Stand-sit: CGA Gait: CGA with gait belt 5 steps transport chair to recliner chair. Pt needs to bring in her platform FWW to progress gait training. Balance: Static Sitting: normal Dynamic Sitting: normal Static Standing: fair Dynamic Standing: poor Special Tests: Mobility Limitations Standardized Measure [facility] AM-PAC 6 clicks Basic Mobility Inpatient Short Form: Raw Score: 18 Standardized Score: 43.63 CMS Score: 46.58% CMS Modifier: CK Informed Consent/Education: Patient instructed in purpose of PT consult and plan of care. Assessment: Pt is a 73yr old female s/p incision and drainage left hip by Dr. 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 Patient presents with the following impairment level findings: weakness left hip, decreased strength with transfers, decreased gait mobility post operatively requiring one person assist and platform FWW due to R UE amputation , decreased static and dynamic standing balance putting her at risk for falls. Pt was able to initiate mobility today and perform transfers to chair, will progress gait household distances and instruct in stair training. Impairments are contributing to the following functional limitations: AMPAC score CMS Score: 46.58% Patient is assessed as a High 99020 complexity based on the following: History: see above Examination:see above Presentation: evloving Decision Making: AMPAC score CMS Score: 46.58% Goals: Goals X1 week 1. Supine-Sit: CGA 2. Sit-Supine :SBA 3. Sit-Stand :SBA with platform FWW 4. Stand-Sit: supervision 5. Bed-Chair : SBA with platform FWW 6. Chair-Bed : SBA with platform FWW 7. Gait: CGA with platform FWW 25ftx2 WBAT L LE 8. Stairs : up/down 4 steps with railing, WBAT L LE, CGA Plan of Care/Treatment Plan: 1-2x/day, 7 days/week x 1 week. Plan of care has been reviewed with the BRAZING MACHINE OPERATOR [employer]IC providing the service under Physical Therapy direction. Initiate Physical Therapy intervention for strengthening, bed mobility, transfers, gait, stairs, balance training, use of assistive device. DISCHARGE RECOMMENDATIONS: Home with , home PT vs. skilled nursing care facility for rehab TREATMENT CODE/TIME: 23min IE 9:00 G Codes in the area mobility of walking and moving around: current status [id number] CL; projected status GP [id number]. Discharge status (if discharging) GP [id number] CL based on AMPAC score CMS Score: 46.58% Vanessa Garcia PT
[2018-08-08 10:35] LABS: Abs Immature Grans 0.04 k/cumm (0.0-0.09); Absolute Basophil Count 0.05 k/cumm (0.0-0.2); Absolute Eosinophil Count 0.24 k/cumm (0.0-0.7); Absolute Lymphocyte Count 0.61 k/cumm (1.2-3.4); Absolute Monocyte Count 0.45 k/cumm (0.11-0.7); Basophils % 0.8; Eosinophils % 3.9; HCT 31.7 % (36.0-46.0); HGB 9.3 g/dL (12.0-15.5); Immature Grans % 0.6; Lymphocytes % 9.9; Mean Corp. HGB Concentration 29.3 g/dL (32.0-36.0); Mean Corpuscular Hemoglobin 25.1 pg (27.0-33.0); Mean Corpuscular Volume 85.4 fL (80-95); Mean Platelet Volume 8.8 fL (8.0-11.0); Monocytes % 7.3; Neutrophils % 77.5; Platelet Count 484 x1000/uL (130-400); RBC 3.71 m/cumm (4.00-5.20); RBC Distribution Width 26.8 % (11.7-14.6); White Blood Cell Count 6.19 k/cumm (4.4-10.8)
--- NOTE | 2018-08-08 10:39 | PHARADMIT ---
Addendum entered by Cosme Rocha III 08/10/18 09:15: Pharmacy Note Subjective MD working on diuresing patient I&O (-1 Liter yesterday, 350mL todays, so far) Objective VS-OK Mag-1.8 SCr-0.69 still no weight-called BM yesterday. Assessment Keflex continues , no changes Plan Watch O&I, Lytes, weight, being followed by Ortho with Hospitalist consult Original Note: Addendum entered by Cosme Rocha III 08/09/18 11:16: Pharmacy Note Subjective Ortho notes significant edema, Hospitalist increase Lasix to 40mg IV BID. Patient is hypoalbuminemic, high calorie, high protein diet ordered. Objective VS-OK K+3.8 Mag-1.6 SCr, WBC, Plts-OK H&H-8.5/28.7 Needs Wgt Assessment Keflex continues Bolus Magnesium 2gm iv x 1, Plan Wound draining and healing on schedule Original Note: Admission Pharmacy Clinical Review FAILURE to THRIVE, PERIPHERALedema, chronic wound Code Status Full Code Current Weight Wgt-76.5 kg Renally Cleared and Narrow Therapeutic Index Meds CrCl~50.26mL/min Meds-OK QTc Value / Action Taken QTc-413 na BP Control, Fever BP- 123/69 Tmax- 37C Electrolytes reviewed Na-140 K+3.8 DVT Prophylaxis ASA-ec, Opiate Usage / Scheduled Bowel Regimen Ordered Yes Yes Plt/SCr for Heparin / Enoxaparin Plts-484 SCr-0.68 INR for Warfarin na H/H stable, WBC/Bands H&H-9.3/31.7 WBC-6.19 Antibiotic appropriateness Keflex Cultures and Sensitivities none Surgical ABX d/c within 24 hr na DM control / Insulin Dosing BG-124 Aspart, Januvia Heart Failure (Check EF%) (NAOMI's, B-Block, Diuretics) Lasix, Lopressor IV to PO Switch No Home Meds Reviewed Yes Home Meds Not Ordered Javon Comments RCRP-0.69
[2018-08-08 10:46] LABS: Anion Gap 9.1 mmol/L (3-11); BUN 10 mg/dL (7-18); CO2 21.9 mmol/L (21.0-32.0); CREATININE 0.66 mg/dL (0.55-1.02); Chloride 111 mmol/L (98-107); Glucose 152 mg/dL (70-100); Magnesium 1.3 mg/dL (1.8-2.4); Potassium 3.3 mmol/L (3.5-5.1); Sodium 142 mmol/L (136-145)
[2018-08-08] MEDS: Insulin Aspart 300 UNITS/3 ML PEN SC ×2 (12:25→17:43)
--- NOTE | 2018-08-08 13:46 | SATEXT_ITS ---
Assessment: Nutrition consult for high calorie, high protein nutrition therapy for wounds. Ms. Queen has had fair to poor PO intake at home. Her intake here has been fair with high calorie supplementation. She did not like the flavored Johnson for wound healing. She stated she would try the unflavored Johnson in her juice. She was busy with PT when I went to follow up on her tolerance of that. She is 61 and 76.5 kg. Her BMI is 29.5 kg/m2 which is WNL for her age. Her estimated energy needs for wound healing are 1900 kcal/day ( REE x 1.2 x 1.2). Her estimated protein needs are 100 grams per day (1.3 g/kg/ day). Nutritional Diagnosis: Increased nutritional needs related to wounds. Intervention: We will continue to encourage high protein, high calorie nutrition therapy. Will continue to offer liquid nutritional supplements as well as high protein foods that she likes. She verbalized that she likes yogurt so we encouraged her to continue with her yogurt intake. Monitoring and Evaluation: 1. Will continue to monitor PO intake and tolerance to supplementation and high calorie, high protein nutrition therapy. Will monitor weight. Please weigh patient daily so we can best monitor her nutritional status while she is in the hospital. 2. Evaluation of nutrition care plan ongoing. Will adjust as needed. Thank you for the consult.
--- NOTE | 2018-08-08 14:36 | PT.INTREAT ---
Date of service: 08/08/18 Time of Service: 14:37 PT Notes Inpatient Physical Therapy Treatment Note Date: 08/08/18 PRECAUTIONS: WBAT on L SUBJECTIVE: Dina states that she has been sitting up in the chair for most of the day. OBJECTIVE: PAIN: No c/o pain BED MOBILITY/TRANSFERS Sit-supine: Max A with HOB flat Sit-stand: Min A Stand-sit: Min A Chair-bed: CGA GAIT Assistive Device: Platform FWW Weight bearing: WBAT on L Assist: CGA Distance: 10' Deviation: Anxiety THEREX: Patient completed a LE strengthening and stabilization program, as per flow sheet. She requires some assist with SLR and hip abduction exercises due to weakness. ASSESSMENT: Patient tolerated session with increased fatigue following gait training. Patient demonstrates anxiety with gait training and requires cueing for safety and mechanics. She would benefit from continued gait and transfer training as well as strengthening for improved mobility. PLAN: Continue with PT's POC TREATMENT CODE/TIME: 30 minutes; TA/TP
--- NOTE | 2018-08-08 16:53 | PDOC.CMIN ---
Care Management Initial Assess REASON FOR HOSPITALIZATION:: Failure to Thrive, Peripheral Edema, Chronic Wound PAST MEDICAL HISTORY/PAST SURGICAL HISTORY:: Asthma, below elbow amputation, depression, DM type II, hyperlipidemia, GI bleed, [place], osteocarcoma, hypercholesterolemia, HTN, iron deficiency anemia, endometrial CA with mets to lungs, mitral regurgitation with angina, osteoarthritis of both hips, osteopenia. Surgical hx: left total hip arthroplasty. PREVIOUS FUNCTIONAL STATUS/SOCIAL/FAMILY SUPPORTS:: Dina resides in [place] with her of 56 years, Cosme. 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 She and Cosme have one adult son who does not reside locally but is supportive, according to Cosme. Dina requires assistance with her ADLs and transportation. At present time, she is utilizing a w/c to get around the home and to appointments. CURRENT FUNCTIONAL STATUS:: Dina is reclined in her recliner; covered in a blanket when CM meets with her and her , Cosme. Dina closes her eyes at times, but makes appropriate eye contact and smiles through out conversation; she is pleasant in interaction. Cosme speaks in length about her medical journey the last few years and his eyes water as he discusses her entering a SNF when medically stable for discharge. He reports trying to care for her at home and verbalizes knowing she needs a higher level of care for a short period of time before returning home now. ADVANCE DIRECTIVES:: On file at [facility]. Has patient been provided with information about the portal?: Yes Did the patient sign up for the portal?: No CODE STATUS:: Full Code INSURANCE COVERAGE / FINANCIAL ISSUES:: [facility] [employer], Medicare. CURRENT HOME/COMMUNITY SERVICES/EQUIPMENT:: [facility] has a personal care aide who comes to the home 1x/week for bathing and every other week to clean. Until recently, Dina has used a walker on occassion for ambulating. As of present, she is using a w/c. PRIMARY CARE PHYSICIAN:: Chano Leon. POTENTIAL DISCHARGE NEEDS:: Follow up appointment with PCP. Resumption and increase of nursing/PT/OT services through [facility]. PATIENT/FAMILY EDUCATION NEEDS:: Discharge education, any limitations, and follow up plan of care. Ask Me Three discussion. ANTICIPATED BARRIERS TO DISCHARGE:: None identified; Dina has been offered a bed at her SNF of choice; [facility]. TRANSPORTATION:: TBD by clinical need. PLAN:: Dina will discharge to [facility] when ready per MD. The facility will manage her further needs; transportation to be determined by clinical need upon discharge-anticipate Dina will remain at [facility] through the weekend. Readmission - Within the Past 30 Days Yes or No: Y - Date of First Admission Date of 1st Admission: 07/23/18 - Date of this Admission Date of Admission: 08/07/18 This admission was: Through ED - Speicalist Appointments Have you seen any other specialist since your 1st Admission?: Yes - If the patient had a VNA ordered Did the patient have a VNA order?: Yes Did you call the VNA before you came?: No Did the VNA tell you to come to the hospital?: No Do you know if the VNA called your physician?: No - ED visits How many ED visits in the past 12 months: 2 - Assessment for Readmission Summary of readmission circumstances, based upon interviews: Ongoing infection; patient choice to return home: unable to manage self care needs upon discharge. MD Statement Mrs. Queen continues to struggle at home. She is no longer thriving at home and therefore would benefit from this inpatient admission. She has significant edema of her legs which is also contributing to the persistent drainage from the left wound. She does have many medical issues including diabetes, heart disease, arrhythmia. She was admitted a little over 2 weeks ago for a left hip infection. It was irrigated and debrided once by and then another time by Dr. Bowman. Drains were left in place. One was pulled prior to discharge about a week ago. The other was in place draining a significant amount of serous fluid. This fell out late on August 05. Since that time there is been a significant amount of drainage from the wound which has been difficult for Cosme, her , to manage. They do have home health nursing but they feel overwhelmed. Aliyah is not able to help out that much on her own. She denies any fevers or chills. She denies any pain. She and her notes significant increase in swelling of both legs. Unfortunately, Dina had the drain removed at home. She now is draining significantly from the wound.
--- NOTE | 2018-08-08 17:06 | INITIAL_ITS ---
Care Management Initial Assess REASON FOR HOSPITALIZATION:: Failure to Thrive, Peripheral Edema, Chronic Wound PAST MEDICAL HISTORY/PAST SURGICAL HISTORY:: Asthma, below elbow amputation, depression, DM type II, hyperlipidemia, GI bleed, [place], osteocarcoma, hypercholesterolemia, HTN, iron deficiency anemia, endometrial CA with mets to lungs, mitral regurgitation with angina, osteoarthritis of both hips, osteopenia. Surgical hx: left total hip arthroplasty. PREVIOUS FUNCTIONAL STATUS/SOCIAL/FAMILY SUPPORTS:: Dina resides in [place] with her of 56 years, Cosme. 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 She and Cosme have one adult son who does not reside locally but is supportive, according to Cosme. Dina requires assistance with her ADLs and transportation. At present time, she is utilizing a w/c to get around the home and to appointments. CURRENT FUNCTIONAL STATUS:: Dina is reclined in her recliner; covered in a blanket when CM meets with her and her , Cosme. Dina closes her eyes at times, but makes appropriate eye contact and smiles through out conversation ; she is pleasant in interaction. Cosme speaks in length about her medical journey the last few years and his eyes water as he discusses her entering a SNF when medically stable for discharge. He reports trying to care for her at home and verbalizes knowing she needs a higher level of care for a short period of time before returning home now. ADVANCE DIRECTIVES:: On file at [facility]. Has patient been provided with information about the portal?: Yes Did the patient sign up for the portal?: No CODE STATUS:: Full Code INSURANCE COVERAGE / FINANCIAL ISSUES:: [facility] [email or web address], Medicare. CURRENT HOME/COMMUNITY SERVICES/EQUIPMENT:: [facility] has a live in caregiver who comes to the home 1x/week for bathing and every other week to clean. Until recently, Dina has used a walker on occassion for ambulating. As of present, she is using a w/c. PRIMARY CARE PHYSICIAN:: Chano Leon. POTENTIAL DISCHARGE NEEDS:: Follow up appointment with PCP. Resumption and increase of nursing/PT/OT services through [facility]. PATIENT/FAMILY EDUCATION NEEDS:: Discharge education, any limitations, and follow up plan of care. Ask Me Three discussion. ANTICIPATED BARRIERS TO DISCHARGE:: None identified; Dina has been offered a bed at her SNF of choice; [facility]. TRANSPORTATION:: TBD by clinical need. PLAN:: Dina will discharge to [facility] when ready per MD. The facility will manage her further needs; transportation to be determined by clinical need upon discharge-anticipate Dina will remain at [facility] through the weekend. Readmission - Within the Past 30 Days Yes or No: Y - Date of First Admission Date of 1st Admission: 07/23/18 - Date of this Admission Date of Admission: 08/07/18 This admission was: Through ED - Speicalist Appointments Have you seen any other specialist since your 1st Admission?: Yes - If the patient had a VNA ordered Did the patient have a VNA order?: Yes Did you call the VNA before you came?: No Did the VNA tell you to come to the hospital?: No Do you know if the VNA called your physician?: No - ED visits How many ED visits in the past 12 months: 2 - Assessment for Readmission Summary of readmission circumstances, based upon interviews: Ongoing infection; patient choice to return home: unable to manage self care needs upon discharge. MD Statement Mrs. Queen continues to struggle at home. She is no longer thriving at home and therefore would benefit from this inpatient admission. She has significant edema of her legs which is also contributing to the persistent drainage from the left wound. She does have many medical issues including diabetes, heart disease, arrhythmia. She was admitted a little over 2 weeks ago for a left hip infection. It was irrigated and debrided once by and then another time by Dr. Bowman. Drains were left in place. One was pulled prior to discharge about a week ago. The other was in place draining a significant amount of serous fluid. This fell out late on August 05. Since that time there is been a significant amount of drainage from the wound which has been difficult for Cosme, her , to manage. They do have home health nursing but they feel overwhelmed. Aliyah is not able to help out that much on her own. She denies any fevers or chills. She denies any pain. She and her notes significant increase in swelling of both legs. Unfortunately, Dina had the drain removed at home. She now is draining significantly from the wound.
--- NOTE | 2018-08-08 18:37 | W.PM.PROGNOT ---
Date of Service Date of service: 08/08/18 Time of Service: 12:38 Assessment and Plan (1) Abscess of left hip: Current visit: Yes Status: Acute Left hip abscess continues to make improvements. I'm not concerned about the drainage at this time. THe drainage is serous. The drainage persists due to her hypoalbuminemia and edema. As this corrects and the space closes, this should improve. The hip prosthesis is NOT infected. We will continue Keflex. Slow to make progress with PT> Will likely need placement in coming few days. (2) Edema: Current visit: Yes Status: Acute Nutrition consulted. Medicine consulted. Continue protein supplementation. Subjective Interval history since last seen: Dina reports to be doing well. She denies any pain. She has been sitting in the chair most of the morning. She denies any chest pain, SOB, fever, or chills. Exam Narrative Exam Narrative: LLE dressing is c/d/i. No significant drainage. Thigh is soft and ompressible. No fluctuance. No erythema. No pain with flexion/IR/ER of the left hip. 3+ edema. Objective Objective Clinical Data: Abnormal lab results 08/07/18 08/08/18 08/08/18 Range/Units 15:32 10:25 10:25 RBC 3.71 L (4.00-5.20) m/cumm Hgb 9.3 L (12.0-15.5) g/dL Hct 31.7 L (36.0-46.0) % MCH 25.1 L (27.0-33.0) pg MCHC 29.3 L (32.0-36.0) g/dL RDW 26.8 H (11.7-14.6) % Plt Count 484 H (130-400) x1000/uL Absolute Lymphocytes 0.61 L (1.2-3.4) k/cumm Potassium 3.3 L (3.5-5.1) mmol/L Chloride 111 H (98-107) mmol/L Glucose 124 H 152 H (70-100) mg/dL Calcium 7.0 L (8.5-10.1) mg/dL Magnesium 1.3 L (1.8-2.4) mg/dL ALT 8 L (12-78) U/L Alkaline Phosphatase 137 H (46-116) U/L C-Reactive Protein 0.69 H (0.0-0.3) mg/dL NT-Pro-B Natriuret Pep 960 H ( - 299) pg/mL Total Protein 4.8 L (6.4-8.2) g/dL Albumin 1.4 L (3.4-5.0) g/dL Vital Signs Temperature 36.6 C 08/08/18 16:36 Temperature Source Tympanic 08/08/18 16:36 Pulse 69 08/08/18 16:36 Pulse Rhythm Regular 08/08/18 09:15 Respiratory Rate 18 08/08/18 16:36 Respiratory Effort Non-Labored 08/08/18 09:15 Respiratory Depth Normal 08/08/18 09:15 Respiratory Pattern Normal 08/08/18 09:15 Blood Pressure 103/62 08/08/18 16:36 Blood Pressure Position Supine 08/07/18 12:37 Pulse Oximetry 98 08/08/18 16:36 Oxygen Delivery Method Room Air 08/08/18 16:36 Oxygen Flow Rate 0 08/08/18 16:36 Pain Level 0 08/08/18 07:20 Intake & Output 08/07/18 08/08/18 08/08/18 23:59 11:59 23:59 Intake Total 382 / 382 240 / 240 Output Total 500 / 500 400 / 400 Balance -500 / -500 - 240 / 240 Weight 76.5 kg Intake: IV Oral 360 / 360 240 / 240 Output: Urine 500 / 500 400 / 400 Other: Urine Color Yellow Yellow Urine Appearance Clear Clear Stool Size Small Stool Characteristics Soft Laboratory Results WBC 6.19 k/cumm (4.4-10.8) 08/08/18 10:25 RBC 3.71 m/cumm (4.00-5.20) L 08/08/18 10:25 Hgb 9.3 g/dL (12.0-15.5) L 08/08/18 10:25 Hct 31.7 % (36.0-46.0) L 08/08/18 10:25 MCV 85.4 fL (80-95) 08/08/18 10:25 MCH 25.1 pg (27.0-33.0) L 08/08/18 10:25 MCHC 29.3 g/dL (32.0-36.0) L 08/08/18 10:25 RDW 26.8 % (11.7-14.6) H 08/08/18 10:25 Plt Count 484 x1000/uL (130-400) H 08/08/18 10:25 MPV 8.8 fL (8.0-11.0) 08/08/18 10:25 Immature Gran % 0.6 08/08/18 10:25 Neutrophils % 77.5 08/08/18 10:25 Lymphocytes % 9.9 08/08/18 10:25 Monocytes % 7.3 08/08/18 10:25 Eosinophils % 3.9 08/08/18 10:25 Basophils % 0.8 08/08/18 10:25 Absolute Neutrophils 4.80 k/cumm (1.2-6.7) 08/08/18 10:25 Absolute Lymphocytes 0.61 k/cumm (1.2-3.4) L 08/08/18 10:25 Absolute Monocytes 0.45 k/cumm (0.11-0.7) 08/08/18 10:25 Absolute Eosinophils 0.24 k/cumm (0.0-0.7) 08/08/18 10:25 Absolute Basophils 0.05 k/cumm (0.0-0.2) 08/08/18 10:25 Sodium 142 mmol/L (136-145) 08/08/18 10:25 Potassium 3.3 mmol/L (3.5-5.1) L 08/08/18 10:25 Chloride 111 mmol/L (98-107) H 08/08/18 10:25 Carbon Dioxide 21.9 mmol/L (21.0-32.0) 08/08/18 10:25 Anion Gap 9.1 mmol/L (3-11) 08/08/18 10:25 BUN 10 mg/dL (7-18) 08/08/18 10:25 Creatinine 0.66 mg/dL (0.55-1.02) 08/08/18 10:25 Estimated GFR/1.73 m2 >= 60.00 (mL/min/1.73m2) 08/08/18 10:25 Glucose 152 mg/dL (70-100) H 08/08/18 10:25 Calcium 7.0 mg/dL (8.5-10.1) L 08/08/18 10:25 Magnesium 1.3 mg/dL (1.8-2.4) L 08/08/18 10:25 Total Bilirubin 0.2 mg/dL (0.2-1.0) 08/07/18 15:32 AST 17 U/L (15-37) 08/07/18 15:32 ALT 8 U/L (12-78) L 08/07/18 15:32 Alkaline Phosphatase 137 U/L (46-116) H 08/07/18 15:32 C-Reactive Protein 0.69 mg/dL (0.0-0.3) H 08/07/18 15:32 NT-Pro-B Natriuret Pep 960 pg/mL (-299) H 08/07/18 15:32 Total Protein 4.8 g/dL (6.4-8.2) L 08/07/18 15:32 Albumin 1.4 g/dL (3.4-5.0) L 08/07/18 15:32
--- NOTE | 2018-08-08 19:05 | PGE_ITS ---
Date of Service Date of service: 08/08/18 Time of Service: 16:50 Assessment and Plan (1) Edema: Current visit: Yes Status: Acute of BLE's. Most likely etiology - hypoalbuminemic state. No evidence of DVT or systolic dysfunction. Diastolic dysfunction possible. Checking UA to ensure the patient is not having proteinuria/nephrotic syndrome. (2) Arrhythmia: Current visit: Yes Status: Acute EKG with NSR and occasional PAC. Same seen on telemetry. Ok to d/c tele. (3) Left hip prosthetic joint infection: Current visit: No Status: Acute Continue keflex, per ortho. Wound cx initially with MSSA, then with coag- negative staph. ?expand antibiotic coverage. (4) Diabetes mellitus type 2, insulin dependent: Current visit: No Status: Chronic Continue SSI for now. (5) Alzheimer disease: Current visit: No Status: Chronic Stable. Monitor behaviors. (6) DVT prophylaxis: Current visit: No Status: Acute Defer to primary team. (7) Discharge planning issues: Current visit: No Status: Acute Full code. Will need SNF. Subjective Interval history since last seen: Denies any pain, dizziness, chest pressure, shortness of breath, nausea, vomiting. Exam Narrative Exam Narrative: General: Very pleasant, forgetful elderly female, comfortable in bed Neurological: A&Ox2, No focal deficits Psychiatric: bright affect, appropriate speech pattern/content Skin: L hip incision dressed; otherwise, intact HEENT: EOMI, dry MM, no goiter or JVD; clear oropharynx Cardiovascular: regular rhythm with occasional extra beats Lungs: CTAB, diminished Gastrointestinal: abdomen soft, nontender, nondistended Extremities: 2+ BLE edema, slightly better, symmetric, no clubbing/cyanosis Objective Objective Clinical Data: Abnormal lab results 08/07/18 08/08/18 08/08/18 Range/Units 15:32 10:25 10:25 RBC 3.71 L (4.00-5.20) m/cumm Hgb 9.3 L (12.0-15.5) g/dL Hct 31.7 L (36.0-46.0) % MCH 25.1 L (27.0-33.0) pg MCHC 29.3 L (32.0-36.0) g/dL RDW 26.8 H (11.7-14.6) % Plt Count 484 H (130-400) x1000/uL Absolute Lymphocytes 0.61 L (1.2-3.4) k/cumm Potassium 3.3 L (3.5-5.1) mmol/L Chloride 111 H (98-107) mmol/L Glucose 124 H 152 H (70-100) mg/dL Calcium 7.0 L (8.5-10.1) mg/dL Magnesium 1.3 L (1.8-2.4) mg/dL ALT 8 L (12-78) U/L Alkaline Phosphatase 137 H (46-116) U/L C-Reactive Protein 0.69 H (0.0-0.3) mg/dL NT-Pro-B Natriuret Pep 960 H ( - 299) pg/mL Total Protein 4.8 L (6.4-8.2) g/dL Albumin 1.4 L (3.4-5.0) g/dL Vital Signs Temperature 37.2 C 08/08/18 18:48 Temperature Source Tympanic 08/08/18 18:48 Pulse 64 08/08/18 18:48 Pulse Rhythm Regular 08/08/18 09:15 Respiratory Rate 16 08/08/18 18:48 Respiratory Effort Non-Labored 08/08/18 09:15 Respiratory Depth Normal 08/08/18 09:15 Respiratory Pattern Normal 08/08/18 09:15 Blood Pressure 113/69 08/08/18 18:48 Blood Pressure Position Supine 08/07/18 12:37 Pulse Oximetry 96 08/08/18 18:48 Oxygen Delivery Method Room Air 08/08/18 18:48 Oxygen Flow Rate 0 08/08/18 18:48 Pain Level 0 08/08/18 07:20 Intake & Output 08/07/18 08/08/18 08/08/18 23:59 11:59 23:59 Intake Total 382 / 382 240 / 240 Output Total 500 / 500 400 / 400 500 / 500 Balance -500 / -500 -18 / 18 -260 / -260 Weight 76.5 kg Intake: IV Oral 360 / 360 240 / 240 Output: Urine 500 / 500 400 / 400 500 / 500 Other: Urine Color Yellow Yellow Light Lashay Urine Appearance Clear Clear Cloudy Stool Size Small Stool Characteristics Soft Laboratory Results WBC 6.19 k/cumm (4.4-10.8) 11/09/18 10:25 RBC 3.71 m/cumm (4.00-5.20) L 08/08/18 10:25 Hgb 9.3 g/dL (12.0-15.5) L 08/08/18 10:25 Hct 31.7 % (36.0-46.0) L 08/08/18 10:25 MCV 85.4 fL (80-95) 08/08/18 10:25 MCH 25.1 pg (27.0-33.0) L 08/08/18 10:25 MCHC 29.3 g/dL (32.0-36.0) L 08/08/18 10:25 RDW 26.8 % (11.7-14.6) H 08/08/18 10:25 Plt Count 484 x1000/uL (130-400) H 08/08/18 10:25 MPV 8.8 fL (8.0-11.0) 08/08/18 10:25 Immature Gran % 0.6 08/08/18 10:25 Neutrophils % 77.5 08/08/18 10:25 Lymphocytes % 9.9 08/08/18 10:25 Monocytes % 7.3 08/08/18 10:25 Eosinophils % 3.9 08/08/18 10:25 Basophils % 0.8 08/08/18 10:25 Absolute Neutrophils 4.80 k/cumm (1.2-6.7) 08/08/18 10:25 Absolute Lymphocytes 0.61 k/cumm (1.2-3.4) L 08/08/18 10:25 Absolute Monocytes 0.45 k/cumm (0.11-0.7) 08/08/18 10:25 Absolute Eosinophils 0.24 k/cumm (0.0-0.7) 08/08/18 10:25 Absolute Basophils 0.05 k/cumm (0.0-0.2) 08/08/18 10:25 Sodium 142 mmol/L (136-145) 08/08/18 10:25 Potassium 3.3 mmol/L (3.5-5.1) L 08/08/18 10:25 Chloride 111 mmol/L (98-107) H 08/08/18 10:25 Carbon Dioxide 21.9 mmol/L (21.0-32.0) 08/08/18 10:25 Anion Gap 9.1 mmol/L (3-11) 08/08/18 10:25 BUN 10 mg/dL (7-18) 08/08/18 10:25 Creatinine 0.66 mg/dL (0.55-1.02) 08/08/18 10:25 Estimated GFR/1.73 m2 >= 60.00 (mL/min/1.73m2) 08/08/18 10:25 Glucose 152 mg/dL (70-100) H 08/08/18 10:25 Calcium 7.0 mg/dL (8.5-10.1) L 08/08/18 10:25 Magnesium 1.3 mg/dL (1.8-2.4) L 08/08/18 10:25 Total Bilirubin 0.2 mg/dL (0.2-1.0) 08/07/18 15:32 AST 17 U/L (15-37) 08/07/18 15:32 ALT 8 U/L (12-78) L 08/07/18 15:32 Alkaline Phosphatase 137 U/L (46-116) H 08/07/18 15:32 C-Reactive Protein 0.69 mg/dL (0.0-0.3) H 08/07/18 15:32 NT-Pro-B Natriuret Pep 960 pg/mL (-299) H 08/07/18 15:32 Total Protein 4.8 g/dL (6.4-8.2) L 08/07/18 15:32 Albumin 1.4 g/dL (3.4-5.0) L 08/07/18 15:32 US venous: No evidence of a deep venous thrombus in either lower extremity. Echo: 1. Left ventricle: The cavity size was normal. Wall thickness was increased in a pattern of mild LVH. Systolic function was normal. The estimated ejection fraction was 55-60%. Wall motion was normal; there were no regional wall motion abnormalities. 2. Right ventricle: The cavity size was normal. Systolic function was normal. 3. Left atrium: The atrium was moderately dilated. 4. Mitral valve: Mildly calcified annulus. There was mild to moderate regurgitation. 5. Inferior vena cava: The vessel was normal in size. The respirophasic diameter changes were in the normal range (greater than or equal to 50%), consistent with normal central venous pressure.
[2018-08-08] MEDS: Heparin 5,000 UNITS/ML VIAL 5000 UNITS SC (19:39)
[2018-08-08] MEDS: Melatonin 3 MG TAB PO (21:04)
[2018-08-08] MEDS: diphenhydrAMINE 25 MG CAP PO (21:04)
[2018-08-08 22:19] LABS: Bilirubin Negative (Negative); Blood Moderate (Negative); Clarity Clear; Glucose Negative (Negative); Ketones Trace mg/dL (Negative); Leukocyte Esterase Negative (Negative); Nitrite Negative (Negative); Urobilinogen 0.2 EU/dL (Up TO 0.2); pH 5.5 (5-8)
[2018-08-08 22:27] LABS: Bacteria Negative HPF (Negative); Crystals Negative HPF (Negative); Epithelial Cells Few HPF (Negative); Mucus Negative (Negative); Other Cells Mod Transitional (Negative); RBC 20-50 (0-2); WBC 20-50 HPF (0-5)
[2018-08-08 22:28] LABS: C & S Indicated? Yes; Casts 3-5 Hyaline LPF (Negative)
[2018-08-09 03:15] VITALS: BP 110/68; PULSE 63; RESP 16; TEMP 36.6; O2SAT 97
[2018-08-09] MEDS: Levothyroxine 150 MCG TAB PO (06:10)
[2018-08-09 07:00] LABS: Abs Immature Grans 0.03 k/cumm (0.0-0.09); Absolute Basophil Count 0.02 k/cumm (0.0-0.2); Absolute Eosinophil Count 0.41 k/cumm (0.0-0.7); Absolute Lymphocyte Count 0.73 k/cumm (1.2-3.4); Absolute Monocyte Count 0.53 k/cumm (0.11-0.7); Absolute Neutrophil Count 3.94 k/cumm (1.2-6.7); Basophils % 0.4; Eosinophils % 7.2; HCT 28.7 % (36.0-46.0); HGB 8.5 g/dL (12.0-15.5); Immature Grans % 0.5; Lymphocytes % 12.9; Mean Corp. HGB Concentration 29.6 g/dL (32.0-36.0); Mean Corpuscular Hemoglobin 25.4 pg (27.0-33.0); Mean Corpuscular Volume 85.9 fL (80-95); Mean Platelet Volume 8.9 fL (8.0-11.0); Monocytes % 9.4; Neutrophils % 69.6; Platelet Count 448 x1000/uL (130-400); RBC 3.34 m/cumm (4.00-5.20); RBC Distribution Width 26.4 % (11.7-14.6); White Blood Cell Count 5.66 k/cumm (4.4-10.8)
[2018-08-09 07:06] LABS: Anion Gap 7.5 mmol/L (3-11); BUN 23 mg/dL (7-18); CO2 25.5 mmol/L (21.0-32.0); CREATININE 0.69 mg/dL (0.55-1.02); Calcium 7.8 mg/dL (8.5-10.1); Chloride 110 mmol/L (98-107); Glucose 184 mg/dL (70-100); Magnesium 1.6 mg/dL (1.8-2.4); Potassium 3.8 mmol/L (3.5-5.1); Sodium 143 mmol/L (136-145)
[2018-08-09 07:30] VITALS: BP 145/70; PULSE 61; RESP 20; TEMP 37.5; O2SAT 97
[2018-08-09] MEDS: Furosemide 20 MG/2 ML VIAL IVP (09:42)
[2018-08-09] MEDS: Heparin 5,000 UNITS/ML VIAL 5000 UNITS SC ×2 (09:42→21:18)
[2018-08-09] MEDS: Memantine 5 MG TAB 10 MG PO ×2 (09:43→21:16)
[2018-08-09] MEDS: Acetaminophen 500 MG TAB 1000 MG PO ×2 (09:43→21:16)
[2018-08-09] MEDS: Normal Saline Flush 10 ML SYR IVP ×3 (09:43→16:10)
[2018-08-09] MEDS: Multivitamin TAB 1 TAB PO (09:44)
[2018-08-09] MEDS: DULoxetine 30 MG CAP 60 MG PO (09:44)
[2018-08-09] MEDS: Aspirin E.C. 81 MG TABEC PO ×2 (09:44→21:17)
[2018-08-09] MEDS: Sennosides/Docusate Sodium TAB 1 TAB PO ×2 (09:44→21:17)
[2018-08-09] MEDS: Metoprolol 25 MG TAB PO ×2 (09:44→21:16)
[2018-08-09] MEDS: Magnesium Oxide 400 MG TAB PO (09:44)
[2018-08-09] MEDS: Donepezil 5 MG TAB PO (09:44)
[2018-08-09] MEDS: Cephalexin 500 MG CAP PO ×4 (09:44→21:17)
[2018-08-09] MEDS: Atorvastatin 40 MG TAB PO (09:44)
[2018-08-09] MEDS: Nystatin POWDER 60 GM JAR TP ×3 (09:45→21:17)
[2018-08-09] MEDS: Insulin Aspart 300 UNITS/3 ML PEN SC ×3 (09:56→17:30)
--- NOTE | 2018-08-09 10:32 | PGE_ITS ---
Date of Service Date of service: 08/09/18 Time of Service: 10:29 Assessment and Plan (1) Edema: Current visit: Yes Status: Acute Dina continues to have significant edema. She is hypoalbuminemic. We are trying to replace her protein and encourage good diet with high-calorie high -protein. Appreciate medicine consult for help with diuresis and edema control. As edema improves and her protein intake and albumin improves, I expect her drainage will decrease. (2) Abscess of left hip: Current visit: Yes Status: Acute All markers indicate that her infection is being treated properly. We will continue with Keflex to the wound is closed. She does have drainage but it is serous in nature and I would not try to hillman it too much. Nothing makes sense to try to add sutures or place a new drain due to risk of contamination. I will continue to treat this with a pressure dressing of 4 x 4's, gauze, and ABDs. We will continue to monitor. She is starting to make some improvements with her mobilization. We will continue aspirin for DVT prophylaxis. Plan to discharge to the [facility] in the next 1-2 days as she continues to improve. Subjective Interval history since last seen: Mrs. Queen reports be doing well today. She denies any new complaints. She has had a good appetite and has been eating well. She still has drainage output from the left thigh. However, has had no increase in pain. Was able to ambulate yesterday. She denies any chest pain, shortness of breath, fever, chills. Exam Narrative Exam Narrative: Evaluation of the left thigh shows a well approximated incision. There is some gapping between 2 of the distal sutures. There is active serosanguineous drainage which is much more serous than anything. There is no purulence. No induration. No expressible purulence. No surrounding signs of infection. Minimal pain to palpation. She is able to stand tolerates gentle range of motion left hip without pain or discomfort. Objective Objective Clinical Data: Abnormal lab results 08/08/18 08/08/18 08/08/18 Range/Units 10:25 10:25 21:10 RBC 3.71 L (4.00-5.20) m/cumm Hgb 9.3 L (12.0-15.5) g/dL Hct 31.7 L (36.0-46.0) % MCH 25.1 L (27.0-33.0) pg MCHC 29.3 L (32.0-36.0) g/dL RDW 26.8 H (11.7-14.6) % Plt Count 484 H (130-400) x1000/uL Absolute Lymphocytes 0.61 L (1.2-3.4) k/cumm Potassium 3.3 L (3.5-5.1) mmol/L Chloride 111 H (98-107) mmol/L BUN (7-18) mg/dL Glucose 152 H (70-100) mg/dL Calcium 7.0 L (8.5-10.1) mg/dL Magnesium 1.3 L (1.8-2.4) mg/dL Urine Protein Trace H (Negative) mg/dL Urine Ketones Trace H (Negative) mg/dL Urine Blood Moderate H (Negative) Urine RBC 20-50 H (0-2) 08/09/18 08/09/18 Range/Units 06:45 06:45 RBC 3.34 L (4.00-5.20) m/cumm Hgb 8.5 L (12.0-15.5) g/dL Hct 28.7 L (36.0-46.0) % MCH 25.4 L (27.0-33.0) pg MCHC 29.6 L (32.0-36.0) g/dL RDW 26.4 H (11.7-14.6) % Plt Count 448 H (130-400) x1000/uL Absolute Lymphocytes 0.73 L (1.2-3.4) k/cumm Potassium (3.5-5.1) mmol/L Chloride 110 H (98-107) mmol/L BUN 23 H D (7-18) mg/dL Glucose 184 H (70-100) mg/dL Calcium 7.8 L (8.5-10.1) mg/dL Magnesium 1.6 L (1.8-2.4) mg/dL Urine Protein (Negative) mg/dL Urine Ketones (Negative) mg/dL Urine Blood (Negative) Urine RBC (0-2) Vital Signs Temperature 37.5 C 08/09/18 07:30 Temperature Source Tympanic 08/09/18 07:30 Pulse 61 08/09/18 07:30 Pulse Rhythm Regular 08/09/18 10:04 Respiratory Rate 20 08/09/18 07:30 Respiratory Effort Non-Labored 08/09/18 10:04 Respiratory Depth Normal 08/09/18 10:04 Respiratory Pattern Normal 08/09/18 10:04 Blood Pressure 145/70 H 08/09/18 07:30 Blood Pressure Position Supine 08/07/18 12:37 Pulse Oximetry 97 08/09/18 07:30 Oxygen Delivery Method Room Air 08/09/18 07:30 Oxygen Flow Rate 0 08/09/18 07:30 Pain Level 0 08/09/18 09:43 Comment 08/09/18 03:15 Intake & Output 08/08/18 08/08/18 08/09/18 11:59 23:59 11:59 Intake Total 382 / 382 480 / 480 670 / 670 Output Total 400 / 400 500 / 500 220 / 220 Balance -18 / -18 -20 / -20 450 / 450 Intake: IV 10 Oral 360 / 360 480 / 480 660 / 660 Output: Urine 400 / 400 500 / 500 220 / 220 Other: Urine Color Yellow Light Lashay Dark Lashay Urine Appearance Clear Cloudy Cloudy Stool Size Moderate Small Stool Characteristics Soft Soft Green Formed Black Laboratory Results WBC 5.66 k/cumm (4.4-10.8) 08/09/18 06:45 RBC 3.34 m/cumm (4.00-5.20) L 08/09/18 06:45 Hgb 8.5 g/dL (12.0-15.5) L 08/09/18 06:45 Hct 28.7 % (36.0-46.0) L 08/09/18 06:45 MCV 85.9 fL (80-95) 08/09/18 06:45 MCH 25.4 pg (27.0-33.0) L 08/09/18 06:45 MCHC 29.6 g/dL (32.0-36.0) L 08/09/18 06:45 RDW 26.4 % (11.7-14.6) H 08/09/18 06:45 Plt Count 448 x1000/uL (130-400) H 08/09/18 06:45 MPV 8.9 fL (8.0-11.0) 08/09/18 06:45 Immature Gran % 0.5 08/09/18 06:45 Neutrophils % 69.6 08/09/18 06:45 Lymphocytes % 12.9 08/09/18 06:45 Monocytes % 9.4 08/09/18 06:45 Eosinophils % 7.2 08/09/18 06:45 Basophils % 0.4 08/09/18 06:45 Absolute Neutrophils 3.94 k/cumm (1.2-6.7) 08/09/18 06:45 Absolute Lymphocytes 0.73 k/cumm (1.2-3.4) L 08/09/18 06:45 Absolute Monocytes 0.53 k/cumm (0.11-0.7) 08/09/18 06:45 Absolute Eosinophils 0.41 k/cumm (0.0-0.7) 08/09/18 06:45 Absolute Basophils 0.02 k/cumm (0.0-0.2) 08/09/18 06:45 Sodium 143 mmol/L (136-145) 08/09/18 06:45 Potassium 3.8 mmol/L (3.5-5.1) 08/09/18 06:45 Chloride 110 mmol/L (98-107) H 08/09/18 06:45 Carbon Dioxide 25.5 mmol/L (21.0-32.0) 08/09/18 06:45 Anion Gap 7.5 mmol/L (3-11) 08/09/18 06:45 BUN 23 mg/dL (7-18) H D 08/09/18 06:45 Creatinine 0.69 mg/dL (0.55-1.02) 08/09/18 06:45 Estimated GFR/1.73 m2 >= 60.00 (mL/min/1.73m2) 08/09/18 06:45 Glucose 184 mg/dL (70-100) H 08/09/18 06:45 Calcium 7.8 mg/dL (8.5-10.1) L 08/09/18 06:45 Magnesium 1.6 mg/dL (1.8-2.4) L 08/09/18 06:45 Total Bilirubin 0.2 mg/dL (0.2-1.0) 08/07/18 15:32 AST 17 U/L (15-37) 08/07/18 15:32 ALT 8 U/L (12-78) L 08/07/18 15:32 Alkaline Phosphatase 137 U/L (46-116) H 08/07/18 15:32 C-Reactive Protein 0.69 mg/dL (0.0-0.3) H 08/07/18 15:32 NT-Pro-B Natriuret Pep 960 pg/mL (-299) H 08/07/18 15:32 Total Protein 4.8 g/dL (6.4-8.2) L 08/07/18 15:32 Albumin 1.4 g/dL (3.4-5.0) L 08/07/18 15:32 Urine Color Yellow (Yellow) 08/08/18 21:10 Urine Clarity Clear 08/08/18 21:10 Urine pH 5.5 (5-8) 08/08/18 21:10 Ur Specific [place] 1.020 (1.005-1.025) 08/08/18 21:10 Urine Protein Trace mg/dL (Negative) H 08/08/18 21:10 Urine Ketones Trace mg/dL (Negative) H 08/08/18 21:10 Urine Blood Moderate (Negative) H 08/08/18 21:10 Urine Nitrite Negative (Negative) 08/08/18 21:10 Urine Bilirubin Negative (Negative) 08/08/18 21:10 Urine Urobilinogen 0.2 EU/dL (Up TO 0.2) 08/08/18 21:10 Ur Leukocyte Esterase Negative (Negative) 08/08/18 21:10 Urine RBC 20-50 (0-2) H 08/08/18 21:10 Urine WBC 20-50 HPF (0-5) 08/08/18 21:10 Ur Epithelial Cells Few HPF (Negative) 08/08/18 21:10 Urine Crystals Negative HPF (Negative) 08/08/18 21:10 Urine Bacteria Negative HPF (Negative) 08/08/18 21:10 Urine Casts 3-5 hyaline LPF (Negative) 08/08/18 21:10 Urine Mucus Negative (Negative) 08/08/18 21:10 Urine Other Mod transitional (Negative) 08/08/18 21:10 Ur Culture Indicated? Yes 08/08/18 21:10 Urine Glucose Negative mg/dL (Negative) 08/08/18 21:10
--- NOTE | 2018-08-09 11:03 | PT.INTREAT ---
Date of service: 08/09/18 Time of Service: 10:40 PT Notes Inpatient Physical Therapy Treatment Note Date: 08/09/18 SUBJECTIVE: I'm too tired to do PT. OBJECTIVE: [] Sit-stand: min A Stand-sit: CGA GAIT Assistive Device:platform FWW Weight bearing:WBAT L Assist: CGA Distance: refused to ambulate any distance. She did however stand and march in place x 10 seconds. THEREX: global LE strengthening routine, see flowsheet for details. ASSESSMENT: pt very short tempered with me this am. She reports being tired, as the MD had been in and changed her dsg. She apparently had to stand for this procedure for approx 3 min. Not very motivated with her ex routine. PLAN: will continue to progress her strength and endurance routine, as well as functional mobility including transfers and ambulation following PT POC. TREATMENT CODE/TIME: 20 min. TPx1.
--- NOTE | 2018-08-09 11:48 | W.PM.PROGNOT ---
Date of Service Date of service: 08/09/18 Time of Service: 11:10 Assessment and Plan (1) Edema: Current visit: Yes Status: Acute I agree that most likely etiology is hypoalbuminemic state related to subacute illness with inflammatory state and poor nutrition. No evidence of DVT or systolic dysfunction. Diastolic dysfunction possible. U/a not consistent with nephrotic syndrome. She is still not fluid negative, despite increasing BUN. I will try increasing furosemide dose to 40 mg IV twice daily. If she does not respond, she may respond better to albumin infusions prior to Lasix. Patient is hypomagnesemic related to Lasix. I will supplement IV given difficulty with oral absorption. (2) Left hip prosthetic joint infection: Current visit: No Status: Acute Continue keflex, per ortho. Inflammatory markers are improving on Keflex, so I agree with current management. (3) Diabetes mellitus type 2, insulin dependent: Current visit: No Status: Chronic Continue SSI for now. (4) Alzheimer disease: Current visit: No Status: Chronic Stable. Monitor behaviors. (5) DVT prophylaxis: Current visit: No Status: Acute Defer to primary team. (6) Discharge planning issues: Current visit: No Status: Acute Full code. Will need SNF. Subjective Patient reports: no new complaints; denies voiding w/o difficulty, nausea, shortness of breath and fever Interval history since last seen: Patient states her swelling is about the same. She and her confirm that she did not have this swelling prior to recent illness. They also confirmed that she was not feeling well and not eating and losing weight during the months prior to admission. She did meet with the attendance clerk and has been eating better including proteins. Her wound is still draining per nursing and Dr. Corona. Exam Narrative Exam Narrative: General: Very pleasant, forgetful elderly female, comfortable sitting in chair with legs up Neurological: A&Ox2, No focal deficits Psychiatric: bright affect, appropriate speech pattern/content Skin: L hip incision dressed; otherwise, intact HEENT: MMM, clear oropharynx Cardiovascular: regular rhythm with occasional extra beats Lungs: CTAB, diminished Gastrointestinal: abdomen soft, nontender, nondistended Extremities: 2+ BLE edema to thighs, symmetric, no clubbing/cyanosis, not tender Objective Objective Clinical Data: Abnormal lab results 08/08/18 08/09/18 08/09/18 Range/Units 21:10 06:45 06:45 RBC 3.34 L (4.00-5.20) m/cumm Hgb 8.5 L (12.0-15.5) g/dL Hct 28.7 L (36.0-46.0) % MCH 25.4 L (27.0-33.0) pg MCHC 29.6 L (32.0-36.0) g/dL RDW 26.4 H (11.7-14.6) % Plt Count 448 H (130-400) x1000/uL Absolute Lymphocytes 0.73 L (1.2-3.4) k/cumm Chloride 110 H (98-107) mmol/L BUN 23 H D (7-18) mg/dL Glucose 184 H (70-100) mg/dL Calcium 7.8 L (8.5-10.1) mg/dL Magnesium 1.6 L (1.8-2.4) mg/dL Urine Protein Trace H (Negative) mg/dL Urine Ketones Trace H (Negative) mg/dL Urine Blood Moderate H (Negative) Urine RBC 20-50 H (0-2) Vital Signs Temperature 37.5 C 08/09/18 07:30 Temperature Source Tympanic 08/09/18 07:30 Pulse 61 08/09/18 07:30 Pulse Rhythm Regular 08/09/18 10:04 Respiratory Rate 20 08/09/18 07:30 Respiratory Effort Non-Labored 08/09/18 10:04 Respiratory Depth Normal 08/09/18 10:04 Respiratory Pattern Normal 08/09/18 10:04 Blood Pressure 145/70 H 08/09/18 07:30 Blood Pressure Position Supine 08/07/18 12:37 Pulse Oximetry 97 08/09/18 07:30 Oxygen Delivery Method Room Air 08/09/18 07:30 Oxygen Flow Rate 0 08/09/18 07:30 Pain Level 0 08/09/18 09:43 Comment 08/09/18 03:15 Intake & Output 08/08/18 08/08/18 08/09/18 11:59 23:59 11:59 Intake Total 382 / 382 480 / 480 670 / 670 Output Total 400 / 400 500 / 500 220 / 220 Balance -18 / -18 -20 / -20 450 / 450 Intake: IV Oral 360 / 360 480 / 480 660 / 660 Output: Urine 400 / 400 500 / 500 220 / 220 Other: Urine Color Yellow Light Lashay Dark Lashay Urine Appearance Clear Cloudy Cloudy Stool Size Moderate Small Stool Characteristics Soft Soft Green Formed Black Laboratory Results WBC 5.66 k/cumm (4.4-10.8) 08/09/18 06:45 RBC 3.34 m/cumm (4.00-5.20) L 08/09/18 06:45 Hgb 8.5 g/dL (12.0-15.5) L 08/09/18 06:45 Hct 28.7 % (36.0-46.0) L 08/09/18 06:45 MCV 85.9 fL (80-95) 08/09/18 06:45 MCH 25.4 pg (27.0-33.0) L 08/09/18 06:45 MCHC 29.6 g/dL (32.0-36.0) L 08/09/18 06:45 RDW 26.4 % (11.7-14.6) H 08/09/18 06:45 Plt Count 448 x1000/uL (130-400) H 08/09/18 06:45 MPV 8.9 fL (8.0-11.0) 08/09/18 06:45 Immature Gran % 0.5 08/09/18 06:45 Neutrophils % 69.6 08/09/18 06:45 Lymphocytes % 12.9 08/09/18 06:45 Monocytes % 9.4 08/09/18 06:45 Eosinophils % 7.2 08/09/18 06:45 Basophils % 0.4 08/09/18 06:45 Absolute Neutrophils 3.94 k/cumm (1.2-6.7) 08/09/18 06:45 Absolute Lymphocytes 0.73 k/cumm (1.2-3.4) L 08/09/18 06:45 Absolute Monocytes 0.53 k/cumm (0.11-0.7) 08/09/18 06:45 Absolute Eosinophils 0.41 k/cumm (0.0-0.7) 08/09/18 06:45 Absolute Basophils 0.02 k/cumm (0.0-0.2) 08/09/18 06:45 Sodium 143 mmol/L (136-145) 08/09/18 06:45 Potassium 3.8 mmol/L (3.5-5.1) 08/09/18 06:45 Chloride 110 mmol/L (98-107) H 08/09/18 06:45 Carbon Dioxide 25.5 mmol/L (21.0-32.0) 08/09/18 06:45 Anion Gap 7.5 mmol/L (3-11) 08/09/18 06:45 BUN 23 mg/dL (7-18) H D 08/09/18 06:45 Creatinine 0.69 mg/dL (0.55-1.02) 08/09/18 06:45 Estimated GFR/1.73 m2 >= 60.00 (mL/min/1.73m2) 08/09/18 06:45 Glucose 184 mg/dL (70-100) H 08/09/18 06:45 Calcium 7.8 mg/dL (8.5-10.1) L 08/09/18 06:45 Magnesium 1.6 mg/dL (1.8-2.4) L 08/09/18 06:45 Total Bilirubin 0.2 mg/dL (0.2-1.0) 08/07/18 15:32 AST 17 U/L (15-37) 08/07/18 15:32 ALT 8 U/L (12-78) L 08/07/18 15:32 Alkaline Phosphatase 137 U/L (46-116) H 08/07/18 15:32 C-Reactive Protein 0.69 mg/dL (0.0-0.3) H 08/07/18 15:32 NT-Pro-B Natriuret Pep 960 pg/mL (-299) H 08/07/18 15:32 Total Protein 4.8 g/dL (6.4-8.2) L 08/07/18 15:32 Albumin 1.4 g/dL (3.4-5.0) L 08/07/18 15:32 Urine Color Yellow (Yellow) 08/08/18 21:10 Urine Clarity Clear 08/08/18 21:10 Urine pH 5.5 (5-8) 08/08/18 21:10 Ur Specific [place] 1.020 (1.005-1.025) 08/08/18 21:10 Urine Protein Trace mg/dL (Negative) H 08/08/18 21:10 Urine Ketones Trace mg/dL (Negative) H 08/08/18 21:10 Urine Blood Moderate (Negative) H 08/08/18 21:10 Urine Nitrite Negative (Negative) 08/08/18 21:10 Urine Bilirubin Negative (Negative) 08/08/18 21:10 Urine Urobilinogen 0.2 EU/dL (Up TO 0.2) 08/08/18 21:10 Ur Leukocyte Esterase Negative (Negative) 08/08/18 21:10 Urine RBC 20-50 (0-2) H 08/08/18 21:10 Urine WBC 20-50 HPF (0-5) 08/08/18 21:10 Ur Epithelial Cells Few HPF (Negative) 08/08/18 21:10 Urine Crystals Negative HPF (Negative) 08/08/18 21:10 Urine Bacteria Negative HPF (Negative) 08/08/18 21:10 Urine Casts 3-5 hyaline LPF (Negative) 08/08/18 21:10 Urine Mucus Negative (Negative) 08/08/18 21:10 Urine Other Mod transitional (Negative) 08/08/18 21:10 Ur Culture Indicated? Yes 08/08/18 21:10 Urine Glucose Negative mg/dL (Negative) 08/08/18 21:10
[2018-08-09] MEDS: MAGNESIUM SULFATE 2 GM/50 ML BAG IVPB (12:08)
[2018-08-09] MEDS: Normal Saline 500 ML 25 ML IVPB (12:09)
[2018-08-09 15:30] VITALS: BP 115/63; PULSE 59; PULSE 60; RESP 16; RESP 18; TEMP 36.6; O2SAT 96
[2018-08-09] MEDS: Furosemide 40 MG/4 ML VIAL IVP (16:09)
--- NOTE | 2018-08-09 16:26 | PDOC.CMPRO ---
Care Management Progress Note S/O: Dina was sitting up in her recliner and visiting with her . She was alert and appeared comfortable. A: 73 y.o. female admitted for failure to thrive and chronic wound care P: Anticipate [facility] care prior to returning home with her . Bed is tentatively available for her on Saturday. will transport if appropriate or other arrangements will be made.
[2018-08-09 19:07] VITALS: BP 132/77; PULSE 58; RESP 20; TEMP 36.3; O2SAT 96
[2018-08-09] MEDS: Melatonin 3 MG TAB PO (21:16)
[2018-08-09] MEDS: diphenhydrAMINE 25 MG CAP PO (21:17)
[2018-08-09 23:06] VITALS: BP 115/71; PULSE 57; RESP 18; TEMP 37; O2SAT 98
[2018-08-10] MEDS: Levothyroxine 150 MCG TAB PO (06:12)
[2018-08-10 06:20] VITALS: BP 136/66; PULSE 68; RESP 16; TEMP 37; O2SAT 97
[2018-08-10 07:07] LABS: Anion Gap 5.9 mmol/L (3-11); BUN 21 mg/dL (7-18); CO2 27.1 mmol/L (21.0-32.0); CREATININE 0.69 mg/dL (0.55-1.02); Calcium 7.7 mg/dL (8.5-10.1); Chloride 108 mmol/L (98-107); Glucose 150 mg/dL (70-100); Magnesium 1.8 mg/dL (1.8-2.4); Potassium 3.8 mmol/L (3.5-5.1); Sodium 141 mmol/L (136-145)
[2018-08-10 07:25] VITALS: BP 148/70; PULSE 56; RESP 17; TEMP 36.7; O2SAT 97
--- NOTE | 2018-08-10 07:53 | W.PM.PROGNOT ---
Date of Service Date of service: 08/10/18 Time of Service: 07:53 Assessment and Plan (1) Edema: Current visit: Yes Status: Acute Dina continues to have edema. She is hypoalbuminemic. We are trying to replace her protein and encourage good diet with high-calorie high-protein. Appreciate medicine consult for help with diuresis and edema control. Increased lasix. As edema improves and her protein intake and albumin improves, I expect her drainage will decrease and this has started. (2) Abscess of left hip: Current visit: Yes Status: Acute All markers indicate that her infection is being treated properly. We will continue with Keflex to the wound is closed. She does have drainage but it is serous in nature and I would not try to hillman it too much. It is improving. Continue to treat this with a pressure dressing of 4 x 4's, gauze, and ABDs - changing twice a day. We will continue to monitor. She is starting to make some improvements with her mobilization. We will continue aspirin for DVT prophylaxis. Plan to discharge to the health and rehab tomorrow as she continues to improve. Subjective Interval history since last seen: Mrs. Queen reports be doing well today. She denies any new complaints. Nursing reports much decreased output from the wound. She denies any chest pain, shortness of breath, fever, chills. Exam Narrative Exam Narrative: Evaluation of the left thigh shows a clean, dry, intact dressing. There is no purulence. No induration. No surrounding signs of infection. She tolerates gentle range of motion left hip without pain or discomfort. 2+ edema but it seems to be decreasing, especially in the thigh toward the knee. Objective Objective Clinical Data: Abnormal lab results 08/10/18 Range/Units 06:40 Chloride 108 H (98-107) mmol/L BUN 21 H (7-18) mg/dL Glucose 150 H (70-100) mg/dL Calcium 7.7 L (8.5-10.1) mg/dL Vital Signs Temperature 37 C 08/10/18 06:20 Temperature Source Tympanic 08/10/18 06:20 Pulse 68 08/10/18 06:20 Pulse Rhythm Regular 08/10/18 00:00 Respiratory Rate 16 08/10/18 06:20 Respiratory Effort Non-Labored 08/10/18 00:00 Respiratory Depth Normal 08/10/18 00:00 Respiratory Pattern Normal 08/10/18 00:00 Blood Pressure 136/66 08/10/18 06:20 Blood Pressure Position Supine 08/07/18 12:37 Pulse Oximetry 97 08/10/18 06:20 Oxygen Delivery Method Room Air 08/10/18 06:20 Oxygen Flow Rate 0 08/10/18 06:20 Pain Level 0 08/10/18 06:20 Comment 08/09/18 03:15 Intake & Output 08/09/18 08/09/18 08/10/18 11:59 23:59 11:59 Intake Total 670 / 670 505 / 505 Output Total 220 / 220 1999 350 / 350 Balance 450 / 450 -1495 / -1495 -350 / -350 Intake: IV Oral 660 / 660 480 / 480 Output: Urine / 1999 350 / 350 Other: Urine Color Dark Lashay Yellow Yellow Urine Appearance Cloudy Clear Urine Odor Normal Stool Size Small Stool Characteristics Soft Formed Black Voiding Methods Indwelling Catheter Laboratory Results WBC 5.66 k/cumm (4.4-10.8) 08/09/18 06:45 RBC 3.34 m/cumm (4.00-5.20) L 08/09/18 06:45 Hgb 8.5 g/dL (12.0-15.5) L 08/09/18 06:45 Hct 28.7 % (36.0-46.0) L 08/09/18 06:45 MCV 85.9 fL (80-95) 08/09/18 06:45 MCH 25.4 pg (27.0-33.0) L 08/09/18 06:45 MCHC 29.6 g/dL (32.0-36.0) L 08/09/18 06:45 RDW 26.4 % (11.7-14.6) H 08/09/18 06:45 Plt Count 448 x1000/uL (130-400) H 08/09/18 06:45 MPV 8.9 fL (8.0-11.0) 08/09/18 06:45 Immature Gran % 0.5 08/09/18 06:45 Neutrophils % 69.6 08/09/18 06:45 Lymphocytes % 12.9 08/09/18 06:45 Monocytes % 9.4 08/09/18 06:45 Eosinophils % 7.2 08/09/18 06:45 Basophils % 0.4 08/09/18 06:45 Absolute Neutrophils 3.94 k/cumm (1.2-6.7) 08/09/18 06:45 Absolute Lymphocytes 0.73 k/cumm (1.2-3.4) L 08/09/18 06:45 Absolute Monocytes 0.53 k/cumm (0.11-0.7) 08/09/18 06:45 Absolute Eosinophils 0.41 k/cumm (0.0-0.7) 08/09/18 06:45 Absolute Basophils 0.02 k/cumm (0.0-0.2) 08/09/18 06:45 Sodium 141 mmol/L (136-145) 08/10/18 06:40 Potassium 3.8 mmol/L (3.5-5.1) 08/10/18 06:40 Chloride 108 mmol/L (98-107) H 08/10/18 06:40 Carbon Dioxide 27.1 mmol/L (21.0-32.0) 08/10/18 06:40 Anion Gap 5.9 mmol/L (3-11) 08/10/18 06:40 BUN 21 mg/dL (7-18) H 08/10/18 06:40 Creatinine 0.69 mg/dL (0.55-1.02) 08/10/18 06:40 Estimated GFR/1.73 m2 >= 60.00 (mL/min/1.73m2) 08/10/18 06:40 Glucose 150 mg/dL (70-100) H 08/10/18 06:40 Calcium 7.7 mg/dL (8.5-10.1) L 08/10/18 06:40 Magnesium 1.8 mg/dL (1.8-2.4) 08/10/18 06:40 Total Bilirubin 0.2 mg/dL (0.2-1.0) 08/07/18 15:32 AST 17 U/L (15-37) 08/07/18 15:32 ALT 8 U/L (12-78) L 08/07/18 15:32 Alkaline Phosphatase 137 U/L (46-116) H 08/07/18 15:32 C-Reactive Protein 0.69 mg/dL (0.0-0.3) H 08/07/18 15:32 NT-Pro-B Natriuret Pep 960 pg/mL (-299) H 08/07/18 15:32 Total Protein 4.8 g/dL (6.4-8.2) L 08/07/18 15:32 Albumin 1.4 g/dL (3.4-5.0) L 08/07/18 15:32 Urine Color Yellow (Yellow) 08/08/18 21:10 Urine Clarity Clear 08/08/18 21:10 Urine pH 5.5 (5-8) 08/08/18 21:10 Ur Specific [place] 1.020 (1.005-1.025) 08/08/18 21:10 Urine Protein Trace mg/dL (Negative) H 08/08/18 21:10 Urine Ketones Trace mg/dL (Negative) H 08/08/18 21:10 Urine Blood Moderate (Negative) H 08/08/18 21:10 Urine Nitrite Negative (Negative) 08/08/18 21:10 Urine Bilirubin Negative (Negative) 08/08/18 21:10 Urine Urobilinogen 0.2 EU/dL (Up TO 0.2) 08/08/18 21:10 Ur Leukocyte Esterase Negative (Negative) 08/08/18 21:10 Urine RBC 20-50 (0-2) H 08/08/18 21:10 Urine WBC 20-50 HPF (0-5) 08/08/18 21:10 Ur Epithelial Cells Few HPF (Negative) 08/08/18 21:10 Urine Crystals Negative HPF (Negative) 08/08/18 21:10 Urine Bacteria Negative HPF (Negative) 08/08/18 21:10 Urine Casts 3-5 hyaline LPF (Negative) 08/08/18 21:10 Urine Mucus Negative (Negative) 08/08/18 21:10 Urine Other Mod transitional (Negative) 08/08/18 21:10 Ur Culture Indicated? Yes 08/08/18 21:10 Urine Glucose Negative mg/dL (Negative) 08/08/18 21:10
[2018-08-10] MEDS: Furosemide 40 MG/4 ML VIAL IVP ×2 (08:20→16:21)
[2018-08-10] MEDS: Normal Saline Flush 10 ML SYR IVP ×3 (08:21→17:52)
[2018-08-10] MEDS: Heparin 5,000 UNITS/ML VIAL 5000 UNITS SC ×2 (08:21→19:29)
[2018-08-10] MEDS: DULoxetine 30 MG CAP 60 MG PO (08:21)
[2018-08-10] MEDS: Atorvastatin 40 MG TAB PO (08:22)
[2018-08-10] MEDS: Metoprolol 25 MG TAB PO ×2 (08:22→19:29)
[2018-08-10] MEDS: Memantine 5 MG TAB 10 MG PO ×2 (08:22→19:28)
[2018-08-10] MEDS: Acetaminophen 500 MG TAB 1000 MG PO ×2 (08:22→19:29)
[2018-08-10] MEDS: Donepezil 5 MG TAB PO (08:22)
[2018-08-10] MEDS: Multivitamin TAB 1 TAB PO (08:22)
[2018-08-10] MEDS: Sennosides/Docusate Sodium TAB 1 TAB PO ×2 (08:22→19:28)
[2018-08-10] MEDS: Cephalexin 500 MG CAP PO ×4 (08:23→19:28)
[2018-08-10] MEDS: Magnesium Oxide 400 MG TAB PO (08:23)
[2018-08-10] MEDS: Aspirin E.C. 81 MG TABEC PO ×2 (08:23→19:29)
[2018-08-10] MEDS: Insulin Aspart 300 UNITS/3 ML PEN SC ×3 (08:35→17:15)
[2018-08-10] MEDS: Nystatin POWDER 60 GM JAR TP ×3 (09:40→19:29)
--- NOTE | 2018-08-10 10:15 | PGE_ITS ---
Date of Service Date of service: 08/10/18 Time of Service: 10:04 Assessment and Plan (1) Edema: Current visit: Yes Status: Acute Related to fluid adminstration in setting of hypoalbuminemic state related to subacute illness with inflammatory state and poor nutrition. No evidence of DVT or systolic dysfunction. Diastolic dysfunction possible. U/a not consistent with nephrotic syndrome. She is finally fluid negative over a liter and a half, and BUN and creatinine are stable. Given this, I will continue furosemide dose 40 mg IV twice daily and I do not think she will need the addition of albumin infusions. (2) Left hip prosthetic joint infection: Current visit: No Status: Acute Continue keflex, per ortho. (3) Diabetes mellitus type 2, insulin dependent: Current visit: No Status: Chronic Continue SSI for now. (4) Alzheimer disease: Current visit: No Status: Chronic Stable. Monitor behaviors. (5) DVT prophylaxis: Current visit: No Status: Acute Defer to primary team. (6) Discharge planning issues: Current visit: No Status: Acute Full code. Plan is to discharge tomorrow to residential. I think she will be ready for this tomorrow. (7) Hypomagnesemia: Current visit: Yes Status: Acute Worse today after 2 g IV yesterday. Likely related to increased furosemide. We will give her 4 g IV today. (8) Anemia associated with acute blood loss: Current visit: No Status: Acute She does have anemia. It sounds like she did not have significant blood loss related to surgery, but this may be contributing in the setting of chronic anemia of chronic disease and some iron deficiency documented as an outpatient. Will check once more tomorrow morning prior to discharge to make sure her anemia is stable. Subjective Patient reports: no new complaints; denies diarrhea, nausea, shortness of breath and fever Interval history since last seen: She feels well and states she is urinating more since last evening. She cannot tell if the swelling is going down. Per Dr. Corona, the drainage is improving from her wound. Her appetite is good. Exam Narrative Exam Narrative: General: Very pleasant, comfortable sitting in bed with legs up Psychiatric: bright affect, appropriate speech pattern/content Skin: L hip incision dressed; otherwise, intact HEENT: MMM Cardiovascular: regular rhythm 1/6 systolic murmur, with occasional extra beats Lungs: CTAB, diminished, but normal effort Gastrointestinal: abdomen soft, nontender, nondistended Extremities: 1-2+ BLE edema to thighs, symmetric, no clubbing/cyanosis, not tender Objective Objective Clinical Data: Abnormal lab results 08/10/18 Range/Units 06:40 Chloride 108 H (98-107) mmol/L BUN 21 H (7-18) mg/dL Glucose 150 H (70-100) mg/dL Calcium 7.7 L (8.5-10.1) mg/dL Vital Signs Temperature 36.7 C 08/10/18 07:25 Temperature Source Tympanic 08/10/18 07:25 Pulse 56 L 08/10/18 07:25 Pulse Rhythm Regular 08/10/18 00:00 Respiratory Rate 17 08/10/18 07:25 Respiratory Effort Non-Labored 08/10/18 00:00 Respiratory Depth Normal 08/10/18 00:00 Respiratory Pattern Normal 08/10/18 00:00 Blood Pressure 148/70 H 08/10/18 07:25 Blood Pressure Position Supine 08/07/18 12:37 Pulse Oximetry 97 08/10/18 07:25 Oxygen Delivery Method Room Air 08/10/18 07:25 Oxygen Flow Rate 0 08/10/18 07:25 Pain Level 0 08/10/18 07:25 Comment 08/09/18 03:15 Intake & Output 08/09/18 08/09/18 08/10/18 11:59 23:59 11:59 Intake Total 670 / 670 505 / 505 Output Total 220 / 220 2000 / 2000 350 / 350 Balance 450 / 450 -1495 / -1495 -350 / -350 Intake: IV 25 / 25 Oral 660 / 660 480 / 480 Output: Urine 220 / 220 1999 / 1999 350 / 350 Other: Urine Color Dark [place]ash[place] Yellow Yellow Urine Appearance Cloudy Clear Urine Odor Normal Stool Size Small Stool Characteristics Soft Formed Black Voiding Methods Indwelling Catheter Laboratory Results WBC 5.66 k/cumm (4.4-10.8) 08/09/18 06:45 RBC 3.34 m/cumm (4.00-5.20) L 08/09/18 06:45 Hgb 8.5 g/dL (12.0-15.5) L 08/09/18 06:45 Hct 28.7 % (36.0-46.0) L 08/09/18 06:45 MCV 85.9 fL (80-95) 08/09/18 06:45 MCH 25.4 pg (27.0-33.0) L 08/09/18 06:45 MCHC 29.6 g/dL (32.0-36.0) L 08/09/18 06:45 RDW 26.4 % (11.7-14.6) H 08/09/18 06:45 Plt Count 448 x1000/uL (130-400) H 08/09/18 06:45 MPV 8.9 fL (8.0-11.0) 08/09/18 06:45 Immature Gran % 0.5 08/09/18 06:45 Neutrophils % 69.6 08/09/18 06:45 Lymphocytes % 12.9 08/09/18 06:45 Monocytes % 9.4 08/09/18 06:45 Eosinophils % 7.2 08/09/18 06:45 Basophils % 0.4 08/09/18 06:45 Absolute Neutrophils 3.94 k/cumm (1.2-6.7) 08/09/18 06:45 Absolute Lymphocytes 0.73 k/cumm (1.2-3.4) L 08/09/18 06:45 Absolute Monocytes 0.53 k/cumm (0.11-0.7) 08/09/18 06:45 Absolute Eosinophils 0.41 k/cumm (0.0-0.7) 08/09/18 06:45 Absolute Basophils 0.02 k/cumm (0.0-0.2) 08/09/18 06:45 Sodium 141 mmol/L (136-145) 08/10/18 06:40 Potassium 3.8 mmol/L (3.5-5.1) 08/10/18 06:40 Chloride 108 mmol/L (98-107) H 08/10/18 06:40 Carbon Dioxide 27.1 mmol/L (21.0-32.0) 08/10/18 06:40 Anion Gap 5.9 mmol/L (3-11) 08/10/18 06:40 BUN 21 mg/dL (7-18) H 08/10/18 06:40 Creatinine 0.69 mg/dL (0.55-1.02) 08/10/18 06:40 Estimated GFR/1.73 m2 >= 60.00 (mL/min/1.73m2) 08/10/18 06:40 Glucose 150 mg/dL (70-100) H 08/10/18 06:40 Calcium 7.7 mg/dL (8.5-10.1) L 08/10/18 06:40 Magnesium 1.8 mg/dL (1.8-2.4) 08/10/18 06:40 Total Bilirubin 0.2 mg/dL (0.2-1.0) 08/07/18 15:32 AST 17 U/L (15-37) 08/07/18 15:32 ALT 8 U/L (12-78) L 08/07/18 15:32 Alkaline Phosphatase 137 U/L (46-116) H 08/07/18 15:32 C-Reactive Protein 0.69 mg/dL (0.0-0.3) H 08/07/18 15:32 NT-Pro-B Natriuret Pep 960 pg/mL (-299) H 08/07/18 15:32 Total Protein 4.8 g/dL (6.4-8.2) L 08/07/18 15:32 Albumin 1.4 g/dL (3.4-5.0) L 08/07/18 15:32 Urine Color Yellow (Yellow) 08/08/18 21:10 Urine Clarity Clear 08/08/18 21:10 Urine pH 5.5 (5-8) 08/08/18 21:10 Ur Specific [place] 1.020 (1.005-1.025) 08/08/18 21:10 Urine Protein Trace mg/dL (Negative) H 08/08/18 21:10 Urine Ketones Trace mg/dL (Negative) H 08/08/18 21:10 Urine Blood Moderate (Negative) H 08/08/18 21:10 Urine Nitrite Negative (Negative) 08/08/18 21:10 Urine Bilirubin Negative (Negative) 08/08/18 21:10 Urine Urobilinogen 0.2 EU/dL (Up TO 0.2) 08/08/18 21:10 Ur Leukocyte Esterase Negative (Negative) 08/08/18 21:10 Urine RBC 20-50 (0-2) H 08/08/18 21:10 Urine WBC 20-50 HPF (0-5) 08/08/18 21:10 Ur Epithelial Cells Few HPF (Negative) 08/08/18 21:10 Urine Crystals Negative HPF (Negative) 08/08/18 21:10 Urine Bacteria Negative HPF (Negative) 08/08/18 21:10 Urine Casts 3-5 hyaline LPF (Negative) 08/08/18 21:10 Urine Mucus Negative (Negative) 08/08/18 21:10 Urine Other Mod transitional (Negative) 08/08/18 21:10 Ur Culture Indicated? Yes 08/08/18 21:10 Urine Glucose Negative mg/dL (Negative) 08/08/18 21:10
--- NOTE | 2018-08-10 11:25 | PT.INTREAT ---
Date of service: 08/10/18 Time of Service: 09:15 PT Notes Inpatient Physical Therapy Treatment Note Date: 08/10/18 SUBJECTIVE: Dina states that her hip does not hurt her this am. She is willing to work with me, but does not feel as though she will be able to do a whole lot. OBJECTIVE: [] BED MOBILITY/TRANSFERS Supine-sit: CGA/ min A Sit-stand: CGA/ min A Stand-sit: CGA GAIT Assistive Device: platform FWW Weight bearing: AT Assist: CGAx 2 Distance: 5' THEREX:global LE strengthening, see flowsheet for details. She was toileted and performed 4 sit to stands with approx 20-30 sec static standing in btwn ea transfer. ASSESSMENT: Pt very snappy this am. I had a hard time to motivate and encourage her without her feeling like she was being bossed around. She seems more content to let others around her lift her vs her trying to move around herself. Question some anxiety issues, with ambulation. PLAN: will continue to progress her global strength and endurance, while encouraging her to try to be more independent, following PT POC. Possible d/c to health and rehab tomorrow. TREATMENT CODE/TIME: 30 min. TPx1, TAx1
[2018-08-10 11:40] VITALS: BP 150/79; PULSE 71; RESP 16; TEMP 36.5; O2SAT 97
--- NOTE | 2018-08-10 11:53 | PDOC.CMPRO ---
Care Management Progress Note S/O: Sitting up in her recliner visiting with , Cosme. Reviewed the plan and they both are in agreement that she needs a short term SNF stay prior to returning home. A: 73 y.o female admitted for failure to thrive and an a chronic draining wound. Remains on acute status today. P: Referral has been sent to [facility] and rehab. They have tentatively agreed to accept for admission on Saturday. Dina will go th [facility] for [facility] term SNF services if accepted and medically cleared for discharge from acute care. will transport.
--- NOTE | 2018-08-10 11:59 | CMPROGNOTE_ITS ---
Care Management Progress Note S/O: Sitting up in her recliner visiting with , Cosme. Reviewed the plan and they both are in agreement that she needs a short term SNF stay prior to returning home. A: 73 y.o female admitted for failure to thrive and an a chronic draining wound. Remains on acute status today. P: Referral has been sent to [facility] and rehab. They have tentatively agreed to accept for admission on Saturday. Dina will go th [facility] for [facility] term SNF services if accepted and medically cleared for discharge from acute care. will transport.
[2018-08-10 15:15] VITALS: BP 118/71; PULSE 56; RESP 18; TEMP 37.2; O2SAT 97
[2018-08-10] MEDS: Normal Saline 500 ML 200 ML IVPB (17:52)
[2018-08-10] MEDS: MAGNESIUM SULFATE 1 GM/100 ML BAG IVPB (17:52)
[2018-08-10 19:25] VITALS: BP 114/60; PULSE 63; RESP 18; TEMP 37.3; O2SAT 96
[2018-08-10] MEDS: Melatonin 3 MG TAB PO (22:52)
[2018-08-10] MEDS: diphenhydrAMINE 25 MG CAP PO (22:52)
[2018-08-10 23:20] VITALS: BP 131/64; PULSE 64; RESP 17; TEMP 36.6; O2SAT 97
[2018-08-11 03:36] VITALS: BP 135/74; PULSE 59; RESP 16; TEMP 37.2; O2SAT 97
[2018-08-11] MEDS: Levothyroxine 150 MCG TAB PO (05:44)
[2018-08-11 06:51] LABS: HCT 29.2 % (36.0-46.0); HGB 8.7 g/dL (12.0-15.5); Mean Corp. HGB Concentration 29.8 g/dL (32.0-36.0); Mean Corpuscular Hemoglobin 25.8 pg (27.0-33.0); Mean Corpuscular Volume 86.6 fL (80-95); Mean Platelet Volume 8.8 fL (8.0-11.0); Platelet Count 344 x1000/uL (130-400); RBC 3.37 m/cumm (4.00-5.20); RBC Distribution Width 26.8 % (11.7-14.6); White Blood Cell Count 4.84 k/cumm (4.4-10.8)
[2018-08-11 06:58] LABS: Anion Gap 6.9 mmol/L (3-11); BUN 19 mg/dL (7-18); CO2 27.1 mmol/L (21.0-32.0); CREATININE 0.65 mg/dL (0.55-1.02); Calcium 7.6 mg/dL (8.5-10.1); Chloride 109 mmol/L (98-107); Glucose 206 mg/dL (70-100); Magnesium 1.9 mg/dL (1.8-2.4); Potassium 3.3 mmol/L (3.5-5.1); Sodium 143 mmol/L (136-145)
[2018-08-11 07:20] VITALS: BP 148/67; PULSE 59; RESP 16; TEMP 37.1; O2SAT 96
[2018-08-11] MEDS: Memantine 5 MG TAB 10 MG PO (08:05)
[2018-08-11] MEDS: Multivitamin TAB 1 TAB PO (08:05)
[2018-08-11] MEDS: Nystatin POWDER 60 GM JAR TP (08:05)
[2018-08-11] MEDS: Magnesium Oxide 400 MG TAB PO (08:06)
[2018-08-11] MEDS: Metoprolol 25 MG TAB PO (08:06)
[2018-08-11] MEDS: Sennosides/Docusate Sodium TAB 1 TAB PO (08:06)
[2018-08-11] MEDS: DULoxetine 30 MG CAP 60 MG PO (08:06)
[2018-08-11] MEDS: Donepezil 5 MG TAB PO (08:06)
[2018-08-11] MEDS: Atorvastatin 40 MG TAB PO (08:06)
[2018-08-11] MEDS: Normal Saline Flush 10 ML SYR IVP (08:07)
[2018-08-11] MEDS: Cephalexin 500 MG CAP PO ×2 (08:07→12:33)
[2018-08-11] MEDS: Aspirin E.C. 81 MG TABEC PO (08:07)
[2018-08-11] MEDS: Acetaminophen 500 MG TAB 1000 MG PO (08:07)
[2018-08-11] MEDS: Furosemide 40 MG/4 ML VIAL IVP (08:08)
[2018-08-11] MEDS: Insulin Aspart 300 UNITS/3 ML PEN SC ×2 (08:09→12:33)
--- NOTE | 2018-08-11 08:53 | PDOC.CMDIS ---
LACE Index Scoring Tool - Questions: Length of Stay (in days): 4 - 6 Acuity (Admit via E.D.?): Yes Comorbidities: Diabetes w/o Complication, Dementia E.D. Visits: 2 - Answers: Total Score: 14 Risk of Readmission: High Risk Care Management Discharge Reason for Hospitalization: Failure to Thrive, Peripheral Edema, Chronic Wound Discharge Plan: Dina will discharge to [facility] when ready per MD-she will have a short rehab stay prior to returning home with her . The facility will manage her further service and equipment needs. She will transport via private vehicle with her . Patient/Family Education Needs: Review discharge instructions, discuss Ask Me Three. Services Needed at Discharge: Halfway Facility ([facility])
[2018-08-11] MEDS: Heparin 5,000 UNITS/ML VIAL 5000 UNITS SC (09:34)
--- NOTE | 2018-08-11 09:40 | CMDISCH_ITS ---
LACE Index Scoring Tool - Questions: Length of Stay (in days): 4 - 6 Acuity (Admit via E.D.?): Yes Comorbidities: Diabetes w/o Complication, Dementia E.D. Visits: 2 - Answers: Total Score: 14 Risk of Readmission: High Risk Care Management Discharge Reason for Hospitalization: Failure to Thrive, Peripheral Edema, Chronic Wound Discharge Plan: Dina will discharge to [facility] when ready per MD-she will have a short rehab stay prior to returning home with her . The facility will manage her further service and equipment needs. She will transport via private vehicle with her . Patient/Family Education Needs: Review discharge instructions, discuss Ask Me Three. Services Needed at Discharge: Longterm Facility ([facility])
[2018-08-11] MEDS: Potassium Chloride 20 MEQ TABCR 40 MEQ PO (09:52)
--- NOTE | 2018-08-11 10:09 | W.PM.PROGNOT ---
Date of Service Date of service: 08/11/18 Time of Service: 10:10 Assessment and Plan (1) Edema: Current visit: Yes Status: Acute Related to fluid adminstration in setting of hypoalbuminemic state related to subacute illness with inflammatory state and poor nutrition. She continues fluid negative and responding to 40mg IV furosemide and BUN and creatinine are stable. Given she needed 40 mg of IV Lasix to get a diuresis, I will prescribe 80 mg orally for equivalent dosing upon discharge. I will change her to daily dosing, so as not to cause over diuresis. I will replete her potassium orally, and send her home on potassium and magnesium supplementation while she is on the furosemide. Improving nutritional status will also help. I urged her to focus on high protein diet which will help this as well as her diabetes. (2) Left hip prosthetic joint infection: Current visit: No Status: Acute Continue keflex, per ortho. Training improving with diuresis. Ongoing wound care per orthopedics. (3) Diabetes mellitus type 2, insulin dependent: Current visit: No Status: Chronic Continue SSI for now. (4) Alzheimer disease: Current visit: No Status: Chronic Stable. Monitor behaviors. (5) DVT prophylaxis: Current visit: No Status: Acute Defer to primary team. (6) Discharge planning issues: Current visit: No Status: Acute Full code. Plan is to discharge [facility]. (7) Hypomagnesemia: Current visit: Yes Status: Acute Worse today after 2 g IV yesterday. Likely related to increased furosemide. We will give her 4 g IV today. (8) Anemia associated with acute blood loss: Current visit: No Status: Acute She does have anemia. It sounds like she did not have significant blood loss related to surgery, but this may be contributing in the setting of chronic anemia of chronic disease and some iron deficiency documented as an outpatient. Will check once more tomorrow morning prior to discharge to make sure her anemia is stable. Subjective Patient reports: no new complaints and tolerating a regular diet; denies diarrhea, nausea, vomiting and fever Interval history since last seen: Patient feels like her edema is improving. She does urinate more after the dose of Lasix. Her appetite is good, much better than before her surgery. She does feel like the drainage is getting better. Exam Narrative Exam Narrative: General: Very pleasant, comfortable sitting in chair with legs up Psychiatric: alert, appropriate speech pattern/content Skin: L hip incision dressed; otherwise, intact HEENT: MMM Cardiovascular: regular rhythm 1/6 systolic murmur, with occasional extra beats Lungs: CTAB, diminished, but normal effort, no rales Gastrointestinal: abdomen soft, nontender, nondistended Extremities: 1-2+ BLE edema in feet, better 1+ to thighs (improved), symmetric, no clubbing/cyanosis, not tender Objective Objective Clinical Data: Abnormal lab results 08/11/18 08/11/18 Range/Units 06:30 06:30 RBC 3.37 L (4.00-5.20) m/cumm Hgb 8.7 L (12.0-15.5) g/dL Hct 29.2 L (36.0-46.0) % MCH 25.8 L (27.0-33.0) pg MCHC 29.8 L (32.0-36.0) g/dL RDW 26.8 H (11.7-14.6) % Potassium 3.3 L (3.5-5.1) mmol/L Chloride 109 H (98-107) mmol/L BUN 19 H (7-18) mg/dL Glucose 206 H (70-100) mg/dL Calcium 7.6 L (8.5-10.1) mg/dL Vital Signs Temperature 37.1 C 08/11/18 07:20 Temperature Source Tympanic 08/11/18 07:20 Pulse 59 L 08/11/18 07:20 Pulse Rhythm Regular 08/11/18 07:55 Respiratory Rate 16 08/11/18 07:20 Respiratory Effort Non-Labored 08/11/18 07:55 Respiratory Depth Normal 08/11/18 07:55 Respiratory Pattern Normal 08/11/18 07:55 Blood Pressure 148/67 H 08/11/18 07:20 Blood Pressure Position Supine 08/07/18 12:37 Pulse Oximetry 96 08/11/18 07:20 Oxygen Delivery Method Room Air 08/11/18 07:20 Oxygen Flow Rate 0 08/11/18 07:20 Pain Level 0 08/11/18 09:07 Comment 08/09/18 03:15 Intake & Output 08/10/18 08/10/18 08/11/18 11:59 23:59 11:59 Intake Total 740 / 740 1270 / 1270 Output Total 950 / 950 1000 / 1000 200 / 200 Balance -210 / -210 270 / 270 -200 / -200 Intake: IV 500 / 500 610 / 610 Oral 240 / 240 660 / 660 Output: Urine 950 / 950 1000 / 1000 200 / 200 Other: Urine Color Yellow Yellow Light Lashay Urine Appearance Clear Clear Clear Stool Size Moderate Stool Characteristics Brown Laboratory Results WBC 4.84 k/cumm (4.4-10.8) 08/11/18 06:30 RBC 3.37 m/cumm (4.00-5.20) L 08/11/18 06:30 Hgb 8.7 g/dL (12.0-15.5) L 08/11/18 06:30 Hct 29.2 % (36.0-46.0) L 08/11/18 06:30 MCV 86.6 fL (80-95) 08/11/18 06:30 MCH 25.8 pg (27.0-33.0) L 08/11/18 06:30 MCHC 29.8 g/dL (32.0-36.0) L 08/11/18 06:30 RDW 26.8 % (11.7-14.6) H 08/11/18 06:30 Plt Count 344 x1000/uL (130-400) D 08/11/18 06:30 MPV 8.8 fL (8.0-11.0) 08/11/18 06:30 Immature Gran % 0.5 08/09/18 06:45 Neutrophils % 69.6 08/09/18 06:45 Lymphocytes % 12.9 08/09/18 06:45 Monocytes % 9.4 08/09/18 06:45 Eosinophils % 7.2 08/09/18 06:45 Basophils % 0.4 08/09/18 06:45 Absolute Neutrophils 3.94 k/cumm (1.2-6.7) 08/09/18 06:45 Absolute Lymphocytes 0.73 k/cumm (1.2-3.4) L 08/09/18 06:45 Absolute Monocytes 0.53 k/cumm (0.11-0.7) 08/09/18 06:45 Absolute Eosinophils 0.41 k/cumm (0.0-0.7) 08/09/18 06:45 Absolute Basophils 0.02 k/cumm (0.0-0.2) 08/09/18 06:45 Sodium 143 mmol/L (136-145) 08/11/18 06:30 Potassium 3.3 mmol/L (3.5-5.1) L 08/11/18 06:30 Chloride 109 mmol/L (98-107) H 08/11/18 06:30 Carbon Dioxide 27.1 mmol/L (21.0-32.0) 08/11/18 06:30 Anion Gap 6.9 mmol/L (3-11) 08/11/18 06:30 BUN 19 mg/dL (7-18) H 08/11/18 06:30 Creatinine 0.65 mg/dL (0.55-1.02) 08/11/18 06:30 Estimated GFR/1.73 m2 >= 60.00 (mL/min/1.73m2) 08/11/18 06:30 Glucose 206 mg/dL (70-100) H 08/11/18 06:30 Calcium 7.6 mg/dL (8.5-10.1) L 08/11/18 06:30 Magnesium 1.9 mg/dL (1.8-2.4) 08/11/18 06:30 Total Bilirubin 0.2 mg/dL (0.2-1.0) 08/07/18 15:32 AST 17 U/L (15-37) 08/07/18 15:32 ALT 8 U/L (12-78) L 08/07/18 15:32 Alkaline Phosphatase 137 U/L (46-116) H 08/07/18 15:32 C-Reactive Protein 0.69 mg/dL (0.0-0.3) H 08/07/18 15:32 NT-Pro-B Natriuret Pep 960 pg/mL (-299) H 08/07/18 15:32 Total Protein 4.8 g/dL (6.4-8.2) L 08/07/18 15:32 Albumin 1.4 g/dL (3.4-5.0) L 08/07/18 15:32 Urine Color Yellow (Yellow) 08/08/18 21:10 Urine Clarity Clear 08/08/18 21:10 Urine pH 5.5 (5-8) 08/08/18 21:10 Ur Specific [place] 1.020 (1.005-1.025) 08/08/18 21:10 Urine Protein Trace mg/dL (Negative) H 08/08/18 21:10 Urine Ketones Trace mg/dL (Negative) H 08/08/18 21:10 Urine Blood Moderate (Negative) H 08/08/18 21:10 Urine Nitrite Negative (Negative) 08/08/18 21:10 Urine Bilirubin Negative (Negative) 08/08/18 21:10 Urine Urobilinogen 0.2 EU/dL (Up TO 0.2) 08/08/18 21:10 Ur Leukocyte Esterase Negative (Negative) 08/08/18 21:10 Urine RBC 20-50 (0-2) H 08/08/18 21:10 Urine WBC 20-50 HPF (0-5) 08/08/18 21:10 Ur Epithelial Cells Few HPF (Negative) 08/08/18 21:10 Urine Crystals Negative HPF (Negative) 08/08/18 21:10 Urine Bacteria Negative HPF (Negative) 08/08/18 21:10 Urine Casts 3-5 hyaline LPF (Negative) 08/08/18 21:10 Urine Mucus Negative (Negative) 08/08/18 21:10 Urine Other Mod transitional (Negative) 08/08/18 21:10 Ur Culture Indicated? Yes 08/08/18 21:10 Urine Glucose Negative mg/dL (Negative) 08/08/18 21:10
--- NOTE | 2018-08-11 11:07 | PT.INDS ---
Date of service: 08/11/18 Time of Service: 11:07 PT Notes Inpatient Physical Therapy Discharge Summary Date: 08/11/18 Dates of Service: 08/08/18-08/10/18 SUBJECTIVE: Pt refused therapy session this morning. She is up in chair with nursing assist. OBJECTIVE: functional mobility from 08/08/18-08/10/18 Bed Mobility/Transfers: Sit-supine: maxA Sit-stand: CGA/Daniella Stand-sit: CGA Gait: CGA with platform FWW 5ft-10ft Balance: Static Sitting: normal Dynamic Sitting: normal Static Standing: fair Dynamic Standing: poor Assessment: Pt is a 73yr old female s/p incision and drainage left hip by Dr. 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 Patient was seen for 4 PT visits. Pt progress with therapy intervention slow due to weakness, pt is transferring to long term care pharmacist care facility for continued rehab. Goals: Goals X1 week 1. Supine-Sit: CGA 2. Sit-Supine :SBA 3. Sit-Stand :SBA with platform FWW 4. Stand-Sit: supervision 5. Bed-Chair : SBA with platform FWW 6. Chair-Bed : SBA with platform FWW 7. Gait: CGA with platform FWW 25ftx2 WBAT L LE 8. Stairs : up/down 4 steps with railing, WBAT L LE, CGA Pt did not meet therapy goals, recommend continued PT at rehab DISCHARGE RECOMMENDATIONS: [facility] G Codes in the area mobility of walking and moving around: projected status GP [id number]. Discharge status (if discharging) GP [id number] CL Vanessa Garcia PT
--- NOTE | 2018-08-11 11:11 | INDS_ITS ---
Date of service: 08/11/18 Time of Service: 11:07 PT Notes Inpatient Physical Therapy Discharge Summary Date: 08/11/18 Dates of Service: 08/08/18-08/10/18 SUBJECTIVE: Pt refused therapy session this morning. She is up in chair with nursing assist. OBJECTIVE: functional mobility from 08/08/18-08/10/18 Bed Mobility/Transfers: Sit-supine: maxA Sit-stand: CGA/Daniella Stand-sit: CGA Gait: CGA with platform FWW 5ft-10ft Balance: Static Sitting: normal Dynamic Sitting: normal Static Standing: fair Dynamic Standing: poor Assessment: Pt is a 73yr old female s/p incision and drainage left hip by Dr. 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 Patient was seen for 4 PT visits. Pt progress with therapy intervention slow due to weakness, pt is transferring to check[facility] machine adjuster care facility for continued rehab. Goals: Goals X1 week 1. Supine-Sit: CGA 2. Sit-Supine :SBA 3. Sit-Stand :SBA with platform FWW 4. Stand-Sit: supervision 5. Bed-Chair : SBA with platform FWW 6. Chair-Bed : SBA with platform FWW 7. Gait: CGA with platform FWW 25ftx2 WBAT L LE 8. Stairs : up/down 4 steps with railing, WBAT L LE, CGA Pt did not meet therapy goals, recommend continued PT at rehab DISCHARGE RECOMMENDATIONS: [facility] G Codes in the area mobility of walking and moving around: projected status GP [id number]. Discharge status (if discharging) GP [id number] CL Vanessa Garcia PT
--- NOTE | 2018-08-11 11:36 | DSE_ITS ---
Date of service: 08/11/18 Time of Service: 11:34 DS: Diagnosis Discharge Diagnosis (1) Edema: Status: Acute (2) Diabetes mellitus type 2, insulin dependent: Status: Chronic (3) Alzheimer disease: Status: Chronic (4) DVT prophylaxis: Status: Acute (5) Discharge planning issues: Status: Acute (6) Hypomagnesemia: Status: Acute (7) Anemia associated with acute blood loss: Status: Acute Discharge Plan Disposition Patient Disposition: SNF (LEVEL 1) [facility] Condition: Improving Discharge Details Chief Complaint: Orthopedic Reason For Visit: FAILURE TO THRIVE, PERIPHERAL EDEMA, CHRONIC WOUND Admit Date/Time: 08/07/18 15:11 Admit Provider: Bandar Corona Attending Provider: Bandar Corona Primary Care Provider: Chano Leon ED Provider: Rudy Wheeler Hospital Course Hospital Course: Mrs. Queen is a 73-year-old who was admitted from the emergency department for failure to thrive, peripheral edema, and a chronically draining left hip wound. Her left hip was managed with compressive dressings and did seem to start improvement. A hospital medicine consult was obtained to help with peripheral edema. Her Lasix was increased and a Diez catheter was used for fluid output management. This noted some net negative improvement. Her electrolytes were replenished. She was able to work with physical therapy and did make some gains, albeit small. Her wound remained benign. Her appetite was good and nutrition consult was obtained to help with high-calorie and high- protein diet. After 3 hospital days she was making enough progress to consider transfer to [facility] facility. Home Meds and New Rx's Prescriptions: New furosemide 80 mg Tablet 80 mg PO DAILY Qty: 0 RF: 0 levothyroxine 150 mcg Tablet 150 mcg PO DAILY@0600 Qty: 0 RF: 0 nystatin 100,000 unit/gram Powder 60 g Topical TID Qty: 0 RF: 0 melatonin 3 mg Tablet Extended Release 3 mg PO HS Qty: 0 RF: 0 insulin aspart U-100 [Novolog Flexpen U-100 Insulin] 100 unit/mL Insulin Pen subcut 0800,1200,1700 Qty: 0 RF: 0 potassium chloride [Klor-Con M10] 10 mEq Tablet,Er Particles/Crystals 10 meq PO DAILY Qty: 0 RF: 0 Continue atorvastatin 40 mg tablet 40 mg PO DAILY RF: 0 sennosides-docusate sodium [Senna with Docusate Sodium] 1 EACH tablet 1 ea PO BID RF: 0 acetaminophen [Tylenol Extra Strength] 500 MG tablet 1,000 mg PO BID RF: 0 magnesium oxide 400 MG tablet 400 mg PO DAILY RF: 0 diphenhydramine HCl [Allergy (diphenhydramine)] 25 MG capsule 25 mg PO DAILY RF: 0 memantine [Namenda] 10 MG tablet 10 mg PO BID RF: 0 multivitamin 1 EACH capsule 1 cap PO DAILY RF: 0 sitagliptin [Januvia] 100 MG tablet 100 mg PO DAILY RF: 0 duloxetine [Cymbalta] 60 MG capsule,delayed release(DR/EC) 60 mg PO DAILY RF: 0 cephalexin 500 mg Capsule 500 mg PO QID Qty: 56 RF: 0 metoprolol tartrate 25 mg Tablet 25 mg PO Q12H Qty: 60 RF: 0 aspirin [Aspir-81] 81 MG tablet,delayed release (DR/EC) 81 mg PO BID Qty: 80 RF: 0 megestrol 40 mg Tablet 160 mg PO DAILY RF: 0 Changed donepezil [Aricept] 5 MG tablet 10 mg PO DAILY Qty: 0 RF: 0 Discontinued insulin detemir U-100 [Levemir FlexTouch U-100 Insuln] 100 UNIT/1 ML insulin pen 42 DAILY RF: 0 furosemide 20 MG tablet 20 mg PO DAILY RF: 0 melatonin-pyridoxine (vit B6) 1 TAB tablet 3 mg PO HS RF: 0 levothyroxine 137 MCG tablet 150 mcg PO DAILY RF: 0 tamoxifen 20 mg Tablet 40 mg PO DAILY RF: 0 tramadol 50 mg Tablet 50 mg PO Q6H PRN PRN (Reason: Pain) Qty: 8 RF: 0 Discharge Instructions Additional Instructions: Activity: He may move as tolerated. Physical therapy to be done at least once a day to work on strengthening, gait training, and activities of daily living with assistance of occupational therapy. There are no positional restrictions. No activity restrictions. Focus should be made on having more independent for home discharge in the next few weeks. Dressings: The left hip dressing should be kept clean and dry as much as possible. A dressing consisting of 4 x 4 gauze, ABD, and skin sensitive tape should be used and changed twice a day. Wound assessment should be made at least once a day and Dr. Corona should be notified if there is any change such as purulent drainage or worsening erythema. Follow-up: Dr. Corona will see Mrs. Queen in the health and rehab within 1 week for a wound check. I will see her back in the office in 2 weeks. Activity:: Activity as Tolerated Equipment/Supplies:: Walker Diet:: High Protein, High Calorie Discharge Orders Discharge Orders: Discharge Order (Routine); Ordered 08/11/18 Ordered By: Bandar Corona DS: Data Vitals/I&O Vitals and I&O: Vital Signs Temperature 37.1 C 08/11/18 07:20 Temperature Source Tympanic 08/11/18 07:20 Pulse 59 L 08/11/18 07:20 Pulse Rhythm Regular 08/11/18 07:55 Respiratory Rate 16 08/11/18 07:20 Respiratory Effort Non-Labored 08/11/18 07:55 Respiratory Depth Normal 08/11/18 07:55 Respiratory Pattern Normal 08/11/18 07:55 Blood Pressure 148/67 H 08/11/18 07:20 Blood Pressure Position Supine 08/07/18 12:37 Pulse Oximetry 96 08/11/18 07:20 Oxygen Delivery Method Room Air 08/11/18 07:20 Oxygen Flow Rate 0 08/11/18 07:20 Pain Level 0 08/11/18 09:07 Comment 08/09/18 03:15 Intake & Output 08/10/18 08/10/18 08/11/18 11:59 23:59 11:59 Intake Total 740 / 740 1270 / 1270 460 / 460 Output Total 950 / 950 1000 / 1000 425 / 425 Balance -210 / -210 270 / 270 35 / 35 Intake: IV 500 / 500 610 / 610 Oral 240 / 240 660 / 660 460 / 460 Output: Urine 950 / 950 1000 / 1000 425 / 425 Other: Urine Color Yellow Yellow Light Lashay Urine Appearance Clear Clear Clear Comment mixed w stool Stool Size Moderate Moderate Stool Characteristics Brown Soft Formed Brown Voiding Methods Bedside Commode Labs on day of discharge: Labs from last 24 hours 08/11/18 08/11/18 06:30 06:30 WBC 4.84 RBC 3.37 L Hgb 8.7 L Hct 29.2 L MCV 86.6 MCH 25.8 L MCHC 29.8 L RDW 26.8 H Plt Count 344 D MPV 8.8 Sodium 143 Potassium 3.3 L Chloride 109 H Carbon Dioxide 27.1 Anion Gap 6.9 BUN 19 H Creatinine 0.65 Estimated GFR/1.73 m2 >= 60.00 Glucose 206 H Calcium 7.6 L Magnesium 1.9
== END 2018-08-11 12:54 | disposition skilled nursing facility (03) | DRG 603 ==
LOC: ER 15:59 → MS 18:18
PROVIDERS: Family Medicine; Internal Medicine; Admitting Provider Student in an Organized Health Care Education/Training Program; Emergency Provider Nurse Practitioner Family; PCP Internal Medicine; Visit Provider Student in an Organized Health Care Education/Training Program
DX: L02.416 Cutaneous abscess of left lower limb (principal); D62 Acute posthemorrhagic anemia; R62.7 Adult failure to thrive; R60.0 Localized edema; E88.09 Other disorders of plasma-protein metabolism, not elsewhere classified; C54.1 Malignant neoplasm of endometrium; I49.9 Cardiac arrhythmia, unspecified; E03.9 Hypothyroidism, unspecified; E11.9 Type 2 diabetes mellitus without complications; G30.9 Alzheimer's disease, unspecified; F02.80 Dementia in other diseases classified elsewhere, unspecified severity, without behavioral disturbance, psychotic disturbance, mood disturbance, and anxiety; E83.42 Hypomagnesemia; Z79.4 Long term (current) use of insulin; Z89.2 Acquired absence of upper limb above wrist; I51.7 Cardiomegaly; Z71.3 Dietary counseling and surveillance
CPT/HCPCS: 36415; 80048; 80053; 85027; 93306; 97110; 97163; 97530; 99223; 99232; 99233; 99238; 99254; 99285; 81003; 81015; 83735; 83880; 85025; 86140; 87086; 93005; 93010; 93970; 99222; 99283; J1644; J1940; J1941; J3475; J3490

== ENCOUNTER 2018-08-25 08:59 | Outpatient (REF) | payer MEDICARE, SELFPAY ==
[2018-08-25 10:31] LABS: HCT 33.3 % (36.0-46.0); HGB 10.1 g/dL (12.0-15.5)
[2018-08-25 11:27] LABS: ESR 39 MM/HR (0-30)
[2018-08-25 11:34] LABS: Albumin 2.3 g/dL (3.4-5.0); BUN 15 mg/dL (7-18); C-Reactive Protein 2.34 mg/dL (0.0-0.3); CREATININE 0.65 mg/dL (0.55-1.02); Calcium 8.6 mg/dL (8.5-10.1); Chloride 108 mmol/L (98-107); Glucose 243 mg/dL (70-100); Magnesium 1.8 mg/dL (1.8-2.4); Potassium 3.6 mmol/L (3.5-5.1); Sodium 144 mmol/L (136-145); Total Protein 5.4 g/dL (6.4-8.2)
[2018-08-26 12:58] LABS: Prealbumin 18 mg/dL (20-40)
== END 2018-08-25 09:19 ==
LOC: LBN 08:59
PROVIDERS: PCP Internal Medicine; Visit Provider Family Medicine
DX: E87.6 Hypokalemia (principal); E83.42 Hypomagnesemia; E46 Unspecified protein-calorie malnutrition
CPT/HCPCS: 80048; 85652; 82040; 83735; 84134; 84155; 85014; 85018; 86140

== ENCOUNTER → 2018-08-25 10:58 | Outpatient (BNVA) | payer MEDICARE, SELFPAY | PROVIDERS: PCP Internal Medicine; Referring Provider Internal Medicine; Visit Provider Student in an Organized Health Care Education/Training Program | DX: L02.416 Cutaneous abscess of left lower limb (principal); Z47.89 Encounter for other orthopedic aftercare; E11.9 Type 2 diabetes mellitus without complications; Z79.4 Long term (current) use of insulin; I10 Essential (primary) hypertension ==

== ENCOUNTER 2018-09-01 08:48 | Day surgery (SDC) | payer MEDICARE, SELFPAY ==
--- NOTE | 2018-08-29 10:14 | NUR.NOTE ---
Nursing Note: 08/29/18 PPOV done with Cynthia GALDAMEZ [facility] patient nurse.
[2018-09-01] VITALS (8 sets, daily range): BP systolic 121–174; BP diastolic 56–82; PULSE 50–70; RESP 12–19; TEMP 36.5–37.3; O2SAT 97–100
[2018-09-01] MEDS: Lactated Ringers 1,000 ML 80 ML IV (09:45)
--- NOTE | 2018-09-01 11:40 | PDOC.DSDIS_ITS ---
Discharge Plan Disposition Patient Disposition: [facility] (LEVEL 2) [facility] Condition: Good Discharge Details Reason For Visit: (L) HIP ABCESS Attending Provider: Germain Bowman Primary Care Provider: Chano Leon Home Meds and New Rx's Prescriptions: Continue atorvastatin 40 mg tablet 40 mg PO DAILY RF: 0 sennosides-docusate sodium [Senna with Docusate Sodium] 1 EACH tablet 1 ea PO BID RF: 0 acetaminophen [Tylenol Extra Strength] 500 MG tablet 1,000 mg PO BID PRNRF: 0 magnesium oxide 400 MG tablet 400 mg PO DAILY RF: 0 diphenhydramine HCl [Allergy (diphenhydramine)] 25 MG capsule 25 mg PO DAILY RF: 0 memantine [Namenda] 10 MG tablet 10 mg PO DAILY RF: 0 multivitamin 1 EACH capsule 1 cap PO DAILY RF: 0 sitagliptin [Januvia] 100 MG tablet 100 mg PO DAILY RF: 0 duloxetine [Cymbalta] 60 MG capsule,delayed release(DR/EC) 60 mg PO DAILY RF: 0 cephalexin 500 mg Capsule 500 mg PO QID Qty: 56 RF: 0 metoprolol tartrate 25 mg Tablet 25 mg PO Q12H Qty: 60 RF: 0 aspirin [Aspir-81] 81 MG tablet,delayed release (DR/EC) 81 mg PO BID Qty: 80 RF: 0 megestrol 40 mg Tablet 160 mg PO DAILY RF: 0 furosemide 80 mg Tablet 80 mg PO DAILY Qty: 0 RF: 0 levothyroxine 150 mcg Tablet 150 mcg PO DAILY@0600 Qty: 0 RF: 0 nystatin 100,000 unit/gram Powder 60 g Topical TID Qty: 0 RF: 0 melatonin 3 mg Tablet Extended Release 3 mg PO HS Qty: 0 RF: 0 insulin aspart U-100 [Novolog Flexpen U-100 Insulin] 100 unit/mL Insulin Pen subcut 0800,1200,1700 Qty: 0 RF: 0 potassium chloride [Klor-Con M10] 10 mEq Tablet,Er Particles/Crystals 10 meq PO DAILY Qty: 0 RF: 0 donepezil [Aricept] 5 MG tablet 10 mg PO DAILY Qty: 0 RF: 0 magnesium hydroxide [Milk of Magnesia] 400 mg/5 mL Suspension 30 ml PO HS RF: 0 bisacodyl [Dulcolax (bisacodyl)] 10 mg Suppository 10 mg [place] DAILY PRN PRNRF: 0 ferrous sulfate 325 mg (65 mg iron) Tablet 325 mg PO BID RF: 0 tamoxifen 20 mg Tablet 40 mg PO .AFTERNOON RF: 0 acetaminophen 325 mg Tablet 650 mg PO Q4H PRNRF: 0 Discharge Instructions Additional Instructions: Change wound vac on MWF at [facility] and by Home Health when she is discharged home. Follow up with or in 2 weeks.(whoever has appt time) Referrals: Bandar Corona MD [ [facility] STAFF PHYSICIAN] - (f/u in 2 weeks with or ) Activity:: Activity as Tolerated Remove Dressings/Wound Care:: Do Not Remove Shower/Bathe:: 48 hours Diet:: As Tolerated Discharge Orders Discharge Orders: Discharge Order (Routine); Ordered 09/01/18 Ordered By: Germain Bowman DS: Diagnosis Discharge Diagnosis (1) Abscess of left hip: Status: Acute
[2018-09-01] MEDS: Ketorolac 15 MG/ML VIAL IVP (12:09)
--- NOTE | 2018-09-01 16:33 | ROE_ITS ---
DATE OF PROCEDURE: September 01, 2018 PREOPERATIVE DIAGNOSIS: Abscess left hip. POSTOPERATIVE DIAGNOSIS: Abscess left hip. PROCEDURE: Irrigation and debridement of abscess cavity and application of wound vac, left hip. SURGEON: Germain Bowman M.D. ANESTHESIA: General. INDICATIONS: This is a 73-year-old white female who has been treated for a very large abscess around her left hip. She has had two prior debridements. She is presently at [facility]. It was noted that although the wound looked clean, she continued to have a large amount of drain age from the wound which makes her need to stay in the snf facility. Her does no t feel he can handle the wound dressing changes at home. Repeat irrigation and debridement was recom mended to evaluate the wound and question whether a wound vac would be appropriate at this time to ma nage the continued drainage. PROCEDURE: The patient was taken to the Operating Room on 09/01/18. She was placed supine on the ope rating table and a general anesthetic was administered. She was then turned to the left lateral posi tion on the operating table and this position was maintained with a pneumatic beanbag. The wound was block draped after prepping with Betadine solution. The part of the incision that was open was prob ably 6 inches or so in length. The skin edges were still connected in the middle by about an inch-wi de thin band of scar tissue. I simply transected that and made it just one wound. I then examined t he depths of the wound. The abscess cavity that remained was smooth lined. There was granulation ti ssue growing in the bases. There was just a small amount of fibrinous material that I simply debride d so that the remainder of the wound cavity was really quite clean. I then irrigated it copiously wi th Betadine and saline solution. I allowed the Betadine and saline to stay in the wound for over a m inute before suctioning. The previous fascial repair was examined closely. I did not feel I could a pproximate the iliotibial band without a lot of tension. I felt that the sutures would simply pull o ut. I felt the wound was best managed open. I thought she would certainly benefit from a wound vac so that granulation would start from the depths of the wound and go to the surface. This would also make it easier to handle a large amount of fluid discharge from the wound in a more controlled fashio n. I applied the wound vac. The wound was found to nicely contract and there was good suction on th e wound. The patient's anesthesia was reversed without complication. She was discharged to the [facility] very Room in good condition. The patient was later discharged back to the [facility] snf facility when fully recovered. She will continue with her present mobilization. As soon as we can get a woun d vac pump for her they will exchange it with the one she has on now and then she will be able to go home with the wound vac. Home Health can then change her wound vac on Mondays, Wednesdays, and ys. Until she can be discharged from the snf facility, we will have the snf facility change the wound vac starting on Saturday, again on a Saturday/Saturday/Saturday schedule. Jerrica nickolas will follow up with either Dr. Corona or myself in two weeks.
== END 2018-09-01 13:38 | disposition intermediate care facility (04) ==
PROVIDERS: PCP Internal Medicine; Visit Provider Orthopaedic Surgery
PROC: (CPT 26990; principal; 2018-09-01 10:00)
DX: L02.416 Cutaneous abscess of left lower limb (principal)
CPT/HCPCS: 26990; 97607; J0690; J1885; J2405

== ENCOUNTER 2018-09-01 09:39 | Outpatient (REF) | payer MEDICARE, SELFPAY ==
[2018-09-01 10:27] LABS: Abs Immature Grans 0.02 k/cumm (0.0-0.09); Absolute Basophil Count 0.02 k/cumm (0.0-0.2); Absolute Eosinophil Count 0.21 k/cumm (0.0-0.7); Absolute Lymphocyte Count 0.57 k/cumm (1.2-3.4); Absolute Monocyte Count 0.43 k/cumm (0.11-0.7); Absolute Neutrophil Count 4.94 k/cumm (1.2-6.7); Basophils % 0.3; Eosinophils % 3.4; HCT 33.8 % (36.0-46.0); HGB 10.5 g/dL (12.0-15.5); Immature Grans % 0.3; Lymphocytes % 9.2; Mean Corp. HGB Concentration 31.1 g/dL (32.0-36.0); Mean Corpuscular Hemoglobin 27.9 pg (27.0-33.0); Mean Corpuscular Volume 89.7 fL (80-95); Mean Platelet Volume 9.6 fL (8.0-11.0); Monocytes % 6.9; Neutrophils % 79.9; RBC 3.77 m/cumm (4.00-5.20); RBC Distribution Width 20.3 % (11.7-14.6); White Blood Cell Count 6.19 k/cumm (4.4-10.8)
[2018-09-01 10:38] LABS: Iron 23 ug/dL (50-175); Total Iron Binding Capacity 214 ug/dL (250-450); Transferrin Sat 11 % (15-50)
[2018-09-01 10:47] LABS: ALT 26 U/L (12-78); AST 18 U/L (15-37); Albumin 2.6 g/dL (3.4-5.0); Alkaline Phosphatase 89 U/L (46-116); Anion Gap 9.7 mmol/L (3-11); BUN 21 mg/dL (7-18); Bilirubin, Total 0.4 mg/dL (0.2-1.0); CO2 25.3 mmol/L (21.0-32.0); CREATININE 0.82 mg/dL (0.55-1.02); Calcium 9.5 mg/dL (8.5-10.1); Chloride 107 mmol/L (98-107); Ferritin 141 ng/mL (8-388); Glucose 276 mg/dL (70-100); Potassium 3.8 mmol/L (3.5-5.1); Sodium 142 mmol/L (136-145); Total Protein 5.8 g/dL (6.4-8.2)
[2018-09-01 10:56] LABS: Platelet Count 68 x1000/uL (130-400)
== END 2018-09-01 09:59 ==
LOC: LBN 09:39
PROVIDERS: PCP Internal Medicine; Visit Provider Internal Medicine Hematology & Oncology
DX: C54.1 Malignant neoplasm of endometrium (principal); D50.8 Other iron deficiency anemias
CPT/HCPCS: 80053; 82728; 83540; 83550; 85025

== ENCOUNTER → 2018-09-16 10:43 | Outpatient (BNVA) | payer MEDICARE, SELFPAY | PROVIDERS: PCP Internal Medicine; Referring Provider Internal Medicine; Visit Provider Orthopaedic Surgery | DX: L02.416 Cutaneous abscess of left lower limb (principal); E11.9 Type 2 diabetes mellitus without complications; Z79.4 Long term (current) use of insulin; I10 Essential (primary) hypertension; Z47.89 Encounter for other orthopedic aftercare ==

== ENCOUNTER → 2018-10-15 10:29 | Outpatient (BNVA) | payer MEDICARE, SELFPAY | PROVIDERS: PCP Internal Medicine; Referring Provider Internal Medicine; Visit Provider Orthopaedic Surgery | DX: Z47.89 Encounter for other orthopedic aftercare (principal); L02.416 Cutaneous abscess of left lower limb | CPT/HCPCS: 99242 ==

== ENCOUNTER 2018-11-12 11:26 | Outpatient (CLI) | payer MEDICARE, SELFPAY ==
--- NOTE | 2018-11-12 11:17 | DI.RAD_ITS ---
SYMPTOMS/DIAGNOSIS: FOLLOW UP AP PELVIS: The patient is status post bilateral BOLA. The prostheses in good position and surrounding bone intact. There has been no appreciable interval change when compared with images dating back to 06/12/18.
== END 2018-11-12 11:46 ==
PROVIDERS: PCP Internal Medicine; Referring Provider Internal Medicine; Visit Provider Orthopaedic Surgery
DX: Z96.643 Presence of artificial hip joint, bilateral (principal); Z47.1 Aftercare following joint replacement surgery; L02.416 Cutaneous abscess of left lower limb; Z47.89 Encounter for other orthopedic aftercare
CPT/HCPCS: 72170

== ENCOUNTER → 2018-12-10 10:34 | Outpatient (BNVA) | payer MEDICARE, SELFPAY | PROVIDERS: PCP Internal Medicine; Referring Provider Internal Medicine; Visit Provider Orthopaedic Surgery | DX: Z47.89 Encounter for other orthopedic aftercare (principal); L02.416 Cutaneous abscess of left lower limb | CPT/HCPCS: 99213 ==

== ENCOUNTER → 2019-01-07 09:26 | Outpatient (BNVA) | payer MEDICARE, SELFPAY | PROVIDERS: PCP Internal Medicine; Referring Provider Internal Medicine; Visit Provider Orthopaedic Surgery | DX: Z47.89 Encounter for other orthopedic aftercare (principal); L02.416 Cutaneous abscess of left lower limb | CPT/HCPCS: 99211; 99212 ==

== ENCOUNTER 2019-01-12 11:35 | Emergency (ER) | payer MEDICARE, SELFPAY ==
[2019-01-12] VITALS (84 sets, daily range): BP systolic 99–133; BP diastolic 45–102; PULSE 72–154; RESP 11–26; TEMP 35.9–37.1; O2SAT 85–98
--- NOTE | 2019-01-12 12:08 | W.ED.GENAD ---
Discharge Plan Disposition Patient Disposition: [facility] Condition: Stable Discharge Details Chief Complaint: GenMedical Clinical Impression: UTI (urinary tract infection), Generalized weakness, AF (paroxysmal atrial fibrillation) Primary Care Provider: Chano Leon ED Provider: Cristopher Peguero Home Meds and New Rx's Prescriptions: No Action atorvastatin 40 mg tablet 40 mg PO DAILY RF: 0 sennosides-docusate sodium [Senna with Docusate Sodium] 1 EACH tablet 1 ea PO BID RF: 0 acetaminophen [Tylenol Extra Strength] 500 MG tablet 1,000 mg PO BID RF: 0 magnesium oxide 400 MG tablet 400 mg PO DAILY RF: 0 memantine [Namenda] 10 MG tablet 10 mg PO BID RF: 0 multivitamin 1 EACH capsule 1 cap PO DAILY RF: 0 duloxetine [Cymbalta] 60 MG capsule,delayed release(DR/EC) 60 mg PO DAILY RF: 0 furosemide 20 mg Tablet 40 mg PO DAILY RF: 0 Levemir FlexTouch U-100 Insuln 100 unit/mL (3 mL) Insulin Pen 48 unit SUBCUT QAM RF: 0 metoprolol tartrate 25 mg Tablet 25 mg PO Q12H Qty: 60 RF: 0 aspirin [Aspir-81] 81 MG tablet,delayed release (DR/EC) 81 mg PO BID Qty: 80 RF: 0 megestrol 40 mg Tablet 160 mg PO DAILY RF: 0 levothyroxine 150 mcg Tablet 150 mcg PO DAILY@0600 Qty: 0 RF: 0 Novolog Flexpen U-100 Insulin 100 unit/mL Insulin Pen subcut 0800,1200,1700 Qty: 0 RF: 0 donepezil [Aricept] 5 MG tablet 10 mg PO DAILY Qty: 0 RF: 0 tamoxifen 20 mg Tablet 40 mg PO .AFTERNOON RF: 0 Discharge Data Discharge Date/Time-TO BE ENTERED AT DEPARTURE: 01/12/19 20:20 Medical Decision Making <Cristopher Peguero NP - Last Filed: 01/14/19 10:08> Patient presenting the emergency department for chief complaint of generalized weakness, malaise, worsening confusion. states that she has had a chronic wound since August and has a wound VAC that did have puslike drainage a week ago but per orthopedist this was not of concern as wound has been drastically improving. He does state that over the past week patient has had more difficulties ambulating and over the past 2-3 days he has had useful assistance to get patient out of bed into the bathroom otherwise patient has not wanted to do normal activities of daily living. Exam does show irregular heart rhythm and tachycardia, wound VAC in place with no surrounding erythema to the wound and wound otherwise looking appropriate, generalized weakness, otherwise unremarkable exam. Plan to check labs including blood cultures, lactate. does state continued incontinence. Plan to check urinalysis. On bedside monitor it was noted that patient was intermittently in atrial fibrillation with rapid response. does state the patient has not been taking her normally prescribed meds including metoprolol. Patient does have history of paroxysmal atrial fibrillation. IV metoprolol was ordered. Labs are reviewed and show a leukocytosis with shift, chronic anemia, negative troponin, mildly elevated creatinine, findings suggestive of urinary tract infection otherwise nondiagnostic labs. Given some slight EKG changes plan to check secondary troponin and attempt to admit patient given generalized weakness, UTI, and paroxysmal A. fib that is been controlled with IV metoprolol. Given findings of urinary tract infection patient given 1 g of Rocephin and given mildly elevated creatinine patient given 500 mL bolus of normal saline and then 125 an hour per Second troponin is negative. Attempted to contact [facility] as we do not have any telemetry beds available at our facility and they also state no beds available at their facility. Was able to contact [facility] and spoke with Dr. Murillo given patient's condition and he was willing to accept patient in transfer for further treatment patient and spouse were agreeable to this plan of care. <J Carlos Fishman DO - Last Filed: 01/13/19 12:05> EKG 12: 01 Rate 95, intervals normal, sinus rhythm, less than [address] elevation V1 V2, and less than [address] depression in V4 V5 and V6. Q wave in lead III and aVF. No evidence of STEMI criteria and, ST elevation is present in previous EKG from 08/07/18, however the ST depression is certainly new compared to that EKG. HPI <Cristopher Peguero NP - Last Filed: 01/14/19 10:08> General Mode of arrival: wheelchair. Date/Time Provider Initiated Documentation: 01/12/19 11:36. Limitations to Documentation: no limitations. Information obtained by: patient, family, RN notes reviewed and old records reviewed. History of Present Illness 73 year old F presents to the emergency department with the chief complaint of weakness, confusion, described as moderate, with intensity rated at 5. Quality is described as aching, and is localized to the left and lower extremity. Patient started experiencing this week(s) (1) and it has been constant. Movement worsens symptoms . Patient notes no other symptoms.. Patient did receive the following treatments prior to arrival, none Related Data Home Medications Medication Instructions Recorded Confirmed multivitamin 1 cap PO DAILY 07/22/13 01/12/19 duloxetine [Cymbalta] 60 mg PO DAILY 04/19/14 01/12/19 acetaminophen [Tylenol Extra 1,000 mg PO BID 06/12/17 01/12/19 Strength] magnesium oxide 400 mg PO DAILY 06/12/17 01/12/19 memantine [Namenda] 10 mg PO BID 06/12/17 01/12/19 sennosides-docusate sodium [Senna 1 ea PO BID 06/12/17 01/12/19 with Docusate Sodium] atorvastatin 40 mg tablet 40 mg PO DAILY 06/12/18 01/12/19 aspirin [Aspir-81] 81 mg PO BID #80 tab 08/01/18 01/12/19 metoprolol tartrate 25 mg PO Q12H #60 tab 08/01/18 01/12/19 megestrol 160 mg PO DAILY 08/07/18 01/12/19 Novolog Flexpen U-100 Insulin 0 units SUBCUT 0800,1200,1700 #0 ml 08/11/18 01/12/19 donepezil [Aricept] 10 mg PO DAILY #0 tab-cap 08/11/18 01/12/19 levothyroxine 150 mcg PO DAILY@0600 #0 tab 08/11/18 01/12/19 tamoxifen 40 mg PO .AFTERNOON 09/01/18 01/12/19 furosemide 40 mg PO DAILY 01/12/19 01/12/19 insulin detemir U-100 [Levemir 48 unit SUBCUT QAM 01/12/19 01/12/19 FlexTouch U-100 Insuln] Previous Rx's Medication Instructions Recorded aspirin [Aspir-81] 81 mg PO BID #80 tab 08/01/18 metoprolol tartrate 25 mg PO Q12H #60 tab 08/01/18 Novolog Flexpen U-100 Insulin 0 units SUBCUT 0800,1200,1700 #0 ml 08/11/18 donepezil [Aricept] 10 mg PO DAILY #0 tab-cap 08/11/18 levothyroxine 150 mcg PO DAILY@0600 #0 tab 08/11/18 Allergies Allergy/AdvReac Type Severity Reaction Status Date / Time metformin Allergy Unknown Verified 01/12/19 12:09 sulfamethoxazole Allergy Unknown Verified 01/12/19 12:09 [From Bactrim] trimethoprim [From Bactrim] Allergy Unknown Verified 01/12/19 12:09 General ALEKS: 3 Review of Systems <Cristopher Peguero NP - Last Filed: 01/14/19 10:08> Constitutional Reports weakness Cardiovascular Denies chest pain, Denies syncope, Denies rapid heart rate, Denies irregular heart rhythm and Denies palpitations Gastrointestinal Denies abdominal pain, Denies nausea and Denies vomiting Genitourinary Denies flank pain, Reports urinary incontinence, Denies urinary hesitancy and Denies urinary urgency Musculoskeletal Reports as per HPI Integumentary/Breasts Denies rash, Denies sores and Reports wounds Neurologic Reports confusion, Denies syncope, Denies lack of coordination, Denies focal weakness and Reports weakness Psychiatric Reports confusion Endocrine Denies palpitations PFSH <Cristopher Peguero NP - Last Filed: 01/14/19 10:08> Medical History Alzheimer disease (Chronic) [id number] diabetes mellitus without complications (Acute) Anemia of chronic disease (Chronic) Iron deficiency anemia (Chronic) Osteoarthritis of both hips (Chronic) 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, insulin dependent (Chronic) Hypertension (Chronic) Depression (Chronic) Hypercholesterolemia (Chronic) Asthma (Chronic) Osteopenia (Chronic) Mitral regurgitation (Chronic) Right groin pain (Acute) History of osteosarcoma (Chronic) History of myocardial infarction (Chronic) Elevated lipids (Chronic) Endometrial cancer (Acute) SVT (supraventricular tachycardia) (Chronic) GI bleed (Resolved) Surgical History History of Surgical Procedure (Chronic) Social History Smoking/Tobacco Use Status: Never Drug use: Never Caregiver/Support person: Yes Household members: spouse Housing: house Pets and animals: Yes Do you feel safe at home: Yes Do you feel safe in your relationship?: Yes Exam <Cristopher Peguero NP - Last Filed: 01/14/19 10:08> Const General: cooperative and no acute distress Nutritional Appearance: average body habitus Orientation: alert, awake and oriented x3 Limitations: mental status not altered Neck Neck: normal visual inspection, full ROM, trachea midline, supple and no anterior neck swelling Thyroid: thyroid normal Carotids: normal carotid upstroke and no bruits Chest Chest: normal inspection of the chest Resp Effort & Inspection: normal respiratory effort and able to speak in complete sentences Auscultation: clear to auscultation bilaterally Cardio Jugular venous pressure: no JVD Palpation: normal PMI Rate: tachycardic Rhythm: abnormal rhythm irregularly irregular Heart Sounds: S1 normal, S2 normal, no click, no gallops, murmur systolic III/ and no rubs Bruits: no abdominal aortic bruits and no carotid bruits Pulses: radial pulses present bilaterally 2+ GI Inspection: normal to inspection Palpation: soft, no aortic enlargement, no pulsatile masses and nontender Auscultation: normal bowel sounds Skin General skin exam: no rashes or lesions noted Neuro General: alert, awake, oriented x3, tone normal and moves all extremities Extrem General: other (Wound VAC in place to left upper lateral thigh) Course <Cristopher Peguero NP - Last Filed: 01/14/19 10:08> Lab/Test Results Lab/Test Results: 01/12/19 11:43 Blood Blood Culture - Pending 01/12/19 11:43 Blood Blood Culture - Pending
[2019-01-12] MEDS: Metoprolol 5 MG/5 ML VIAL 2.5 MG IVP ×2 (12:51→14:30)
[2019-01-12 13:03] LABS: Lactate 1.7 mmol/L (0.6-1.4)
[2019-01-12 13:03] LABS: Bilirubin Moderate (Negative); Blood Small (Negative); Clarity Cloudy; Glucose Negative (Negative); Ketones 15 mg/dL (Negative); Leukocyte Esterase Small (Negative); Nitrite Negative (Negative); Specific Gravity 1.015 (1.005-1.025); Urobilinogen 0.2 EU/dL (Up TO 0.2); pH 8.5 (5-8)
[2019-01-12 13:07] LABS: Abs Immature Grans 0.05 k/cumm (0.0-0.09); Absolute Lymphocyte Count 0.72 k/cumm (1.2-3.4); Basophils % 0.1; Eosinophils % 0.1; HCT 32.7 % (36.0-46.0); HGB 9.6 g/dL (12.0-15.5); Immature Grans % 0.3; Lymphocytes % 3.8; Mean Corp. HGB Concentration 29.4 g/dL (32.0-36.0); Mean Corpuscular Hemoglobin 22.5 pg (27.0-33.0); Mean Corpuscular Volume 76.8 fL (80-95); Mean Platelet Volume 10.1 fL (8.0-11.0); Monocytes % 6.2; Neutrophils % 89.5; RBC 4.26 m/cumm (4.00-5.20); RBC Distribution Width 18.7 % (11.7-14.6); White Blood Cell Count 18.98 k/cumm (4.4-10.8)
[2019-01-12 13:14] LABS: Bacteria Many HPF (Negative); Crystals Negative HPF (Negative); Epithelial Cells Rare HPF (Negative); Mucus Moderate (Negative); Other Cells Few Transitional (Negative); WBC >50 HPF (0-5)
[2019-01-12 13:15] LABS: C & S Indicated? Yes
[2019-01-12 13:24] LABS: ALT 33 U/L (12-78); AST 27 U/L (15-37); Albumin 1.8 g/dL (3.4-5.0); Alkaline Phosphatase 207 U/L (46-116); Anion Gap 15.4 mmol/L (3-11); BUN 25 mg/dL (7-18); Bilirubin, Total 0.4 mg/dL (0.2-1.0); CO2 22.6 mmol/L (21.0-32.0); CREATININE 1.19 mg/dL (0.55-1.02); Calcium 9.1 mg/dL (8.5-10.1); Chloride 100 mmol/L (98-107); Estimated GFR 44.22 (mL/min/1.73m2); Glucose 170 mg/dL (70-100); Potassium 4.1 mmol/L (3.5-5.1); Sodium 138 mmol/L (136-145); Total Protein 6.8 g/dL (6.4-8.2)
[2019-01-12 13:30] LABS: Troponin I < 0.02 ng/mL (0.00-0.06)
[2019-01-12 13:31] LABS: Absolute Basophil Count 0.02 k/cumm (0.0-0.2); Absolute Eosinophil Count 0.02 k/cumm (0.0-0.7); Absolute Monocyte Count 1.18 k/cumm (0.11-0.7); Absolute Neutrophil Count 16.99 k/cumm (1.2-6.7)
[2019-01-12 13:32] LABS: Anisocytosis 2+; Diff Comment RBC Morph Reviewed; Hypochromasia 2+; Microcytosis 2+; Poikilocytes 1+; Polychromasia Present
[2019-01-12] MEDS: Normal Saline 500 ML IV (13:33)
[2019-01-12] MEDS: cefTRIAXone 1 GM/50 ML BAG IVPB (14:39)
[2019-01-12] MEDS: Normal Saline 1,000 ML 125 ML IV (15:39)
[2019-01-12 18:00] LABS: Troponin I < 0.02 ng/mL (0.00-0.06)
== END 2019-01-12 20:20 | disposition short-term general hospital (02) ==
PROVIDERS: Emergency Provider Nurse Practitioner Family; PCP Internal Medicine
DX: N39.0 Urinary tract infection, site not specified (principal); B96.4 Proteus (mirabilis) (morganii) as the cause of diseases classified elsewhere; I48.0 Paroxysmal atrial fibrillation; I47.2 Ventricular tachycardia; R53.1 Weakness; R41.0 Disorientation, unspecified; E11.9 Type 2 diabetes mellitus without complications; Z79.4 Long term (current) use of insulin; R94.31 Abnormal electrocardiogram [ECG] [EKG]; Z91.14 Patient's other noncompliance with medication regimen; Z91.138 Patient's unintentional underdosing of medication regimen for other reason; I10 Essential (primary) hypertension
CPT/HCPCS: 36415; 36416; 51701; 80053; 82962; 87040; 87077; 93005; 96361; 96365; 96375; 96376; 99285; 81003; 81015; 83605; 84484; 85025; 87086; 87186; 93010; 99284; J0696

== ENCOUNTER → 2019-01-28 10:22 | Outpatient (BNVA) | payer MEDICARE, SELFPAY | PROVIDERS: PCP Internal Medicine; Referring Provider Internal Medicine; Visit Provider Orthopaedic Surgery | DX: L02.416 Cutaneous abscess of left lower limb (principal); Z47.89 Encounter for other orthopedic aftercare; I10 Essential (primary) hypertension; E11.9 Type 2 diabetes mellitus without complications; Z79.4 Long term (current) use of insulin ==

== ENCOUNTER → 2019-03-11 09:48 | Outpatient (BNVA) | payer MEDICARE, SELFPAY | PROVIDERS: PCP Internal Medicine; Referring Provider Internal Medicine; Visit Provider Orthopaedic Surgery | DX: L02.416 Cutaneous abscess of left lower limb (principal); Z48.00 Encounter for change or removal of nonsurgical wound dressing; E11.9 Type 2 diabetes mellitus without complications; Z79.4 Long term (current) use of insulin; I10 Essential (primary) hypertension | CPT/HCPCS: 99211; 99213 ==

== ENCOUNTER → 2019-04-08 09:55 | Outpatient (BNVA) | payer MEDICARE, SELFPAY | PROVIDERS: PCP Internal Medicine; Referring Provider Internal Medicine; Visit Provider Orthopaedic Surgery | DX: L02.416 Cutaneous abscess of left lower limb (principal) | CPT/HCPCS: 99213 ==

== ENCOUNTER → 2019-05-13 09:50 | Outpatient (BNVA) | payer MEDICARE, SELFPAY | PROVIDERS: PCP Internal Medicine; Referring Provider Internal Medicine; Visit Provider Orthopaedic Surgery | DX: L02.416 Cutaneous abscess of left lower limb (principal); Z48.00 Encounter for change or removal of nonsurgical wound dressing | CPT/HCPCS: 99213 ==

== ENCOUNTER → 2019-06-24 10:21 | Outpatient (BNVA) | payer MEDICARE, SELFPAY | PROVIDERS: PCP Internal Medicine; Referring Provider Internal Medicine; Visit Provider Orthopaedic Surgery | DX: L02.416 Cutaneous abscess of left lower limb (principal) | CPT/HCPCS: 99213 ==

== ENCOUNTER → 2019-08-05 10:25 | Outpatient (BNVA) | payer MEDICARE, SELFPAY | PROVIDERS: PCP Internal Medicine; Referring Provider Internal Medicine; Visit Provider Orthopaedic Surgery | DX: L02.416 Cutaneous abscess of left lower limb (principal) | CPT/HCPCS: 99213 ==

== ENCOUNTER → 2019-09-16 10:20 | Outpatient (BNVA) | payer MEDICARE, SELFPAY | PROVIDERS: PCP Internal Medicine; Referring Provider Internal Medicine; Visit Provider Orthopaedic Surgery | DX: L02.416 Cutaneous abscess of left lower limb (principal) | CPT/HCPCS: 99213 ==

== ENCOUNTER → 2019-11-11 10:21 | Outpatient (BNVA) | payer MEDICARE, SELFPAY | PROVIDERS: PCP Internal Medicine; Referring Provider Internal Medicine; Visit Provider Orthopaedic Surgery | DX: L02.416 Cutaneous abscess of left lower limb (principal) | CPT/HCPCS: 99213 ==

== ENCOUNTER → 2019-12-09 10:20 | Outpatient (BNVA) | payer MEDICARE, SELFPAY | PROVIDERS: PCP Internal Medicine; Referring Provider Internal Medicine; Visit Provider Orthopaedic Surgery | DX: L02.416 Cutaneous abscess of left lower limb (principal) | CPT/HCPCS: 99213 ==

== ENCOUNTER 2021-07-11 16:39 | Outpatient (REF) | payer MEDICARE, SELFPAY ==
[2021-07-13 16:39] LABS: COVID-19 RT-PCR UVMMC Result Negative (Negative)
== END 2021-07-11 16:40 | disposition home or self-care (01) ==
LOC: NCHCN 16:39
PROVIDERS: PCP Internal Medicine; Visit Provider Nurse Practitioner Family
DX: Z20.822 Contact with and (suspected) exposure to COVID-19 (principal)
CPT/HCPCS: U0003

== ENCOUNTER 2021-12-20 16:11 | Outpatient (REF) | payer MEDICARE, SELFPAY ==
[2021-12-20 20:08] LABS: Abs Immature Grans 0.05 10^3/uL (0.0-0.06); Absolute Basophil Count 0.03 10^3/uL (0.0-0.2); Absolute Eosinophil Count 0.15 10^3/uL (0.0-0.7); Absolute Lymphocyte Count 0.86 10^3/uL (1.2-3.4); Absolute Monocyte Count 0.69 10^3/uL (0.1-0.8); Absolute Neutrophil Count 8.57 10^3/uL (1.2-6.7); Basophils % 0.3; Eosinophils % 1.4; HGB 9.3 g/dL (11.2-15.7); Immature Grans % 0.5; Lymphocytes % 8.3; MCH 23.4 pg (27.0-33.0); MCHC 28.2 % (32.0-36.0); MCV 83.1 fL (80-95); MPV 9.6 fL (8.0-11.0); Monocytes % 6.7; Neutrophils % 82.8; Nucleated RBC 0 %; Platelet Count 488 10^3/uL (130-400); RBC 3.97 10^6/uL (3.93-5.22); RDW 20.5 % (11.7-14.6); RDW-SD 62.2 fL; WBC 10.35 10^3/uL (4.4-10.8)
[2021-12-20 20:25] LABS: Iron 14 ug/dL (50-170); Total Iron Binding Capacity 155 ug/dL (250-450); Transferrin Sat 9 % (15-50)
[2021-12-20 20:39] LABS: Anion Gap 9.1 mmol/L (3-11); BUN 19 mg/dL (7-18); CO2 23.9 mmol/L (21.0-32.0); CREATININE 0.9 mg/dL (0.55-1.02); Calcium 8.7 mg/dL (8.5-10.1); Chloride 108 mmol/L (98-107); Ferritin 238 ng/mL (8-252); Glucose 408 mg/dL (74-106); Sodium 141 mmol/L (136-145)
== END 2021-12-20 16:12 | disposition home or self-care (01) ==
LOC: NCHCN 16:11
PROVIDERS: PCP Internal Medicine; Visit Provider Internal Medicine
DX: D50.9 Iron deficiency anemia, unspecified (principal); M00.852 Arthritis due to other bacteria, left hip
CPT/HCPCS: 80048; 82728; 83540; 83550; 85025